=== PATIENT | female | born 1940 | race Caucasian/White ===

== ENCOUNTER 2016-03-22 | Outpatient (CLI) | payer MEDICARE, MEDICAID | END 2016-03-22 08:09 | disposition critical access hospital (66) | CPT/HCPCS: A0425; A0429 ==

== ENCOUNTER 2016-03-22 08:26 | Inpatient (IN) | payer MEDICARE, MEDICAID ==
[2016-03-22] MEDS ORDERED: IOPAMIDOL-300 100 ML VIAL IVP ONE (11:24)
[2016-03-22] MEDS ORDERED: ONDANSETRON 4 MG/2 ML VIAL IVP PRN (14:25)
[2016-03-22] MEDS ORDERED: ONDANSETRON ODT 4 MG TABLET TL PRN (14:25)
[2016-03-22] MEDS ORDERED: HYDROmorphone 1 MG/ML SYRINGE IVP PRN (14:25)
[2016-03-22] MEDS ORDERED: HYDROcod/ACETAM 5/325 MG TABLET PO PRN (14:25)
[2016-03-22] MEDS ORDERED: PROCHLORPERAZINE 10 MG/2 ML VIAL IVP PRN (14:25)
[2016-03-22] MEDS: metroNIDAZOLE 500 MG/100 ML 50 ML IV SCH ×2 (15:40→20:56)
[2016-03-22] MEDS: CIPROFLOXACIN 200 MG/100 ML 100 ML IV SCH (15:46)
[2016-03-22] MEDS: CARBIDOPA/LEVODOPA ER 50 MG/200 MG TABLET PO SCH (15:46)
[2016-03-22] MEDS: SODIUM CHLORIDE FLUSH 0.9% 10 ML SYRINGE IVP SCH (15:47)
[2016-03-22] MEDS: ACETAMINOPHEN 325 MG TABLET PO PRN (15:52)
[2016-03-22] MEDS: PANTOPRAZOLE 40 MG VIAL IVP SCH (15:53)
[2016-03-22] MEDS ORDERED: cloNIDine 0.1 MG PATCH TOP SCH (16:00)
[2016-03-22] MEDS ORDERED: MIRTAZAPINE 15 MG TABLET ONE (20:53)
[2016-03-22] MEDS: METOPROLOL TARTRATE 25 MG TABLET PO SCH (20:55)
[2016-03-22] MEDS: MIRTAZAPINE 15 MG TABLET PO SCH (20:56)
[2016-03-22] MEDS: LISINOPRIL 5 MG TABLET PO SCH (20:56)
[2016-03-23] MEDS: metroNIDAZOLE 500 MG/100 ML 50 ML IV SCH ×4 (02:08→21:11)
[2016-03-23] MEDS: SODIUM CHLORIDE FLUSH 0.9% 10 ML SYRINGE IVP PRN (02:10)
[2016-03-23] MEDS: CIPROFLOXACIN 200 MG/100 ML 100 ML IV SCH ×2 (04:05→16:49)
[2016-03-23] MEDS: SODIUM CHLORIDE FLUSH 0.9% 10 ML SYRINGE IVP SCH ×3 (06:11→21:12)
[2016-03-23] MEDS: PANTOPRAZOLE 40 MG VIAL IVP SCH (06:12)
[2016-03-23] MEDS: METOPROLOL TARTRATE 25 MG TABLET PO SCH ×2 (08:00→21:12)
[2016-03-23] MEDS: LISINOPRIL 5 MG TABLET PO SCH ×2 (08:03→21:12)
[2016-03-23] MEDS: CARBIDOPA/LEVODOPA ER 50 MG/200 MG TABLET PO SCH ×2 (08:03→15:38)
[2016-03-23] MEDS: POLYETHYLENE GLYCOL 3350 17 GM PACKET PO SCH (08:04)
[2016-03-23] MEDS: MIRTAZAPINE 15 MG TABLET PO SCH (21:11)
[2016-03-24] MEDS: metroNIDAZOLE 500 MG/100 ML 50 ML IV SCH ×2 (01:34→08:42)
[2016-03-24] MEDS: SODIUM CHLORIDE FLUSH 0.9% 10 ML SYRINGE IVP PRN ×2 (01:34→06:08)
[2016-03-24] MEDS: ACETAMINOPHEN 325 MG TABLET PO PRN ×2 (02:58→10:13)
[2016-03-24] MEDS: CIPROFLOXACIN 200 MG/100 ML 100 ML IV SCH (05:02)
[2016-03-24] MEDS: SODIUM CHLORIDE FLUSH 0.9% 10 ML SYRINGE IVP SCH ×2 (05:02→06:08)
[2016-03-24] MEDS: PANTOPRAZOLE 40 MG VIAL IVP SCH (06:07)
[2016-03-24] MEDS: CARBIDOPA/LEVODOPA ER 50 MG/200 MG TABLET PO SCH (08:41)
[2016-03-24] MEDS: LISINOPRIL 5 MG TABLET PO SCH (08:42)
[2016-03-24] MEDS: METOPROLOL TARTRATE 25 MG TABLET PO SCH (08:42)
[2016-03-24] MEDS: POLYETHYLENE GLYCOL 3350 17 GM PACKET PO SCH (08:42)
== END 2016-03-24 10:25 | disposition home or self-care (01) | DRG 379 ==
DX: K57.33 Diverticulitis of large intestine without perforation or abscess with bleeding (principal); G20 Parkinson's disease; I10 Essential (primary) hypertension; Z79.82 Long term (current) use of aspirin; Z79.899 Other long term (current) drug therapy; M19.90 Unspecified osteoarthritis, unspecified site; K21.9 Gastro-esophageal reflux disease without esophagitis; K59.00 Constipation, unspecified; Z86.73 Personal history of transient ischemic attack (TIA), and cerebral infarction without residual deficits

== ENCOUNTER 2016-10-09 14:10 | Outpatient (CLI) | payer MEDICARE, MEDICAID ==
[2016-10-09 19:15] LABS: EOSINOPHILS # (AUTO) 0.1 10^3/uL (0.0-0.7); MONOCYTES # (AUTO) 0.5 10^3/uL (0.0-1.0)
[2016-10-09 19:19] LABS: BASOPHILS % (AUTO) 0.6 %; EOSINOPHILS % (AUTO) 1.7 %; HCT - HEMATOCRIT 41.5 % (37.0-47.0); HGB - HEMOGLOBIN 14.1 g/dL (12.0-16.0); LYMPHOCYTES # (AUTO) 2.5 10^3/uL (1.5-3.5); LYMPHOCYTES % (AUTO) 34.2 %; MEAN CORPUSCULAR HEMOGLOBIN 33.7 pg (27.0-31.0); MEAN PLATELET VOLUME 8.3 fL (7.9-10.8); MONOCYTES % (AUTO) 6.8 %; NEUTROPHILS # (AUTO) 4.2 10^3/uL (1.5-6.6); NEUTROPHILS % (AUTO) 56.7 %; RED BLOOD COUNT 4.19 10^6/uL (4.20-5.40); RED CELL DISTRIBUTION WIDTH 12.9 % (12.0-15.0); UNCORRECTED WHITE BLOOD COUNT 7.4 x10^3/uL; WHITE BLOOD COUNT 7.4 x10^3/uL (4.8-10.8)
[2016-10-09 19:56] LABS: ALBUMIN/GLOBULIN RATIO 1.4 (1.0-2.2); BILIRUBIN,TOTAL 0.4 mg/dL (0.2-1.0); BUN - BLOOD UREA NITROGEN 9 mg/dL (6-20); CALCIUM 8.9 mg/dL (8.5-10.3); CARBON DIOXIDE - CO2 28 mmol/L (21-32); CHLORIDE 102 mmol/L (101-111); CHOL/HDL RATIO 2.6 (<4.4); CHOLESTEROL 160 mg/dL; CREATININE 0.7 mg/dL (0.4-1.0); GFR - MDRD 82 (>89); GLUCOSE 127 mg/dL (70-100); HDL CHOLESTEROL 62 mg/dL; POTASSIUM 3.7 mmol/L (3.5-5.0); SODIUM 138 mmol/L (135-145); TOTAL PROTEIN 7.1 g/dL (6.7-8.2); TRIGLYCERIDES 177 mg/dL; VLDL CHOLESTEROL 35 mg/dL
[2016-10-09 20:36] LABS: HEMOGLOBIN A1C 0.55 g/dL
== END 2016-10-09 14:11 ==
LOC: LAB.N 14:10
PROVIDERS: ATTEND Family Medicine
DX: Z51.81 Encounter for therapeutic drug level monitoring (principal)
CPT/HCPCS: 36415; 80053; 80061; 83036; 85025

== ENCOUNTER 2016-11-11 08:36 | Outpatient (CLI) | payer MEDICARE, MEDICAID | END 2016-11-11 08:37 | disposition critical access hospital (66) | LOC: EMS 08:36 | PROVIDERS: ATTEND Surgery | DX: R55 Syncope and collapse (principal) | CPT/HCPCS: A0425; A0429 ==

== ENCOUNTER 2016-11-11 08:54 | Emergency (ER) | payer MEDICARE, MEDICAID ==
[2016-11-11] MEDS ORDERED: SODIUM CHLORIDE 0.9% 1,000 ML IV ONE (09:05)
--- NOTE | 2016-11-11 09:09 | ED Physician Documentation ---
History of Present Illness - Stated complaint Stated Complaint: NEAR SYNCOPE - Chief complaint Chief Complaint: Neuro - History obtained from History obtained from: Patient - Additonal information Additional information: Patient is a 76-year-old female with a history of hypertension and arthritis. She presents with a complaint of a near syncopal episode. She woke up this morning feeling fine. The patient was bending over putting on her compression stockings which sometimes takes a good deal of force. While doing so patient felt dizzy. She denies any headache or chest pain or shortness of breath at that time. She thought perhaps her blood sugar is low and got up and ate 3 cookies and then had a feeling that she had to have a bowel movement and went to the bathroom. After defecating she felt lightheaded while sitting on the toilet and called for her . By the time the ambulance arrived the patient felt better although they noted that she was mildly diaphoretic. The patient's blood pressure, pulse and blood sugar all normal at the time of EMS arrival. She denies any chest pain, headache numbness tingling weakness or really any other symptom other than the onset of dizziness not really described as vertigo and mild nausea. Review of systems: For pertinent positive and negatives in the review of systems please see the history of present illness, otherwise all other systems have been reviewed and are negative. Dragalex disclaimer: Parts of this medical record were created using voice recognition technology. Because of the inherent limitations of this system, occasional same sounding word substitutions do occur and persist despite proofreading. Please read the document for context. Review of Systems Constitutional: denies: Fever, Chills, Myalgias Eyes: denies: Loss of vision Ears: denies: Loss of hearing Cardiac: denies: Chest pain / pressure, Palpitations Respiratory: denies: Dyspnea, Cough GI: reports: Nausea. denies: Abdominal Pain, Abdominal Swelling, Vomiting : denies: Dysuria, Frequency, Hesitancy, Unable to Void Skin: denies: Rash Musculoskeletal: denies: Neck pain Neurologic: reports: Near syncope. 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 - Present Medications Home Medications: Ambulatory Orders Medication Instructions Recorded Confirmed Carbidopa/Levodopa [Sinemet Cr 1 tab PO 0900,1500 08/05/12 11/11/16 50-200 Tablet] Lisinopril [Zestril] 5 mg PO BID 05/13/15 11/11/16 Mirtazapine [Remeron] 30 mg PO DAILY 05/13/15 11/11/16 Metoprolol Tartrate [Lopressor] 12.5 mg PO BID 06/07/15 11/11/16 Acetaminophen 500 mg PO DAILY 03/22/16 11/11/16 Aspirin [Aspirin EC] 81 mg PO DAILY 03/22/16 11/11/16 Omeprazole 20 mg ORAL DAILY 03/22/16 11/11/16 cloNIDine 0.1 MG PATCH 1 patch TOP Q7D 03/22/16 11/11/16 [[id number]] Acetaminophen [Tylenol] 325 mg PO QPM 03/23/16 11/11/16 Saccharomyces Boulardii [Florastor] 250 mg PO BID #20 capsule 03/24/16 11/11/16 - Allergies Allergies/Adverse Reactions: Allergies Allergy/AdvReac Type Severity Reaction Status Date / Time No Known Drug Allergies Allergy Verified 11/11/16 09:07 - Social History Does the pt smoke?: No Smoking Status: Never smoker Does the pt drink ETOH?: No Does the pt have substance abuse?: No - Immunizations Immunizations are current?: No - POLST Patient has POLST: No PD ED PE NORMAL - Vitals Vital signs reviewed: Yes - General General: Alert and oriented X 3, No acute distress, Well developed/nourished, Other (Well-appearing female no apparent distress she has a mild parkinsonian tremor) - HEENT HEENT: Atraumatic, PERRL - Neck Neck: Supple, no meningeal sign - Cardiac Cardiac: RRR, No murmur - Respiratory Respiratory: No respiratory distress - Abdomen Abdomen: Normal bowel sounds, Soft, Non tender, Non distended - Female Female : Deferred, Pt declined, Strapper And Buffer present, Other - Derm Derm: Normal color, Warm and dry - Extremities Extremities: No deformity, No tenderness to palpate, Normal ROM s pain, No edema - Neuro Neuro: Alert and oriented X 3, 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, No motor deficit, No sensory deficit - Psych Psych: Normal mood, Normal affect Results - Vitals Vitals: Vital Signs - 24 hr 11/11/16 11/11/16 11/11/16 09:01 09:13 09:30 Temperature 36.8 C Heart Rate 80 78 77 Respiratory 18 14 17 Rate Blood Pressure 135/77 H 135/77 H 138/77 H O2 Saturation 96 100 100 11/11/16 11/11/16 11/11/16 10:30 11:30 12:00 Temperature Heart Rate 78 83 89 Respiratory 15 16 15 Rate Blood Pressure 144/82 H 148/78 H 139/78 H O2 Saturation 100 99 99 11/11/16 11/11/16 11/11/16 12:30 13:04 14:04 Temperature Heart Rate 82 81 82 Respiratory 15 13 15 Rate Blood Pressure 160/72 H 186/92 H 161/94 H O2 Saturation 99 100 100 Oxygen O2 Source [With Activity] Room air O2 Source [Without Activity] Room air O2 Source Room air - Labs Labs: Laboratory Tests 11/11/16 11/11/16 11/11/16 09:10 09:10 10:32 WBC 12.8 H RBC 4.08 L Hgb 13.3 Hct 39.7 MCV 97.3 MCH 32.6 H MCHC 33.5 RDW 12.2 Plt Count 195 MPV 7.6 L Neut # 10.3 H Lymph # 1.4 L [place] # 0.9 Eos # 0.1 Baso # 0.1 Absolute Nucleated RBC 0.01 Nucleated RBCs 0.0 Sodium 138 Potassium 3.9 Chloride 104 Carbon Dioxide 26 Anion Gap 8.0 BUN 12 Creatinine 0.8 Estimated GFR (MDRD) 70 L Glucose 120 H Calcium 8.7 Total Bilirubin 0.5 AST 28 ALT 11 Alkaline Phosphatase 43 Troponin I < 0.04 Total Protein 6.6 L Albumin 3.8 Globulin 2.8 Albumin/Globulin Ratio 1.4 Lipase 25 Urine Color Urine Clarity Urine pH Ur Specific [place] Urine Protein Urine Glucose (UA) Urine Ketones Urine Occult Blood Urine Nitrite Urine Bilirubin Urine Urobilinogen Ur Leukocyte Esterase Ur Microscopic Review Urine Culture Comments 11/11/16 11:00 WBC RBC Hgb Hct MCV MCH MCHC RDW Plt Count MPV Neut # Lymph # [place] # Eos # Baso # Absolute Nucleated RBC Nucleated RBCs Sodium Potassium Chloride Carbon Dioxide Anion Gap BUN Creatinine Estimated GFR (MDRD) Glucose Calcium Total Bilirubin AST ALT Alkaline Phosphatase Troponin I Total Protein Albumin Globulin Albumin/Globulin Ratio Lipase Urine Color LT. YELLOW Urine Clarity CLEAR Urine pH 6.0 Ur Specific [place] <=1.005 Urine Protein NEGATIVE Urine Glucose (UA) NEGATIVE Urine Ketones NEGATIVE Urine Occult Blood NEGATIVE Urine Nitrite NEGATIVE Urine Bilirubin NEGATIVE Urine Urobilinogen 0.2 (NORMAL) Ur Leukocyte Esterase NEGATIVE Ur Microscopic Review NOT INDICATED Urine Culture Comments NOT INDICATED PD MEDICAL DECISION MAKING - ED course Complexity details: reviewed old records, reviewed results, re-evaluated patient , considered differential, d/w patient, d/w family ED course: Patient is 76-year-old female who had the feeling of dizziness with a near syncopal episode this morning. Her symptoms started when she is bending over putting on her hosiery. She felt dizzy and then got up and went to the bathroom and had a bowel movement and then felt a little worse. She stood up and called her who called EMS. By the time the ambulance arrived she felt better and had normal vital signs and blood sugar at that time. She denies the presence of any high risk symptoms such as chest pain or shortness of breath. She does not have any leg swelling and she had no neurologic complaints other than dizziness. She has had this problem off and on for many years and this happens infrequently to her. Overall she is healthy and she is low risk for cerebrovascular, cardiovascular and peripheral vascular disease. Here on physical examination she has a mild parkinsonian tremor otherwise is alert and oriented 3. She has a normal neurologic cardiac, pulmonary, and gastrointestinal exam. An EKG was done his EKG shows normal sinus rhythm with normal TX, QRS, QT interval without ST segment elevation depression or T-wave inversion overall to normal EKG. Blood work on this patient is also unremarkable. We obtained a urinalysis and it is negative for infection. She was given 1 L of normal saline and has been asymptomatic the entire time. She demonstrated that she could ambulate without any recurrent symptoms or difficulty and at this time she is deemed stable for discharge to home. The etiology of these events is unknown however they have been present for a long time and do not appear to be escalating or worsening. Disposition: To home Clinical impression: 1. Acute dizziness-resolved, etiology unclear Departure - Departure Disposition: Home, Self Care Clinical Impression: Dizziness Condition: Good Instructions: ED Dizziness UKO, ED Near Syncope Unkn Follow-Up: Janes Van MD [Primary Care Provider] - Discharge Date/Time: 11/11/16 14:13
[2016-11-11] MEDS ORDERED: SODIUM CHLORIDE FLUSH 0.9% 10 ML SYRINGE IVP ONE ×2 (09:12→09:32)
[2016-11-11 10:14] LABS: ALBUMIN/GLOBULIN RATIO 1.4 (1.0-2.2); BILIRUBIN,TOTAL 0.5 mg/dL (0.2-1.0); CALCIUM 8.7 mg/dL (8.5-10.3); CREATININE 0.8 mg/dL (0.4-1.0); POTASSIUM 3.9 mmol/L (3.5-5.0); TOTAL PROTEIN 6.6 g/dL (6.7-8.2)
[2016-11-11 10:36] LABS: BASOPHILS # (AUTO) 0.1 10^3/uL (0.0-0.1); BASOPHILS % (AUTO) 0.5 %; EOSINOPHILS # (AUTO) 0.1 10^3/uL (0.0-0.7); EOSINOPHILS % (AUTO) 0.8 %; HCT - HEMATOCRIT 39.7 % (37.0-47.0); HGB - HEMOGLOBIN 13.3 g/dL (12.0-16.0); LYMPHOCYTES # (AUTO) 1.4 10^3/uL (1.5-3.5); MEAN CORPUSCULAR HEMOGLOBIN 32.6 pg (27.0-31.0); MEAN CORPUSCULAR HGB CONC 33.5 g/dL (32.0-36.0); MEAN CORPUSCULAR VOLUME 97.3 fL (81.0-99.0); MEAN PLATELET VOLUME 7.6 fL (7.9-10.8); MONOCYTES # (AUTO) 0.9 10^3/uL (0.0-1.0); NEUTROPHILS # (AUTO) 10.3 10^3/uL (1.5-6.6); NEUTROPHILS % (AUTO) 80.7 %; RED BLOOD COUNT 4.08 10^6/uL (4.20-5.40); RED CELL DISTRIBUTION WIDTH 12.2 % (12.0-15.0); UNCORRECTED WHITE BLOOD COUNT 12.8 x10^3/uL; WHITE BLOOD COUNT 12.8 x10^3/uL (4.8-10.8)
[2016-11-11 11:15] LABS: BILIRUBIN,URINE NEGATIVE (NEGATIVE)
[2016-11-11 11:16] LABS: UA CHARGE (STRIP ONLY) YES; UR CULTURE IF IND NOT INDICATED
[2016-11-11 14:05] VITALS: BP 161/94
== END 2016-11-11 14:13 | disposition home or self-care (01) ==
LOC: EDUNIT# → ED 08:54
DX: R42 Dizziness and giddiness (principal); R94.31 Abnormal electrocardiogram [ECG] [EKG]; I10 Essential (primary) hypertension; Z86.73 Personal history of transient ischemic attack (TIA), and cerebral infarction without residual deficits; G20 Parkinson's disease
CPT/HCPCS: 36415; 80053; 81001; 81003; 83690; 84484; 85025; 87086; 93005; 96360; 99284; 99285

== ENCOUNTER 2016-12-17 16:06 | Outpatient (CLI) | payer MEDICARE, MEDICAID | END 2016-12-17 16:07 | disposition critical access hospital (66) | LOC: EMS 16:06 | PROVIDERS: ATTEND Surgery | DX: R00.2 Palpitations (principal); R51 Headache; R42 Dizziness and giddiness | CPT/HCPCS: A0425; A0427 ==

== ENCOUNTER 2016-12-17 16:26 | Emergency (ER) | payer MEDICARE, MEDICAID ==
--- NOTE | 2016-12-17 16:37 | ED Physician Documentation ---
PD HPI CHEST PAIN - Stated complaint Stated Complaint: PALPITATIONS - Chief complaint Chief Complaint: Cardiac - History obtained from History obtained from: Patient, EMS - History of Present Illness Timing - onset: How many days ago (last few days to a week has noted BP go up after eating (she feels some nausea and flush feeling, so takes her BP, and it is elevated). No chest pain. Does feel some pressure in head when it is elevated. She does feel her heart is forcefull with elevated BP but no chest pain.) Timing - onset during: Light activity, Eating Timing - duration: Days, Weeks Timing - details: Intermittant Quality: No: Pressure, Tightness Location: Substernal Improved by: Rest Worsened by: Eating Associated symptoms: Nausea, General Weakness, Palpitations (forceful heart beat but not fast nor irregular.). No: Shortness of air, Diaphoresis, Vomiting , Feeling faint / dizzy Similar symptoms before: Diagnosis (hypertension) Recently seen: Clinic (had had new BP med couple months ago and was doing okay for her.) Review of Systems Ten Systems: 10 systems reviewed and negative Constitutional: denies: Fever, Chills Nose: denies: Rhinorrhea / runny nose, Congestion Throat: denies: Sore throat Cardiac: reports: Palpitations. denies: Pedal edema, Calf pain Respiratory: denies: Dyspnea, Cough GI: reports: Nausea. 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 - Present Medications Home Medications: Ambulatory Orders Medication Instructions Recorded Confirmed Carbidopa/Levodopa [Sinemet Cr 1 tab PO 0900,1500 08/05/12 12/17/16 50-200 Tablet] Lisinopril [Zestril] 5 mg PO BID 05/13/15 12/17/16 Mirtazapine [Remeron] 30 mg PO DAILY 05/13/15 12/17/16 Metoprolol Tartrate [Lopressor] 25 mg PO BID 06/07/15 12/17/16 Acetaminophen 500 mg PO DAILY 03/22/16 12/17/16 Aspirin [Aspirin EC] 81 mg PO DAILY 03/22/16 12/17/16 Omeprazole 20 mg ORAL DAILY 03/22/16 12/17/16 cloNIDine 0.1 MG PATCH 1 patch TOP Q7D 03/22/16 12/17/16 [[id number]-1] Acetaminophen [Tylenol] 325 mg PO QPM 03/23/16 12/17/16 Famotidine [Pepcid] 20 mg PO ONCE #30 tablet 12/18/16 Metoprolol Tartrate [Lopressor] 25 mg PO BID #30 tablet 12/18/16 - Allergies Allergies/Adverse Reactions: Allergies Allergy/AdvReac Type Severity Reaction Status Date / Time No Known Drug Allergies Allergy Verified 12/17/16 16:34 - Social History Does the pt smoke?: No Smoking Status: Never smoker Does the pt drink ETOH?: No Does the pt have substance abuse?: No - Immunizations Immunizations are current?: No - POLST Patient has POLST: No PD ED PE NORMAL - Vitals Vital signs reviewed: Yes - General General: Alert and oriented X 3, No acute distress, Well developed/nourished, Other (seems moderately anxious. 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 No: Normal affect Results - Vitals Vitals: Oxygen O2 Source [With Activity] Room air O2 Source [Without Activity] Room air O2 Source Room air - Labs Labs: Laboratory Tests 12/17/16 12/17/16 12/17/16 16:42 16:42 16:42 WBC 5.9 RBC 4.25 Hgb 14.5 Hct 41.9 MCV 98.5 MCH 34.1 H MCHC 34.7 RDW 12.4 Plt Count 205 MPV 7.9 Neut # 3.5 Lymph # 1.7 [place] # 0.4 Eos # 0.2 Baso # 0.1 Absolute Nucleated RBC 0.01 Nucleated RBC % 0.1 Sodium 138 Potassium 3.7 Chloride 103 Carbon Dioxide 26 Anion Gap 9.0 BUN 11 Creatinine 0.7 Estimated GFR (MDRD) 82 L Glucose 147 H Calcium 8.6 Magnesium Total Bilirubin < 0.2 L AST 25 ALT < 10 L Alkaline Phosphatase 61 Troponin I < 0.04 Total Protein 7.3 Albumin 4.2 Globulin 3.1 Albumin/Globulin Ratio 1.4 Lipase 28 12/17/16 16:42 WBC RBC Hgb Hct MCV MCH MCHC RDW Plt Count MPV Neut # Lymph # [place] # Eos # Baso # Absolute Nucleated RBC Nucleated RBC % Sodium Potassium Chloride Carbon Dioxide Anion Gap BUN Creatinine Estimated GFR (MDRD) Glucose Calcium Magnesium 2.1 Total Bilirubin AST ALT Alkaline Phosphatase Troponin I Total Protein Albumin Globulin Albumin/Globulin Ratio Lipase PD MEDICAL DECISION MAKING - ED course Complexity details: reviewed results, considered differential (seems like reactive HTN and the BP comes down pretty well to 140s without particular treatment. Concern would be for going too low. Interesting timing with eating but also goes up with anxious feeling. Mostly I think she is taking her pressure too often and I told her to not check it so much. ), d/w patient Departure - Departure Disposition: 01 Home, Self Care Clinical Impression: Palpitations, Elevated blood pressure, situational Condition: Stable Record reviewed to determine appropriate education?: Yes Follow-Up: Janes Van MD [Primary Care Provider] - Comments: Continue current medications. Your blood pressure was elevated for a while but is better here without particular treatment. It is unclear the cause of the pounding heart rate you had earlier. Drink adequate fluids. Follow-up with your primary care if you have recurrent episodes for consideration of a Holter monitor or other testing. Discharge Date/Time: 12/17/16 19:26
[2016-12-17 17:01] LABS: BASOPHILS # (AUTO) 0.1 10^3/uL (0.0-0.1); BASOPHILS % (AUTO) 1.1 %; EOSINOPHILS # (AUTO) 0.2 10^3/uL (0.0-0.7); EOSINOPHILS % (AUTO) 2.7 %; HCT - HEMATOCRIT 41.9 % (37.0-47.0); HGB - HEMOGLOBIN 14.5 g/dL (12.0-16.0); LYMPHOCYTES # (AUTO) 1.7 10^3/uL (1.5-3.5); LYMPHOCYTES % (AUTO) 29.3 %; MEAN CORPUSCULAR HEMOGLOBIN 34.1 pg (27.0-31.0); MEAN CORPUSCULAR HGB CONC 34.7 g/dL (32.0-36.0); MEAN CORPUSCULAR VOLUME 98.5 fL (81.0-99.0); MEAN PLATELET VOLUME 7.9 fL (7.9-10.8); MONOCYTES # (AUTO) 0.4 10^3/uL (0.0-1.0); MONOCYTES % (AUTO) 7.4 %; NEUTROPHILS # (AUTO) 3.5 10^3/uL (1.5-6.6); NEUTROPHILS % (AUTO) 59.5 %; NUCLEATED RED BLOOD CELLS AUTO 0.1 /100WBC; RED BLOOD COUNT 4.25 10^6/uL (4.20-5.40); RED CELL DISTRIBUTION WIDTH 12.4 % (12.0-15.0); UNCORRECTED WHITE BLOOD COUNT 5.9 x10^3/uL; WHITE BLOOD COUNT 5.9 x10^3/uL (4.8-10.8)
[2016-12-17 17:09] LABS: ALBUMIN/GLOBULIN RATIO 1.4 (1.0-2.2); BILIRUBIN,TOTAL < 0.2 mg/dL (0.2-1.0); BUN - BLOOD UREA NITROGEN 11 mg/dL (6-20); CALCIUM 8.6 mg/dL (8.5-10.3); CARBON DIOXIDE - CO2 26 mmol/L (21-32); CHLORIDE 103 mmol/L (101-111); CREATININE 0.7 mg/dL (0.4-1.0); GFR - MDRD 82 (>89); GLUCOSE 147 mg/dL (70-100); LIPASE 28 U/L (22-51); POTASSIUM 3.7 mmol/L (3.5-5.0); SODIUM 138 mmol/L (135-145); TOTAL PROTEIN 7.3 g/dL (6.7-8.2)
--- NOTE | 2016-12-17 18:18 | XRAY Preliminary Report ---
Exam: XR Chest 1 View IMPRESSION: Normal single view chest. [facility] SITE ID: [id number]
--- NOTE | 2016-12-17 18:20 | XRAY Report ---
EXAM: CHEST RADIOGRAPHY EXAM DATE: 12/17/2016 05:39 PM. CLINICAL HISTORY: Chest pain. COMPARISON: 07/31/2014. TECHNIQUE: 1 view. FINDINGS: Lungs/Pleura: No focal opacities evident. No pleural effusion. No pneumothorax. Mediastinum: Within exam limitations, the cardiomediastinal contour is normal. Other: None. IMPRESSION: Normal single view chest. [facility] Referring Provider Line: [phone] SITE ID: [id number]
[2016-12-17 19:15] VITALS: BP 164/85
== END 2016-12-17 19:26 | disposition home or self-care (01) ==
LOC: EDUNIT# → ED 16:26
DX: R00.2 Palpitations (principal); I10 Essential (primary) hypertension; G20 Parkinson's disease; K21.9 Gastro-esophageal reflux disease without esophagitis; M19.90 Unspecified osteoarthritis, unspecified site; Z86.73 Personal history of transient ischemic attack (TIA), and cerebral infarction without residual deficits; Z79.82 Long term (current) use of aspirin
CPT/HCPCS: 36415; 71010; 80053; 83690; 83735; 84484; 85025; 93005; 99283; 99284

== ENCOUNTER 2016-12-18 15:10 | Outpatient (CLI) | payer MEDICARE, MEDICAID | END 2016-12-18 15:11 | disposition critical access hospital (66) | LOC: EMS 15:10 | PROVIDERS: ATTEND Surgery | DX: R53.83 Other fatigue (principal); R03.0 Elevated blood-pressure reading, without diagnosis of hypertension | CPT/HCPCS: A0425; A0429 ==

== ENCOUNTER 2016-12-18 15:32 | Emergency (ER) | payer MEDICARE, MEDICAID ==
[2016-12-18 16:12] LABS: BILIRUBIN,URINE NEGATIVE (NEGATIVE)
[2016-12-18 16:13] LABS: UA CHARGE (STRIP ONLY) YES; UR CULTURE IF IND NOT INDICATED
--- NOTE | 2016-12-18 17:28 | ED Physician Documentation ---
PD HPI ALTERED MENTAL STATUS - Stated complaint Stated Complaint: WEAK - Chief complaint Chief Complaint: General - History obtained from History obtained from: Patient, Family - History of Present Illness Timing - onset: Today (feeling flushed and some pressure in head. No chest pain. Noted BP to be elevated again, worse after eating.) Timing - details: Gradual onset, Intermittant, Waxing and waning Quality / character: Other (feeling anxious). No: Less responsive, Unresponsive Associated symptoms: Dyspnea. No: Fever, Headache, General weakness Contributing factors: No: Recent med change, Recent illness Basline status: Alert and oriented X 3, Ambulatory Similar symptoms before: Diagnosis (high blood pressure) Recently seen: Emergency Dept (yesterday for similar and was concerned about BP elevated. She feels nausea and some flushing feeling, more after eating, then takes BP and it is elevated, and it goes higher as she keeps rechecking it. This gets her concerned.) Review of Systems Constitutional: denies: Fever Nose: denies: Rhinorrhea / runny nose, Congestion Throat: denies: Sore throat Cardiac: denies: Chest pain / pressure, Palpitations, Pedal edema, Calf pain Respiratory: denies: Cough, Wheezing GI: reports: Nausea (sometimes after eating). denies: Abdominal Pain Skin: denies: Rash, Lesions Neurologic: reports: Generalized weakness. 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 - Present Medications Home Medications: Ambulatory Orders Medication Instructions Recorded Confirmed Carbidopa/Levodopa [Sinemet Cr 1 tab PO 0900,1500 08/05/12 12/17/16 50-200 Tablet] Lisinopril [Zestril] 5 mg PO BID 05/13/15 12/17/16 Mirtazapine [Remeron] 30 mg PO DAILY 05/13/15 12/17/16 Metoprolol Tartrate [Lopressor] 25 mg PO BID 06/07/15 12/17/16 Acetaminophen 500 mg PO DAILY 03/22/16 12/17/16 Aspirin [Aspirin EC] 81 mg PO DAILY 03/22/16 12/17/16 Omeprazole 20 mg ORAL DAILY 03/22/16 12/17/16 cloNIDine 0.1 MG PATCH 1 patch TOP Q7D 03/22/16 12/17/16 [[id number]-4] Acetaminophen [Tylenol] 325 mg PO QPM 03/23/16 12/17/16 Famotidine [Pepcid] 20 mg PO ONCE #30 tablet 12/18/16 Metoprolol Tartrate [Lopressor] 25 mg PO BID #30 tablet 12/18/16 - Allergies Allergies/Adverse Reactions: Allergies Allergy/AdvReac Type Severity Reaction Status Date / Time No Known Drug Allergies Allergy Verified 12/17/16 16:34 - Social History Does the pt smoke?: No Smoking Status: Never smoker Does the pt drink ETOH?: No Does the pt have substance abuse?: No - Immunizations Immunizations are current?: No - POLST Patient has POLST: No PD ED PE NORMAL - Vitals Vital signs reviewed: Yes - General General: Alert and oriented X 3, Well developed/nourished, Other (anxious) - HEENT HEENT: Pharynx benign - Neck Neck: Supple, no meningeal sign, No adenopathy - Cardiac Cardiac: RRR, No murmur - Respiratory Respiratory: Clear bilaterally - Abdomen Abdomen: Soft, Non tender - Derm Derm: Normal color, Warm and dry - Extremities Extremities: No tenderness to palpate, Normal ROM s pain, No edema, No calf tenderness / cord - Neuro Neuro: Alert and oriented X 3, 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, No motor deficit, No sensory deficit, Normal speech Results - Vitals Vitals: Vital Signs - 24 hr 12/18/16 12/18/16 12/18/16 15:43 16:45 17:17 Temperature 36.9 C Heart Rate 83 64 90 Respiratory 18 16 Rate Blood Pressure 172/103 H 140/67 H 147/73 H O2 Saturation 98 99 98 12/18/16 12/18/16 12/18/16 18:50 18:55 19:02 Temperature Heart Rate 91 75 79 Respiratory Rate Blood Pressure 133/87 H 159/88 H 153/80 H O2 Saturation 99 Oxygen O2 Source [With Activity] Room air O2 Source [Without Activity] Room air O2 Source Room air - Labs Labs: Laboratory Tests 12/18/16 15:50 Urine Color LIGHT YELLOW Urine Clarity CLEAR Urine pH 7.0 Ur Specific [place] <=1.005 Urine Protein NEGATIVE Urine Glucose (UA) NEGATIVE Urine Ketones NEGATIVE Urine Occult Blood NEGATIVE Urine Nitrite NEGATIVE Urine Bilirubin NEGATIVE Urine Urobilinogen 0.2 (NORMAL) Ur Leukocyte Esterase NEGATIVE Ur Microscopic Review NOT INDICATED Urine Culture Comments NOT INDICATED PD MEDICAL DECISION MAKING - ED course Complexity details: reviewed old records (from yesterday), reviewed results, considered differential, d/w patient Departure - Departure Disposition: Home, Self Care Clinical Impression: Elevated blood pressure reading Condition: Stable Record reviewed to determine appropriate education?: Yes Follow-Up: Janes Van MD [Primary Care Provider] - Prescriptions: Famotidine [Pepcid] 20 mg PO ONCE #30 tablet Metoprolol Tartrate [Lopressor] 25 mg PO BID #30 tablet Comments: Increase your metoprolol from 25 mg in the morning to 50 mg in the morning and keep the nighttime dose at 25 mg. Other medications the same. Add famotidine twice daily for the first few days and then daily after that to better reduce the stomach acids. We will try this since you have noticed your feeling uncomfortable and blood pressure going up after eating. This may suggest some stomach irritation. Follow-up with the primary care clinic as scheduled on the . Return sooner if worse symptoms. Discharge Date/Time: 12/18/16 20:05
[2016-12-18] MEDS ORDERED: METOPROLOL 5 MG/5 ML VIAL IVP STA (18:00)
[2016-12-18] MEDS ORDERED: FAMOTIDINE 20 MG TABLET PO STA (18:01)
[2016-12-18] MEDS ORDERED: FAMOTIDINE 20 MG TABLET ONE (18:50)
[2016-12-18] MEDS ORDERED: METOPROLOL 5 MG/5 ML VIAL IVP ONE (18:50)
[2016-12-18 19:05] VITALS: BP 153/80
== END 2016-12-18 20:05 | disposition home or self-care (01) ==
LOC: EDUNIT# → ED 15:32
DX: I10 Essential (primary) hypertension (principal); G20 Parkinson's disease; Z86.73 Personal history of transient ischemic attack (TIA), and cerebral infarction without residual deficits; K21.9 Gastro-esophageal reflux disease without esophagitis; M19.90 Unspecified osteoarthritis, unspecified site; Z79.82 Long term (current) use of aspirin
CPT/HCPCS: 81003; 96374; 99283; A9270; 81001; 87086

== ENCOUNTER 2017-01-20 12:33 | Outpatient (CLI) | payer MEDICARE, MEDICAID ==
[2017-01-20] MEDS ORDERED: IOPAMIDOL-300 100 ML VIAL ONE (15:00)
== END 2017-01-20 12:34 | disposition critical access hospital (66) ==
LOC: EMS 12:33
PROVIDERS: ATTEND Surgery
DX: R11.0 Nausea (principal); R10.9 Unspecified abdominal pain
CPT/HCPCS: A0425; A0427; Q9967

== ENCOUNTER 2017-01-20 12:54 | Observation (INO) | payer MEDICARE, MEDICAID ==
[2017-01-20] MEDS ORDERED: SODIUM CHLORIDE 0.9% 1,000 ML IV ONE ×2 (13:20→16:05)
[2017-01-20] MEDS ORDERED: ONDANSETRON 4 MG/2 ML VIAL IVP STA ×3 (13:20→16:06)
[2017-01-20] MEDS ORDERED: ONDANSETRON 4 MG/2 ML VIAL ONE ×3 (13:26→16:35)
[2017-01-20 13:30] LABS: BASOPHILS # (AUTO) 0.1 10^3/uL (0.0-0.1); BASOPHILS % (AUTO) 0.8 %; EOSINOPHILS # (AUTO) 0.1 10^3/uL (0.0-0.7); HCT - HEMATOCRIT 45.6 % (37.0-47.0); HGB - HEMOGLOBIN 15.5 g/dL (12.0-16.0); LYMPHOCYTES # (AUTO) 0.8 10^3/uL (1.5-3.5); LYMPHOCYTES % (AUTO) 5.8 %; MEAN CORPUSCULAR HEMOGLOBIN 32.8 pg (27.0-31.0); MEAN CORPUSCULAR VOLUME 96.6 fL (81.0-99.0); MEAN PLATELET VOLUME 7.6 fL (7.9-10.8); MONOCYTES # (AUTO) 0.4 10^3/uL (0.0-1.0); NEUTROPHILS # (AUTO) 11.8 10^3/uL (1.5-6.6); NEUTROPHILS % (AUTO) 89.4 %; RED BLOOD COUNT 4.72 10^6/uL (4.20-5.40); RED CELL DISTRIBUTION WIDTH 12.6 % (12.0-15.0); UNCORRECTED WHITE BLOOD COUNT 13.3 x10^3/uL; WHITE BLOOD COUNT 13.3 x10^3/uL (4.8-10.8)
[2017-01-20 13:43] LABS: ALBUMIN/GLOBULIN RATIO 0.6 (1.0-2.2); BILIRUBIN,TOTAL 0.6 mg/dL (0.2-1.0); CALCIUM 8.5 mg/dL (8.5-10.3); CREATININE 0.7 mg/dL (0.4-1.0); POTASSIUM 3.9 mmol/L (3.5-5.0); TOTAL PROTEIN 7.3 g/dL (6.7-8.2)
--- NOTE | 2017-01-20 14:33 | ED Physician Documentation ---
PD HPI ABD PAIN - Stated complaint Stated Complaint: ABD PX - Chief complaint Chief Complaint: Abd Pain - History obtained from History obtained from: Patient - History of Present Illness Timing - onset: How many hours ago (3-4), Today Timing - duration: Hours Timing - details: Abrupt onset, Still present Quality: Cramping, Aching, Pain Location: RLQ Radiation: Right flank Improved by: Laying still. No: Eating, Position Worsened by: Eating (made her more nauseated), Moving, Palpation. No: Breathing Associated symptoms: Nausea, Vomiting, Diarrhea (had 2 loose stools soon after onset of the pain, but not since. 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 No: Fever, Hematemesis, Constipation, Melena, Near syncope / syncope Similar symptoms before: Has not had sx before Recently seen: Not recently seen Review of Systems Constitutional: denies: Fever, Chills Nose: denies: Rhinorrhea / runny nose, Congestion Throat: denies: Sore throat Cardiac: denies: Chest pain / pressure, Palpitations Respiratory: denies: Dyspnea, Cough GI: reports: Abdominal Pain, Nausea, Vomiting, Diarrhea. denies: Bloody / black stool : denies: Dysuria, Frequency Skin: denies: Rash, Lesions Musculoskeletal: denies: Neck pain, Back pain Neurologic: reports: Generalized weakness. 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 - Present Medications Home Medications: Ambulatory Orders Medication Instructions Recorded Confirmed Carbidopa/Levodopa [Sinemet Cr 1 tab PO 0900,1500 08/05/12 01/20/17 50-200 Tablet] Lisinopril [Zestril] 5 mg PO BID 05/13/15 01/20/17 Mirtazapine [Remeron] 30 mg PO DAILY 05/13/15 01/20/17 Acetaminophen 500 mg PO DAILY 03/22/16 01/20/17 Aspirin [Aspirin EC] 81 mg PO DAILY 03/22/16 01/20/17 Omeprazole 20 mg ORAL DAILY 03/22/16 01/20/17 Acetaminophen [Tylenol] 325 mg PO QPM 03/23/16 01/20/17 Metoprolol Tartrate [Lopressor] 25 mg PO BID #30 tablet 12/18/16 01/20/17 - Allergies Allergies/Adverse Reactions: Allergies Allergy/AdvReac Type Severity Reaction Status Date / Time No Known Drug Allergies Allergy Verified 12/17/16 16:34 - Social History Does the pt smoke?: No Smoking Status: Never smoker Does the pt drink ETOH?: No Does the pt have substance abuse?: No - Family History Family history: reports: Non contributory - Immunizations Immunizations are current?: No - POLST Patient has POLST: No PD ED PE NORMAL - Vitals Vital signs reviewed: Yes - General General: Alert and oriented X 3, Well developed/nourished - HEENT HEENT: Atraumatic, PERRL, Pharynx benign - Neck Neck: Supple, no meningeal sign, No adenopathy - Cardiac Cardiac: RRR, No murmur - Respiratory Respiratory: Clear bilaterally - Abdomen Abdomen: Non distended, No organomegaly, Other (tender RLQ with some guarding, but not percussion tenderness. ) - Female Female : Deferred - Rectal Rectal: Deferred - Back Back: No CVA TTP - Derm Derm: Normal color, Warm and dry - Extremities Extremities: No tenderness to palpate, Normal ROM s pain, No edema, No calf tenderness / cord - Neuro Neuro: Alert and oriented X 3, No motor deficit, Normal speech Eye Opening: Spontaneous Motor: Obeys Commands Verbal: Oriented GCS Score: 15 Results - Vitals Vitals: Vital Signs - 24 hr 01/20/17 01/20/17 01/20/17 12:59 14:35 15:30 Temperature 36.8 C Heart Rate 100 94 97 Respiratory 14 17 Rate Blood Pressure 154/92 H 158/84 H 158/87 H O2 Saturation 98 100 98 Oxygen O2 Source [With Activity] Room air O2 Source [Without Activity] Room air O2 Source Room air - Labs Labs: Laboratory Tests 01/20/17 01/20/17 01/20/17 13:25 13:25 13:25 WBC 13.3 H RBC 4.72 Hgb 15.5 Hct 45.6 MCV 96.6 MCH 32.8 H MCHC 34.0 RDW 12.6 Plt Count 211 MPV 7.6 L Neut # 11.8 H Lymph # 0.8 L Spink # 0.4 Eos # 0.1 Baso # 0.1 Absolute Nucleated RBC 0.00 Nucleated RBC % 0.0 Sodium 136 Potassium 3.9 Chloride 102 Carbon Dioxide 24 Anion Gap 10.0 BUN 13 Creatinine 0.7 Estimated GFR (MDRD) 82 L Glucose 130 H Calcium 8.5 Total Bilirubin 0.6 AST 27 ALT 21 Alkaline Phosphatase 47 Troponin I < 0.04 Total Protein 7.3 Albumin 2.6 L Globulin 4.7 H Albumin/Globulin Ratio 0.6 L Lipase 25 Urine Color Urine Clarity Urine pH Ur Specific [place] Urine Protein Urine Glucose (UA) Urine Ketones Urine Occult Blood Urine Nitrite Urine Bilirubin Urine Urobilinogen Ur Leukocyte Esterase Ur Microscopic Review Urine Culture Comments 01/20/17 15:47 WBC RBC Hgb Hct MCV MCH MCHC RDW Plt Count MPV Neut # Lymph # Spink # Eos # Baso # Absolute Nucleated RBC Nucleated RBC % Sodium Potassium Chloride Carbon Dioxide Anion Gap BUN Creatinine Estimated GFR (MDRD) Glucose Calcium Total Bilirubin AST ALT Alkaline Phosphatase Troponin I Total Protein Albumin Globulin Albumin/Globulin Ratio Lipase Urine Color YELLOW Urine Clarity CLEAR Urine pH 6.5 Ur Specific [place] <=1.005 Urine Protein NEGATIVE Urine Glucose (UA) NEGATIVE Urine Ketones TRACE Urine Occult Blood NEGATIVE Urine Nitrite NEGATIVE Urine Bilirubin NEGATIVE Urine Urobilinogen 0.2 (NORMAL) Ur Leukocyte Esterase NEGATIVE Ur Microscopic Review NOT INDICATED Urine Culture Comments NOT INDICATED PD MEDICAL DECISION MAKING - ED course Complexity details: reviewed results (no surgical conditions on CT. ), re- evaluated patient (Still having considerable abd pains, now roaming more and not just RLQ. Nausea returning despite meds, but did improve enough to take her usual Parkinsons meds PO. Will place her in OBS for persistent pain/nausea, presume enteritis. ), considered differential (Concern for appendicitis versus kidney stone versus right-sided diverticular pain or other processes. She was given IV fluids and medicines for pain and nausea. CT scan was done which did not show any obvious acute surgical process. Presume viral enteritis. However it is concerning for her to have pain and vomiting and the symptoms have persisted despite medications. I talked with the hospitalist who agreed to place her in observation for ongoing treatment.), d/w patient Departure - Departure Disposition: ED Place in Observation Clinical Impression: Nausea and vomiting Qualifiers: Vomiting type: unspecified Vomiting Intractability: intractable Qualified Code( s): R11.2 - Nausea with vomiting, unspecified Abdominal pain Qualifiers: Abdominal location: generalized Qualified Code(s): R10.84 - Generalized abdominal pain Clinical Impression: (Ruled Out): Appendicitis Condition: Stable Record reviewed to determine appropriate education?: Yes Discharge Date/Time: 01/20/17 17:20
[2017-01-20] MEDS ORDERED: HYDROmorphone 1 MG/ML SYRINGE IVP STA ×2 (14:50→16:04)
[2017-01-20] MEDS ORDERED: KETOROLAC 60 MG/2 ML VIAL IVP STA (14:50)
[2017-01-20] MEDS ORDERED: IOPAMIDOL-300 100 ML VIAL IVP ONE (15:22)
[2017-01-20] MEDS ORDERED: HYDROmorphone 1 MG/ML SYRINGE ONE ×2 (15:28→16:35)
[2017-01-20] MEDS ORDERED: KETOROLAC 15 MG/ML VIAL ONE (15:29)
--- NOTE | 2017-01-20 15:49 | CT Report ---
EXAM: CT ABDOMEN AND PELVIS EXAM DATE: 01/20/2017 03:23 PM. CLINICAL HISTORY: RLQ pain since this morning. COMPARISONS: 03/22/2016. TECHNIQUE: Routine helical CT imaging was performed through the abdomen and pelvis. IV contrast: 100M L OF ISOVUE 300. Enteric contrast: No. Reconstructions: Coronal and sagittal. In accordance with CT protocol optimization, one or more of the following dose reduction techniques w ere utilized for this exam: automated exposure control, adjustment of mA and/or KV based on patient s ize, or use of iterative reconstructive technique. FINDINGS: Lung Bases: Unremarkable. Liver: No change. Peripheral low-density liver lesion in the right lobe measuring 1 cm in diameter is unchanged. Liver size is normal. Liver vessels are patent. Gallbladder/Bile Ducts: Gallbladder is surgically absent. Spleen: Normal. Pancreas: Normal. Adrenal Glands: Normal. Kidneys: There are parapelvic cysts in the left kidney without change. No renal mass or hydronephrosi s. Peritoneal Cavity/Bowel: There are a moderate number of diverticula within the sigmoid colon without focal mesenteric inflammation identified. No pneumatosis or free air. The cecum is ectopic and locate d in the right mid abdomen. The wall of the colon appears normal in thickness. No evidence of acute a ppendicitis. Pelvic Organs: Normal. The bladder and visualized pelvic organs are within normal limits. Vasculature: Abdominal aorta is normal in caliber. Bones: No significant abnormality. Other: None. IMPRESSION: 1. Moderate colonic diverticulosis without acute diverticulitis. 2. Ectopic cecum without evidence of bowel obstruction or acute appendicitis. 3. No other acute process. [facility] Referring Provider Line: [phone] SITE ID: [id number]
[2017-01-20 15:54] LABS: BILIRUBIN,URINE NEGATIVE (NEGATIVE); PH,URINE 6.5 PH (5.0-7.5)
[2017-01-20 15:57] LABS: UA CHARGE (STRIP ONLY) YES; UR CULTURE IF IND NOT INDICATED
[2017-01-20] MEDS ORDERED: ACETAMINOPHEN 325 MG TABLET PO PRN (16:44)
[2017-01-20] MEDS ORDERED: SODIUM CHLORIDE FLUSH 0.9% 10 ML SYRINGE IVP PRN (16:44)
[2017-01-20] MEDS ORDERED: ONDANSETRON 4 MG/2 ML VIAL IVP PRN (16:44)
[2017-01-20] MEDS ORDERED: DEXTROSE 5%-0.45% NACL 1,000 ML IV SCH (17:00)
[2017-01-20] MEDS: PANTOPRAZOLE 40 MG VIAL IVP SCH (18:07)
--- NOTE | 2017-01-20 18:19 | HISTORY & PHYSICAL EXAMINATION ---
Chief Complaint - Chief Complaint Chief Complaint: N/V, abdominal pain History of Present Illness - Admitted From Admitted From:: ED - History Obtained From Records Reviewed: yes History obtained from: Patient, 2 sons, ED notes. Exam Limitations: pain, focal deficits. - History of Present Illness HPI Comment/Other: Zamzam Bernal is 76 year old female with a past medical history significant for Parkinson's disease, HTN, tremors, GERD, osteoarthritis, cholecystectomy, tubal ligation and Raynauds syndrome. She was feeling her usual self the full day prior to admission, woke up the next morning as usual and ate breakfast. About a half hour later she had acute onset nausea and vomiting with 2 bouts of loose stools and no stools since. She was brought to the ED by 2 sons with severe abdominal pain in her right abdominal quadrants that migrated to right flank. Nausea with vomiting returned despite meds, but did improve enough to take her usual Parkinsons meds PO. Additional considered differential diagnoses include; concern for appendicitis versus kidney stone versus right-sided diverticular pain. She was given IV fluids and medications for pain and nausea. CT scan was done which did not show any obvious acute surgical process. Presume viral enteritis. However it is concerning for her to have pain and vomiting and the symptoms have persisted despite medications. Will admit her to OBS for persistent pain/nausea, presume enteritis. 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 - Family & Social History Family History: Mother: , Father: , COPD/Emphysema, Sister: Alive and Well, Brother: , [place] Living arrangement: At home Living Situation: With spouse/s.o., With caregiver(s) (Not live-in) - Substance History Use: Uses substance without health or social issues: NONE Abuse: Recurrent use of substance despite neg consequences: NONE Dependence: Experiences withdrawal or developed tolerances: NONE - POLST Patient has POLST: No POLST Status: DNR Meds/Allgy - Home Medications Home Medications: Ambulatory Orders Medication Instructions Recorded Confirmed Carbidopa/Levodopa [Sinemet Cr 1 tab PO 0900,1500 08/05/12 01/20/17 50-200 Tablet] Lisinopril [Zestril] 5 mg PO BID 05/13/15 01/20/17 Mirtazapine [Remeron] 30 mg PO QPM 05/13/15 01/21/17 Acetaminophen 500 mg PO DAILY 03/22/16 01/20/17 Aspirin [Aspirin EC] 81 mg PO DAILY 03/22/16 01/20/17 Omeprazole 20 mg PO QDAC 03/22/16 01/21/17 Acetaminophen [Tylenol] 325 mg PO QPM 03/23/16 01/20/17 Metoprolol Tartrate [Lopressor] 25 mg PO BID #30 tablet 12/18/16 01/20/17 Polyethylene Glycol 3350 17 gm PO DAILY PRN 01/21/17 01/21/17 Polyethylene Glycol 3350 [Miralax] 17 gm PO DAILY packet 01/21/17 Psyllium [Metamucil] 1 packet PO DAILY PRN #30 packet 01/21/17 raNITIdine [Zantac] 150 mg PO BID #30 tablet 01/21/17 - Allergies Allergies/Adverse Reactions: Allergies Allergy/AdvReac Type Severity Reaction Status Date / Time No Known Drug Allergies Allergy Verified 12/17/16 16:34 Review of Systems - Constitutional Constitutional: reports: Weakness, Poor appetite - Eyes Eyes: reports: Corrective lenses - Ears, Nose & Throat Ears, Nose & Throat: reports: Dental decay - Gastrointestinal Gastrointestinal: reports: Abdominal distention, Diarrhea (2xs this AM, but none since.), Change in bowel habits, Nausea, Vomiting, Reflux/heartburn, Bloating, Poor appetite - Musculoskeletal Musculoskeletal: reports: Stiffness, Limited range of motion, Muscle weakness ( related to Parkinson's), Joint pain (related to OA) - Integumentary Integumentary: reports: Other (discoloration right low extremity-toes. Not new. ) - Neurological Neurological: reports: General weakness, Headache, Memory problems, Pre- existing deficit (Parkinson's), Incoordination Exam - Vital Signs Reviewed Vital Signs: Yes Vital Signs: Vital Signs x48h Temp Pulse Pulse Resp BP BP Pulse Ox 01/20/17 17:31 36.9 C 93 18 144/77 H 99 01/20/17 17:09 90 15 129/76 100 - Physical Exam General Appearance: positive: No acute distress, Alert, Moderate distress Eyes Bilateral: positive: Normal inspection, PERRL ENT: positive: ENT inspection nml, Pharynx nml, Dry mucous membranes, Other ( poor dentitian) Neck: positive: Nml inspection, Thyroid nml, No JVD Respiratory: positive: Chest non-tender, No respiratory distress, Breath sounds nml Cardiovascular: positive: Regular rate & rhythm, No gallop, Systolic murmur Peripheral Pulses: positive: 2+ Abdomen: positive: Tenderness, Guarding, Rebound, Abnml bowel sounds Back: positive: Nml inspection Skin: positive: Color nml, No rash, Warm, Dry Extremities: positive: Non-tender, Full ROM, Nml appearance, No pedal edema Neurologic/Psychiatric: positive: Oriented x3, Sensation nml, Weakness, Sensory loss, Slurred/abnml speech (related to underlying Parkinson's) Conclusion/Plan - Lab Results Lab results reviewed: Yes Fish Bones: 01/21/17 05:44 01/21/17 05:44 - Diagnostic Imaging Results Diagnostic Imaging Results: positive: Prelim report reviewed Diagnostic Imaging Results Comments: Abdominal CT: IMPRESSION: 1. Moderate colonic diverticulosis without acute diverticulitis. 2. Ectopic cecum without evidence of bowel obstruction or acute appendicitis. 3. No other acute process. - EKG Results EKG Interpreted Independently: Yes Issues/Core Measures - Anticipated LOS Anticipated Stay Length: Less than 2 midnights - Issues Hospital Issues and Management Plan: Unspecified abdominal pain (R10.9)- This pain began in the right upper and lower abdominal quadrants, then migrated up to the mid epi-gastric region. This was resolved by the time of discharge and can be linked to the imaging obtained via CT abdomen which showed right upper quadrant diverticulosis. Plan: Pain control using IV pain medications and tylenol. Nausea with vomiting, unspecified (R11.2)- Patient noted her nausea at home and was the precipitating factor for admission. Plan: Her last episode was last night and can have antiemetics for further complaints. Parkinson's disease (G20)- Patient has a history of this and tremors are seen resting with "pill rolling". Plan: Continue carvidopa-levodopa as prescribed on a timed schedule. Essential (primary) hypertension (I10) Patient states that she and her monitor their blood pressures at home and if she is low she eats cookies. Plan: Continue antihypertensives as prescribed and monitor vital signs. Gastro-esophageal reflux disease without esophagitis (K21.9) - Patient has been prescribed a PPI and patient has not complained of heartburn. Plan: Change PPI to [id number] due to less SE noted with H2 Justin. Unspecified osteoarthritis, unspecified site (M19.90) -Patient complains of ongoing joint pain. Plan: Continue home care and encourage movement and water aerobics. Constipation: Patient admits to having constipation for several years that has become worse. She was prescribed Miralax. Plan: Continue Miralax with Metamucil in the AM. - DVT/VTE - Prophylaxis VTE/DVT Device ordered at admit?: Yes VTE/DVT Prophylaxis med ordered at admit?: Yes - Stroke - Rehab Assessment Rehab services assessment to be ordered?: No Not Ordered - Medical Reason: Contraindicated - AMI - Statin at Admit Aspirin Prescribed on Admit: No Not Ordered - Medical Reason: Contraindicated
[2017-01-20] MEDS ORDERED: PROCHLORPERAZINE 25 MG SUPP PR PRN (19:28)
[2017-01-20] MEDS ORDERED: PROCHLORPERAZINE 10 MG/2 ML VIAL IVP PRN (19:28)
[2017-01-20] MEDS: SODIUM CHLORIDE FLUSH 0.9% 10 ML SYRINGE IVP SCH (19:54)
[2017-01-20] MEDS ORDERED: LISINOPRIL 5 MG TABLET PO SCH (21:00)
[2017-01-20] MEDS ORDERED: METOPROLOL TARTRATE 25 MG TABLET PO SCH (21:00)
[2017-01-20] MEDS: ENOXAPARIN 40 MG/0.4 ML SYRINGE SUBQ SCH (21:30)
[2017-01-20] MEDS: METOPROLOL TARTRATE 25 MG TABLET PO SCH (21:31)
[2017-01-20] MEDS: DEXTROSE 5%-0.45% NACL 1,000 ML IV SCH (21:33)
[2017-01-21] MEDS: DEXTROSE 5%-0.45% NACL 1,000 ML IV SCH (03:31)
[2017-01-21] MEDS: SODIUM CHLORIDE FLUSH 0.9% 10 ML SYRINGE IVP SCH (05:55)
[2017-01-21 05:59] LABS: BASOPHILS % (AUTO) 0.4 %; EOSINOPHILS % (AUTO) 0.7 %; HCT - HEMATOCRIT 37.6 % (37.0-47.0); HGB - HEMOGLOBIN 12.8 g/dL (12.0-16.0); LYMPHOCYTES # (AUTO) 0.9 10^3/uL (1.5-3.5); LYMPHOCYTES % (AUTO) 13.7 %; MEAN CORPUSCULAR HEMOGLOBIN 33.2 pg (27.0-31.0); MEAN CORPUSCULAR HGB CONC 33.9 g/dL (32.0-36.0); MEAN CORPUSCULAR VOLUME 97.9 fL (81.0-99.0); MEAN PLATELET VOLUME 7.6 fL (7.9-10.8); MONOCYTES # (AUTO) 0.4 10^3/uL (0.0-1.0); MONOCYTES % (AUTO) 6.5 %; NEUTROPHILS # (AUTO) 5.3 10^3/uL (1.5-6.6); NEUTROPHILS % (AUTO) 78.7 %; RED BLOOD COUNT 3.84 10^6/uL (4.20-5.40); RED CELL DISTRIBUTION WIDTH 12.7 % (12.0-15.0); UNCORRECTED WHITE BLOOD COUNT 6.8 x10^3/uL; WHITE BLOOD COUNT 6.8 x10^3/uL (4.8-10.8)
[2017-01-21 06:05] LABS: ALBUMIN/GLOBULIN RATIO 1.2 (1.0-2.2); BILIRUBIN,TOTAL 0.7 mg/dL (0.2-1.0); CALCIUM 7.7 mg/dL (8.5-10.3); CREATININE 0.6 mg/dL (0.4-1.0); MAGNESIUM 1.7 mg/dL (1.7-2.8); POTASSIUM 3.5 mmol/L (3.5-5.0); TOTAL PROTEIN 5.4 g/dL (6.7-8.2)
[2017-01-21] MEDS: PANTOPRAZOLE 40 MG VIAL IVP SCH (06:29)
[2017-01-21] MEDS: METOPROLOL TARTRATE 25 MG TABLET PO SCH (08:27)
[2017-01-21] MEDS: ENOXAPARIN 40 MG/0.4 ML SYRINGE SUBQ SCH (08:31)
[2017-01-21] MEDS ORDERED: POLYETHYLENE GLYCOL 3350 17 GM PACKET PO SCH (09:00)
[2017-01-21] MEDS ORDERED: MIRTAZAPINE 15 MG TABLET PO SCH (09:00)
[2017-01-21] MEDS ORDERED: CARBIDOPA/LEVODOPA ER 50 MG/200 MG TABLET PO SCH (09:00)
--- NOTE | 2017-01-21 11:57 | DISCHARGE SUMMARY ---
Discharge Summary Admit Date: 01/20/17 Discharge Date: 01/21/17 Discharging Provider: MARGARITA Tay Primary Care Provider: Janes Van Code Status: Attempt Resuscitation Condition at Discharge: Good Discharge Disposition: 01 Home, Self Care - DIAGNOSES Admission Diagnoses: Unspecified abdominal pain (R10.9) Nausea with vomiting, unspecified (R11.2) Parkinson's disease (G20) Essential (primary) hypertension (I10) Gastro-esophageal reflux disease without esophagitis (K21.9) Unspecified osteoarthritis, unspecified site (M19.90) Constipation Discharge Diagnoses with Status of Each Condition: Diverticulosis: This was confirmed by imaging as a thickening in bowel wall in RUQ. Plan: Prevent episodes of constipation as decreased motility is a risk factor for further complications. Unspecified abdominal pain (R10.9)- This pain began in the right upper and lower abdominal quadrants, then migrated up to the mid epi-gastric region. This was resolved by the time of discharge and can be linked to the imaging obtained via CT abdomen which showed right upper quadrant diverticulosis. Plan: Pain control using IV pain medications and tylenol. Nausea with vomiting, unspecified (R11.2)- Patient noted her nausea at home and was the precipitating factor for admission. Plan: Her last episode was last night and can have antiemetics for further complaints. Parkinson's disease (G20)- Patient has a history of this and tremors are seen resting with "pill rolling". Plan: Continue carvidopa-levodopa as prescribed on a timed schedule. Essential (primary) hypertension (I10) Patient states that she and her monitor their blood pressures at home and if she is low she eats cookies. Plan: Continue antihypertensives as prescribed and monitor vital signs. Gastro-esophageal reflux disease without esophagitis (K21.9) - Patient has been prescribed a PPI and patient has not complained of heartburn. Plan: Change PPI to [id number] due to less SE noted with H2 Justin. Unspecified osteoarthritis, unspecified site (M19.90) -Patient complains of ongoing joint pain. Plan: Continue home care and encourage movement and water aerobics. Constipation: Patient admits to having constipation for several years that has become worse. She was prescribed Miralax. Plan: Continue Miralax with Metamucil in the AM. - HPI History of Present Illness: Zamzam Bernal is 76 year old female with a past medical history significant for Parkinson's disease, HTN, tremors, GERD, osteoarthritis, cholecystectomy, tubal ligation and Raynauds syndrome. She was feeling her usual self the full day prior to admission, woke up the next morning as usual and ate breakfast. About a half hour later she had acute onset nausea and vomiting with 2 bouts of loose stools and no stools since. She was brought to the ED by 2 sons with severe abdominal pain in her right abdominal quadrants that migrated to right flank. Nausea with vomiting returned despite meds, but did improve enough to take her usual Parkinsons meds PO. Additional considered differential diagnoses include; concern for appendicitis versus kidney stone versus right-sided diverticular pain. She was given IV fluids and medications for pain and nausea. CT scan was done which did not show any obvious acute surgical process. Presume viral enteritis. However it is concerning for her to have pain and vomiting and the symptoms have persisted despite medications. Will admit her to OBS for persistent pain/nausea, presume enteritis. - HOSPITAL COURSE Hospital Course: Patient was admitted to observation on telemetry and IVFs. She admits to having a decent restful night with only one event later in the night of nausea and vomiting. By the next morning her pain had gradually resolved. Due to the chronic and progressive nature of Parkinson's disease, decreased bowel motility may be the likely cause of her acute onset N/V/D. Patient was counseled on how to best prevent this from occurring again thereby preventing constipation and changing PPI to [id number]. She moved her bowels shortly before discharge. She was transported home via private car back home with her where they have caregivers several times per week for ADLs. - ALLERGIES Allergies/Adverse Reactions: Allergies Allergy/AdvReac Type Severity Reaction Status Date / Time No Known Drug Allergies Allergy Verified 12/17/16 16:34 - MEDICATIONS Home Medications: Ambulatory Orders Medication Instructions Recorded Confirmed Carbidopa/Levodopa [Sinemet Cr 1 tab PO 0900,1500 08/05/12 01/20/17 50-200 Tablet] Lisinopril [Zestril] 5 mg PO BID 05/13/15 01/20/17 Mirtazapine [Remeron] 30 mg PO QPM 05/13/15 01/21/17 Acetaminophen 500 mg PO DAILY 03/22/16 01/20/17 Aspirin [Aspirin EC] 81 mg PO DAILY 03/22/16 01/20/17 Omeprazole 20 mg PO QDAC 03/22/16 01/21/17 Acetaminophen [Tylenol] 325 mg PO QPM 03/23/16 01/20/17 Metoprolol Tartrate [Lopressor] 25 mg PO BID #30 tablet 12/18/16 01/20/17 Polyethylene Glycol 3350 17 gm PO DAILY PRN 01/21/17 01/21/17 Polyethylene Glycol 3350 [Miralax] 17 gm PO DAILY packet 01/21/17 Psyllium [Metamucil] 1 packet PO DAILY PRN #30 packet 01/21/17 raNITIdine [Zantac] 150 mg PO BID #30 tablet 01/21/17 - PHYSICAL EXAM AT DISCHARGE General Appearance: positive: No acute distress, Alert Eyes Bilateral: positive: Normal inspection, PERRL ENT: positive: ENT inspection nml, Pharynx nml, No signs of dehydration Neck: positive: Nml inspection, Thyroid nml, No JVD, Trachea midline Respiratory: positive: Chest non-tender, No respiratory distress, Breath sounds nml Cardiovascular: positive: Regular rate & rhythm, Systolic murmur Peripheral Pulses: positive: 2+ Abdomen: positive: Non-tender, No organomegaly, Nml bowel sounds, No distention Back: positive: Nml inspection Skin: positive: Color nml, No rash, Warm, Dry Extremities: positive: Non-tender, No pedal edema Neurologic/Psychiatric: positive: Oriented x3, Weakness, Slurred/abnml speech, Depressed mood/affect, Other (tremors) Reflexes: Bicep (R): 1+, Bicep (L): 1+ - LABS Result Diagrams: 01/21/17 05:44 01/21/17 05:44 - DIAGNOSTIC IMAGING Diagnostic Imaging Results: Final report reviewed - FOLLOW UP Follow Up: The CT scan of your abdomen only showed a small area of bowel that was thickened leading us to believe that you have diverticulosis. This is not worrisome, but may cause problems if your constipation or heart burn is not controlled. Heartburn or GERD: Please stop omeprazole (prilosec) and replace with raniditine (zantac). We are finding long-term effects of PPIs do not out-weigh the risks involved. These are safe to use for a few months, not a few years! Chronic constipation: Add Metamucil (similar to a bale of hay!) to your morning routine and can be mixed with juice or water, usually comes in orange flavor and can be found in the grocery aisle. It is ok to continue the Miralax because of your chronic constipation. Blood pressure: When your blood pressure readings are low, remember your blood pressure changes with every beat of your heart, and you are a little tricky to get an accurate reading due to your tremors. The treatment for LOW blood pressures is more fluid. The treatment for high blood pressure is to re-check in 5-15 minutes. We would never change your medications unless you had 3 high blood pressures for 3 days in a row. Please make every effort to see your PCP in the next few days and next Sunday at the latest. It is ok to see another provider as well in the same office. I want them to recheck liver function tests because your AST level was elevated. I believe this was lab error because no other labs were abnormal. Also, I want your doctor to see how you are doing with the few changes that I have suggested. - TIME SPENT Time Spent in Discharge (Minutes): 60
[2017-01-21 12:54] VITALS: BP 143/77
[2017-01-21] MEDS ORDERED: POLYETHYLENE GLYCOL 3350 238 GM BOTTLE PO PRN (12:54)
[2017-01-21] MEDS ORDERED: PSYLLIUM PACKET PO PRN (12:59)
[2017-01-21] MEDS ORDERED: METOCLOPRAMIDE 10 MG TABLET PO SCH (13:00)
[2017-01-21] MEDS ORDERED: ACETAMINOPHEN 325 MG TABLET PO SCH (21:00)
[2017-01-22] MEDS ORDERED: ASPIRIN EC 81 MG TABLET PO SCH (09:00)
[2017-01-22] MEDS ORDERED: ACETAMINOPHEN 500 MG TABLET PO SCH (09:00)
== END 2017-01-21 14:15 | disposition home or self-care (01) ==
LOC: EDUNIT# → ED 12:54 → OBS 16:44
PROVIDERS: ADMIT Nurse Practitioner; ATTEND Nurse Practitioner
DX: K57.30 Diverticulosis of large intestine without perforation or abscess without bleeding (principal); R11.2 Nausea with vomiting, unspecified; G20 Parkinson's disease; I10 Essential (primary) hypertension; K21.9 Gastro-esophageal reflux disease without esophagitis; M19.90 Unspecified osteoarthritis, unspecified site; K59.00 Constipation, unspecified; I73.00 Raynaud's syndrome without gangrene; Z66 Do not resuscitate; Z79.82 Long term (current) use of aspirin; Z79.899 Other long term (current) drug therapy
CPT/HCPCS: 36415; 74177; 80053; 81003; 83605; 83690; 83735; 84484; 85025; 93005; 96361; 96372; 96374; 96375; 96376; 99284; 99285; A9270; G0378; J1170; J1650; Q9967; 81001; 87086; 99283

== ENCOUNTER 2017-05-30 08:00 | Outpatient (CLI) | payer MEDICARE, MEDICAID ==
[2017-05-30 19:27] LABS: ALBUMIN 4.2 g/dL (3.2-5.5); ALBUMIN/GLOBULIN RATIO 1.5 (1.0-2.2); ALKALINE PHOSPHATASE 46 IU/L (42-121); ALT ALANINE AMINOTRANSFERASE < 10 IU/L (10-60); AST ASPARTATE AMINOTRANSFERASE 25 IU/L (10-42); BILIRUBIN,TOTAL 0.4 mg/dL (0.2-1.0); BUN - BLOOD UREA NITROGEN 10 mg/dL (6-20); CALCIUM 9.3 mg/dL (8.5-10.3); CARBON DIOXIDE - CO2 27 mmol/L (21-32); CHLORIDE 104 mmol/L (101-111); CREATININE 0.7 mg/dL (0.4-1.0); GFR - MDRD 82 (>89); GLUCOSE 116 mg/dL (70-100); SODIUM 140 mmol/L (135-145)
== END 2017-05-30 08:01 | disposition home or self-care (01) ==
LOC: LAB.N 08:00
PROVIDERS: ATTEND Family Medicine
DX: I10 Essential (primary) hypertension (principal)
CPT/HCPCS: 36415; 80053

== ENCOUNTER 2018-01-02 08:29 | Outpatient (CLI) | payer MEDICARE, MEDICAID ==
[2018-01-02 13:45] LABS: BASOPHILS # (AUTO) 0.1 10^3/uL (0.0-0.1); BASOPHILS % (AUTO) 1.2 %; EOSINOPHILS # (AUTO) 0.2 10^3/uL (0.0-0.7); EOSINOPHILS % (AUTO) 4.4 %; HGB - HEMOGLOBIN 14.3 g/dL (12.0-16.0); LYMPHOCYTES # (AUTO) 1.7 10^3/uL (1.5-3.5); LYMPHOCYTES % (AUTO) 30.1 %; MEAN CORPUSCULAR HEMOGLOBIN 33.9 pg (27.0-31.0); MEAN CORPUSCULAR HGB CONC 34.3 g/dL (32.0-36.0); MEAN PLATELET VOLUME 8.7 fL (7.9-10.8); MONOCYTES # (AUTO) 0.5 10^3/uL (0.0-1.0); MONOCYTES % (AUTO) 9.9 %; NEUTROPHILS % (AUTO) 54.4 %; PLT - PLATELET COUNT 214 10^3/uL (130-450); RED BLOOD COUNT 4.22 10^6/uL (4.20-5.40); WHITE BLOOD COUNT 5.5 x10^3/uL (4.8-10.8)
[2018-01-02 13:55] LABS: ALBUMIN 4.2 g/dL (3.2-5.5); ALBUMIN/GLOBULIN RATIO 1.4 (1.0-2.2); BILIRUBIN,TOTAL 0.7 mg/dL (0.2-1.0); CALCIUM 8.8 mg/dL (8.5-10.3); CREATININE 0.7 mg/dL (0.4-1.0); TOTAL PROTEIN 7.3 g/dL (6.7-8.2)
== END 2018-01-02 08:30 | disposition home or self-care (01) ==
LOC: LAB.N 08:29
PROVIDERS: ATTEND Family Medicine
DX: I10 Essential (primary) hypertension (principal)
CPT/HCPCS: 36415; 80053; 85025

== ENCOUNTER 2018-08-07 08:00 | Outpatient (CLI) | payer MEDICARE, MEDICAID ==
[2018-08-07 18:45] LABS: ALBUMIN 4.3 g/dL (3.2-5.5); ALBUMIN/GLOBULIN RATIO 1.4 (1.0-2.2); ALKALINE PHOSPHATASE 42 IU/L (42-121); ALT ALANINE AMINOTRANSFERASE < 10 IU/L (10-60); AST ASPARTATE AMINOTRANSFERASE 25 IU/L (10-42); BILIRUBIN,TOTAL 0.5 mg/dL (0.2-1.0); BUN - BLOOD UREA NITROGEN 11 mg/dL (6-20); CALCIUM 9.2 mg/dL (8.5-10.3); CARBON DIOXIDE - CO2 28 mmol/L (21-32); CHLORIDE 99 mmol/L (101-111); CREATININE 0.8 mg/dL (0.4-1.0); GFR - MDRD 70 (>89); GLUCOSE 107 mg/dL (70-100); SODIUM 137 mmol/L (135-145); TOTAL PROTEIN 7.4 g/dL (6.7-8.2)
[2018-08-07 18:46] LABS: BASOPHILS # (AUTO) 0.1 10^3/uL (0.0-0.1); BASOPHILS % (AUTO) 1.1 %; EOSINOPHILS # (AUTO) 0.5 10^3/uL (0.0-0.7); EOSINOPHILS % (AUTO) 6.7 %; HB2 TOTAL 15.2 g/dL; HEMOGLOBIN A1C 0.66 g/dL; HEMOGLOBIN A1C % 6.1 % (4.6-6.2); HGB - HEMOGLOBIN 14.7 g/dL (12.0-16.0); LYMPHOCYTES # (AUTO) 2.3 10^3/uL (1.5-3.5); LYMPHOCYTES % (AUTO) 34.2 %; MEAN CORPUSCULAR HEMOGLOBIN 33.5 pg (27.0-31.0); MEAN CORPUSCULAR HGB CONC 33.8 g/dL (32.0-36.0); MEAN CORPUSCULAR VOLUME 99.3 fL (81.0-99.0); MEAN PLATELET VOLUME 8.6 fL (7.9-10.8); MONOCYTES # (AUTO) 0.6 10^3/uL (0.0-1.0); MONOCYTES % (AUTO) 9.1 %; NEUTROPHILS # (AUTO) 3.4 10^3/uL (1.5-6.6); NEUTROPHILS % (AUTO) 48.9 %; PLT - PLATELET COUNT 211 10^3/uL (130-450); RED BLOOD COUNT 4.38 10^6/uL (4.20-5.40); WHITE BLOOD COUNT 6.8 x10^3/uL (4.8-10.8)
== END 2018-08-07 23:59 | disposition home or self-care (01) ==
LOC: LAB.N 08:00
PROVIDERS: ATTEND Physician Assistant Medical
DX: R73.9 Hyperglycemia, unspecified (principal); Z51.81 Encounter for therapeutic drug level monitoring; Z79.899 Other long term (current) drug therapy; G20 Parkinson's disease; I10 Essential (primary) hypertension
CPT/HCPCS: 36415; 80053; 83036; 85025

== ENCOUNTER 2018-10-16 13:40 | Outpatient (CLI) | payer MEDICARE, MEDICAID ==
--- NOTE | 2018-10-18 02:10 | XRAY Report ---
Reason: DJD Procedure Date: 10/16/2018 Accession Number: [id number] / [id number] Procedure: XRN - Ankle 3 View RT CPT Code: FULL RESULT: EXAM: RIGHT ANKLE RADIOGRAPHY EXAM DATE: 10/16/2018 02:01 PM. CLINICAL HISTORY: DJD. Chronic ankle pain. COMPARISON: None. TECHNIQUE: 3 views. FINDINGS: Bones: Osteopenia. No acute fracture seen. Joints: No dislocation. Ankle mortise appears intact. No definite ankle joint effusion. Soft Tissues: Soft tissue swelling. IMPRESSION: 1. No acute osseous abnormality seen. 2. Soft tissue swelling. RADIA
== END 2018-10-16 13:41 | disposition home or self-care (01) ==
LOC: DI.N 13:40
PROVIDERS: ATTEND Physician Assistant Medical
DX: M19.90 Unspecified osteoarthritis, unspecified site (principal); R22.41 Localized swelling, mass and lump, right lower limb

== ENCOUNTER 2019-07-02 08:00 | Outpatient (CLI) | payer MEDICARE, MEDICAID ==
[2019-07-02 17:50] LABS: BASOPHILS # (AUTO) 0.1 10^3/uL (0.0-0.1); BASOPHILS % (AUTO) 0.7 %; EOSINOPHILS # (AUTO) 0.3 10^3/uL (0.0-0.7); EOSINOPHILS % (AUTO) 5.1 %; HGB - HEMOGLOBIN 14.1 g/dL (12.0-16.0); LYMPHOCYTES # (AUTO) 2.3 10^3/uL (1.5-3.5); LYMPHOCYTES % (AUTO) 33.7 %; MEAN CORPUSCULAR HEMOGLOBIN 32.8 pg (27.0-31.0); MEAN CORPUSCULAR HGB CONC 32.6 g/dL (32.0-36.0); MEAN CORPUSCULAR VOLUME 100.7 fL (81.0-99.0); MEAN PLATELET VOLUME 9.7 fL (7.9-10.8); MONOCYTES # (AUTO) 0.7 10^3/uL (0.0-1.0); MONOCYTES % (AUTO) 9.8 %; NEUTROPHILS # (AUTO) 3.4 10^3/uL (1.5-6.6); NEUTROPHILS % (AUTO) 50.3 %; PLT - PLATELET COUNT 257 10^3/uL (130-450); RED CELL DISTRIBUTION WIDTH 12.2 % (12.0-15.0); WHITE BLOOD COUNT 6.7 x10^3/uL (4.8-10.8)
[2019-07-02 18:06] LABS: ALBUMIN 4.2 g/dL (3.2-5.5); ALBUMIN/GLOBULIN RATIO 1.5 (1.0-2.2); ALKALINE PHOSPHATASE 41 IU/L (42-121); ALT ALANINE AMINOTRANSFERASE < 10 IU/L (10-60); AST ASPARTATE AMINOTRANSFERASE 26 IU/L (10-42); BILIRUBIN,TOTAL 0.6 mg/dL (0.2-1.0); BUN - BLOOD UREA NITROGEN 11 mg/dL (6-20); CARBON DIOXIDE - CO2 28 mmol/L (21-32); CHLORIDE 94 mmol/L (101-111); CREATININE 0.7 mg/dL (0.4-1.0); GLUCOSE 98 mg/dL (70-100); SODIUM 131 mmol/L (135-145)
[2019-07-02 18:15] LABS: HB2 TOTAL 14.4 g/dL; HEMOGLOBIN A1C 0.6 g/dL
[2019-07-02 18:24] LABS: THYROID STIMULATING HORMONE 1.38 uIU/mL (0.34-5.60)
[2019-07-02 18:25] LABS: FREE T3 3.66 pg/mL (2.5-3.9)
[2019-07-02 18:26] LABS: FREE T4 (FREE THYROXINE) 0.83 ng/dL (0.58-1.64)
== END 2019-07-02 23:59 | disposition home or self-care (01) ==
LOC: LAB.WCP 08:00
PROVIDERS: ATTEND Family Medicine
DX: M21.40 Flat foot [pes planus] (acquired), unspecified foot (principal); I10 Essential (primary) hypertension; R60.0 Localized edema; G20 Parkinson's disease; R73.9 Hyperglycemia, unspecified
CPT/HCPCS: 36415; 80053; 83036; 84439; 84443; 84481; 85025

== ENCOUNTER 2019-07-16 08:00 | Outpatient (CLI) | payer MEDICARE, MEDICAID ==
--- NOTE | 2019-07-17 16:07 | XRAY Report ---
Reason: ANTERIOR TIBIAL SYNDROME LEFT Procedure Date: 07/16/2019 Accession Number: [id number] / [id number] Procedure: WCP - Tib/Fib LT CPT Code: Final Report FULL RESULT: EXAM: LEFT TIBIA/FIBULA RADIOGRAPHY EXAM DATE: 07/16/2019 03:32 PM. CLINICAL HISTORY: ANTERIOR TIBIAL SYNDROME LEFT. Chronic left mid aranda pain. No known injury. COMPARISON: None. TECHNIQUE: 2 views. FINDINGS: Bones: Normal. No fracture or bone lesion. No cortical erosion or periosteal reaction. Joints: Mild joint space narrowing and osteophyte formation at the lateral tibiofemoral compartment of the knee. Ankle joint is unremarkable on the available views. Soft Tissues: Moderate diffuse subcutaneous edema. IMPRESSION: 1. Moderate diffuse subcutaneous edema in the left leg. 2. No underlying osseous abnormalities identified. 3. Mild osteoarthritis at the lateral tibiofemoral compartment of the left knee. RADIA
== END 2019-07-16 23:59 | disposition home or self-care (01) ==
LOC: DI.WCP 08:00
PROVIDERS: ATTEND Family Medicine
DX: M17.12 Unilateral primary osteoarthritis, left knee (principal); R60.0 Localized edema

== ENCOUNTER 2019-12-17 14:45 | Outpatient (CLI) | payer MEDICARE, MEDICAID ==
[2019-12-17 18:30] LABS: HGB - HEMOGLOBIN 13.3 g/dL (12.0-16.0); MEAN CORPUSCULAR HEMOGLOBIN 32.2 pg (27.0-31.0); MEAN CORPUSCULAR VOLUME 100.7 fL (81.0-99.0); RED BLOOD COUNT 4.13 10^6/uL (4.20-5.40); RED CELL DISTRIBUTION WIDTH 12.4 % (12.0-15.0); WHITE BLOOD COUNT 6.9 x10^3/uL (4.8-10.8)
[2019-12-17 18:46] LABS: CALCIUM 9.4 mg/dL (8.5-10.3); CREATININE 0.7 mg/dL (0.4-1.0)
== END 2019-12-17 23:59 | disposition home or self-care (01) ==
LOC: LAB.WCP 14:45
PROVIDERS: ATTEND Family Medicine
DX: R60.9 Edema, unspecified (principal); R60.0 Localized edema; I10 Essential (primary) hypertension; R06.02 Shortness of breath; R06.9 Unspecified abnormalities of breathing
CPT/HCPCS: 36415; 80048; 83880; 85027

== ENCOUNTER 2020-01-03 11:00 | Outpatient (CLI) | payer MEDICARE, MEDICAID | END 2020-01-03 11:01 | disposition critical access hospital (66) | LOC: EMS 11:00 | PROVIDERS: ATTEND Surgery | DX: R55 Syncope and collapse (principal); R06.00 Dyspnea, unspecified; S61.212A Laceration without foreign body of right middle finger without damage to nail, initial encounter; W07.XXXA Fall from chair, initial encounter; Y93.89 Activity, other specified; Y92.000 Kitchen of unspecified non-institutional (private) residence as the place of occurrence of the external cause | CPT/HCPCS: A0425; A0427 ==

== ENCOUNTER 2020-01-03 11:21 | Observation (INO) | payer MEDICARE, MEDICAID ==
[2020-01-03] MEDS ORDERED: TETANUS/DIPHTHERIA/PERTUSSIS 0.5 ML SYRINGE IM ONE (11:29)
[2020-01-03] MEDS ORDERED: HYDROmorphone 1 MG/ML CARPUJECT IVP STA ×2 (11:29→12:45)
--- NOTE | 2020-01-03 11:32 | ED Physician Documentation ---
PD HPI SYNCOPE - Stated complaint Stated Complaint: SYNCOPE - History obtained from History obtained from: Patient - Additional information Additional information: 79-year-old woman with history of Parkinson's, hypertension, she was sitting at the table reading the paper and started to feel near syncopal. She ended up collapsing, it sounds like not completely syncopal though she hit her head. Also hurt her right fourth finger. No other injuries. Tetanus is unknown. Right now complaining of chronic leg pain, unchanged. Back pain from the backboard. No headache. Mostly hand pain on the right. No chest pain or trouble breathing. Review of Systems Ten Systems: 10 systems reviewed and negative Constitutional: denies: Fever, Chills Cardiac: denies: Chest pain / pressure, Palpitations Respiratory: denies: Dyspnea, Cough PD PAST MEDICAL HISTORY - Past Medical History Cardiovascular: Hypertension, Murmur Respiratory: None Endocrine/Autoimmune: None GI: GERD : None HEENT: None Psych: None Musculoskeletal: Osteoarthritis Derm: None - Past Surgical History Past Surgical History: Yes General: Cholecystectomy /[employer]ER: Tubal ligation - Present Medications Home Medications: Ambulatory Orders Medication Instructions Recorded Confirmed Carbidopa/Levodopa [Sinemet Cr 1 tab PO 0900,1500 08/05/12 01/03/20 50-200 Tablet] Mirtazapine [Remeron] 30 mg PO QPM 05/13/15 01/03/20 lisinopriL [Zestril] 5 mg PO BID 05/13/15 01/03/20 Acetaminophen 500 mg PO DAILY 03/22/16 01/03/20 Aspirin [Aspirin EC] 81 mg PO DAILY 03/22/16 01/03/20 Omeprazole 20 mg PO QDAC 03/22/16 01/03/20 Acetaminophen [Tylenol] 325 mg PO QPM 03/23/16 01/03/20 Metoprolol Tartrate [Lopressor] 25 mg PO BID #30 tablet 12/18/16 01/03/20 Polyethylene Glycol 3350 17 gm PO DAILY PRN 01/21/17 01/21/17 Psyllium [Metamucil] 1 packet PO DAILY PRN #30 packet 01/21/17 polyethylene glycoL 3350 [Miralax] 17 gm PO DAILY packet 01/21/17 raNITIdine [Zantac] 150 mg PO BID #30 tablet 01/21/17 Furosemide 40 mg PO DAILY 01/03/20 01/03/20 - Allergies Allergies/Adverse Reactions: Allergies Allergy/AdvReac Type Severity Reaction Status Date / Time No Known Drug Allergies Allergy Verified 01/03/20 11:36 - Living Situation Living Situation: reports: With spouse/s.o. - Social History Does the pt smoke?: No Smoking Status: Never smoker Does the pt drink ETOH?: No Does the pt have substance abuse?: No - Family History Family history: reports: Non contributory - Immunizations Immunizations are current?: No - POLST Patient has POLST: No POLST Status: DNR PD ED PE NORMAL - Vitals Vital signs reviewed: Yes - General General: Alert and oriented X 3, Other (Mild parkinsonian tremor) - HEENT HEENT: PERRL, EOMI - Neck Neck: Supple, no meningeal sign, No bony TTP - Cardiac Cardiac: RRR, No murmur - Respiratory Respiratory: No respiratory distress, Clear bilaterally - Abdomen Abdomen: Non tender - Back Back: No CVA TTP, No spinal TTP - Derm Derm: Normal color, Warm and dry - Extremities Extremities: Other (She is a degloving injury of the radial side of the distal fourth finger. There is a laceration around the radial side of the nailbed and to the tip. Some tenderness there. No neurovascular compromise.) - Neuro Neuro: Alert and oriented X 3, No motor deficit, No sensory deficit, Normal speech - Psych Psych: Normal mood, Normal affect Results - Vitals Vitals: Vital Signs - 24 hr 01/03/20 01/03/20 01/03/20 11:30 12:56 14:00 Temperature 36.7 C 36.7 C 36.7 C Heart Rate 84 83 78 Respiratory 23 16 16 Rate Blood Pressure 142/82 H 150/80 H 155/87 H O2 Saturation 98 100 100 Oxygen O2 Source [] Room air O2 Source [] Room air O2 Source Room air - EKG (time done) 1127 Rate: Rate (enter#) (85) Rhythm: NSR, LAE Wall[place]: Normal Intervals: Normal PA QRS: Normal Ischemia: Normal ST segments Computer interpretation: Agree with computer - Labs Labs: Laboratory Tests 01/03/20 01/03/20 01/03/20 11:45 11:45 11:45 WBC 7.4 RBC 4.09 L Hgb 13.4 Hct 40.7 MCV 99.5 H MCH 32.8 H MCHC 32.9 RDW 12.0 Plt Count 220 MPV 9.5 Neut # (Auto) 4.4 Lymph # (Auto) 1.9 Snyder # (Auto) 0.7 Eos # (Auto) 0.3 Baso # (Auto) 0.1 Absolute Nucleated RBC 0.00 Nucleated RBC % 0.0 Sodium 132 L Potassium 3.6 Chloride 95 L Carbon Dioxide 27 Anion Gap 10.0 BUN 12 Creatinine 0.8 Estimated GFR (MDRD) 70 L Glucose 150 H Calcium 9.0 Total Bilirubin 0.6 AST 19 ALT < 10 L Alkaline Phosphatase 42 Troponin I High Sens 5.1 B-Natriuretic Peptide Total Protein 7.2 Albumin 4.0 Globulin 3.2 Albumin/Globulin Ratio 1.3 Lipase 22 01/03/20 11:45 WBC RBC Hgb Hct MCV MCH MCHC RDW Plt Count MPV Neut # (Auto) Lymph # (Auto) Snyder # (Auto) Eos # (Auto) Baso # (Auto) Absolute Nucleated RBC Nucleated RBC % Sodium Potassium Chloride Carbon Dioxide Anion Gap BUN Creatinine Estimated GFR (MDRD) Glucose Calcium Total Bilirubin AST ALT Alkaline Phosphatase Troponin I High Sens B-Natriuretic Peptide 53 Total Protein Albumin Globulin Albumin/Globulin Ratio Lipase - Rads (name of study) Ct Head Radiology: EMP read contemporaneously (NAD) 1v CXR Radiology: EMP read contemporaneously (NAD) R hand Radiology: EMP read contemporaneously (Comminuted fourth finger tuft fracture) CT L Spine Radiology: EMP read contemporaneously (NAD but severe stenosis at L4/5) Procedures - Laceration (location) R 4th finger Length in cm: 1.5 Wound type: Curved Neurovascular status: Sensory intact, Motor intact, Vascular intact Anesthesia: Lidocaine 1%, With bicarb Wound Preparation: Irrigated copiously NS Skin layer closure: Nylon, Interrupted, Size #-0 - enter number (4-0) Other: Tetanus booster given Complexity: Simple PD MEDICAL DECISION MAKING - ED course ED course: 79-year-old woman with syncope from a sitting position with injury, specifically an open finger fracture. Also complaining of an increase in back pain, leg pain which seems neurogenic from her back. Primary syncope work-up in the emergency department was negative with unremarkable EKG and labs. The open finger fracture was washed out and closed primarily and dressed. She is placed on Keflex. Dr. Siegel will consult regarding the finger fracture and Dr. Sanford is a placing in observation for the syncope. Departure - Departure Disposition: ED Place in Observation Clinical Impression: Hx of Parkinson's disease Syncope Qualifiers: Syncope type: unspecified Qualified Code(s): R55 - Syncope and collapse Back injury Qualifiers: Encounter type: initial encounter Qualified Code(s): S39.92XA - Unspecified injury of lower back, initial encounter Spinal stenosis Qualifiers: Spinal region: lumbar Neurogenic claudication status: with neurogenic claudication Qualified Code(s): M48.062 - Spinal stenosis, lumbar region with neurogenic claudication Open finger fracture Qualifiers: Encounter type: initial encounter Finger: ring finger Phalanx: distal Fracture alignment: nondisplaced Laterality: right Qualified Code(s): S62.664B - Nondisplaced fracture of distal phalanx of right ring finger, initial encounter for open fracture Finger laceration Qualifiers: Encounter type: initial encounter Finger: ring finger Damage to nail status: without damage Foreign body presence: without foreign body Laterality: right Qualified Code(s): S61.214A - Laceration without foreign body of right ring finger without damage to nail, initial encounter Condition: Stable
[2020-01-03] MEDS ORDERED: BUFFERED LIDOCAINE 10 ML SYRINGE SUBQ STA (11:33)
[2020-01-03 11:52] LABS: BASOPHILS # (AUTO) 0.1 10^3/uL (0.0-0.1); BASOPHILS % (AUTO) 0.7 %; EOSINOPHILS # (AUTO) 0.3 10^3/uL (0.0-0.7); EOSINOPHILS % (AUTO) 4.6 %; HGB - HEMOGLOBIN 13.4 g/dL (12.0-16.0); LYMPHOCYTES # (AUTO) 1.9 10^3/uL (1.5-3.5); LYMPHOCYTES % (AUTO) 25.3 %; MEAN CORPUSCULAR HEMOGLOBIN 32.8 pg (27.0-31.0); MEAN CORPUSCULAR HGB CONC 32.9 g/dL (32.0-36.0); MEAN CORPUSCULAR VOLUME 99.5 fL (81.0-99.0); MEAN PLATELET VOLUME 9.5 fL (7.9-10.8); MONOCYTES # (AUTO) 0.7 10^3/uL (0.0-1.0); NEUTROPHILS # (AUTO) 4.4 10^3/uL (1.5-6.6); NEUTROPHILS % (AUTO) 59.6 %; PLT - PLATELET COUNT 220 10^3/uL (130-450); RED BLOOD COUNT 4.09 10^6/uL (4.20-5.40); WHITE BLOOD COUNT 7.4 x10^3/uL (4.8-10.8)
[2020-01-03 12:17] LABS: ALBUMIN/GLOBULIN RATIO 1.3 (1.0-2.2); ALKALINE PHOSPHATASE 42 IU/L (42-121); ALT ALANINE AMINOTRANSFERASE < 10 IU/L (10-60); AST ASPARTATE AMINOTRANSFERASE 19 IU/L (10-42); BILIRUBIN,TOTAL 0.6 mg/dL (0.2-1.0); BUN - BLOOD UREA NITROGEN 12 mg/dL (6-20); CARBON DIOXIDE - CO2 27 mmol/L (21-32); CHLORIDE 95 mmol/L (101-111); CREATININE 0.8 mg/dL (0.4-1.0); GLUCOSE 150 mg/dL (70-100); LIPASE 22 U/L (22-51); SODIUM 132 mmol/L (135-145); TOTAL PROTEIN 7.2 g/dL (6.7-8.2)
--- NOTE | 2020-01-03 12:25 | XRAY Report ---
PROCEDURE: Hand 3 View RT INDICATIONS: hand inj TECHNIQUE: 4 total views of the hand(s) acquired. COMPARISON: None available FINDINGS: Bones: There is a comminuted fracture seen involving the distal tip of the fourth finger, with mild to moderate displacement. No intra-articular involvement can be seen. No additional fractures can be seen. Age-appropriate degenerative changes are seen. Soft tissues: Soft tissue injury is seen involving the distal fourth finger. IMPRESSION: Crush injury with comminuted fractures involving the distal aspect of the distal phalanx of the fourt h finger. Reviewed by: Claudio Avila MD on 01/03/2020 11:24 AM ERIN Approved by: Claudio Avila MD on 01/03/2020 11:24 AM ERIN Station ID: [id number]
--- NOTE | 2020-01-03 12:27 | XRAY Report ---
PROCEDURE: Chest 1 View X-Ray INDICATIONS: syncope TECHNIQUE: One view of the chest was acquired. COMPARISON: 12/17/2016, 07/23/2014. FINDINGS: Surgical changes and devices: None. Lungs and pleura: No pleural effusions or pneumothorax. Lungs are clear. Mediastinum: The aorta is prominent and tortuous. The cardiac contours are within normal limits. Bones and chest wall: No suspicious bony lesions. Age-appropriate degenerative changes are seen. O verlying soft tissues appear unremarkable. IMPRESSION: Unremarkable chest plain films for age. Reviewed by: Claudio Avila MD on 01/03/2020 11:26 AM ERIN Approved by: Claudio Avila MD on 01/03/2020 11:26 AM ERIN Station ID: [id number]
--- NOTE | 2020-01-03 12:31 | CT Report ---
PROCEDURE: HEAD WO INDICATIONS: head inj TECHNIQUE: Noncontrast 4.5 mm thick angled axial sections acquired from the foramen magnum to the vertex. For r adiation dose reduction, the following was used: automated exposure control, adjustment of mA and/or kV according to patient size. COMPARISON: 03/29/2015, 10/31/2012. Correlation is also made with brain MRI 03/30/2015 FINDINGS: Image quality: Diagnostic, with note made of motion artifact. CSF spaces: Basal cisterns are patent. No extra-axial fluid collections. Ventricles are normal in size and shape. Brain: No midline shift. No intracranial masses or hemorrhage. Morse-white matter interface is norm al. Skull and face: Calvarium and visualized facial bones are intact, without suspicious lesions. Sinuses: Visualized sinuses and mastoids are clear. IMPRESSION: Unremarkable intracranial study for age, without acute intracranial hemorrhage. Age-appropriate brain parenchymal volume loss and chronic small vessel ischemic change can be seen. Reviewed by: Claudio Avila MD on 01/03/2020 11:29 AM ERIN Approved by: Claudio Avila MD on 01/03/2020 11:29 AM ERIN Station ID: [id number]
[2020-01-03] MEDS ORDERED: cephALEXin 250 MG CAPSULE PO STA (12:45)
--- NOTE | 2020-01-03 14:08 | CT Report ---
PROCEDURE: LUMBAR SPINE WO INDICATIONS: back inj TECHNIQUE: Noncontrast 3 mm thick sections acquired from the T12 level to the sacrum. Sagittal and coronal refo rmats were constructed. For radiation dose reduction, the following was used: automated exposure co ntrol, adjustment of mA and/or kV according to patient size. COMPARISON: Correlation is made with the accompanying head CT and hand plain films and chest x-ray d ated 01/03/2020. Correlation is made with prior abdomen and pelvis CTs dated 01/20/2017 and 10/31/2012 . FINDINGS: Image quality: Excellent. Bones: No acute vertebral body compression fractures. No suspicious lytic or blastic bony lesions. Age-appropriate osteopenia can be seen. No pars defects can be seen. Mild levoconvex scoliotic curvature is seen. Degenerative changes are seen, which are most prominent inferiorly, with moderate disc space narrowin g at L3-L4, L4-5, and L5-S1. Endplate irregularity and sclerosis can be seen, which are most prominen t at L3-L4. Bridging anterior osteophytes are seen, which are most prominent at L5-S1. L5-S1, there i s moderate to severe bilateral neuroforaminal narrowing seen. At least moderate neural foraminal narr owing can be seen at L2-L3, L3-L4, and L4-L5. At L4-L5, there is posteriorly projected calcified material, with associated vacuum disc phenomenon. There is associated severe central canal narrowing, as on series 3 image 54 and on series 7 image 36. Soft tissues: No retroperitoneal masses or hematomas. Visualized aorta is normal in caliber. Ather osclerotic calcification is seen. Cholecystectomy clips are seen. Diverticulosis can be seen, withou t fe findings of active diverticulitis. IMPRESSION: In this patient with a given history of back injury, no acute fractures are seen. At L4-L5, there is severe central canal narrowing with a partially projected calcified material. This is new compared to 2017. If clinically appropriate, please consider a follow-up lumbar spine MRI (as suming that there is no contraindication). Lower lumbar spine degenerative changes are seen, which have progressed over time. Incidental note is made of: Cholecystectomy clips Diverticulosis can be seen, without fe findings of active diverticulitis. Reviewed by: Claudio Avila MD on 01/03/2020 1:07 PM AKDT Approved by: Claudio Avila MD on 01/03/2020 1:07 PM ERIN Station ID: [id number]
[2020-01-03] MEDS ORDERED: CARBIDOPA/LEVODOPA ER 50 MG/200 MG TABLET PO STA (14:59)
[2020-01-03] MEDS ORDERED: SODIUM CHLORIDE FLUSH 0.9% 10 ML SYRINGE IVP PRN (15:27)
[2020-01-03] MEDS ORDERED: ONDANSETRON 4 MG/2 ML VIAL IVP PRN (15:27)
[2020-01-03] MEDS: SODIUM CHLORIDE FLUSH 0.9% 10 ML SYRINGE IVP SCH (17:38)
--- NOTE | 2020-01-03 19:05 | HISTORY & PHYSICAL EXAMINATION ---
DATE OF SERVICE: 01/03/2020 Physician: Emma Sanford MD HISTORY OF PRESENT ILLNESS: This is a 79-year-old white female with history of Parkinson's disease, who takes carbidopa/levodopa, history of hypertension, and an Echo from 4 years ago showed patent foramen ovale, history of osteoarthritis and history of leg edema for which she is on furosemide. She has had low back pain and pain and swelling of the legs and feet, pain when she walks, for many months, etiology is not known, she states. Despite taking the furosemide, she has had no significant improvement in the leg edema, but complains of "urinating all day and all night." Today, patient was sitting at her kitchen table on a chair and reading the paper and started to feel dizzy and then collapsed, it was not witnessed. Her heard the fall and found her on the floor and was unable to pick her up because he himself has hemiparesis from a stroke. Patient started to awaken and found herself on the floor and had blood from a laceration of a finger all noticed around her, and she was able to tell her to call an ambulance because she could tell she was "going to go out again." Son says (who is currently at the bedside) that her called one of patient's children who called this son and one of them ended up calling an ambulance. The emergency room doctor got the history that her blood pressure was 90/50 at the scene. There was no description about her heart rate. Patient states that she takes her blood pressure medicines every day at 0600 and had taken them this morning and also took her water pill early that morning. Patient remembers having one other episode of syncope many years ago and states it was from low blood pressure, which was related to her blood pressure medications then. In the ER evaluation consisted of imaging of the head that showed no stroke and no hemorrhage. She also had lumbar spine imaging and this showed spinal stenosis at L4 and L5. She also had hand x-rays and this showed a crush fracture of her right fourth finger. She required suturing of that right finger in the ER, which had a laceration, which was a degloving skin tear. PAST MEDICAL HISTORY 1. Parkinson's. 2. PFO on Echo 4 years ago. 3. Hypertension. 4. Chronic leg edema. 5. Low back pain. 6. Osteoarthritis. ALLERGIES: NONE. MEDICATIONS 1. Carbidopa/levodopa 5/200 mg twice a day. 2. Remeron 30 mg every night. 3. Lisinopril 5 mg b.i.d. 4. Tylenol 500 mg daily. 5. Baby aspirin daily. 6. Omeprazole 20 mg before the morning meal. 7. Tylenol 325 mg every night. 8. Metoprolol tartrate 25 mg b.i.d. 9. Polyethylene glycol daily. 10. Metamucil daily. 11. MiraLax daily. 12. Zantac 150 mg b.i.d. 13. Lasix 40 mg daily at 0600. FAMILY HISTORY: No inherited diseases. SOCIAL HISTORY: Patient is a nonsmoker, drinks no alcohol. No drug use history. Patient lives with her second , and he has residual deficits from a stroke. They both have caregivers. There are no caregivers on the weekend and today is Sunday, there was no caregiver present. Patient no longer drives a car because of the Parkinson's. REVIEW OF SYSTEMS: There has been no diarrhea or fever, no recent change of medications, no travel, no exposure to with the patient. Patient has no cough, fever, chills, shortness of breath or chest pain. A comprehensive review of systems was performed and the pertinent positives are listed, the rest are negative. PHYSICAL EXAMINATION GENERAL: Elderly white female. She is in bed with head of bed elevated and in no distress. VITAL SIGNS: Blood pressure 150/80. HEENT: Unremarkable except for uneven, natural teeth. Her oral mucosa is moist. NECK: Without JVD at a 30-degree upright angle. No carotid bruits. CHEST: Clear. HEART: Normal heart sounds with no murmurs. ABDOMEN: Soft, nontender. Normal bowel sounds. EXTREMITIES: Trace pretibial edema and 1+ pedal edema. No clubbing or cyanosis. The Right hand fingers 4&5 are bandaged. NEUROLOGIC: Grossly intact, but the low back was not evaluated. She does have an intermittent very fine arm tremor and tenderness to touch of her feet. LABORATORY DATA: Sodium 132, potassium 3.6, BUN 12, creatinine 0.8. Normal liver tests. Normal high sensitivity troponin of 5.1. Normal BNP of 53. Normal lipase of 22. No INR was done. White blood count 7.4, hemoglobin 13.4, platelet count 220. Chest x-ray: No active pulmonary disease. EKG: Normal sinus rhythm, LVH voltage early 4/S transition. IMAGING: Hand: By x-ray showed a crush injury with comminuted fracture of the distal phalanx of the fourth finger on the right, lumbar spine CT showed L4-L5 severe canal narrowing and partially projected calcified material, which is new since 2017. Head CT: Age appropriate volume loss and chronic small vessel ischemic changes and no acute findings such as hemorrhage. IMPRESSION/DIAGNOSES 1. Syncope. Low BP documented at the scene. 2. Hyponatremia. 3. Parkinson's disease with possible autonomic dysfunction. 4. Spinal stenosis, lumbar. This may be causing the LBP and the neuropathy. 5. Open finger fracture. 6. Finger laceration. 7. Abnormal EKG. PLAN: Place patient on telemetry in Observation status. Obtain orthostatic vital signs every shift except when she is asleep. Resume her blood pressure medicines, but not the Lasix. I suspect her low blood pressure at the scene of 90/50 was related to diuretic use and antihypertensive use plus autonomic dysfunction seen in Parkinson's patients. Patient should have treatment for her spinal stenosis, which would very likely help her back pain and foot pain and maybe will help the edema, but this would be done as an outpatient. The ER doctor sutured her finger and bandaged it and has already asked for an Orthopedic consult regarding the crush injury. Continue with antibiotics, which had been started, continue with pain medication as needed. Continue with daily compression stockings, off at bedtime. These mechanical stockings would be a better way to relieve her leg edema rather than diuresis, which likely adds to the low blood pressure. She may be a candidate for Northera, which helps vascular autonomic tone in patients with Parkinson's. Midodrine would not be preferred given her significant hypertension. DEEP VENOUS THROMBOSIS PROPHYLAXIS: JACQUELINE stockings and SCDS. CODE STATUS: FULL CODE. ATTESTATION: Patient is expected to be discharged or transferred to another facility within 96 hours: Yes. TD: 01/03/2020 17:26 [email or web address]
[2020-01-03] MEDS ORDERED: MIRTAZAPINE 15 MG TABLET PO SCH (21:00)
[2020-01-03] MEDS ORDERED: METOPROLOL TARTRATE 25 MG TABLET PO SCH (21:00)
[2020-01-03] MEDS ORDERED: lisinopriL 5 MG TABLET PO SCH (21:00)
[2020-01-03] MEDS: FAMOTIDINE 20 MG TABLET PO SCH (21:11)
[2020-01-03] MEDS: ACETAMINOPHEN 325 MG TABLET PO PRN (21:19)
[2020-01-04] MEDS: ACETAMINOPHEN 325 MG TABLET PO PRN ×2 (01:31→06:22)
[2020-01-04] MEDS: SODIUM CHLORIDE FLUSH 0.9% 10 ML SYRINGE IVP SCH ×2 (01:32→07:19)
[2020-01-04] MEDS ORDERED: lisinopriL 5 MG TABLET PO SCH (08:21)
[2020-01-04] MEDS ORDERED: METOPROLOL TARTRATE 25 MG TABLET PO SCH (08:21)
[2020-01-04] MEDS: FAMOTIDINE 20 MG TABLET PO SCH (08:30)
[2020-01-04] MEDS ORDERED: CARBIDOPA/LEVODOPA ER 50 MG/200 MG TABLET PO SCH (09:00)
[2020-01-04] MEDS ORDERED: ASPIRIN EC 81 MG TABLET PO SCH (09:00)
[2020-01-04] MEDS ORDERED: ACETAMINOPHEN 500 MG TABLET PO SCH (09:00)
--- NOTE | 2020-01-04 12:15 | Discharge Plan ---
Discharge Plan Problem Reviewed?: Yes Disposition: Home, Self Care Condition: Fair Prescriptions: cephALEXin [Keflex] 250 mg PO Q6H #12 capsule Diet: Low Sodium Activity Restrictions: Activity as Tolerated Shower Restrictions: No Assistance Devices: Walker Instruction Topics: ED Hypotension Orthostatic Health Concerns: You were here in Observation status to evaluate why you fainted and also to be seen for the broken and lacerated right finger. It appears that your water pill is causing an excessive drop in blood pressure and probably dehydration and caused the fainting spell. The finger was sutured and a finger splint applied. You can take pain medicines as needed for this. You can remove the bandage after 3 days. Stay in the finger splint. You should call the Orthopedic clinic for an appointment to be seen on Sunday or Sunday of this upcoming week, call [phone]. Several more days of antibiotic Keflex were ordered because of the laceration that needed suturing. The prescription was electronically sent to your [facility] pharmacy in [place]. Please resume all your usual medications EXCEPT stop the Furosemide. Keep using your compression stockings daily, put them on after awakening, and take off before bedtime. You should walk using a walker. Since you did not want Home Health physical therapy to come to your house, have your caregiver help you with light walking daily using the walker, for some rehab. You need referral to a executive relations specialist for probable surgery for the spinal stenosis of your lumbar spine, which will help with low back pain and foot pain during walking and possibly with the swelling. Plan of Treatment: As above. Care Goals: Improvement in symptoms and stabilization are the goals. Assessment: Patient understands and is agreeable with the plan. Additional Instructions or Follow Up instructions: If you have new or worsening symptoms, call your PCP for advice or come to the ER. No Smoking: If you smoke, Please STOP! Call for help. Follow-up with: Girma Siegel MD [Provider Admit Priv/Credential] - French Mcclure MD [Provider Admit Priv/Credential] -
--- NOTE | 2020-01-04 12:29 | DISCHARGE SUMMARY ---
Discharge Summary Admit Date: 01/03/20 Discharge Date: 01/04/20 Discharging Provider: Dr Emma Sanford Primary Care Provider: Dr French Mcclure Code Status: Attempt Resuscitation Condition at Discharge: Fair Discharge Disposition: 01 Home, Self Care - HPI History of Present Illness: This is a 79-year-old white female with history of Parkinson's disease on carbidopa/levodopa, she no longer drives, she has a history of hypertension, low back pain and leg edema. She was brought to the ER by ambulance after she had a syncopal episode at home. She was sitting at her kitchen table reading around 11 a.m. and suddenly got a warning sign of dizziness and then fainted and dropped to the floor. It was not witnessed. She injured her right ring finger during the fall and had blood around her when the saw her. He could not help her because he himself is a stroke victim. When the ambulance arrived her blood pressure was 90/50. In the ER she was found to have a negative head CT, LS CT imaging that showed severe stenosis of L4 and L5 and a hand XRay that revealed a comminuted crush fracture of the right ring finger. She required suturing in the ER for degloving laceration. Her BP and HR were stable in the ER. She is being placed in Observation to evaluate the cause of syncope and for Orthopedic consult regarding the fractured right finger. - HOSPITAL COURSE Hospital Course: 1) Syncope Since there was a documented blood pressure of 90/50 at the scene, the cause of her syncope was likely due to low blood pressure, which was possibly caused by the combination of her blood pressure meds Lisinopril and Metoprolol on top of taking Lasix. Her Lasix was stopped. She had orthostatic vital signs checked that did not show any orthostatic drop. Her blood pressures were in fact high therefore she was continued on her Lisinopril and Metoprolol. At discharge, she was advised to stop taking the Lasix and use the compression stockings for leg edema management. 2) Hyponatremia Her serum sodium was 132. She was felt to have hypovolemic hyponatremia, probably caused by Lasix. The Lasix was stopped. She did not receive any IV fluids however, due to supine HTN. 3) HTN Blood pressures here were all elevated or normal, therefore her Lisinopril and Metoprolol were continued. 4) Parkinson's disease She was kept on her same Parkinson's meds while here. Orthostatic vital signs did not show orthostasis, therefore she probably does not have the autonomic dysfunction that is associated with Parkinson's disease. 5) Leg edema No significant leg edema on exam. She was told to stop taking the Lasix, which undoubtedly added to marked hypotension at the scene, and she said it was not helping her leg edema anyway. It is unclear if she has had work-up for leg edema such as with evaluation for venous insufficiency or an Echo evaluating for right heart failure. We do not have Echo here on the weekend and she was in Observation here on a Sunday and Sunday. 6) Spinal stenosis, lumbar This is a new finding. It could be amenable to surgery. Is that she have referral to a pain management specialist for surgery, and she is interested in this. He was seen by physical therapist for evaluation. The physical therapist advised that she have Home Health PT, but the patient declined this. Patient reminded me that she has caregivers in her home Sunday through Sunday. 7) Open finger fracture Patient was seen by Orthopedic surgeon, Dr Siegel. He advised putting a finger splint on it and she should be seen in Ortho clinic follow-up in the next 3 to 5 days. 8) Finger laceration The Orthopedic surgeon advised leaving the bandage on for about 3 days before they are removed. She was started on Keflex in the ER after the suturing and she was discharged to take 3 more days of Keflex 250 mg 4 times daily. - ALLERGIES Allergies/Adverse Reactions: Allergies Allergy/AdvReac Type Severity Reaction Status Date / Time No Known Drug Allergies Allergy Verified 01/03/20 11:36 - MEDICATIONS Home Medications: Ambulatory Orders Medication Instructions Recorded Confirmed Carbidopa/Levodopa [Sinemet Cr 1 tab PO 0900,1500 08/05/12 01/03/20 50-200 Tablet] Mirtazapine [Remeron] 30 mg PO QPM 05/13/15 01/03/20 lisinopriL [Zestril] 5 mg PO BID 05/13/15 01/03/20 Acetaminophen 500 mg PO DAILY 03/22/16 01/03/20 Aspirin [Aspirin EC] 81 mg PO DAILY 03/22/16 01/03/20 Omeprazole 20 mg PO QDAC 03/22/16 01/03/20 Acetaminophen [Tylenol] 325 mg PO QPM 03/23/16 01/03/20 Metoprolol Tartrate [Lopressor] 25 mg PO BID #30 tablet 12/18/16 01/03/20 Psyllium [Metamucil] 1 packet PO DAILY PRN #30 packet 01/21/17 polyethylene glycoL 3350 [Miralax] 17 gm PO DAILY packet 01/21/17 cephALEXin [Keflex] 250 mg PO Q6H #12 capsule 01/04/20 - PHYSICAL EXAM AT DISCHARGE General Appearance: positive: No acute distress, Alert Eyes Bilateral: positive: Normal inspection, EOMI ENT: positive: ENT inspection nml, No signs of dehydration Neck: positive: Nml inspection, No JVD Respiratory: positive: No respiratory distress, Breath sounds nml Cardiovascular: positive: Regular rate & rhythm, No murmur Abdomen: positive: Non-tender, No distention Skin: positive: Warm, Dry Extremities: positive: No pedal edema Neurologic/Psychiatric: positive: Oriented x3 (Nonfocal exam) - LABS Result Diagrams: 01/03/20 11:45 01/03/20 11:45 - DIAGNOSTIC IMAGING Diagnostic Imaging Results: Final report reviewed - FOLLOW UP Follow Up: See PCP for hospital follow-up and for referral to a document preparation specialist. See orthopedic clinic doctor in 3 to 5 days in follow-up. - TIME SPENT Time Spent in Discharge (Minutes): 35
[2020-01-04 15:14] VITALS: BP 156/72
--- NOTE | 2020-01-04 15:31 | CONSULTATION NOTE ---
DATE OF SERVICE: 01/04/2020 Physician: Girma Siegel MD ORTHOPEDIC INPATIENT CONSULTATION REFERRING PHYSICIAN: Dr. Cliff Bean of the emergency room department. CHIEF COMPLAINT: "I fainted." HISTORY OF PRESENT ILLNESS: Zamzam Bernal is a 79-year-old, right-hand dominant, woman w ho apparently sustained a syncopal spell on the day of her admission to the hospital. As a result of her syncope she apparently fell and injured her right dominant ring finger. When presenting in the e mergency room, her finger showed an open laceration at the tip of the finger associated with a distal phalangeal fracture of the ring finger as evidenced by x-rays. The patient had the wound irrigated and washed out and had the laceration primarily closed in the emergency room; it was put into a finge r splint as well. The medical service is observing the patient for workup of her syncope. We have katt buitrago asked to see the patient while she is inhouse. PHYSICAL EXAMINATION: The patient's right ring finger shows the splint bandage to be in place. Ther e is no active bleeding appreciated noted. The patient still has a little sensation through the band ages at the tip of her finger. X-rays that were taken at the time of her presentation in the emergency room showed a minimally displ aced distal phalangeal fracture or tuft fracture of her right ring finger. ASSESSMENT 1. Open grade 1 tuft fracture of the right dominant ring finger - treated adequately in the emergenc y room. 2. Syncope. PLAN: The patient will have her wound inspected in about 3-4 days. Continue with her antibiotics th at were started in the emergency room. Keep the finger splinted as well. Followup in the Orthopedic Clinic in about 3-5 days for a wound check and x-ray as needed. She will likely be discharged home later today after her workup for syncope is completed. TD: 01/04/2020 11:21
== END 2020-01-04 13:55 | disposition home or self-care (01) ==
LOC: EDUNIT# → ED 11:21 → MS2 14:37
PROVIDERS: ADMIT Internal Medicine; ATTEND Internal Medicine
DX: R55 Syncope and collapse (principal); I95.2 Hypotension due to drugs; S62.634B Displaced fracture of distal phalanx of right ring finger, initial encounter for open fracture; W08.XXXA Fall from other furniture, initial encounter; Y92.000 Kitchen of unspecified non-institutional (private) residence as the place of occurrence of the external cause; T50.1X5A Adverse effect of loop [high-ceiling] diuretics, initial encounter; G20 Parkinson's disease; M48.062 Spinal stenosis, lumbar region with neurogenic claudication; R60.0 Localized edema; E87.1 Hypo-osmolality and hyponatremia; E86.1 Hypovolemia; I10 Essential (primary) hypertension; Q21.1 Atrial septal defect; M79.606 Pain in leg, unspecified; G89.29 Other chronic pain; Z79.82 Long term (current) use of aspirin; Z79.899 Other long term (current) drug therapy; Z66 Do not resuscitate; Z23 Encounter for immunization
CPT/HCPCS: 12001; 36415; 70450; 71045; 72131; 73130; 80053; 83690; 83880; 84484; 85025; 90471; 90715; 93005; 96374; 96376; 97162; 99285; A9270; G0378; J1170

== ENCOUNTER 2020-02-24 10:18 | Outpatient (CLI) | payer MEDICARE, MEDICAID | END 2020-02-24 10:19 | disposition home or self-care (01) | LOC: DI 10:18 | PROVIDERS: ATTEND Family Medicine | DX: I50.9 Heart failure, unspecified (principal); R55 Syncope and collapse; R60.0 Localized edema; R06.02 Shortness of breath | CPT/HCPCS: 93306 ==

== ENCOUNTER 2020-04-07 16:37 | Outpatient (CLI) | payer MEDICARE, MEDICAID ==
[2020-04-07 18:56] LABS: CREATININE 0.7 mg/dL (0.4-1.0)
== END 2020-04-07 23:59 ==
LOC: LAB.WCP 16:37
PROVIDERS: ATTEND Family Medicine
DX: R60.9 Edema, unspecified (principal)
CPT/HCPCS: 36415; 80048

== ENCOUNTER 2020-05-14 11:08 | Outpatient (CLI) | payer MEDICARE, MEDICAID | END 2020-05-14 11:09 | disposition critical access hospital (66) | LOC: EMS 11:08 | PROVIDERS: ATTEND Emergency Medicine | DX: R55 Syncope and collapse (principal); R42 Dizziness and giddiness; R11.0 Nausea | CPT/HCPCS: A0425; A0429 ==

== ENCOUNTER 2020-05-14 11:32 | Emergency (ER) | payer MEDICARE, MEDICAID ==
[2020-05-14 12:00] LABS: BASOPHILS # (AUTO) 0.1 10^3/uL (0.0-0.1); BASOPHILS % (AUTO) 0.6 %; EOSINOPHILS # (AUTO) 0.3 10^3/uL (0.0-0.7); EOSINOPHILS % (AUTO) 3.9 %; HCT - HEMATOCRIT 42.5 % (37.0-47.0); LYMPHOCYTES # (AUTO) 1.3 10^3/uL (1.5-3.5); LYMPHOCYTES % (AUTO) 16.5 %; MEAN CORPUSCULAR HGB CONC 32.9 g/dL (32.0-36.0); MEAN CORPUSCULAR VOLUME 100.2 fL (81.0-99.0); MEAN PLATELET VOLUME 9.3 fL (7.9-10.8); MONOCYTES # (AUTO) 0.7 10^3/uL (0.0-1.0); MONOCYTES % (AUTO) 8.8 %; NEUTROPHILS # (AUTO) 5.5 10^3/uL (1.5-6.6); NEUTROPHILS % (AUTO) 69.8 %; PLT - PLATELET COUNT 207 10^3/uL (130-450); RED BLOOD COUNT 4.24 10^6/uL (4.20-5.40); RED CELL DISTRIBUTION WIDTH 12.2 % (12.0-15.0); WHITE BLOOD COUNT 7.9 x10^3/uL (4.8-10.8)
[2020-05-14 12:17] LABS: ALBUMIN/GLOBULIN RATIO 1.3 (1.0-2.2); ALKALINE PHOSPHATASE 59 IU/L (42-121); ALT ALANINE AMINOTRANSFERASE < 10 IU/L (10-60); AST ASPARTATE AMINOTRANSFERASE 19 IU/L (10-42); BILIRUBIN,TOTAL 0.6 mg/dL (0.2-1.0); BUN - BLOOD UREA NITROGEN 15 mg/dL (6-20); CALCIUM 9.2 mg/dL (8.5-10.3); CARBON DIOXIDE - CO2 27 mmol/L (21-32); CHLORIDE 96 mmol/L (101-111); CREATININE 0.9 mg/dL (0.4-1.0); GFR - MDRD 61 (>89); GLUCOSE 153 mg/dL (70-100); LIPASE 21 U/L (22-51); POTASSIUM 3.9 mmol/L (3.5-5.0); SODIUM 136 mmol/L (135-145); TOTAL PROTEIN 7.2 g/dL (6.7-8.2)
--- NOTE | 2020-05-14 12:27 | ED Physician Documentation ---
History of Present Illness - Stated complaint Stated Complaint: NEAR SYNCOPE - Chief complaint Chief Complaint: General - History obtained from History obtained from: Patient - Additonal information Additional information: This is a dae 79-year-old woman with history of Parkinson's, chronic pedal edema who presents with a near syncopal episode. She was in her usual state of health and started to feel faint, she did not pass out but missed lunch because of it. There is no associated chest pain or trouble breathing. She feels back to her baseline now with chronic complaints including fatigue from chronic urinary frequency and her usual pedal edema. 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 - Present Medications Home Medications: Ambulatory Orders Medication Instructions Recorded Confirmed Carbidopa/Levodopa [Sinemet Cr 1 tab PO 0900,1500 08/05/12 01/03/20 50-200 Tablet] Mirtazapine [Remeron] 30 mg PO QPM 05/13/15 01/03/20 lisinopriL [Zestril] 5 mg PO BID 05/13/15 01/03/20 Acetaminophen 500 mg PO DAILY 03/22/16 01/03/20 Aspirin [Aspirin EC] 81 mg PO DAILY 03/22/16 01/03/20 Omeprazole 20 mg PO QDAC 03/22/16 01/03/20 Acetaminophen [Tylenol] 325 mg PO QPM 03/23/16 01/03/20 Metoprolol Tartrate [Lopressor] 25 mg PO BID #30 tablet 12/18/16 01/03/20 Psyllium [Metamucil] 1 packet PO DAILY PRN #30 packet 01/21/17 polyethylene glycoL 3350 [Miralax] 17 gm PO DAILY packet 01/21/17 cephALEXin [Keflex] 250 mg PO Q6H #12 capsule 01/04/20 - Allergies Allergies/Adverse Reactions: Allergies Allergy/AdvReac Type Severity Reaction Status Date / Time No Known Drug Allergies Allergy Verified 05/14/20 11:58 - Social History Does the pt smoke?: No Smoking Status: Never smoker Does the pt drink ETOH?: No Does the pt have substance abuse?: No - Immunizations Immunizations are current?: No - POLST Patient has POLST: No POLST Status: DNR PD ED PE NORMAL - Vitals Vital signs reviewed: Yes - General General: Alert and oriented X 3, No acute distress - HEENT HEENT: PERRL, EOMI - Neck Neck: Supple, no meningeal sign, No bony TTP - Cardiac Cardiac: RRR, No murmur - Respiratory Respiratory: No respiratory distress, Clear bilaterally - Abdomen Abdomen: Normal bowel sounds, Soft, Non tender - Back Back: No CVA TTP, No spinal TTP - Derm Derm: Normal color, Warm and dry - Extremities Extremities: No edema, No calf tenderness / cord - Neuro Neuro: Alert and oriented X 3, Normal speech Results - Vitals Vitals: Vital Signs - 24 hr 05/14/20 05/14/20 11:31 13:10 Temperature 36.8 C Heart Rate 79 Heart Rate [ 78 Sitting] Heart Rate [ 74 Standing] Heart Rate [ 66 Supine] Respiratory 16 Rate Blood Pressure 127/65 Blood Pressure 154/90 H [Sitting] Blood Pressure 154/82 H [Standing] Blood Pressure 139/77 H [Supine] O2 Saturation 100 Oxygen O2 Source [With Activity] Room air O2 Source [Without Activity] Room air O2 Source Room air - EKG (time done) 1140 Rate: Rate (enter#) (78) Rhythm: NSR [place]: Normal Intervals: Normal OK QRS: Normal Ischemia: Non specific changes. No: ST elevation c/w ischemia, ST depression Computer interpretation: Agree with computer - Labs Labs: Laboratory Tests 05/14/20 05/14/20 05/14/20 11:53 11:53 11:53 WBC 7.9 RBC 4.24 Hgb 14.0 Hct 42.5 MCV 100.2 H MCH 33.0 H MCHC 32.9 RDW 12.2 Plt Count 207 MPV 9.3 Neut # (Auto) 5.5 Lymph # (Auto) 1.3 L [place] # (Auto) 0.7 Eos # (Auto) 0.3 Baso # (Auto) 0.1 Absolute Nucleated RBC 0.00 Nucleated RBC % 0.0 Sodium 136 Potassium 3.9 Chloride 96 L Carbon Dioxide 27 Anion Gap 13.0 BUN 15 Creatinine 0.9 Estimated GFR (MDRD) 61 L Glucose 153 H Calcium 9.2 Total Bilirubin 0.6 AST 19 ALT < 10 L Alkaline Phosphatase 59 Troponin I High Sens 4.3 Total Protein 7.2 Albumin 4.0 Globulin 3.2 Albumin/Globulin Ratio 1.3 Lipase 21 L PD MEDICAL DECISION MAKING - ED course ED course: 79-year-old woman with history of Parkinson's with a presyncopal episode resolved, not associated with symptoms concerning for ACS, valvular disease, anemia. Nothing to suggest PE. She has chronic pedal edema but it is at her baseline. Labs are unremarkable. 79-year-old woman with history of Parkinson's presents with an orthostatic sounding episode. She was not orthostatic here. No evidence of anemia, renal dysfunction, dehydration. 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 Departure - Departure Disposition: 01 Home, Self Care Clinical Impression: Near syncope Condition: Stable Record reviewed to determine appropriate education?: Yes Instructions: ED Near Syncope Unkn Comments: It is fairly common for folks with Parkinson's to have episodes where they feel like they are passing out. You should follow-up with your neurologist to discuss. No evidence of other serious illness today. Return for new or worsening symptoms. Discharge Date/Time: 05/14/20 13:58
[2020-05-14 13:22] VITALS: BP 139/77
== END 2020-05-14 13:58 | disposition home or self-care (01) ==
LOC: EDUNIT# → EDBD → ED 11:32
DX: R55 Syncope and collapse (principal); G20 Parkinson's disease; R60.0 Localized edema; I10 Essential (primary) hypertension; Z79.82 Long term (current) use of aspirin; Z66 Do not resuscitate
CPT/HCPCS: 36415; 80053; 83690; 84484; 85025; 93005; 99283; 99284

== ENCOUNTER 2021-07-14 07:19 | Outpatient (CLI) | payer MEDICARE, MEDICAID ==
[2021-07-14 13:13] LABS: BASOPHILS # (AUTO) 0.1 10^3/uL (0.0-0.1); BASOPHILS % (AUTO) 1.2 %; EOSINOPHILS # (AUTO) 0.2 10^3/uL (0.0-0.7); EOSINOPHILS % (AUTO) 3.5 %; HCT - HEMATOCRIT 43.6 % (37.0-47.0); HGB - HEMOGLOBIN 14.7 g/dL (12.0-16.0); LYMPHOCYTES # (AUTO) 1.8 10^3/uL (1.5-3.5); LYMPHOCYTES % (AUTO) 29.8 %; MEAN CORPUSCULAR HGB CONC 33.7 g/dL (32.0-36.0); MEAN PLATELET VOLUME 9.8 fL (7.9-10.8); MONOCYTES # (AUTO) 0.7 10^3/uL (0.0-1.0); MONOCYTES % (AUTO) 10.9 %; NEUTROPHILS # (AUTO) 3.3 10^3/uL (1.5-6.6); NEUTROPHILS % (AUTO) 54.3 %; PLT - PLATELET COUNT 227 10^3/uL (130-450); RED BLOOD COUNT 4.45 10^6/uL (4.20-5.40); RED CELL DISTRIBUTION WIDTH 12.3 % (12.0-15.0)
[2021-07-14 13:56] LABS: THYROID STIMULATING HORMONE 2.45 uIU/mL (0.34-5.60)
[2021-07-14 13:58] LABS: ALBUMIN 4.3 g/dL (3.2-5.5); ALBUMIN/GLOBULIN RATIO 1.3 (1.0-2.2); ALKALINE PHOSPHATASE 46 IU/L (42-121); ALT ALANINE AMINOTRANSFERASE 15 IU/L (10-60); AST ASPARTATE AMINOTRANSFERASE 23 IU/L (10-42); BILIRUBIN,TOTAL 0.9 mg/dL (0.2-1.0); BUN - BLOOD UREA NITROGEN 12 mg/dL (6-20); CALCIUM 9.3 mg/dL (8.5-10.3); CARBON DIOXIDE - CO2 29 mmol/L (21-32); CHLORIDE 97 mmol/L (101-111); CHOL/HDL RATIO 2.2 (<4.4); CHOLESTEROL 168 mg/dL; CREATININE 0.8 mg/dL (0.4-1.0); GFR - MDRD 69 (>89); GLUCOSE 110 mg/dL (70-100); HDL CHOLESTEROL 75 mg/dL; LDL CHOLESTEROL,CALCULATED 79 mg/dL; LDL/HDL RATIO 1.1 (<4.4); POTASSIUM 4.1 mmol/L (3.5-5.0); SODIUM 136 mmol/L (135-145); TOTAL PROTEIN 7.6 g/dL (6.7-8.2); TRIGLYCERIDES 70 mg/dL; VLDL CHOLESTEROL 14 mg/dL
[2021-07-14 14:26] LABS: ESTIMATED AVERAGE GLUCOSE 120 mg/dL (70-100); HEMOGLOBIN A1c% 5.8 % (4.27-6.07)
== END 2021-07-14 07:20 | disposition home or self-care (01) ==
LOC: LAB.N 07:19
PROVIDERS: ATTEND Family Medicine
DX: I10 Essential (primary) hypertension (principal); R73.03 Prediabetes; G60.9 Hereditary and idiopathic neuropathy, unspecified; R12 Heartburn; R73.9 Hyperglycemia, unspecified; G20 Parkinson's disease; M19.90 Unspecified osteoarthritis, unspecified site
CPT/HCPCS: 36415; 80053; 80061; 83036; 83721; 84443; 85025

== ENCOUNTER 2021-12-22 10:54 | Outpatient (CLI) | payer MEDICARE, MEDICAID ==
[2021-12-22 18:11] LABS: CALCIUM 9.3 mg/dL (8.5-10.3); CREATININE 0.7 mg/dL (0.4-1.0); POTASSIUM 4.3 mmol/L (3.5-5.0)
[2021-12-22 20:31] LABS: ESTIMATED AVERAGE GLUCOSE 114 mg/dL (70-100); HEMOGLOBIN A1c% 5.6 % (4.27-6.07)
== END 2021-12-22 10:55 | disposition home or self-care (01) ==
LOC: LAB.N 10:54
PROVIDERS: ATTEND Family Medicine
DX: G60.9 Hereditary and idiopathic neuropathy, unspecified (principal); R73.03 Prediabetes; R60.9 Edema, unspecified
CPT/HCPCS: 36415; 80048; 83036

== ENCOUNTER → 2022-02-21 | Outpatient (CLI) | payer MEDICARE, MEDICAID | END | disposition EMS.NT | LOC: EMS 11:12 | DX: R53.83 Other fatigue (principal); R53.1 Weakness ==

== ENCOUNTER 2022-06-01 07:51 | Outpatient (CLI) | payer MEDICARE, MEDICAID ==
[2022-06-01 11:47] LABS: BASOPHILS # (AUTO) 0.1 10^3/uL (0.0-0.1); EOSINOPHILS # (AUTO) 0.2 10^3/uL (0.0-0.7); EOSINOPHILS % (AUTO) 3.6 %; HCT - HEMATOCRIT 41.9 % (37.0-47.0); HGB - HEMOGLOBIN 13.7 g/dL (12.0-16.0); LYMPHOCYTES # (AUTO) 2.2 10^3/uL (1.5-3.5); LYMPHOCYTES % (AUTO) 38.7 %; MEAN CORPUSCULAR HEMOGLOBIN 32.3 pg (27.0-31.0); MEAN CORPUSCULAR HGB CONC 32.7 g/dL (32.0-36.0); MEAN CORPUSCULAR VOLUME 98.8 fL (81.0-99.0); MEAN PLATELET VOLUME 10.1 fL (7.9-10.8); MONOCYTES # (AUTO) 0.6 10^3/uL (0.0-1.0); MONOCYTES % (AUTO) 10.9 %; NEUTROPHILS # (AUTO) 2.6 10^3/uL (1.5-6.6); NEUTROPHILS % (AUTO) 45.6 %; PLT - PLATELET COUNT 218 10^3/uL (130-450); RED BLOOD COUNT 4.24 10^6/uL (4.20-5.40); RED CELL DISTRIBUTION WIDTH 12.1 % (12.0-15.0); WHITE BLOOD COUNT 5.8 x10^3/uL (4.8-10.8)
[2022-06-01 12:10] LABS: ALBUMIN 4.1 g/dL (3.2-5.5); ALBUMIN/GLOBULIN RATIO 1.3 (1.0-2.2); ALKALINE PHOSPHATASE 47 IU/L (42-121); ALT ALANINE AMINOTRANSFERASE 19 IU/L (10-60); AST ASPARTATE AMINOTRANSFERASE 24 IU/L (10-42); BILIRUBIN,TOTAL 0.7 mg/dL (0.2-1.0); BUN - BLOOD UREA NITROGEN 14 mg/dL (6-20); CALCIUM 8.7 mg/dL (8.5-10.3); CARBON DIOXIDE - CO2 30 mmol/L (21-32); CHLORIDE 96 mmol/L (101-111); CHOL/HDL RATIO 2.3 (<4.4); CHOLESTEROL 150 mg/dL; CREATININE 0.7 mg/dL (0.4-1.0); GFR - MDRD 81 (>89); GLUCOSE 100 mg/dL (70-100); HDL CHOLESTEROL 65 mg/dL; LDL CHOLESTEROL,CALCULATED 72 mg/dL; LDL/HDL RATIO 1.1 (<4.4); POTASSIUM 3.8 mmol/L (3.5-5.0); SODIUM 134 mmol/L (135-145); TOTAL PROTEIN 7.2 g/dL (6.7-8.2); TRIGLYCERIDES 67 mg/dL; VLDL CHOLESTEROL 13 mg/dL
[2022-06-01 12:15] LABS: ESTIMATED AVERAGE GLUCOSE 114 mg/dL (70-100); HEMOGLOBIN A1c% 5.6 % (4.27-6.07)
== END 2022-06-01 07:52 | disposition home or self-care (01) ==
LOC: LAB.N 07:51
PROVIDERS: ATTEND Family Medicine
DX: I10 Essential (primary) hypertension (principal); G60.9 Hereditary and idiopathic neuropathy, unspecified; M54.50 Low back pain, unspecified; M54.16 Radiculopathy, lumbar region; R73.9 Hyperglycemia, unspecified; R60.0 Localized edema
CPT/HCPCS: 36415; 80053; 80061; 83036; 83721; 85025

== ENCOUNTER 2022-09-07 11:06 | Outpatient (CLI) | payer MEDICARE, MEDICAID ==
[2022-09-07 18:07] LABS: CALCIUM 8.6 mg/dL (8.5-10.3); CREATININE 0.8 mg/dL (0.4-1.0); POTASSIUM 4.1 mmol/L (3.5-5.0)
[2022-09-07 20:18] LABS: ESTIMATED AVERAGE GLUCOSE 120 mg/dL (70-100); HEMOGLOBIN A1c% 5.8 % (4.27-6.07)
== END 2022-09-07 11:07 | disposition home or self-care (01) ==
LOC: LAB.N 11:06
PROVIDERS: ATTEND Family Medicine
DX: I50.9 Heart failure, unspecified (principal); R73.03 Prediabetes
CPT/HCPCS: 36415; 80048; 83036; 83880

== ENCOUNTER 2022-11-25 13:50 | Outpatient (CLI) | payer MEDICARE, MEDICAID | END 2022-11-25 13:51 | disposition critical access hospital (66) | LOC: EMS 13:50 | DX: R11.2 Nausea with vomiting, unspecified (principal); R53.81 Other malaise; R00.1 Bradycardia, unspecified | CPT/HCPCS: A0425; A0427 ==

== ENCOUNTER 2022-11-25 14:16 | Emergency (ER) | payer MEDICARE, MEDICAID ==
[2022-11-25] MEDS ORDERED: SODIUM CHLORIDE 0.9% 1,000 ML IV STA (14:21)
[2022-11-25] MEDS ORDERED: METOCLOPRAMIDE 10 MG/2 ML VIAL IVP STA (14:21)
--- NOTE | 2022-11-25 14:23 | ED Physician Documentation ---
History of Present Illness - Stated complaint Stated Complaint: VOMITING - History obtained from History obtained from: Patient, EMS - Additonal information Additional information: 82-year-old woman with history of Parkinson's, hypertension, back pain leg edema brought in by ambulance. She has a toe infection and started doxycycline this morning. Shortly thereafter started vomiting. Has some stomach pain but she says its not too bad and declines pain medication. Her bowel movements have been normal. She received Zofran in route which she says was not particularly helpful. Prehospital EKG and blood sugar were unremarkable. 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 - Present Medications Home Medications: Ambulatory Orders Medication Instructions Recorded Confirmed Carbidopa/Levodopa [Sinemet Cr 1 tab PO 0900,1500 08/05/12 11/25/22 50-200 Tablet] Aspirin [Aspirin EC] 81 mg PO DAILY 03/22/16 11/25/22 Metoprolol Tartrate [Lopressor] 25 mg PO BID #30 tablet 12/18/16 11/25/22 Furosemide [Lasix] 20 mg PO ONCE 11/25/22 11/25/22 Metoclopramide [Reglan] 10 mg PO Q6H PRN #10 tablet 11/25/22 Morphine Sulfate [Ms Contin] 15 mg PO PRN PRN 11/25/22 11/25/22 cephALEXin [Keflex] 500 mg PO Q6H #28 cap 11/25/22 - Allergies Allergies/Adverse Reactions: Allergies Allergy/AdvReac Type Severity Reaction Status Date / Time No Known Drug Allergies Allergy Verified 05/14/20 11:58 - Social History Does the pt smoke?: No Smoking Status: Never smoker Does the pt drink ETOH?: No Does the pt have substance abuse?: No - Immunizations Immunizations are current?: No - POLST Patient has POLST: No POLST Status: DNR PD ED PE NORMAL - Vitals Vital signs reviewed: Yes - General General: Alert and oriented X 3, No acute distress - HEENT HEENT: PERRL, EOMI - Cardiac Cardiac: RRR, No murmur - Respiratory Respiratory: No respiratory distress, Clear bilaterally - Abdomen Abdomen: Normal bowel sounds, Soft, Non tender - Back Back: No CVA TTP, No spinal TTP - Derm Derm: Normal color, Warm and dry - Extremities Extremities: Other (Mild, very mild cellulitis of the left second and third toes. Good capillary refill.) - Neuro Neuro: Alert and oriented X 3 Results - Vitals Vitals: Vital Signs - 24 hr 11/25/22 11/25/22 11/25/22 14:22 15:03 16:00 Temperature 36.0 C L Heart Rate 55 L 59 L 58 L Respiratory 18 16 16 Rate Blood Pressure 196/90 H 179/82 H 173/88 H O2 Saturation 99 100 99 Oxygen O2 Source [With Activity] Room air O2 Source [Without Activity] Room air O2 Source Room air - Labs Labs: Laboratory Tests 11/25/22 11/25/22 14:48 15:10 WBC 6.2 RBC 4.60 Hgb 14.4 Hct 45.0 MCV 97.8 MCH 31.3 H MCHC 32.0 RDW 12.1 Plt Count 155 MPV 9.5 Neut # (Auto) 5.1 Lymph # (Auto) 0.9 L [place] # (Auto) 0.3 Eos # (Auto) 0.0 Baso # (Auto) 0.0 Absolute Nucleated RBC 0.00 Nucleated RBC % 0.0 Sodium 136 Potassium 3.7 Chloride 99 L Carbon Dioxide 31 Anion Gap 6.0 BUN 12 Creatinine 0.6 Estimated GFR (MDRD) 96 Glucose 140 H Calcium 9.0 Total Bilirubin 0.5 AST 17 ALT 3 L Alkaline Phosphatase 46 Total Protein 6.5 Albumin 3.9 Globulin 2.6 Albumin/Globulin Ratio 1.5 PD Medical Decision Making - ED course ED course: 82-year-old woman started doxycycline this morning then subsequently very quickly started vomiting. Benign exam here. Had received Zofran in route without any improvement. Subsequently after initial evaluation with benign abdominal examination I gave her Reglan. After an appropriate weight and screening labs which were unremarkable including CBC and CMP she wanted to take her carbidopa levodopa and she did take her home carbidopa levodopa with small amount of water. Very quickly vomited again and the medication came up. I ordered a dose of Compazine and a repeat dosing of her carbidopa levodopa as she is now without her usual dosing. After Compazine IV her nausea was much better and she tolerated her carbidopa levodopa and had a small snack and feeling better. Amenable to discharge. We will change her antibiotics to Keflex given the reaction to doxycycline. Her son noted that there was some blood in her vomit prior to arrival. Her H&H is looking fine and her vomit here was not bloody. Departure - Departure Disposition: Home, Self Care Clinical Impression: Vomiting Qualifiers: Vomiting type: unspecified Nausea presence: with nausea Qualified Code(s): R11.2 - Nausea with vomiting, unspecified Condition: Good Record reviewed to determine appropriate education?: Yes Instructions: ED Nausea Vomiting Prescriptions: cephALEXin [Keflex] 500 mg PO Q6H #28 cap Metoclopramide [Reglan] 10 mg PO Q6H PRN #10 tablet PRN Reason: nausea or headache Comments: I sent your prescriptions electronically to [facility] in [place]. I would avoid doxycycline going forward given the reaction you had today. Return for new or worsening symptoms. I did change her antibiotics of course and you should eat a light diet tonight. Continue other medications.
[2022-11-25 14:56] LABS: BASOPHILS % (AUTO) 0.3 %; EOSINOPHILS % (AUTO) 0.2 %; HGB - HEMOGLOBIN 14.4 g/dL (12.0-16.0); LYMPHOCYTES # (AUTO) 0.9 10^3/uL (1.5-3.5); LYMPHOCYTES % (AUTO) 13.8 %; MEAN CORPUSCULAR HEMOGLOBIN 31.3 pg (27.0-31.0); MEAN CORPUSCULAR VOLUME 97.8 fL (81.0-99.0); MEAN PLATELET VOLUME 9.5 fL (7.9-10.8); MONOCYTES # (AUTO) 0.3 10^3/uL (0.0-1.0); NEUTROPHILS # (AUTO) 5.1 10^3/uL (1.5-6.6); NEUTROPHILS % (AUTO) 81.4 %; PLT - PLATELET COUNT 155 10^3/uL (130-450); RED CELL DISTRIBUTION WIDTH 12.1 % (12.0-15.0); WHITE BLOOD COUNT 6.2 x10^3/uL (4.8-10.8)
[2022-11-25 15:35] LABS: ALBUMIN 3.9 g/dL (3.2-5.5); ALBUMIN/GLOBULIN RATIO 1.5 (1.0-2.2); BILIRUBIN,TOTAL 0.5 mg/dL (0.2-1.0); CREATININE 0.6 mg/dL (0.6-1.3); POTASSIUM 3.7 mmol/L (3.5-4.5); TOTAL PROTEIN 6.5 g/dL (6.4-8.9)
[2022-11-25] MEDS ORDERED: CARBIDOPA/LEVODOPA ER 50 MG/200 MG TABLET PO STA (15:48)
[2022-11-25] MEDS ORDERED: PROCHLORPERAZINE 10 MG/2 ML VIAL IVP STA (15:48)
[2022-11-25 16:16] VITALS: O2SAT 99
[2022-11-25 17:26] VITALS: BP 172/77
== END 2022-11-25 17:24 | disposition home or self-care (01) ==
LOC: EDUNIT# → ED 14:16
DX: R11.2 Nausea with vomiting, unspecified (principal); T36.4X5A Adverse effect of tetracyclines, initial encounter; G20 Parkinson's disease; Z79.899 Other long term (current) drug therapy; Z66 Do not resuscitate
CPT/HCPCS: 36415; 80053; 85025; 96374; 96375; 99283; A9270; J2765

== ENCOUNTER 2023-01-10 09:51 | Outpatient (CLI) | payer MEDICARE, MEDICAID | END 2023-01-10 09:52 | disposition critical access hospital (66) | LOC: EMS 09:51 | DX: R11.2 Nausea with vomiting, unspecified (principal); R10.31 Right lower quadrant pain; R10.32 Left lower quadrant pain; R53.83 Other fatigue | CPT/HCPCS: A0425; A0427 ==

== ENCOUNTER 2023-01-10 10:09 | Inpatient (IN) | payer MEDICARE, MEDICAID ==
[2023-01-10 12:10] LABS: BASOPHILS # (AUTO) 0.1 10^3/uL (0.0-0.1); BASOPHILS % (AUTO) 0.5 %; EOSINOPHILS % (AUTO) 0.3 %; HCT - HEMATOCRIT 51.6 % (37.0-47.0); HGB - HEMOGLOBIN 17.4 g/dL (12.0-16.0); LYMPHOCYTES # (AUTO) 1.3 10^3/uL (1.5-3.5); LYMPHOCYTES % (AUTO) 10.4 %; MEAN CORPUSCULAR HGB CONC 33.7 g/dL (32.0-36.0); MEAN PLATELET VOLUME 10.1 fL (7.9-10.8); MONOCYTES # (AUTO) 0.7 10^3/uL (0.0-1.0); NEUTROPHILS # (AUTO) 10.1 10^3/uL (1.5-6.6); NEUTROPHILS % (AUTO) 81.4 %; RED BLOOD COUNT 5.61 10^6/uL (4.20-5.40); RED CELL DISTRIBUTION WIDTH 13.1 % (12.0-15.0); WHITE BLOOD COUNT 12.4 x10^3/uL (4.8-10.8)
[2023-01-10] MEDS ORDERED: ONDANSETRON 4 MG/2 ML VIAL IVP STA (12:12)
[2023-01-10] MEDS ORDERED: SODIUM CHLORIDE 0.9% 1,000 ML IV STA (12:12)
[2023-01-10 12:15] LABS: ALBUMIN 3.8 g/dL (3.2-5.5)
--- NOTE | 2023-01-10 12:15 | ED Physician Documentation ---
History of Present Illness - Stated complaint Stated Complaint: N/V - Chief complaint Chief Complaint: Abd Pain - History obtained from History obtained from: Patient, Family, EMS - History of Present Illness Pain level max: 5 Pain level now: 5 - Additonal information Additional information: Patient is an 82-year-old female who presents to the emergency department nausea and vomiting for 2 days. She states she thinks she ate something bad at home. Has a history of Parkinson's disease. No fevers. No chills. Describes diffuse abdominal pain, described as crampy. Has not taken anything for the nausea or vomiting. She is on morphine chronically for arthritis. No diarrhea or constipation. No blood in the stool. No blood in the emesis. Not on blood thinners. No recent travel. No recent antibiotics. She states she has not had any abdominal surgeries in the past. Review of Systems Constitutional: denies: Fever, Chills Respiratory: denies: Cough GI: reports: Abdominal Pain (Diffuse, crampy, achy), Nausea, Vomiting. 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 - Present Medications Home Medications: Ambulatory Orders Medication Instructions Recorded Confirmed Carbidopa/Levodopa [Sinemet Cr 1 tab PO 0900,1500 08/05/12 01/10/23 50-200 Tablet] Aspirin [Aspirin EC] 81 mg PO DAILY 03/22/16 01/10/23 Metoprolol Tartrate [Lopressor] 25 mg PO BID #30 tablet 12/18/16 01/10/23 Furosemide [Lasix] 40 mg PO DAILY 11/25/22 01/10/23 Morphine Ir [Morphine] 15 mg PO TID PRN 01/10/23 01/10/23 - Allergies Allergies/Adverse Reactions: Allergies Allergy/AdvReac Type Severity Reaction Status Date / Time doxycycline AdvReac Emesis Verified 01/10/23 10:26 - Social History Does the pt smoke?: No Smoking Status: Never smoker Does the pt drink ETOH?: No Does the pt have substance abuse?: No - Immunizations Immunizations are current?: No - POLST Patient has POLST: No POLST Status: DNR PD ED PE NORMAL - Vitals Vital signs reviewed: Yes - General General: Alert and oriented X 3, No acute distress - HEENT HEENT: Atraumatic, PERRL, Moist mucous membranes, Pharynx benign - Neck Neck: Supple, no meningeal sign - Cardiac Cardiac: RRR, Strong equal pulses - Respiratory Respiratory: No respiratory distress, Clear bilaterally - Abdomen Abdomen: Soft, Non distended, Other (Diffusely tender to palpation without peritoneal signs.) - Back Back: No CVA TTP, No spinal TTP - Derm Derm: Warm and dry - Extremities Extremities: No edema - Neuro Neuro: Alert and oriented X 3 - Psych Psych: Normal mood, Normal affect Results - Vitals Vitals: Vital Signs - 24 hr 01/10/23 10:20 Temperature 36.6 C Heart Rate 68 Respiratory 24 Rate Blood Pressure 134/82 H O2 Saturation 95 Oxygen O2 Source [With Activity] Room air O2 Source [Without Activity] Room air O2 Source Room air - Labs Labs: Laboratory Tests 01/10/23 01/10/23 01/10/23 11:47 12:05 13:45 WBC 12.4 H RBC 5.61 H Hgb 17.4 H Hct 51.6 H MCV 92.0 MCH 31.0 MCHC 33.7 RDW 13.1 Plt Count MPV 10.1 Neut # (Auto) 10.1 H Lymph # (Auto) 1.3 L [place] # (Auto) 0.7 Eos # (Auto) 0.0 Baso # (Auto) 0.1 Absolute Nucleated RBC 0.00 Nucleated RBC % 0.0 Platelet Estimate DECREASED (<130,000) Platelet Morphology PLATELET CLUMPING RBC Morph Micro Appear NORMAL APPEARANCE Sodium 134 L Potassium 4.5 Chloride 95 L Carbon Dioxide 26 Anion Gap 13.0 BUN 26 H Creatinine 1.1 Estimated GFR (MDRD) 48 L Glucose 142 H Calcium 9.6 Total Bilirubin 0.8 AST 28 ALT 4 L Alkaline Phosphatase 57 Total Protein 6.7 Albumin 3.8 Globulin 2.9 Albumin/Globulin Ratio 1.3 Lipase < 10 L Urine Color YELLOW Urine Clarity CLEAR Urine pH 7.0 Ur Specific [place] 1.020 Urine Protein 100 H Urine Glucose (UA) NEGATIVE Urine Ketones NEGATIVE Urine Occult Blood NEGATIVE Urine Nitrite NEGATIVE Urine Bilirubin NEGATIVE Urine Urobilinogen 0.2 (NORMAL) Ur Leukocyte Esterase NEGATIVE Urine RBC None Seen Urine WBC 0-3 Ur Squamous Epith Cells FEW Squamous Urine Bacteria Few Urine Casts 0-2 Hyaline Casts Urine Mucus Few Strands Ur Microscopic Review INDICATED Urine Culture Comments NOT INDICATED - Rads (name of study) CT abdomen pelvis Relevant Findings:: Final report received, See rad report PD Medical Decision Making - ED course Complexity details: reviewed results, re-evaluated patient, considered differential, d/w patient, d/w nursing consultant ED course: Patient is an 82-year-old female who presents to the emergency department nausea and vomiting for the past 2 days. Does have abdominal tenderness. An IV was started and IV fluids were given. She appears to have a closed-loop bowel obstruction on CT scan. An NG tube was placed. She had significant urinary retention as well, therefore a Bonner catheter was placed. Discussed the case with Dr. Colmenares, general surgery who spoke with medicine, Dr. Sanford and she will admit the patient. He will plan on taking the patient to the operating room later today. Pain well controlled. This document was made in part using voice recognition software. While efforts are made to proofread this document, sound alike and grammatical errors may occur. Departure - Departure Disposition: [facility] DC/[facility] Clinical Impression: Small bowel obstruction, Urinary retention Condition: Stable Discharge Date/Time: 01/10/23 16:10
[2023-01-10 12:21] LABS: ALBUMIN/GLOBULIN RATIO 1.3 (1.0-2.2); ALKALINE PHOSPHATASE 57 IU/L (42-121); ALT ALANINE AMINOTRANSFERASE 4 IU/L (10-60); AST ASPARTATE AMINOTRANSFERASE 28 IU/L (10-42); BILIRUBIN,TOTAL 0.8 mg/dL (0.2-1.0); BUN - BLOOD UREA NITROGEN 26 mg/dL (6-20); CALCIUM 9.6 mg/dL (8.5-10.3); CARBON DIOXIDE - CO2 26 mmol/L (21-32); CHLORIDE 95 mmol/L (101-111); CREATININE 1.1 mg/dL (0.6-1.3); GFR - MDRD 48 (>89); GLUCOSE 142 mg/dL (74-104); LIPASE < 10 U/L (11-82); POTASSIUM 4.5 mmol/L (3.5-4.5); SODIUM 134 mmol/L (135-145); TOTAL PROTEIN 6.7 g/dL (6.4-8.9)
[2023-01-10 12:38] LABS: PLATELET ESTIMATE, MANUAL DECREASED (<130,000) (NORMAL); PLATELET MORPHOLOGY PLATELET CLUMPING (NORMAL); RBC MORPHOLOGY (MULTIPLE) NORMAL APPEARANCE (NORMAL)
[2023-01-10] MEDS: SODIUM CHLORIDE 0.9% 1,000 ML IV STA ×2 (12:54→14:08)
[2023-01-10] MEDS ORDERED: iohexoL-300 100 ML VIAL IVP ONE (13:25)
--- NOTE | 2023-01-10 13:35 | CT Report ---
PROCEDURE: ABDOMEN/PELVIS W INDICATIONS: diffuse abd pain, vomiting CONTRAST: 100ml omni 300 TECHNIQUE: After the administration of oral and intravenous contrast, 5 mm thick sections acquired from the diap hragms to the symphysis. 5 mm thick coronal and sagittal reformats were acquired. For radiation dos e reduction, the following was used: automated exposure control, adjustment of mA and/or kV accordin g to patient size. COMPARISON: CT 01/20/2017 FINDINGS: Image quality: Excellent. Lung bases and heart: Trace pleural effusions. Liver: Edge blunting. No solid mass. Gallbladder and biliary tree: Surgically absent. No biliary dilation, accounting for post-cholecystec rolly state. Spleen: No splenomegaly. Pancreas: No pancreatic ductal dilation. Atrophic. Adrenals: No adrenal nodule. Kidneys and ureters: No hydronephrosis. No renal cystic lesion which requires follow up. No solid mas s. Bowel and peritoneum: Distended loops of small bowel in the left hemiabdomen. 2 transition points are located in close proximity (series 2, image 47 and series 2, image 38). Extensive mesenteric edema. Moderate volume ascites. Lymph nodes: No central or retroperitoneal adenopathy. Vessels: No infrarenal aortic aneurysm. PELVIS Reproductive organs: Unremarkable. Bladder: Moderate distention of the urinary bladder. Pelvic lymph nodes: No pelvic adenopathy by size criteria. Bones: No aggressive osseous abnormality. Other: No significant ventral or inguinal hernia. IMPRESSION: Suspect closed-loop bowel obstruction, with transition points within the left mid abdomen. Mesenteric edema and ascites may indicate impending bowel ischemia. Moderate distention and urinary bladder. Above discussed with Gerardo Nelson MD at the time of dictation. Reviewed by: Agapito Kellogg on 01/10/2023 1:33 PM PDT Approved by: Agapito Kellogg on 01/10/2023 1:33 PM PDT Station ID: [id number]
[2023-01-10] MEDS ORDERED: LACTATED RINGERS 1,000 ML IV STA (13:58)
[2023-01-10 14:19] LABS: BILIRUBIN,URINE NEGATIVE (NEGATIVE); GLUCOSE, URINE (UA) NEGATIVE (NEGATIVE); KETONES,URINE (UA) NEGATIVE (NEGATIVE); LEUKOCYTE ESTERASE, URINE NEGATIVE (NEGATIVE); NITRITE,URINE NEGATIVE (NEGATIVE); OCCULT BLOOD,URINE NEGATIVE (NEGATIVE); PROTEIN,URINE 100 mg/dL (NEGATIVE); UROBILINOGEN,URINE 0.2 (NORMAL) E.U./dL (NORMAL)
[2023-01-10 14:31] LABS: CLARITY,URINE CLEAR (CLEAR)
[2023-01-10 14:33] LABS: BACTERIA,URINE Few /HPF (None Seen); MUCUS,URINE Few Strands; RBC,URINE None Seen /HPF (0-5); SQUAMOUS EPITHELIAL CELL,UR FEW Squamous (<= Few); WBC,URINE 0-3 /HPF (0-5)
[2023-01-10 14:34] LABS: CASTS, URINE 0-2 Hyaline Casts /LPF
[2023-01-10] MEDS ORDERED: ONDANSETRON 4 MG/2 ML VIAL IVP PRN (14:37)
[2023-01-10] MEDS ORDERED: MORPHINE 2 MG/ML CARPUJECT IVP PRN (14:46)
[2023-01-10] MEDS ORDERED: PROCHLORPERAZINE 10 MG/2 ML VIAL IVP PRN (14:47)
--- NOTE | 2023-01-10 14:50 | CONSULTATION NOTE ---
Surgery Consult - Admit Date Hospital Admission Date: 01/10/23 - Consult Date Consult Date: 01/10/23 Requesting Provider: Dr Sanford - Chief Complaint Chief Complaint: Generalized abdominal pain - Home Meds/Allergies Home Medications: Patient History Medication Instructions Recorded Confirmed Carbidopa/Levodopa [Sinemet Cr 1 tab PO 0900,1500 08/05/12 01/10/23 50-200 Tablet] Aspirin [Aspirin EC] 81 mg PO DAILY 03/22/16 11/25/22 Furosemide [Lasix] 40 mg PO DAILY 11/25/22 01/10/23 Morphine Ir [Morphine] 15 mg PO TID PRN 01/10/23 01/10/23 Allergies/Adverse Reactions: Allergies Allergy/AdvReac Type Severity Reaction Status Date / Time doxycycline AdvReac Emesis Verified 01/10/23 10:26 - Vital Signs Vital Signs: Last Vital Signs Temp 97.9 F 01/10/23 10:20 Pulse 68 01/10/23 10:20 Resp 24 01/10/23 10:20 BP 134/82 H 01/10/23 10:20 Pulse Ox 95 01/10/23 10:20 O2 Flow Rate Intake & Output: Intake & Output 01/07/23 01/08/23 01/09/23 01/10/23 23:59 23:59 23:59 23:59 Intake Total 1185 Balance 1185 - Lab Results Result Diagrams: 01/10/23 12:05 01/10/23 11:47 - Consultation Note Consultation Note: Zamzam is an 82 year old female who developed generalized abdominal discomfort 2 days ago. It was constant, cramping and non-radiating. The discomfort was ass ociated with obstipation and increased in severity over the last two days. She has been anorexic and was brought into the ED by her because of her increasing abdominal pain. In the ED she was found to have generalized abdominal pain with CT findings consistent with a closed loop small bowel obstruction with two points of narrowing and moderate ascites. The patient denies previous abdominal surgery. She and her state that she is a full code. The patient has been admitted to the Medical Hospitalist Service. Physical Examination: GENERAL APPEARANCE: Elderly female, disheveled PSYCHIATRIC: Awake and cooperative; Severe abdominal pain EYES: Pupils equal, round and reactive to light, sclera anicteric EARS, NOSE, MOUTH, THROAT: Hearing normal, Oral mucous membranes moist and without lesions; Dental caries NECK: No crepitus, lymphadenopathy, or thyromegaly LUNGS: Clear to auscultation without wheezing; No use of accessory muscles to breathe CARDIOVASCULAR: Heart-NSR without murmurs; Palpable carotid arteries ABD: Distended, rigid with fullness in LUQ and LLQ; - BS LYMPHATIC: Neck, Axillae, Groin no palpable adenopathy EXTREMITIES: No clubbing, cyanosis, infections SKIN: Anicteric; No rashes, lesions, Ulcerations Assessment: 1) SBO, closed loop with high probability of ischemic or gangrenous small bowel. Recommendation: 1) NGT placement 2) IV fluid resuscitation 3) Cipro/Flagyl IV 4) Prepare for exploratory laparotomy as soon as she is ready. Consent: Zamzam and her have been counseled for the procedure, it's indications, risks, benefits and expected outcome as well as alternative therapies. We specifically discussed risks associated with anesthesia, bleeding, infection, possible TX, CVA, and related to our interventions to save her life. We also discussed the possible need for a blood transfusion with its risks and benefits. Both Zamzam and her understand, agree, and consent to the proposed operative strategy and requests that we proceed with the procedure as outlined in our discussion. Max Colmenares MD General Surgery Service
[2023-01-10] MEDS ORDERED: DEXTROSE 5%-0.9% NACL 1,000 ML IV SCH (15:00)
[2023-01-10] MEDS: metroNIDAZOLE 500 MG/100 ML 500 MG/100 ML BAG IV SCH ×2 (16:20→23:52)
[2023-01-10] MEDS: CIPROFLOXACIN 400 MG/200 ML 400 MG/200 ML BAG IV SCH (16:20)
--- NOTE | 2023-01-10 16:26 | PHARMACY PROGRESS NOTE ---
- Best Possible Medication History Admit Date and Time: 01/10/23 1432 Processed by: Pharmacy Medication History completed: Yes Patient Interview: Pt unable to participate Secondary Source(s): Spouse/Significant other (MEDREC PERFORMED BY [employer]. PT WAS NOT IN CONDITION TO BE INTERVIEWED BUT A MEDLIST WAS RETRIEVED FROM [facility]. ARI RUSSELL MD AT [address] , [place], [place] IS PCP.), Insurance records (MEDREC DONE BY [facility]. PT WAS NOT IN CONDITION TO BE INTERVIEWED BUT MEDLIST WAS RETRIEVED FROM [facility]. ARI SCANLON MD, AT [address] , [place], [place] IS PT'S PCP.) As the person ultimately responsible for medication therapy, providers are able to order a medication from an existing home medication list in [facility] via the "Reconcile Routine" prior to Confirmation of that medication by customer support professional. S uch practice is discouraged except when the physician, in their clinical judgment, deems that a medical need exists for a medication without regard to previous use.
[2023-01-10] MEDS: SODIUM CHLORIDE FLUSH 0.9% 10 ML SYRINGE IVP SCH ×2 (16:34→20:48)
[2023-01-10] MEDS ORDERED: BUPIVACAINE 0.5% PF 10 ML VIAL ONE (16:39)
--- NOTE | 2023-01-10 17:21 | HISTORY & PHYSICAL EXAMINATION ---
Chief Complaint - Chief Complaint Chief Complaint: Nausea/Vomiting History of Present Illness - Admitted From Admitted From:: ED - History Obtained From Records Reviewed: Yes History obtained from: ED, significant other Exam Limitations: Pt sleepy, not able to participate in history - History of Present Illness HPI Comment/Other: Patient is an 82 y/o female admitted from ED after 2 days of nausea and vomiting. History of Parkinson's. She thinks she "ate something bad" at home. Describes diffuse abdominal pain, described as crampy. Denies taking anything for the nausea or vomiting, however takes morphine chronically for arthritis. Denies fevers or chills. No diarrhea or constipation. No blood in the stool. No hematemesis. Not on blood thinners. No recent travel. No recent antibiotics. 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 - Substance History Use: Uses substance without health or social issues: NONE - POLST Patient has POLST: No POLST Status: Full Code Meds/Allgy - Home Medications Home Medications: Ambulatory Orders Medication Instructions Recorded Confirmed Carbidopa/Levodopa [Sinemet Cr 1 tab PO 0900,1500 08/05/12 01/10/23 50-200 Tablet] Aspirin [Aspirin EC] 81 mg PO DAILY 03/22/16 01/10/23 Metoprolol Tartrate [Lopressor] 25 mg PO BID #30 tablet 12/18/16 01/10/23 Furosemide [Lasix] 40 mg PO DAILY 11/25/22 01/10/23 Morphine Ir [Morphine] 15 mg PO TID PRN 01/10/23 01/10/23 - Allergies Allergies/Adverse Reactions: Allergies Allergy/AdvReac Type Severity Reaction Status Date / Time doxycycline AdvReac Emesis Verified 01/10/23 10:26 Review of Systems - Gastrointestinal Gastrointestinal: reports: Abdominal pain, Nausea, Vomiting Exam - Vital Signs Reviewed Vital Signs: Yes Vital Signs: Vital Signs x48h Temp Pulse Pulse Resp BP BP Pulse Ox 01/10/23 16:07 36.5 C 70 22 154/83 H 99 01/10/23 10:20 36.6 C 68 24 134/82 H 95 - Physical Exam General Appearance: positive: No acute distress, Lethargic (Per spouse, pt's bedtime is around 1630 hrs; pt unable to participate in exam.) Eyes Bilateral: positive: No scleral icterus ENT: positive: Other (NG tube in place, patent) Neck: positive: Nml inspection, No JVD, Trachea midline Respiratory: positive: No respiratory distress Cardiovascular: positive: Regular rate & rhythm Abdomen: positive: Tenderness (Diffuse abd px, unable to pinpoint), Abnml bowel sounds (Absent bowel sounds), Other (Distention w/ rigidity; no guarding or rebound present) Skin: positive: Color nml, No rash, Warm, Dry Extremities: positive: Pedal edema (2+, non-pitting) Neurologic/Psychiatric: positive: Other (Unable to assess d/t to lethargy) Sepsis Event Note (H) - Evaluation Current Stage of Sepsis: Ruled out Conclusion/Plan - Problem List (1) Small bowel obstruction Conclusion/Plan: Pt to undergo surgical correction of closed loop bowel obstruction identified on CT while in the ED today. NG was placed in preparation for the procedure, which pt has tolerated well. Pt reports no surgical history, however there is tubal ligation in her records and on CT her gallbladder is noted to be surgically absent. Plan: Procedure will be performed by Dr. Colmenares and pt has consented. Will monitor and follow-up w/ pt once she has returned to [facility] unit. Will continue narcotics for pain w/ current surgical procedure. (2) Pre-renal azotemia Impression: Pt's BUN of 26 and Creat of 1.1 today correlate with dehydration and her GFR of 48 (down from 96 on 12/02) correlate with hypovolemia, both likely d/t recent vomiting and concurrent use of furosemide. Plan: Will rehydrate pt via IV fluids both pre-and post-operatively as she will have dietary restrictions in place after returning to the inpatient unit. Labs will be monitored daily and IV fluids will be adjusted accordingly. Will hold furosemide and reassess utility. (3) Urinary retention Impression: While in the ED, pt was not voiding and a Bonner catheter was placed. No evidence of cystitis or UTI was found during workup. Bonner catheter has remained patent, no hematuria noted on exam. Plan: Bonner catheter to remain for now, will reassess pt's urgency and ability to void once surgery case has concluded. (4) History of Parkinson's disease Impression: Pt has hx of Parkinson's, which there is currently no direct intervention. Her home carbidopa/levodopa will be temporarily suspended d/t no IV formulation available. Plan: Will reassess pt's ability to take home meds once her SBO has been surgically addressed. (5) Hypertension Impression: With concerns of potential hypotension w/ imminent surgery, pt's home metoprolol will be held until surgical case has concluded. Plan: Reassess pt's blood pressure once cleared by surgeon; likely restart metoprolol post surgery. (6) Chronic narcotic use Impression: Per ED history and pt's spouse, pt has been chronically taking morphine to address MSK pains related to osteoarthritis for an undetermined amount of time. This chronic use is likely a contributing factor in the formation of the bowel obstruction d/t to the opioid MOA in decreasing gut motility. Plan: Will continue narcotics for pain for the time being w/ current surgical procedure and to avoid inducing withdrawal. Evaluate and discuss other potential options for chronic pain management in lieu of continuing morphine. - Lab Results Lab results reviewed: Yes Juan Bones: 01/10/23 17:05 01/10/23 11:47 - Diagnostic Imaging Results Diagnostic Imaging Results: positive: Final report reviewed (Per CT report, pt has a surgically absent gallbladder) - Other Other Results/Comments: Attestation: The patient is expected to be hospitalized for greater than 2 midnights and is expected to be discharged or transferred to another facility within 96 hours: Yes
[2023-01-10] MEDS ORDERED: fentaNYL 100 MCG/2 ML VIAL ONE (18:10)
[2023-01-10] MEDS ORDERED: VASOPRESSIN 20 UNIT/ML VIAL ONE (18:17)
[2023-01-10] MEDS ORDERED: ROCURONIUM 50 MG/5 ML VIAL ONE (18:19)
[2023-01-10] MEDS ORDERED: ACETAMINOPHEN 1,000 MG/100 ML 1,000 MG/100 ML BAG IV PRN (18:36)
[2023-01-10] MEDS ORDERED: BUPIVACAINE 0.5% PF 10 ML VIAL SUBQ ONE (18:50)
[2023-01-10] MEDS ORDERED: SUGAMMADEX 200 MG/2 ML VIAL IVP ONE (18:59)
[2023-01-10] MEDS: DEXTROSE 5%-0.9% NACL 1,000 ML IV SCH (19:25)
--- NOTE | 2023-01-10 19:27 | OPERATIVE REPORT ---
Operative Report - General Admit Date: 01/10/23 - Other Other Information/Narrative: PROCEDURE DATE: 01/10/2023 PREOPERATIVE DIAGNOSIS: Zamzam is an 82 year old female who has clinical, CT and lab findings consistent with a closed loop small bowel obstruction with possible bowel ischemia. POSTOPERATIVE DIAGNOSIS: Closed loop small bowel obstruction secondary to adhesions with ischemia of 120 cm of mid-jejunum NAME OF PROCEDURE: Exploratory laparotomy, adhesiolysis SURGEON: Viral Colmenares MD, FACS GREEN PLUMBER: Saturator ANESTHESIA: General endotracheal. ESTIMATED BLOOD LOSS: 20 mL. DESCRIPTION OF OPERATION: After consent for the procedure was obtained, the patient was brought to the operating room and placed into the the supine position. General endotracheal anesthesia was then administered. Venous compression stockings were placed on the lower extremities. A surgical time-out was performed indicating the patient and the procedure to be performed. The abdomen was prepped with alcohol-free chloroprep, and draped in a sterile fashion. A midline sub-umbilical incision was used to gain exposure of the abdominal cavity. Bloody ascites was identified and cultured. In the LUQ was a 110 cm segment of ischemic small bowel protruding through an internal hernia caused by a thick adhesion. The adhesion was transected with cautery and the bowel loop was mobilized and inspected. There was no evidence of gangrene and after a few minutes, the involved segment regained viability and peristalsis. I replaced this segment into the abdominal cavity and evaluated the small bowel proximal to the ischemic segment all the way to the Ligament of Treitz. This segment length was 120 cm and was completely normal. There were no proximal adhesions. The small bowel distal to the ischemic segment was also 120 cm in length and also was completely normal. Another thick adhesion was present creating another internal hernia through which a short segment of ileum was protruding but this was not causing an obstruction. This adhesion was transected. The colon contained hard but malleable fecal material. The urinary bladder was normal and the mays balloon was palpated within the bladder. The NGT was confirmed in the gastric lumen. Reinspection of the ischemic segment revealed continued viability with normal serosal appearance in between short segments of normal but hemorrhagic serosa. I attempted to use a pencil doppler transducer to intyerrogate the vascular supply of the involved bowel segment but technical issues thwarted our efforts. At the distal edge of the ischemic segment of bowel was a 1 mm band of dark but viable serosa where the adhesion had compressed the bowel. I chose not to resect this because there was no evidence of gangrene, the lumen appeared wide, and I didn't want to create an anastomosis to ischemic bowel. A second look procedure tomorrow is an option that I may utilize to insure continued bowel viability and absence of issues related to this compression band. The small bowel was returned into the peritoneal cavity and covered with omentum. The abdominal cavity was then irrigated with 1 liter of warm, sterile saline. The irrigant was aspirated. A search for sponges, packs, needles and instruments was performed. None were identified in the peritoneal cavity. The sponge, pack, needle, and instrument counts were relayed to me as correct. The linea alba was then closed with a running looped #1 PDS suture. The subcutaneous tissue was infiltrated with 30 ml of Marcaine. The skin was approximated with skin edgardo and the wound dressed with 4 x 4 gauze and tape over Xeroform gauze.. The patient tolerated the procedure well and was brought to the ICU extubated, off inotrophs, and with stable vital signs. The patient's and son were notified of the operative findings and plans for management.
--- NOTE | 2023-01-10 19:56 | ANESTHESIA ---
Pre-Anesthesia VS, & Labs - Diagnosis SBO - Procedure exploratory laparotomy Vital Signs: Temp Pulse Resp BP Pulse Ox O2 Flow Rate 36.5 C 70 22 154/83 H 99 01/10/23 16:07 01/10/23 16:07 01/10/23 16:07 01/10/23 16:07 01/10/23 16:07 Height: 5 ft 6 in Weight (kg): 74.5 kg Body Mass Index: 26.5 BMI Classification: Overweight - NPO >8 hours - Is Patient ?: No - Lab Results Current Lab Results: Laboratory Tests 01/10/23 17:05: Plt Count 235 01/10/23 12:05: WBC 12.4 H, RBC 5.61 H, Hgb 17.4 H, Hct 51.6 H, MCV 92.0, MCH 31.0, MCHC 33.7, RDW 13.1, Plt Count , MPV 10.1, Neut # (Auto) 10.1 H, Lymph # (Auto) 1.3 L, [place] # (Auto) 0.7, Eos # (Auto) 0.0, Baso # (Auto) 0.1, Absolute Nucleated RBC 0.00, Nucleated RBC % 0.0, Platelet Estimate DECREASED (<130,000), Platelet Morphology PLATELET CLUMPING, RBC Morph Micro Appear NORMAL APPEARANCE 01/10/23 11:47: Sodium 134 L, Potassium 4.5, Chloride 95 L, Carbon Dioxide 26, Anion Gap 13.0, BUN 26 H, Creatinine 1.1, Estimated GFR (MDRD) 48 L, Glucose 142 H, Calcium 9.6, Total Bilirubin 0.8, AST 28, ALT 4 L, Alkaline Phosphatase 57, Total Protein 6.7, Albumin 3.8, Globulin 2.9, Albumin/Globulin Ratio 1.3, Lipase < 10 L Fish Bones: 01/10/23 17:05 01/10/23 11:47 Home Medications and Allergies Home Medications: Ambulatory Orders Morphine Ir [Morphine] 15 mg PO TID PRN 01/10/23 Active Medications Famotidine (Famotidine 20 Mg/2 Ml Vial) 20 mg IVP BID DEAN Heparin Sodium (Porcine) (Heparin 5,000 Unit/Ml Vial) 5,000 unit SUBQ BID DEAN Ciprofloxacin (Cipro 400 Mg/200 Ml) 400 mg in 200 mls @ 200 mls/hr IV Q12H [facility] Last Infusion: 01/10/23 17:20 Dose: Infused Metronidazole (Flagyl 500 Mg/100 Ml) 500 mg in 100 mls @ 100 mls/hr IV Q8H [facility] Last Infusion: 01/10/23 17:20 Dose: Infused Acetaminophen (Acetaminophen) 1,000 mg in 100 mls @ 400 mls/hr IV Q6HR PRN PRN Reason: Pain or Fever > 38C (100.4F) Dextrose/Sodium Chloride (D5ns) 1,000 mls @ 150 mls/hr IV .Q6H40M [facility] Last Admin: 01/10/23 19:25 Dose: 150 mls/hr Morphine Sulfate (Morphine 2 Mg/Ml Carpuject) 2 mg IVP Q2H PRN PRN Reason: Severe Pain (Level 7-10) Ondansetron HCl (Ondansetron 4 Mg/2 Ml Vial) 4 mg IVP Q6HR PRN PRN Reason: Nausea / Vomiting Prochlorperazine Edisylate (Prochlorperazine 10 Mg/2 Ml Vial) 10 mg IVP Q6HR PRN PRN Reason: Nausea / Vomiting Sodium Chloride (Sodium Chloride Flush 0.9% 10 Ml Syringe) 10 ml IVP PRN PRN PRN Reason: NEEDED PER PROVIDER ORDERS Sodium Chloride (Sodium Chloride Flush 0.9% 10 Ml Syringe) 10 ml IVP 0100,0900,1700 [facility] Last Admin: 01/10/23 16:34 Dose: 10 ml Carbidopa/Levodopa [Sinemet Cr 50-200 Tablet] 1 tab PO 0900,1500 08/05/12 Aspirin [Aspirin EC] 81 mg PO DAILY 03/22/16 Furosemide [Lasix] 40 mg PO DAILY 11/25/22 Morphine Ir [Morphine] 15 mg PO TID PRN 01/10/23 Allergies/Adverse Reactions: Allergies Allergy/AdvReac Type Severity Reaction Status Date / Time doxycycline AdvReac Emesis Verified 01/10/23 10:26 Anes History & Medical History - Anesthetic History Anesthesia Complications: reports: No previous complications Family history of Anesthesia Complications: Denies Family history of Malignant Hyperthermia: Denies - Medical History Cardiovascular: reports: Hypertension, Murmur Pulmonary: reports: None Gastrointestinal: reports: GERD Urinary: reports: None Neuro: reports: Parkinson's Musculoskeletal: reports: Osteoarthritis Endocrine/Autoimmune: reports: None Blood Disorders: reports: None Skin: reports: None Smoking Status: Never smoker Psychosocial: reports: No issues indicated - Surgical History General: reports: Cholecystectomy Gynecologic: reports: Tubal ligation Exam General: Other (pt minimally responsive. Per pt is "very sleepy" and "always like this") Dental: Poor dentition, Other (very very poor dentition with many missing teeth and the few teeth that remain are broken, sharp nubs) Mouth Openin Fingerbreadth Neck Mobility: Normal Mallampati classification: III Thyromental Distance: 4-6 cm Respiratory: Decreased breath sounds Cardiovascular: Regular rate Abdomen: Other (absent bowel sounds) Cognitive Status: Other (describe below) Plan Anesthesia Type: General Consent for Procedure(s) Verified and Reviewed: Yes Code Status: Attempt Resuscitation ASA classification: 4-Incapacitating disease Is this case an emergency?: Yes
--- NOTE | 2023-01-10 20:09 | ANESTHESIA POST OP EVALUATION ---
Anesthesia Post Eval - Post Anesthesia Eval Vitals: Last Vital Signs Temp 36.5 C 01/10/23 20:00 Pulse 93 01/10/23 20:00 Resp 22 01/10/23 20:00 BP 112/61 01/10/23 20:00 Pulse Ox 95 01/10/23 20:00 O2 Flow Rate 2 01/10/23 20:00 CV Function Including HR & BP: Stable Pain Control: Satisfactory Nausea & Vomiting: Negative Mental Status: Baseline Respiratory Status: Airway Patent Hydration Status: Satisfactory Anesthesia Complications: None
[2023-01-10] MEDS: HEPARIN 5,000 UNIT/ML VIAL SUBQ SCH (20:47)
[2023-01-10] MEDS: FAMOTIDINE 20 MG/2 ML VIAL IVP SCH (20:48)
[2023-01-10] MEDS ORDERED: MIN OIL/DIMETHICON/COCONUT OIL 92 GM TUBE TOP PRN (21:51)
[2023-01-11] MEDS: DEXTROSE 5%-0.9% NACL 1,000 ML IV SCH ×4 (02:50→20:42)
[2023-01-11 04:35] LABS: BASOPHILS % (AUTO) 0.2 %; HCT - HEMATOCRIT 42.3 % (37.0-47.0); HGB - HEMOGLOBIN 14.3 g/dL (12.0-16.0); LYMPHOCYTES % (AUTO) 11.1 %; MEAN CORPUSCULAR HEMOGLOBIN 31.8 pg (27.0-31.0); MEAN CORPUSCULAR HGB CONC 33.8 g/dL (32.0-36.0); MEAN PLATELET VOLUME 10.2 fL (7.9-10.8); MONOCYTES # (AUTO) 0.6 10^3/uL (0.0-1.0); NEUTROPHILS # (AUTO) 7.5 10^3/uL (1.5-6.6); NEUTROPHILS % (AUTO) 81.5 %; PLT - PLATELET COUNT 182 10^3/uL (130-450); RED CELL DISTRIBUTION WIDTH 13.3 % (12.0-15.0); WHITE BLOOD COUNT 9.2 x10^3/uL (4.8-10.8)
[2023-01-11 04:55] LABS: VBG PH 7.516 (7.31-7.41)
[2023-01-11 04:56] LABS: CALCIUM, IONIZED 1.02 mmol/L (1.15-1.33)
[2023-01-11] MEDS: CIPROFLOXACIN 400 MG/200 ML 400 MG/200 ML BAG IV SCH ×2 (05:02→16:26)
[2023-01-11 05:32] LABS: ALBUMIN 2.7 g/dL (3.2-5.5); ALBUMIN/GLOBULIN RATIO 1.2 (1.0-2.2); BILIRUBIN,TOTAL 0.6 mg/dL (0.2-1.0); CALCIUM 7.7 mg/dL (8.5-10.3); CREATININE 0.9 mg/dL (0.6-1.3); MAGNESIUM 1.7 mg/dL (1.7-2.3); PHOSPHORUS 2.7 mg/dL (2.5-5.0); POTASSIUM 3.7 mmol/L (3.5-4.5)
[2023-01-11] MEDS ORDERED: CALCIUM GLUC 1,000MG/50ML-NACL 1,000 MG/50 ML BAG IV ONE (06:13)
[2023-01-11] MEDS: ZINC OXIDE 20% OINT 30 GM TUBE TOP PRN (06:48)
--- NOTE | 2023-01-11 07:46 | PROVIDER PROGRESS NOTE ---
Subjective - General Admit Date: 01/10/23 Procedure Date: 01/10/23 Post Op Days: 1 Procedure Performed: Exploratory laparotomy, adhesiolysis - Review of Systems Wound/Incisions: positive: Dressing dry and intact Drain Type: NGT Drain Output Description: Gastic contents Approximate mls Output: 185 ml since surgery General: positive: Other (Mild incisional discomfort) HEENT: positive: Other (NGT bothers her throat) Gastrointestinal: positive: Other (Pre-procedure abdominal pain resolved) Psychiatric: positive: No symptoms Objective - Patient Data Vital Signs: Vital Signs x48h Temp Pulse Resp BP Pulse Ox 01/11/23 07:39 97.9 F 01/11/23 07:00 90 29 H 131/65 H 93 01/11/23 06:00 87 28 H 129/61 93 01/11/23 05:00 77 24 139/75 H 93 01/11/23 04:00 97.5 F L 85 25 H 144/68 H 93 01/11/23 03:00 79 26 H 135/58 H 94 01/11/23 02:00 77 25 H 146/65 H 94 01/11/23 01:00 77 23 138/65 H 97 01/11/23 00:00 98.4 F 79 22 148/57 H 97 Weight: Weight 01/09/23 01/10/23 01/11/23 23:59 23:59 23:59 Weight (kg) 74.5 kg 74.5 kg Intake & Output: Intake and Output Totals x24h 01/09/23 01/10/23 01/11/23 23:59 23:59 23:59 Intake Total 1485 1922.5 Output Total 740 435 Balance 745 1487.5 - Lab Results Lab Results: 01/11/23 04:22 01/11/23 04:22 Other Lab Results: Lab Results x24hrs 01/11/23 01/11/23 01/11/23 Range/Units 04:22 04:22 04:22 WBC (4.8-10.8) x10^3/uL RBC (4.20-5.40) 10^6/uL Hgb (12.0-16.0) g/dL Hct (37.0-47.0) % MCV (81.0-99.0) fL MCH (27.0-31.0) pg MCHC (32.0-36.0) g/dL RDW (12.0-15.0) % Plt Count (130-450) 10^3/uL MPV (7.9-10.8) fL Neut # (Auto) (1.5-6.6) 10^3/uL Lymph # (Auto) (1.5-3.5) 10^3/uL [place] # (Auto) (0.0-1.0) 10^3/uL Eos # (Auto) (0.0-0.7) 10^3/uL Baso # (Auto) (0.0-0.1) 10^3/uL Absolute Nucleated RBC x10^3/uL Nucleated RBC % /100WBC Platelet Estimate (NORMAL) Platelet Morphology (NORMAL) RBC Morph Micro Appear (NORMAL) VBG pH 7.516 H (7.31-7.41) Ionized Calcium 1.02 L (1.15-1.33) mmol/L Sodium 136 (135-145) mmol/L Potassium 3.7 (3.5-4.5) mmol/L Chloride 104 (101-111) mmol/L Carbon Dioxide 26 (21-32) mmol/L Anion Gap 6.0 (6-13) BUN 25 H (6-20) mg/dL Creatinine 0.9 (0.6-1.3) mg/dL Estimated GFR (MDRD) 60 L (>89) Glucose 166 H (74-104) mg/dL Lactic Acid 1.7 (0.5-2.2) mmol/L Calcium 7.7 L (8.5-10.3) mg/dL Phosphorus 2.7 (2.5-5.0) mg/dL Magnesium 1.7 (1.7-2.3) mg/dL Total Bilirubin 0.6 (0.2-1.0) mg/dL AST 14 (10-42) IU/L ALT 10 (10-60) IU/L Alkaline Phosphatase 39 L (42-121) IU/L Total Protein 5.0 L (6.4-8.9) g/dL Albumin 2.7 L (3.2-5.5) g/dL Globulin 2.3 (2.1-4.2) g/dL Albumin/Globulin Ratio 1.2 (1.0-2.2) Lipase (11-82) U/L Urine Color Urine Clarity (CLEAR) Urine pH (5.0-7.5) PH Ur Specific [place] (1.002-1.030) Urine Protein (NEGATIVE) mg/dL Urine Glucose (UA) (NEGATIVE) mg/dL Urine Ketones (NEGATIVE) mg/dL Urine Occult Blood (NEGATIVE) Urine Nitrite (NEGATIVE) Urine Bilirubin (NEGATIVE) Urine Urobilinogen (NORMAL) E.U./dL Ur Leukocyte Esterase (NEGATIVE) Urine RBC (0-5) /HPF Urine WBC (0-5) /HPF Ur Squamous Epith Cells (<= Few) Urine Bacteria (None Seen) /HPF Urine Casts /LPF Urine Mucus Ur Microscopic Review Urine Culture Comments Nasal Screen MRSA (PCR) (NEGATIVE) 01/11/23 01/10/23 01/10/23 Range/Units 04:22 20:12 19:30 WBC 9.2 (4.8-10.8) x10^3/uL RBC 4.50 (4.20-5.40) 10^6/uL Hgb 14.3 (12.0-16.0) g/dL Hct 42.3 (37.0-47.0) % MCV 94.0 (81.0-99.0) fL MCH 31.8 H (27.0-31.0) pg MCHC 33.8 (32.0-36.0) g/dL RDW 13.3 (12.0-15.0) % Plt Count 182 (130-450) 10^3/uL MPV 10.2 (7.9-10.8) fL Neut # (Auto) 7.5 H (1.5-6.6) 10^3/uL Lymph # (Auto) 1.0 L (1.5-3.5) 10^3/uL [place] # (Auto) 0.6 (0.0-1.0) 10^3/uL Eos # (Auto) 0.0 (0.0-0.7) 10^3/uL Baso # (Auto) 0.0 (0.0-0.1) 10^3/uL Absolute Nucleated RBC 0.00 x10^3/uL Nucleated RBC % 0.0 /100WBC Platelet Estimate (NORMAL) Platelet Morphology (NORMAL) RBC Morph Micro Appear (NORMAL) VBG pH (7.31-7.41) Ionized Calcium (1.15-1.33) mmol/L Sodium (135-145) mmol/L Potassium (3.5-4.5) mmol/L Chloride (101-111) mmol/L Carbon Dioxide (21-32) mmol/L Anion Gap (6-13) BUN (6-20) mg/dL Creatinine (0.6-1.3) mg/dL Estimated GFR (MDRD) (>89) Glucose (74-104) mg/dL Lactic Acid 2.6 H (0.5-2.2) mmol/L Calcium (8.5-10.3) mg/dL Phosphorus (2.5-5.0) mg/dL Magnesium (1.7-2.3) mg/dL Total Bilirubin (0.2-1.0) mg/dL AST (10-42) IU/L ALT (10-60) IU/L Alkaline Phosphatase (42-121) IU/L Total Protein (6.4-8.9) g/dL Albumin (3.2-5.5) g/dL Globulin (2.1-4.2) g/dL Albumin/Globulin Ratio (1.0-2.2) Lipase (11-82) U/L Urine Color Urine Clarity (CLEAR) Urine pH (5.0-7.5) PH Ur Specific [place] (1.002-1.030) Urine Protein (NEGATIVE) mg/dL Urine Glucose (UA) (NEGATIVE) mg/dL Urine Ketones (NEGATIVE) mg/dL Urine Occult Blood (NEGATIVE) Urine Nitrite (NEGATIVE) Urine Bilirubin (NEGATIVE) Urine Urobilinogen (NORMAL) E.U./dL Ur Leukocyte Esterase (NEGATIVE) Urine RBC (0-5) /HPF Urine WBC (0-5) /HPF Ur Squamous Epith Cells (<= Few) Urine Bacteria (None Seen) /HPF Urine Casts /LPF Urine Mucus Ur Microscopic Review Urine Culture Comments Nasal Screen MRSA (PCR) NEGATIVE (NEGATIVE) 01/10/23 01/10/23 01/10/23 Range/Units 17:05 13:45 12:05 WBC 12.4 H (4.8-10.8) x10^3/uL RBC 5.61 H (4.20-5.40) 10^6/uL Hgb 17.4 H (12.0-16.0) g/dL Hct 51.6 H (37.0-47.0) % MCV 92.0 (81.0-99.0) fL MCH 31.0 (27.0-31.0) pg MCHC 33.7 (32.0-36.0) g/dL RDW 13.1 (12.0-15.0) % Plt Count 235 (130-450) 10^3/uL MPV 10.1 (7.9-10.8) fL Neut # (Auto) 10.1 H (1.5-6.6) 10^3/uL Lymph # (Auto) 1.3 L (1.5-3.5) 10^3/uL [place] # (Auto) 0.7 (0.0-1.0) 10^3/uL Eos # (Auto) 0.0 (0.0-0.7) 10^3/uL Baso # (Auto) 0.1 (0.0-0.1) 10^3/uL Absolute Nucleated RBC 0.00 x10^3/uL Nucleated RBC % 0.0 /100WBC Platelet Estimate DECREASED (<130,000) (NORMAL) Platelet Morphology PLATELET CLUMPING (NORMAL) RBC Morph Micro Appear NORMAL APPEARANCE (NORMAL) VBG pH (7.31-7.41) Ionized Calcium (1.15-1.33) mmol/L Sodium (135-145) mmol/L Potassium (3.5-4.5) mmol/L Chloride (101-111) mmol/L Carbon Dioxide (21-32) mmol/L Anion Gap (6-13) BUN (6-20) mg/dL Creatinine (0.6-1.3) mg/dL Estimated GFR (MDRD) (>89) Glucose (74-104) mg/dL Lactic Acid (0.5-2.2) mmol/L Calcium (8.5-10.3) mg/dL Phosphorus (2.5-5.0) mg/dL Magnesium (1.7-2.3) mg/dL Total Bilirubin (0.2-1.0) mg/dL AST (10-42) IU/L ALT (10-60) IU/L Alkaline Phosphatase (42-121) IU/L Total Protein (6.4-8.9) g/dL Albumin (3.2-5.5) g/dL Globulin (2.1-4.2) g/dL Albumin/Globulin Ratio (1.0-2.2) Lipase (11-82) U/L Urine Color YELLOW Urine Clarity CLEAR (CLEAR) Urine pH 7.0 (5.0-7.5) PH Ur Specific [place] 1.020 (1.002-1.030) Urine Protein 100 H (NEGATIVE) mg/dL Urine Glucose (UA) NEGATIVE (NEGATIVE) mg/dL Urine Ketones NEGATIVE (NEGATIVE) mg/dL Urine Occult Blood NEGATIVE (NEGATIVE) Urine Nitrite NEGATIVE (NEGATIVE) Urine Bilirubin NEGATIVE (NEGATIVE) Urine Urobilinogen 0.2 (NORMAL) (NORMAL) E.U./dL Ur Leukocyte Esterase NEGATIVE (NEGATIVE) Urine RBC None Seen (0-5) /HPF Urine WBC 0-3 (0-5) /HPF Ur Squamous Epith Cells FEW Squamous (<= Few) Urine Bacteria Few (None Seen) /HPF Urine Casts 0-2 Hyaline Casts /LPF Urine Mucus Few Strands Ur Microscopic Review INDICATED Urine Culture Comments NOT INDICATED Nasal Screen MRSA (PCR) (NEGATIVE) 01/10/23 Range/Units 11:47 WBC (4.8-10.8) x10^3/uL RBC (4.20-5.40) 10^6/uL Hgb (12.0-16.0) g/dL Hct (37.0-47.0) % MCV (81.0-99.0) fL MCH (27.0-31.0) pg MCHC (32.0-36.0) g/dL RDW (12.0-15.0) % Plt Count (130-450) 10^3/uL MPV (7.9-10.8) fL Neut # (Auto) (1.5-6.6) 10^3/uL Lymph # (Auto) (1.5-3.5) 10^3/uL [place] # (Auto) (0.0-1.0) 10^3/uL Eos # (Auto) (0.0-0.7) 10^3/uL Baso # (Auto) (0.0-0.1) 10^3/uL Absolute Nucleated RBC x10^3/uL Nucleated RBC % /100WBC Platelet Estimate (NORMAL) Platelet Morphology (NORMAL) RBC Morph Micro Appear (NORMAL) VBG pH (7.31-7.41) Ionized Calcium (1.15-1.33) mmol/L Sodium 134 L (135-145) mmol/L Potassium 4.5 (3.5-4.5) mmol/L Chloride 95 L (101-111) mmol/L Carbon Dioxide 26 (21-32) mmol/L Anion Gap 13.0 (6-13) BUN 26 H (6-20) mg/dL Creatinine 1.1 (0.6-1.3) mg/dL Estimated GFR (MDRD) 48 L (>89) Glucose 142 H (74-104) mg/dL Lactic Acid (0.5-2.2) mmol/L Calcium 9.6 (8.5-10.3) mg/dL Phosphorus (2.5-5.0) mg/dL Magnesium (1.7-2.3) mg/dL Total Bilirubin 0.8 (0.2-1.0) mg/dL AST 28 (10-42) IU/L ALT 4 L (10-60) IU/L Alkaline Phosphatase 57 (42-121) IU/L Total Protein 6.7 (6.4-8.9) g/dL Albumin 3.8 (3.2-5.5) g/dL Globulin 2.9 (2.1-4.2) g/dL Albumin/Globulin Ratio 1.3 (1.0-2.2) Lipase < 10 L (11-82) U/L Urine Color Urine Clarity (CLEAR) Urine pH (5.0-7.5) PH Ur Specific [place] (1.002-1.030) Urine Protein (NEGATIVE) mg/dL Urine Glucose (UA) (NEGATIVE) mg/dL Urine Ketones (NEGATIVE) mg/dL Urine Occult Blood (NEGATIVE) Urine Nitrite (NEGATIVE) Urine Bilirubin (NEGATIVE) Urine Urobilinogen (NORMAL) E.U./dL Ur Leukocyte Esterase (NEGATIVE) Urine RBC (0-5) /HPF Urine WBC (0-5) /HPF Ur Squamous Epith Cells (<= Few) Urine Bacteria (None Seen) /HPF Urine Casts /LPF Urine Mucus Ur Microscopic Review Urine Culture Comments Nasal Screen MRSA (PCR) (NEGATIVE) - Current Medications Current Medications: Current Medications Generic Name Dose Route Start Last Admin Trade Name Freq PRN Reason Stop Dose Admin Famotidine 20 mg 01/10/23 21:00 01/10/23 20:48 Famotidine 20 Mg/2 Ml Vial IVP 20 mg BID DEAN Administration Heparin Sodium (Porcine) 5,000 unit 01/10/23 21:00 01/10/23 20:47 Heparin 5,000 Unit/Ml Vial SUBQ 5,000 unit BID DEAN Administration Ciprofloxacin 400 mg in 200 mls @ 200 mls/hr 01/10/23 16:00 01/11/23 06:05 Cipro 400 Mg/200 Ml IV Infused Q12H DEAN Infusion Metronidazole 500 mg in 100 mls @ 100 mls/hr 01/10/23 16:00 01/11/23 00:55 Flagyl 500 Mg/100 Ml IV Infused Q8H DEAN Infusion Dextrose/Sodium Chloride 1,000 mls @ 150 mls/hr 01/10/23 18:37 01/11/23 06:43 D5ns IV 150 mls/hr .Q6H40M DEAN Infusion Multi-Ingredient Ointment 1 applic 01/10/23 21:51 01/11/23 06:48 Zinc Oxide 20% Oint 30 Gm Tube TOP 1 applic PRN PRN Administration Skin Care Sodium Chloride 10 ml 01/10/23 17:00 01/10/23 20:48 Sodium Chloride Flush 0.9% 10 Ml Syringe IVP 10 ml 0100,0900,1700 [facility] Administration - Physical Exam Wound/Incisions: positive: Dressing dry and intact General Appearance: positive: No acute distress Eyes Bilateral: positive: Normal inspection ENT: positive: Pharynx nml, Other (NGT in place) Neck: positive: Nml inspection Respiratory: positive: Chest non-tender, Breath sounds nml Cardiovascular: positive: Regular rate & rhythm Abdomen: positive: Other (soft, not distended, tender over incision, few BS) Skin: positive: Color nml, Warm Extremities: positive: Pedal edema, Other (Bilateral ankle and foot edema - chronic) ABX Reporting Has patient been on IV antibiotics over the past 48 hours?: Yes Impression/Plan - Problem List Problem List: Assessment: 1) Closed loop small bowel obstruction with bowel ischemia. No clinical or lab evidence of persistent or recurrent bowel ischemic (Lactic acid 2.6->1.7 post-o p). At this point in time, second look laparotomy is not planned Recommendation: 1) May transfer to med-surg 2) Continue NGT but may have ice chips and meds PO 3) Multimodality pain control (Tylenol, Ibuprofen, Gabapentin, Oxycodone prn, Dilaudid IV prn) 4) Up in chair GUILLERMINA Colmenares MD General Surgery Service
[2023-01-11] MEDS: POTASSIUM CHLOR 10 MEQ/100 ML 10 MEQ/100 ML BAG IV SCH ×2 (07:52→09:05)
[2023-01-11] MEDS ORDERED: oxyCODONE 5 MG TABLET PO PRN (07:54)
[2023-01-11] MEDS ORDERED: MAGNESIUM SULFATE 2 GRAM 2 GM/50 ML BAG IV ONE (08:00)
[2023-01-11] MEDS: SODIUM CHLORIDE FLUSH 0.9% 10 ML SYRINGE IVP SCH ×3 (08:03→23:50)
[2023-01-11] MEDS: FAMOTIDINE 20 MG/2 ML VIAL IVP SCH ×2 (08:07→21:36)
[2023-01-11] MEDS: ACETAMINOPHEN 500 MG TABLET PO SCH ×4 (08:07→21:36)
[2023-01-11] MEDS: KETOROLAC 30 MG/ML VIAL IVP SCH ×3 (08:07→20:12)
[2023-01-11] MEDS: metroNIDAZOLE 500 MG/100 ML 500 MG/100 ML BAG IV SCH ×3 (08:54→23:45)
[2023-01-11] MEDS: HEPARIN 5,000 UNIT/ML VIAL SUBQ SCH ×2 (09:00→21:36)
--- NOTE | 2023-01-11 13:20 | PROVIDER PROGRESS NOTE ---
Subjective - Prog Note Date Prog Note Date: 01/11/23 Prog Note Time: 14:00 - Subjective Pt reports feeling: Improved Subjective: Pt is able to converse more today and states she is feeling much better. She denies having new pain; she notes chronic pain from her osteoarthritis. Pt requesting NG tube be removed; explained to her that we are monitoring for symptomatic changes that would cause her to return urgently to the OR. Pt e xpressed understanding and is agreeable. Objective - Vital Signs/Intake & Output Reviewed Vital Signs: Yes Vital Signs: Vital Signs x48h Temp Pulse Resp BP Pulse Ox 01/11/23 10:00 91 28 H 156/76 H 93 01/11/23 09:00 85 27 H 142/67 H 93 01/11/23 08:00 85 26 H 144/71 H 93 01/11/23 07:39 36.6 C 01/11/23 07:00 90 29 H 131/65 H 93 01/11/23 06:00 87 28 H 129/61 93 Intake & Output: Intake & Output 01/08/23 01/09/23 01/10/23 01/11/23 23:59 23:59 23:59 23:59 Intake Total 1485 2497.5 Output Total 740 725 Balance 745 1772.5 - Objective General Appearance: positive: No acute distress, Alert Eyes Bilateral: positive: Normal inspection ENT: positive: Other (Pt has NG tube in place, patent) Neck: positive: Nml inspection, No JVD Respiratory: positive: Chest non-tender, No respiratory distress Cardiovascular: positive: Regular rate & rhythm Abdomen: positive: Non-tender, No distention, Abnml bowel sounds (Bowel sounds absent), Other (Bonner catheter in place, patent w/ no hematuria) Skin: positive: Color nml, No rash, Warm, Dry Extremities: positive: Non-tender, Pedal edema Neurologic/Psychiatric: positive: Oriented x3, Mood/affect nml, Other (Parkinsonian head tremor) - Lab Results Fish Bones: 01/11/23 04:22 01/11/23 04:22 Other Labs: Lab Results x24hrs 01/11/23 01/11/23 01/11/23 Range/Units 04:22 04:22 04:22 WBC (4.8-10.8) x10^3/uL RBC (4.20-5.40) 10^6/uL Hgb (12.0-16.0) g/dL Hct (37.0-47.0) % MCV (81.0-99.0) fL MCH (27.0-31.0) pg MCHC (32.0-36.0) g/dL RDW (12.0-15.0) % Plt Count (130-450) 10^3/uL MPV (7.9-10.8) fL Neut # (Auto) (1.5-6.6) 10^3/uL Lymph # (Auto) (1.5-3.5) 10^3/uL [place] # (Auto) (0.0-1.0) 10^3/uL Eos # (Auto) (0.0-0.7) 10^3/uL Baso # (Auto) (0.0-0.1) 10^3/uL Absolute Nucleated RBC x10^3/uL Nucleated RBC % /100WBC VBG pH 7.516 H (7.31-7.41) Ionized Calcium 1.02 L (1.15-1.33) mmol/L Sodium 136 (135-145) mmol/L Potassium 3.7 (3.5-4.5) mmol/L Chloride 104 (101-111) mmol/L Carbon Dioxide 26 (21-32) mmol/L Anion Gap 6.0 (6-13) BUN 25 H (6-20) mg/dL Creatinine 0.9 (0.6-1.3) mg/dL Estimated GFR (MDRD) 60 L (>89) Glucose 166 H (74-104) mg/dL Lactic Acid 1.7 (0.5-2.2) mmol/L Calcium 7.7 L (8.5-10.3) mg/dL Phosphorus 2.7 (2.5-5.0) mg/dL Magnesium 1.7 (1.7-2.3) mg/dL Total Bilirubin 0.6 (0.2-1.0) mg/dL AST 14 (10-42) IU/L ALT 10 (10-60) IU/L Alkaline Phosphatase 39 L (42-121) IU/L Total Protein 5.0 L (6.4-8.9) g/dL Albumin 2.7 L (3.2-5.5) g/dL Globulin 2.3 (2.1-4.2) g/dL Albumin/Globulin Ratio 1.2 (1.0-2.2) Urine Color Urine Clarity (CLEAR) Urine pH (5.0-7.5) PH Ur Specific [place] (1.002-1.030) Urine Protein (NEGATIVE) mg/dL Urine Glucose (UA) (NEGATIVE) mg/dL Urine Ketones (NEGATIVE) mg/dL Urine Occult Blood (NEGATIVE) Urine Nitrite (NEGATIVE) Urine Bilirubin (NEGATIVE) Urine Urobilinogen (NORMAL) E.U./dL Ur Leukocyte Esterase (NEGATIVE) Urine RBC (0-5) /HPF Urine WBC (0-5) /HPF Ur Squamous Epith Cells (<= Few) Urine Bacteria (None Seen) /HPF Urine Casts /LPF Urine Mucus Ur Microscopic Review Urine Culture Comments Nasal Screen MRSA (PCR) (NEGATIVE) 01/11/23 01/10/23 01/10/23 Range/Units 04:22 20:12 19:30 WBC 9.2 (4.8-10.8) x10^3/uL RBC 4.50 (4.20-5.40) 10^6/uL Hgb 14.3 (12.0-16.0) g/dL Hct 42.3 (37.0-47.0) % MCV 94.0 (81.0-99.0) fL MCH 31.8 H (27.0-31.0) pg MCHC 33.8 (32.0-36.0) g/dL RDW 13.3 (12.0-15.0) % Plt Count 182 (130-450) 10^3/uL MPV 10.2 (7.9-10.8) fL Neut # (Auto) 7.5 H (1.5-6.6) 10^3/uL Lymph # (Auto) 1.0 L (1.5-3.5) 10^3/uL [place] # (Auto) 0.6 (0.0-1.0) 10^3/uL Eos # (Auto) 0.0 (0.0-0.7) 10^3/uL Baso # (Auto) 0.0 (0.0-0.1) 10^3/uL Absolute Nucleated RBC 0.00 x10^3/uL Nucleated RBC % 0.0 /100WBC VBG pH (7.31-7.41) Ionized Calcium (1.15-1.33) mmol/L Sodium (135-145) mmol/L Potassium (3.5-4.5) mmol/L Chloride (101-111) mmol/L Carbon Dioxide (21-32) mmol/L Anion Gap (6-13) BUN (6-20) mg/dL Creatinine (0.6-1.3) mg/dL Estimated GFR (MDRD) (>89) Glucose (74-104) mg/dL Lactic Acid 2.6 H (0.5-2.2) mmol/L Calcium (8.5-10.3) mg/dL Phosphorus (2.5-5.0) mg/dL Magnesium (1.7-2.3) mg/dL Total Bilirubin (0.2-1.0) mg/dL AST (10-42) IU/L ALT (10-60) IU/L Alkaline Phosphatase (42-121) IU/L Total Protein (6.4-8.9) g/dL Albumin (3.2-5.5) g/dL Globulin (2.1-4.2) g/dL Albumin/Globulin Ratio (1.0-2.2) Urine Color Urine Clarity (CLEAR) Urine pH (5.0-7.5) PH Ur Specific [place] (1.002-1.030) Urine Protein (NEGATIVE) mg/dL Urine Glucose (UA) (NEGATIVE) mg/dL Urine Ketones (NEGATIVE) mg/dL Urine Occult Blood (NEGATIVE) Urine Nitrite (NEGATIVE) Urine Bilirubin (NEGATIVE) Urine Urobilinogen (NORMAL) E.U./dL Ur Leukocyte Esterase (NEGATIVE) Urine RBC (0-5) /HPF Urine WBC (0-5) /HPF Ur Squamous Epith Cells (<= Few) Urine Bacteria (None Seen) /HPF Urine Casts /LPF Urine Mucus Ur Microscopic Review Urine Culture Comments Nasal Screen MRSA (PCR) NEGATIVE (NEGATIVE) 01/10/23 01/10/23 Range/Units 17:05 13:45 WBC (4.8-10.8) x10^3/uL RBC (4.20-5.40) 10^6/uL Hgb (12.0-16.0) g/dL Hct (37.0-47.0) % MCV (81.0-99.0) fL MCH (27.0-31.0) pg MCHC (32.0-36.0) g/dL RDW (12.0-15.0) % Plt Count 235 (130-450) 10^3/uL MPV (7.9-10.8) fL Neut # (Auto) (1.5-6.6) 10^3/uL Lymph # (Auto) (1.5-3.5) 10^3/uL [place] # (Auto) (0.0-1.0) 10^3/uL Eos # (Auto) (0.0-0.7) 10^3/uL Baso # (Auto) (0.0-0.1) 10^3/uL Absolute Nucleated RBC x10^3/uL Nucleated RBC % /100WBC VBG pH (7.31-7.41) Ionized Calcium (1.15-1.33) mmol/L Sodium (135-145) mmol/L Potassium (3.5-4.5) mmol/L Chloride (101-111) mmol/L Carbon Dioxide (21-32) mmol/L Anion Gap (6-13) BUN (6-20) mg/dL Creatinine (0.6-1.3) mg/dL Estimated GFR (MDRD) (>89) Glucose (74-104) mg/dL Lactic Acid (0.5-2.2) mmol/L Calcium (8.5-10.3) mg/dL Phosphorus (2.5-5.0) mg/dL Magnesium (1.7-2.3) mg/dL Total Bilirubin (0.2-1.0) mg/dL AST (10-42) IU/L ALT (10-60) IU/L Alkaline Phosphatase (42-121) IU/L Total Protein (6.4-8.9) g/dL Albumin (3.2-5.5) g/dL Globulin (2.1-4.2) g/dL Albumin/Globulin Ratio (1.0-2.2) Urine Color YELLOW Urine Clarity CLEAR (CLEAR) Urine pH 7.0 (5.0-7.5) PH Ur Specific [place] 1.020 (1.002-1.030) Urine Protein 100 H (NEGATIVE) mg/dL Urine Glucose (UA) NEGATIVE (NEGATIVE) mg/dL Urine Ketones NEGATIVE (NEGATIVE) mg/dL Urine Occult Blood NEGATIVE (NEGATIVE) Urine Nitrite NEGATIVE (NEGATIVE) Urine Bilirubin NEGATIVE (NEGATIVE) Urine Urobilinogen 0.2 (NORMAL) (NORMAL) E.U./dL Ur Leukocyte Esterase NEGATIVE (NEGATIVE) Urine RBC None Seen (0-5) /HPF Urine WBC 0-3 (0-5) /HPF Ur Squamous Epith Cells FEW Squamous (<= Few) Urine Bacteria Few (None Seen) /HPF Urine Casts 0-2 Hyaline Casts /LPF Urine Mucus Few Strands Ur Microscopic Review INDICATED Urine Culture Comments NOT INDICATED Nasal Screen MRSA (PCR) (NEGATIVE) ABX Reporting Has patient been on IV antibiotics over the past 48 hours?: Yes Sepsis Event Note (H) - Evaluation Current Stage of Sepsis: Ruled out Assessment/Plan - Problem List (1) Small bowel obstruction Impression: As Dr. Colmenares was concerned for bowel ischemia, pt was expedited to OR on 01/10/[address] Colmenares was able to release the obstructed bowel w/o resection and ischemia has been so far avoided. Pt has tubal ligation in her records and gallbladder is surgically absent per CT from ED workup. With the surgery, pt given abx prophylaxis of Cipro and Flagyl. Pt's lactic acid has decreased to 1.7 from 2.6. She has been cleared for PO medication and ice chips; pt's diet to advance as directed by Dr. Colmenares. Plan: Pt given Cipro and Flagyl IV prophylaxis which will continue for the next several days. Pt will maintain NG tube for now d/t high possibility of returning to the OR for further management. Pt will start intaking ice chips and PO meds. Will continue narcotics for pain w/ current surgical procedure. (2) Pre-renal azotemia Impression: Her home dose of furosemide is believed to be contributing to hypovolemia, which the pt also reports furosemide has not been helping her LE edema. Today, pt's BUN/Creat is 25/0.9 down from 26/1.1. Plan: Will continue to rehydrate pt via IV fluids as her dietary restrictions remain for the time being. Follow BMP daily and IV fluids adjusted accordingly. Furosemide remains on hold. (3) Urinary retention Impression: While in the ED, pt was not voiding and a Bonner catheter was placed; 800 mL of urine was drained. No evidence of cystitis or UTI was found during workup. Bonner catheter has remained patent, no hematuria noted on exam. Plan: Bonner catheter to remain for now, will reassess pt's urgency and ability to void once possibility of urgent surgery becomes less of a concern. (4) History of Parkinson's disease Impression: Pt has hx of Parkinson's; her head tremor is more pronounced today with the veto pension of her usual carbidopa/levodopa meds. Dr. Colmenares has cleared pt to take PO meds and ice chips with her improving presentation. Plan: Pt's carbidopa/levodopa will be resumed today. (5) Hypertension Impression: Currently metoprolol on hold. Plan: Will resume pt's metoprolol once returning to surgery is no longer a concern. (6) Chronic narcotic use Impression: Per ED history and pt's spouse, pt has been chronically taking morphine for osteoarthritis, length of time unclear. This chronic use is likely a contributing factor in the formation of the bowel obstruction d/t to the opioid MOA in decreasing gut motility. Plan: Will continue narcotics for pain for the time being w/ current surgical procedure and to avoid inducing withdrawal. Evaluate and discuss options for chronic pain management in lieu of continuing morphine.
[2023-01-11] MEDS: GABAPENTIN 100 MG CAPSULE PO SCH ×2 (13:21→21:33)
[2023-01-11] MEDS: CARBIDOPA/LEVODOPA ER 50 MG/200 MG TABLET PO SCH (16:29)
[2023-01-11] MEDS: METOPROLOL TARTRATE 25 MG TABLET PO SCH (21:34)
[2023-01-12] MEDS: ACETAMINOPHEN 500 MG TABLET PO SCH ×6 (00:03→21:21)
[2023-01-12] MEDS: KETOROLAC 30 MG/ML VIAL IVP SCH ×2 (01:02→08:26)
[2023-01-12] MEDS: CIPROFLOXACIN 400 MG/200 ML 400 MG/200 ML BAG IV SCH ×2 (03:37→16:08)
[2023-01-12] MEDS: DEXTROSE 5%-0.9% NACL 1,000 ML IV SCH (05:20)
[2023-01-12] MEDS: GABAPENTIN 100 MG CAPSULE PO SCH ×3 (05:36→21:18)
--- NOTE | 2023-01-12 06:50 | PROVIDER PROGRESS NOTE ---
Subjective - General Admit Date: 01/10/23 Procedure Date: 01/10/23 Post Op Days: 2 Procedure Performed: Exploratory laparotomy, adhesiolysis - Review of Systems Wound/Incisions: positive: Dressing dry and intact Drain Type: NGT Drain Output Description: Gastic contents Approximate mls Output: 90/24 hrs General: positive: Other (Mild incisional discomfort) HEENT: positive: Other (NGT bothers her throat) Gastrointestinal: positive: Other (Pre-procedure abdominal pain resolved) Psychiatric: positive: No symptoms - Other Other Information/Narrative: No abdominal pain, passing flatus Objective - Patient Data Vital Signs: Vital Signs x48h Temp Pulse Resp BP Pulse Ox 01/12/23 05:20 98.2 F 64 18 167/69 H 94 01/12/23 00:00 97.2 F L 61 16 161/65 H 95 Weight: Weight 01/10/23 01/11/23 01/12/23 23:59 23:59 23:59 Weight (kg) 74.5 kg 74.5 kg 76.5 kg Intake & Output: Intake and Output Totals x24h 01/10/23 01/11/23 01/12/23 23:59 23:59 23:59 Intake Total 1485 4477.5 1205 Output Total 740 1100 525 Balance 745 3377.5 680 - Lab Results Lab Results: 01/11/23 04:22 01/11/23 04:22 - Current Medications Current Medications: Current Medications Generic Name Dose Route Start Last Admin Trade Name Rodrigueq PRN Reason Stop Dose Admin Acetaminophen 500 mg 01/11/23 09:00 01/12/23 05:36 Acetaminophen 500 Mg Tablet PO 01/14/23 08:59 500 mg Q4HR DEAN Administration Carbidopa/Levodopa 1 tab 01/11/23 15:00 01/11/23 16:29 Carbidopa/Levodopa Er 50 Mg/200 Mg Tablet PO 1 tab 0900,1500 DEAN Administration Famotidine 20 mg 01/10/23 21:00 01/11/23 21:36 Famotidine 20 Mg/2 Ml Vial IVP 20 mg BID DEAN Administration Gabapentin 100 mg 01/11/23 14:00 01/12/23 05:36 Gabapentin 100 Mg Capsule PO 100 mg TID DEAN Administration Heparin Sodium (Porcine) 5,000 unit 01/10/23 21:00 01/11/23 21:36 Heparin 5,000 Unit/Ml Vial SUBQ 5,000 unit BID DEAN Administration Ciprofloxacin 400 mg in 200 mls @ 200 mls/hr 01/10/23 16:00 01/12/23 05:06 Cipro 400 Mg/200 Ml IV Infused Q12H DEAN Infusion Metronidazole 500 mg in 100 mls @ 100 mls/hr 01/10/23 16:00 01/12/23 01:11 Flagyl 500 Mg/100 Ml IV Infused Q8H DEAN Infusion Ketorolac Tromethamine 15 mg 01/11/23 08:00 01/12/23 01:02 Ketorolac 30 Mg/Ml Vial IVP 01/12/23 08:01 15 mg Q6H DEAN Administration Metoprolol Tartrate 25 mg 01/11/23 21:00 01/11/23 21:34 Metoprolol Tartrate 25 Mg Tablet PO 25 mg BID DEAN Administration Multi-Ingredient Ointment 1 applic 01/10/23 21:51 01/11/23 06:48 Zinc Oxide 20% Oint 30 Gm Tube TOP 1 applic PRN PRN Administration Skin Care Sodium Chloride 10 ml 01/10/23 17:00 01/11/23 23:50 Sodium Chloride Flush 0.9% 10 Ml Syringe IVP 10 ml 0100,0900,1700 [facility] Administration - Physical Exam Wound/Incisions: positive: Healing well, Dressing dry and intact, No drainage General Appearance: positive: No acute distress, Alert Eyes Bilateral: positive: Normal inspection Neck: positive: Nml inspection, Trachea midline Respiratory: positive: No respiratory distress, Breath sounds nml Cardiovascular: positive: Regular rate & rhythm Abdomen: positive: Non-tender, Nml bowel sounds, No distention Skin: positive: Color nml, Warm Impression/Plan - Problem List Problem List: Assessment: No evidence of progression of small bowel ischemia on exam. Plan: Remove NGT, start clear liquid diet, contine VTEP and ambualte with assistance, discharge planning Max Colmenares MD General Surgery Service
[2023-01-12] MEDS: metroNIDAZOLE 500 MG/100 ML 500 MG/100 ML BAG IV SCH ×2 (08:26→16:52)
[2023-01-12] MEDS: SODIUM CHLORIDE FLUSH 0.9% 10 ML SYRINGE IVP SCH ×2 (08:28→16:10)
[2023-01-12] MEDS: FAMOTIDINE 20 MG/2 ML VIAL IVP SCH ×2 (08:28→21:23)
[2023-01-12] MEDS: METOPROLOL TARTRATE 25 MG TABLET PO SCH ×2 (08:30→21:19)
[2023-01-12] MEDS: CARBIDOPA/LEVODOPA ER 50 MG/200 MG TABLET PO SCH ×2 (08:35→14:00)
[2023-01-12] MEDS: HEPARIN 5,000 UNIT/ML VIAL SUBQ SCH ×2 (08:37→21:23)
[2023-01-12] MEDS ORDERED: MORPHINE IR 15 MG TABLET PO PRN (09:02)
[2023-01-12] MEDS ORDERED: amLODIPine 5 MG TABLET PO STA ×2 (09:11→17:32)
[2023-01-12 09:32] LABS: BASOPHILS % (AUTO) 0.4 %; EOSINOPHILS # (AUTO) 0.2 10^3/uL (0.0-0.7); EOSINOPHILS % (AUTO) 2.4 %; HCT - HEMATOCRIT 37.1 % (37.0-47.0); HGB - HEMOGLOBIN 12.5 g/dL (12.0-16.0); LYMPHOCYTES # (AUTO) 1.3 10^3/uL (1.5-3.5); LYMPHOCYTES % (AUTO) 14.3 %; MEAN CORPUSCULAR HEMOGLOBIN 31.9 pg (27.0-31.0); MEAN CORPUSCULAR HGB CONC 33.7 g/dL (32.0-36.0); MEAN CORPUSCULAR VOLUME 94.6 fL (81.0-99.0); MEAN PLATELET VOLUME 9.9 fL (7.9-10.8); MONOCYTES # (AUTO) 0.7 10^3/uL (0.0-1.0); MONOCYTES % (AUTO) 7.5 %; PLT - PLATELET COUNT 152 10^3/uL (130-450); RED BLOOD COUNT 3.92 10^6/uL (4.20-5.40); RED CELL DISTRIBUTION WIDTH 13.5 % (12.0-15.0); WHITE BLOOD COUNT 9.4 x10^3/uL (4.8-10.8)
[2023-01-12 09:44] LABS: CALCIUM 7.5 mg/dL (8.5-10.3); CREATININE 0.8 mg/dL (0.6-1.3); POTASSIUM 3.3 mmol/L (3.5-4.5)
--- NOTE | 2023-01-12 11:50 | PROVIDER PROGRESS NOTE ---
Subjective - Prog Note Date Prog Note Date: 01/12/23 Prog Note Time: 15:00 - Subjective Pt reports feeling: Improved Subjective: Pt denies issues consuming fluid; denies nausea/vomiting. She denies any new or worsening pain. Her only complaint is regarding the NG tube as it has been irritating her throat. Objective - Vital Signs/Intake & Output Reviewed Vital Signs: Yes Vital Signs: Vital Signs x48h Temp Pulse Pulse Resp BP BP Pulse Ox 01/12/23 08:52 36.5 C 70 16 180/81 H 93 01/12/23 08:30 179/72 H 01/12/23 05:20 36.8 C 64 18 167/69 H 94 Intake & Output: Intake & Output 01/09/23 01/10/23 01/11/23 01/12/23 23:59 23:59 23:59 23:59 Intake Total 1485 4477.5 1575 Output Total 740 1100 525 Balance 745 3377.5 1050 - Objective General Appearance: positive: No acute distress, Alert Eyes Bilateral: positive: Normal inspection ENT: positive: Other (Pt has NG tube in place, patent) Neck: positive: Nml inspection, No JVD Respiratory: positive: Chest non-tender Cardiovascular: positive: Regular rate & rhythm Abdomen: positive: Non-tender, No distention, Abnml bowel sounds (Bowel sounds absent), Other (Bonner catheter in place, patent w/ no hematuria) Skin: positive: Color nml, No rash, Warm, Dry Extremities: positive: Pedal edema (Bilateral and non-pitting, 3+ today) Neurologic/Psychiatric: positive: Oriented x3, Other (Parkinsonian head tremor) - Lab Results Fish Bones: 01/12/23 09:26 01/12/23 09:26 Other Labs: Lab Results x24hrs 01/12/23 01/12/23 Range/Units 09:26 09:26 WBC 9.4 (4.8-10.8) x10^3/uL RBC 3.92 L (4.20-5.40) 10^6/uL Hgb 12.5 (12.0-16.0) g/dL Hct 37.1 (37.0-47.0) % MCV 94.6 (81.0-99.0) fL MCH 31.9 H (27.0-31.0) pg MCHC 33.7 (32.0-36.0) g/dL RDW 13.5 (12.0-15.0) % Plt Count 152 (130-450) 10^3/uL MPV 9.9 (7.9-10.8) fL Neut # (Auto) 7.0 H (1.5-6.6) 10^3/uL Lymph # (Auto) 1.3 L (1.5-3.5) 10^3/uL [place] # (Auto) 0.7 (0.0-1.0) 10^3/uL Eos # (Auto) 0.2 (0.0-0.7) 10^3/uL Baso # (Auto) 0.0 (0.0-0.1) 10^3/uL Absolute Nucleated RBC 0.00 x10^3/uL Nucleated RBC % 0.0 /100WBC Sodium 135 (135-145) mmol/L Potassium 3.3 L (3.5-4.5) mmol/L Chloride 105 (101-111) mmol/L Carbon Dioxide 26 (21-32) mmol/L Anion Gap 4.0 L (6-13) BUN 20 (6-20) mg/dL Creatinine 0.8 (0.6-1.3) mg/dL Estimated GFR (MDRD) 69 L (>89) Glucose 104 (74-104) mg/dL Calcium 7.5 L (8.5-10.3) mg/dL ABX Reporting Has patient been on IV antibiotics over the past 48 hours?: Yes Sepsis Event Note (H) - Evaluation Current Stage of Sepsis: Ruled out Assessment/Plan - Problem List (1) Small bowel obstruction Impression: As Dr. Colmenares was concerned for bowel ischemia, pt was expedited to OR on 01/10/[address] Colmenares was able to release the obstructed bowel w/o resection and ischemia has been so far avoided. Pt has tubal ligation in her records and gallbladder is surgically absent per CT from ED workup. With the surgery, pt given abx prophylaxis of Cipro and Flagyl. Pt's lactic acid has decreased to 1.7 from 2.6. She has been taking PO medication and ice chips today; pt's diet to advance as directed by Dr. Colmenares. Plan: Pt to discontinue Cipro and Flagyl as no longer indicated. NG tube removed today. Pt to continue taking PO meds/ice chips. Will continue narcotics for pain w/ recent operation. (2) Pre-renal azotemia Impression: Her home dose of furosemide is believed to be contributing to hypovolemia, which the pt also reports furosemide has not been helping her LE edema. Today, pt's BUN/Creat is further improved, 20/0.8 down from 25/0.9. Plan: IV fluids will be decreased as pt's dietary intake increases. Follow BMP daily. Furosemide remains on hold. (3) Urinary retention Impression: While in the ED, pt was not voiding, Bonner catheter was placed; 800 mL of urine was drained. No evidence of cystitis or UTI was found during workup. Bonner catheter has continued as pt is post-op; it remains patent, no hematuria noted on exam. As she has been allowed oral fluids, her urine output has increased. Plan: Bonner catheter remains, will reassess pt's void urgency and ability later today, possibly early tomorrow. (4) History of Parkinson's disease Impression: Pt has hx of Parkinson's; her head tremor less pronounced, but still present. Pt to continue PO meds, carbidopa/levodopa improving presentation. Plan: Pt's carbidopa/levodopa to continue. (5) Hypertension Impression: Her BP began to rise today and she was given PO metoprolol in the morning. Amlodipine was also added as pt's BP is significantly high, 180/81, and her home dosage of metoprolol at 25 mg was not considered to be sufficient by itself. Plan: Pt's scheduled home metoprolol BID will be resumed; amlodipine will be monitored and titrated. (6) Chronic narcotic use Impression: Per ED history and pt's spouse, pt has been chronically taking morphine for osteoarthritis, length of time unclear. This chronic use is likely a contributing factor in the formation of the bowel obstruction d/t to the opioid MOA in decreasing gut motility. Plan: Will continue narcotics for pain for the time being w/ current surgical procedure and to avoid inducing withdrawal. Evaluate and discuss options for chronic pain management in lieu of continuing morphine.
[2023-01-12] MEDS: ZINC OXIDE 20% OINT 30 GM TUBE TOP PRN (12:21)
[2023-01-12] MEDS: POTASSIUM CHLOR 10 MEQ/100 ML 10 MEQ/100 ML BAG IV SCH ×2 (16:08→18:36)
[2023-01-13] MEDS: metroNIDAZOLE 500 MG/100 ML 500 MG/100 ML BAG IV SCH (00:33)
[2023-01-13] MEDS: ACETAMINOPHEN 500 MG TABLET PO SCH ×6 (00:35→22:11)
[2023-01-13] MEDS: SODIUM CHLORIDE FLUSH 0.9% 10 ML SYRINGE IVP SCH ×4 (00:36→23:52)
[2023-01-13] MEDS: CIPROFLOXACIN 400 MG/200 ML 400 MG/200 ML BAG IV SCH (04:22)
[2023-01-13] MEDS: GABAPENTIN 100 MG CAPSULE PO SCH ×3 (05:25→22:11)
[2023-01-13 05:56] LABS: BASOPHILS # (AUTO) 0.1 10^3/uL (0.0-0.1); BASOPHILS % (AUTO) 0.8 %; EOSINOPHILS # (AUTO) 0.4 10^3/uL (0.0-0.7); EOSINOPHILS % (AUTO) 4.5 %; HCT - HEMATOCRIT 39.5 % (37.0-47.0); LYMPHOCYTES # (AUTO) 1.4 10^3/uL (1.5-3.5); MEAN CORPUSCULAR HEMOGLOBIN 30.7 pg (27.0-31.0); MEAN CORPUSCULAR HGB CONC 32.9 g/dL (32.0-36.0); MEAN CORPUSCULAR VOLUME 93.4 fL (81.0-99.0); MONOCYTES # (AUTO) 0.6 10^3/uL (0.0-1.0); NEUTROPHILS # (AUTO) 6.1 10^3/uL (1.5-6.6); NEUTROPHILS % (AUTO) 71.1 %; PLT - PLATELET COUNT 181 10^3/uL (130-450); RED BLOOD COUNT 4.23 10^6/uL (4.20-5.40); RED CELL DISTRIBUTION WIDTH 13.1 % (12.0-15.0); WHITE BLOOD COUNT 8.6 x10^3/uL (4.8-10.8)
[2023-01-13 06:16] LABS: CALCIUM 7.5 mg/dL (8.5-10.3); CREATININE 0.6 mg/dL (0.6-1.3); MAGNESIUM 1.7 mg/dL (1.7-2.3); POTASSIUM 3.5 mmol/L (3.5-4.5)
--- NOTE | 2023-01-13 07:01 | PROVIDER PROGRESS NOTE ---
Progress Note General Surgery Progress Note Hospital Day # 2 POD # 1, Incarcerated Ventral Hernia repair - mesh ASSESSMENT: 1) Progressing well; Minimal pain; Hungry; No wound issues PLAN: 1) Clears for breakfast, advance diet throughout day 2) Discharge planning <><><><><> PERTINENT INTERVAL ISSUES: None S: Slept well; No abdominal pain; Ambulated to bathroom and urinated; No N/V OBJECTIVE: I/O: 1,225 UOP/8 hrs NET SINCE ADMISSION: - 925 ml VS: T 98.4; P 58; BP 147/73; RR 16 EXAMINATION: MENTAL STATUS: AAO; Comfortable EYES: Pupils equal, round and reactive to light, sclera anicteric, EARS, NOSE, MOUTH, THROAT: Normal hearing, Oral mucous membranes moist and without lesions; NECK: No crepitus, lymphadenopathy, or thyromegaly LUNGS: Clear to auscultation without wheezing; No use of accessory muscles to breathe CARDIOVASCULAR: Heart-NSR without murmurs; ABD: Soft, non-tender, Incision dressing dry; + BS EXTREMITIES: No clubbing, cyanosis, infections SKIN: Anicteric; No rashes, lesions, ulcerations LABS: H&H 39.5/13; WBC 8.6 Na 133; K 3.5; BUN/Cr 12/0.6 CULTURES: Peritoneal - pending IMAGING: None today ANTIMICROBIALS: Prophylactic completed PAIN CONTROL: Morphine IV prn, Oxycodone PO prn, Ketorolac IV, Acetaminophen, Gabapentin VTEP: Chemical: Heparin, 5,000 units SQ Q 12 hrs Mechanical: SAMMI Colmenares MD General Surgery Service
--- NOTE | 2023-01-13 07:17 | PROVIDER PROGRESS NOTE ---
Progress Note General Surgery Progress Note Hospital Day # 3 POD # 2, Exploratory laparotomy, lysis of adhesions ASSESSMENT: 1) Progressing well after surgery; No bowel motion yet; Tolerating clear liquids; No clinical or lab evidence of progressive bowel ischemia PLAN: 1) KUB this morning. If there is colonic gas, a dulcolax suppository will help eliminate the abdominal distension 2) Advance diet as tolerated <><><><><> PERTINENT INTERVAL ISSUES: None S: Comfortable; Feels much better with NGT out; No flatus or BM yet; No abdominal pain OBJECTIVE: I/O: 1225/8 hrs UOP NET SINCE ADMISSION: -925 ml VS: T 98.4; P 58; BP 147/73; RR 16 EXAMINATION: MENTAL STATUS: AAO; Comfortable EYES: Pupils equal, round and reactive to light, sclera anicteric, EARS, NOSE, MOUTH, THROAT: Normal hearing, Oral mucous membranes moist and without lesions; NECK: No crepitus, lymphadenopathy, or thyromegaly LUNGS: Clear to auscultation without wheezing; No use of accessory muscles to breathe CARDIOVASCULAR: Heart-NSR without murmurs; ABD: Soft, non-tender, Incision clean and dry; + BS; Mild gaseous distension EXTREMITIES: No clubbing, cyanosis, infections SKIN: Anicteric; No rashes, lesions, ulcerations LABS: H&H 13/39.5; WBC 8.6 Na 133; K 3.5; BUN/Cr 12/0.6; Glu 110 CULTURES: Peritoneal - Gm stain NOS IMAGING: None today ANTIMICROBIALS: Prophylactic completed PAIN CONTROL: Morphine IV prn, Oxycodone PO prn, Acetaminophen, Gabapentin VTEP: Chemical: Heparin, 5,000 units SQ Q 12 hrs Mechanical: SAMMI Colmenares MD General Surgery Service
--- NOTE | 2023-01-13 08:37 | XRAY Report ---
PROCEDURE: Abdomen 1 View X-Ray INDICATIONS: Post-op abdominal distension? colon or small bowel TECHNIQUE: One view of the abdomen acquired. COMPARISON: CT dated 01/10/2023 FINDINGS: Surgical changes and devices: None. Bowel: Multiple moderately distended loops of small bowel are present, as before. Soft tissues: No suspicious abdominal calcifications. Visualized solid organ contours appear normal in size. Bones: No suspicious bony lesions. IMPRESSION: Moderate small bowel obstruction versus ileus. Reviewed by: Zhane Rodriguez MD on 01/13/2023 8:36 AM PDT Approved by: Zhane Rodriguez MD on 01/13/2023 8:36 AM PDT Station ID: [id number]
--- NOTE | 2023-01-13 08:47 | PROVIDER PROGRESS NOTE ---
Progress Note General Surgery Progress Note KUB shows moderate small bowel distension. Would not advance diet until she demonstrates lower GI activity. If she develops emesis, NGT should be replaced. Ambulate TID. Max Colmenares MD General Surgery Service
[2023-01-13] MEDS: CARBIDOPA/LEVODOPA ER 50 MG/200 MG TABLET PO SCH ×2 (09:06→14:31)
[2023-01-13] MEDS: METOPROLOL TARTRATE 25 MG TABLET PO SCH (09:06)
[2023-01-13] MEDS: FAMOTIDINE 20 MG/2 ML VIAL IVP SCH ×2 (09:06→22:12)
--- NOTE | 2023-01-13 09:06 | PROVIDER PROGRESS NOTE ---
Subjective - Prog Note Date Prog Note Date: 01/13/23 Prog Note Time: 14:00 - Subjective Pt reports feeling: No change Subjective: Pt reports no improvement, but denies feeling worse. She is requesting a more advanced diet, however, patient has been advised she needs to produce flatus before she can have more complex foods. Objective - Vital Signs/Intake & Output Reviewed Vital Signs: Yes Vital Signs: Vital Signs x48h Temp Pulse Resp BP Pulse Ox 01/13/23 08:50 36.3 C L 16 182/78 H 96 01/13/23 05:00 36.9 C 58 L 16 147/73 H 96 Intake & Output: Intake & Output 01/10/23 01/11/23 01/12/23 01/13/23 23:59 23:59 23:59 23:59 Intake Total 2485 4477.5 4095.000 300 Output Total 740 1100 3925 1225 Balance 1745 3377.5 170.000 -925 - Objective General Appearance: positive: No acute distress, Alert Eyes Bilateral: positive: Normal inspection ENT: positive: ENT inspection nml Neck: positive: Nml inspection Respiratory: positive: Chest non-tender Abdomen: positive: Non-tender, No distention, Abnml bowel sounds (Absent bowel sounds) Skin: positive: Color nml, No rash, Warm, Dry Extremities: positive: Pedal edema Neurologic/Psychiatric: positive: Oriented x3, Motor nml (No head tremor noted today) - Lab Results Fish Bones: 01/13/23 05:40 01/13/23 05:40 Other Labs: Lab Results x24hrs 01/13/23 01/13/23 01/12/23 Range/Units 05:40 05:40 09:26 WBC 8.6 (4.8-10.8) x10^3/uL RBC 4.23 (4.20-5.40) 10^6/uL Hgb 13.0 (12.0-16.0) g/dL Hct 39.5 (37.0-47.0) % MCV 93.4 (81.0-99.0) fL MCH 30.7 (27.0-31.0) pg MCHC 32.9 (32.0-36.0) g/dL RDW 13.1 (12.0-15.0) % Plt Count 181 (130-450) 10^3/uL MPV 10.0 (7.9-10.8) fL Neut # (Auto) 6.1 (1.5-6.6) 10^3/uL Lymph # (Auto) 1.4 L (1.5-3.5) 10^3/uL [place] # (Auto) 0.6 (0.0-1.0) 10^3/uL Eos # (Auto) 0.4 (0.0-0.7) 10^3/uL Baso # (Auto) 0.1 (0.0-0.1) 10^3/uL Absolute Nucleated RBC 0.00 x10^3/uL Nucleated RBC % 0.0 /100WBC Sodium 133 L 135 (135-145) mmol/L Potassium 3.5 3.3 L (3.5-4.5) mmol/L Chloride 104 105 (101-111) mmol/L Carbon Dioxide 24 26 (21-32) mmol/L Anion Gap 5.0 L 4.0 L (6-13) BUN 12 20 (6-20) mg/dL Creatinine 0.6 0.8 (0.6-1.3) mg/dL Estimated GFR (MDRD) 96 69 L (>89) Glucose 110 H 104 (74-104) mg/dL Calcium 7.5 L 7.5 L (8.5-10.3) mg/dL Magnesium 1.7 (1.7-2.3) mg/dL 01/12/23 Range/Units 09:26 WBC 9.4 (4.8-10.8) x10^3/uL RBC 3.92 L (4.20-5.40) 10^6/uL Hgb 12.5 (12.0-16.0) g/dL Hct 37.1 (37.0-47.0) % MCV 94.6 (81.0-99.0) fL MCH 31.9 H (27.0-31.0) pg MCHC 33.7 (32.0-36.0) g/dL RDW 13.5 (12.0-15.0) % Plt Count 152 (130-450) 10^3/uL MPV 9.9 (7.9-10.8) fL Neut # (Auto) 7.0 H (1.5-6.6) 10^3/uL Lymph # (Auto) 1.3 L (1.5-3.5) 10^3/uL [place] # (Auto) 0.7 (0.0-1.0) 10^3/uL Eos # (Auto) 0.2 (0.0-0.7) 10^3/uL Baso # (Auto) 0.0 (0.0-0.1) 10^3/uL Absolute Nucleated RBC 0.00 x10^3/uL Nucleated RBC % 0.0 /100WBC Sodium (135-145) mmol/L Potassium (3.5-4.5) mmol/L Chloride (101-111) mmol/L Carbon Dioxide (21-32) mmol/L Anion Gap (6-13) BUN (6-20) mg/dL Creatinine (0.6-1.3) mg/dL Estimated GFR (MDRD) (>89) Glucose (74-104) mg/dL Calcium (8.5-10.3) mg/dL Magnesium (1.7-2.3) mg/dL - Diagnostic Imaging Diagnostic Imaging Results: positive: Final report reviewed Diagnostic Imaging Comments: Abdomen XR reviewed, ABX Reporting Has patient been on IV antibiotics over the past 48 hours?: Yes Sepsis Event Note (H) - Evaluation Current Stage of Sepsis: Ruled out Assessment/Plan - Problem List (1) Small bowel obstruction Impression: Pt expedited to OR on 01/10/[address] Dr. Colmenares was concerned for bowel ischemia. Dr. Colmenares lysed the obstructed bowel w/o resection and is absent of residual ischemia. No recurrence of nausea or vomiting, NG tube remains out. Pt is afebrile and final peritoneal culture shows no organisms. Abdominal XR shows dilated bowel loops suggestive of ileus; no bowel sounds heard on exam by myself or Dr. Sanford. She continues PO medication and ice chips; pt's diet not to advance until flatus has been successfully produced. Plan: PT/OT to work more w/ patient more today, especially focused on walking to promote gastric motility. Discontinue Cipro and Flagyl. Pt to continue taking PO meds/ice chips. Narcotics PRN for pain w/ recent surgery. (2) Hypertension Impression: Her BP began to rise 11/3, pt given PO metoprolol in AM. Amlodipine was added as pt's BP was significantly high, 180/81, and home dosage of metoprolol 25 mg PO was not considered sufficient by itself. Pt's HR has become more bradycardic today and her beta bear is the most likely source. Plan: Discontinue metoprolol. Amlodipine will remain 5 mg PO as increasing further will exacerbate pt's pedal edema. Spirinolactone 25 mg PO will be added and titrated. (3) Sinus pause Impression: At 1500 hrs, pt's became bradycardic and a sinus pause was noted on telemetry. RN reported pt was resting, seated upright, and otherwise asymptomatic. Plan: Pt to remain on telemetry. Pt's metoprolol to be discontinued as of today. (4) Urinary retention Impression: While in the ED, pt not voiding, Bonner catheter placed; 800 mL of urine drained. No evidence of cystitis or UTI found during workup. Bonner catheter continued post-op, patent, no hematuria noted on exam. Urine output has increased w/ oral fluid intake. Plan: Bonner removed today. Pt's urgency and output to be monitored to assess retention. (5) History of Parkinson's disease Impression: Pt has hx of Parkinson's; head tremor is less pronounced, but still present. Pt to continue PO meds, carbidopa/levodopa improving presentation. Plan: Pt's carbidopa/levodopa to continue. (6) Chronic narcotic use Impression: Per ED history and pt's spouse, pt has been chronically taking morphine for osteoarthritis, length of time unclear. This chronic use is likely a contributing factor in the formation of the bowel obstruction d/t to the opioid MOA in decreasing gut motility. Plan: Will continue narcotics for pain for the time being w/ current surgical procedure and to avoid inducing withdrawal. Evaluate and discuss options for chronic pain management in lieu of continuing morphine. (7) Pre-renal azotemia Impression: RESOLVED Pt's BUN/Creat is further improved, 12/0.6 down from 20/0.8. Her home dose of furosemide is believed to be contributing to hypovolemia; pt reports furosemide has not been helping her LE edema. Plan: Continue to follow BMP daily. Furosemide remains on hold. Spirinolactone added for both LE edema relief and BP adjunct.
[2023-01-13] MEDS: HEPARIN 5,000 UNIT/ML VIAL SUBQ SCH ×2 (09:08→22:12)
[2023-01-13] MEDS: amLODIPine 5 MG TABLET PO SCH (09:52)
[2023-01-13] MEDS: SPIRONOLACTONE 25 MG TABLET PO SCH (14:31)
[2023-01-13] MEDS: SODIUM CHLORIDE FLUSH 0.9% 10 ML SYRINGE IVP PRN (17:33)
[2023-01-14] MEDS: ACETAMINOPHEN 500 MG TABLET PO SCH ×2 (01:13→05:46)
[2023-01-14] MEDS: GABAPENTIN 100 MG CAPSULE PO SCH ×2 (05:46→14:02)
--- NOTE | 2023-01-14 07:10 | PROVIDER PROGRESS NOTE ---
Subjective - General Admit Date: 01/10/23 Procedure Date: 01/10/23 Post Op Days: 4 Procedure Performed: Exploratory laparotomy, adhesiolysis for SBO - Review of Systems Wound/Incisions: positive: Healing well, Dressing dry and intact, No drainage General: positive: Other (Mild incisional discomfort) HEENT: positive: Other (NGT bothers her throat) Gastrointestinal: positive: Other (Pre-procedure abdominal pain resolved) Psychiatric: positive: No symptoms - Other Other Information/Narrative: Zamzam had an episode of nausea and vomiting last night. She feels better this morning but denies passage of flatus or bowel motions. She has no abdominal pain and her incision is healing well. Objective - Patient Data Vital Signs: Vital Signs x48h Temp Pulse Resp BP Pulse Ox 01/14/23 03:37 98.1 F 64 16 175/76 H 96 Weight: Weight 01/12/23 01/13/23 01/14/23 23:59 23:59 22:59 Weight (kg) 76.5 kg 77 kg 76.5 kg Intake & Output: Intake and Output Totals x24h 01/12/23 01/13/23 01/14/23 23:59 23:59 22:59 Intake Total 4095.000 960 300 Output Total 3925 3425 1800 Balance 170.000 -2465 -1500 - Lab Results Lab Results: 01/13/23 05:40 01/13/23 05:40 - Current Medications Current Medications: Current Medications Generic Name Dose Route Start Last Admin Trade Name Geo PRN Reason Stop Dose Admin Acetaminophen 500 mg 01/11/23 09:00 01/14/23 05:46 Acetaminophen 500 Mg Tablet PO 01/14/23 08:59 500 mg Q4HR DEAN Administration Amlodipine Besylate 5 mg 01/13/23 09:00 01/13/23 09:52 Amlodipine 5 Mg Tablet PO 5 mg DAILY DEAN Administration Carbidopa/Levodopa 1 tab 01/11/23 15:00 01/13/23 14:31 Carbidopa/Levodopa Er 50 Mg/200 Mg Tablet PO 1 tab 0900,1500 DEAN Administration Famotidine 20 mg 01/10/23 21:00 01/13/23 22:12 Famotidine 20 Mg/2 Ml Vial IVP 20 mg BID DEAN Administration Gabapentin 100 mg 01/11/23 14:00 01/14/23 05:46 Gabapentin 100 Mg Capsule PO 100 mg TID DEAN Administration Heparin Sodium (Porcine) 5,000 unit 01/10/23 21:00 01/13/23 22:12 Heparin 5,000 Unit/Ml Vial SUBQ 5,000 unit BID DEAN Administration Multi-Ingredient Ointment 1 applic 01/10/23 21:51 01/12/23 12:21 Zinc Oxide 20% Oint 30 Gm Tube TOP 1 applic PRN PRN Administration Skin Care Ondansetron HCl 4 mg 01/10/23 14:37 01/13/23 17:32 Ondansetron 4 Mg/2 Ml Vial IVP 4 mg Q6HR PRN Administration Nausea / Vomiting Sodium Chloride 10 ml 01/10/23 14:32 01/13/23 17:33 Sodium Chloride Flush 0.9% 10 Ml Syringe IVP 10 ml PRN PRN Administration NEEDED PER PROVIDER ORDERS Sodium Chloride 10 ml 01/10/23 17:00 01/13/23 23:52 Sodium Chloride Flush 0.9% 10 Ml Syringe IVP 10 ml 0100,0900,1700 DEAN Administration Spironolactone 25 mg 01/13/23 14:09 01/13/23 14:31 Spironolactone 25 Mg Tablet PO 25 mg DAILY DEAN Administration - Physical Exam Wound/Incisions: positive: Dressing dry and intact General Appearance: positive: No acute distress Eyes Bilateral: positive: Normal inspection Respiratory: positive: No respiratory distress, Breath sounds nml Cardiovascular: positive: Regular rate & rhythm Abdomen: positive: Non-tender, Other (Mild distension; No active BS) Skin: positive: Color nml, Warm Extremities: positive: Nml appearance ABX Reporting Has patient been on IV antibiotics over the past 48 hours?: No Impression/Plan - Problem List Problem List: Assessment: 1) S/P exploratory laparotomy, adhesiolysis for SBO with the finding of 110 cm of ischemic but viable mid-jejunum. Bowel resection was not indicated or performed. She now either has a post-op ileus or has developed a stricture/ad hesions causing a mechanical obstruction. Her labs were normal yesterday but with the onset of vomiting she may have depressed Mg, Phos, and or K. Plan: 1) NPO 2) CBC, CMP, MG, Phos levels today 3) CT abd/pelvis Max Colmenares MD General Surgery Service
[2023-01-14 07:37] LABS: BASOPHILS # (AUTO) 0.1 10^3/uL (0.0-0.1); EOSINOPHILS # (AUTO) 0.4 10^3/uL (0.0-0.7); EOSINOPHILS % (AUTO) 5.1 %; HCT - HEMATOCRIT 42.2 % (37.0-47.0); LYMPHOCYTES # (AUTO) 1.3 10^3/uL (1.5-3.5); LYMPHOCYTES % (AUTO) 18.1 %; MEAN CORPUSCULAR HEMOGLOBIN 31.5 pg (27.0-31.0); MEAN CORPUSCULAR HGB CONC 33.2 g/dL (32.0-36.0); MEAN CORPUSCULAR VOLUME 94.8 fL (81.0-99.0); MEAN PLATELET VOLUME 9.5 fL (7.9-10.8); MONOCYTES # (AUTO) 0.6 10^3/uL (0.0-1.0); MONOCYTES % (AUTO) 8.5 %; NEUTROPHILS # (AUTO) 4.8 10^3/uL (1.5-6.6); NEUTROPHILS % (AUTO) 65.8 %; PLT - PLATELET COUNT 217 10^3/uL (130-450); RED BLOOD COUNT 4.45 10^6/uL (4.20-5.40); RED CELL DISTRIBUTION WIDTH 12.9 % (12.0-15.0); WHITE BLOOD COUNT 7.3 x10^3/uL (4.8-10.8)
[2023-01-14] MEDS ORDERED: DIATR MEGLU/DIATRIZOATE SODIUM 120 ML BOTTLE ONE (07:42)
[2023-01-14 07:55] LABS: ALBUMIN 2.9 g/dL (3.2-5.5); MAGNESIUM 1.7 mg/dL (1.7-2.3); PHOSPHORUS 2.5 mg/dL (2.5-5.0)
[2023-01-14 08:08] LABS: ALBUMIN/GLOBULIN RATIO 1.2 (1.0-2.2); ALKALINE PHOSPHATASE 44 IU/L (42-121); ALT ALANINE AMINOTRANSFERASE < 3 IU/L (10-60); AST ASPARTATE AMINOTRANSFERASE 15 IU/L (10-42); BILIRUBIN,TOTAL 0.6 mg/dL (0.2-1.0); BUN - BLOOD UREA NITROGEN 10 mg/dL (6-20); CALCIUM 7.7 mg/dL (8.5-10.3); CARBON DIOXIDE - CO2 23 mmol/L (21-32); CHLORIDE 103 mmol/L (101-111); CREATININE 0.6 mg/dL (0.6-1.3); GFR - MDRD 96 (>89); GLUCOSE 97 mg/dL (74-104); POTASSIUM 3.6 mmol/L (3.5-4.5); SODIUM 133 mmol/L (135-145); TOTAL PROTEIN 5.3 g/dL (6.4-8.9)
[2023-01-14] MEDS: hydrALAZINE INJ 20 MG/ML VIAL IVP SCH ×2 (10:38→18:32)
[2023-01-14] MEDS: SPIRONOLACTONE 25 MG TABLET PO SCH (11:27)
[2023-01-14] MEDS: amLODIPine 5 MG TABLET PO SCH (11:27)
[2023-01-14] MEDS: SODIUM CHLORIDE FLUSH 0.9% 10 ML SYRINGE IVP SCH ×2 (11:27→18:33)
[2023-01-14] MEDS: FAMOTIDINE 20 MG/2 ML VIAL IVP SCH ×2 (11:29→20:59)
[2023-01-14] MEDS: HEPARIN 5,000 UNIT/ML VIAL SUBQ SCH ×2 (11:32→20:48)
[2023-01-14] MEDS: CARBIDOPA/LEVODOPA ER 50 MG/200 MG TABLET PO SCH (11:34)
[2023-01-14] MEDS ORDERED: iohexoL-300 100 ML VIAL IVP ONE (11:46)
--- NOTE | 2023-01-14 12:23 | CT Report ---
PROCEDURE: ABDOMEN/PELVIS W INDICATIONS: Post-op ileus vs SBO CONTRAST: 100ml omni 300 TECHNIQUE: After the administration of oral and intravenous contrast, 5 mm thick sections acquired from the diap hragms to the symphysis. 5 mm thick coronal and sagittal reformats were acquired. For radiation dos e reduction, the following was used: automated exposure control, adjustment of mA and/or kV accordin g to patient size. COMPARISON: 01/10/2023 FINDINGS: Image quality: Excellent. Lung bases and heart: Development of small dependently layering pleural effusions and associated atel ectasis. Heart size is normal. Liver: Small posterior benign calcification, probably remote trauma. No enhancing mass. Gallbladder and biliary tree: Surgically absent gallbladder. Mild biliary dilatation. Spleen: No splenomegaly. Pancreas: No pancreatic ductal dilation. Adrenals: No adrenal nodule. Kidneys and ureters: No hydronephrosis. No renal cystic lesion which requires follow up. No solid mas s. Bowel and peritoneum: There is a large quantity of solid rectal stool present. Moderately increased q uantity of mid to distal colonic stool is present. Right lower quadrant decompressed small bowel loop s are still evident. Proximal small bowel loops remain moderately dilated with air-fluid levels. Trac e amount of oral contrast is suspected in the cecum. The stomach is moderately distended. Lymph nodes: No central or retroperitoneal adenopathy. Vessels: Mildly decompressed IVC. Normal aortic contour. PELVIS Reproductive organs: Unremarkable. Bladder: Decompressed with a Bonner catheter. Pelvic lymph nodes: No pelvic adenopathy by size criteria. Bones: Degenerative changes in the lumbar discs Other: No significant ventral or inguinal hernia. IMPRESSION: 1. Ileus versus residual partial small bowel obstruction indicated by decompressed loops of right low er quadrant small bowel, but probable intraluminal contrast. 2. Development of bilateral pleural effusions and atelectasis. 3. Rectal and distal colonic obstipation. Reviewed by: Gogo Wolfe MD on 01/14/2023 12:22 PM PST Approved by: Gogo Wolfe MD on 01/14/2023 12:22 PM PST Station ID: [id number]
--- NOTE | 2023-01-14 12:46 | PROVIDER PROGRESS NOTE ---
Progress Note General Surgery Progress Note CT shows evidence of a post-op ileus (some contrast in cecum) with dilated small bowel with air-fluid levels and a dilated stomach. CBC and CMP/Mg/Phos are normal. The patient will require reinsertion of the NGT and continued GI decompression until the small bowel regains its motility. Plan: Insert NGT to LIS; May have ice chips; Maintenance IV fluids Max Colmenares MD General Surgery Service
[2023-01-14] MEDS: LACTATED RINGERS 1,000 ML IV SCH (13:59)
[2023-01-14] MEDS ORDERED: SOAP SUDS ENEMA 1 EACH RC ONE (14:02)
--- NOTE | 2023-01-14 14:04 | PROVIDER PROGRESS NOTE ---
Subjective - Prog Note Date Prog Note Date: 01/14/23 Prog Note Time: 14:03 - Subjective Pt reports feeling: Worse Subjective: Pt reports feeling worse and not happy about having the NGT and catheter reinserted, however she is understanding. She denies any pains throughout her body. Objective - Vital Signs/Intake & Output Reviewed Vital Signs: Yes Vital Signs: Vital Signs x48h Temp Pulse Resp BP BP Pulse Ox 01/14/23 12:35 36.6 C 78 16 158/71 H 98 01/14/23 11:45 80 156/77 H 01/14/23 11:40 72 156/80 H 01/14/23 11:35 75 172/73 H 01/14/23 10:38 174/83 H 01/14/23 08:24 36.4 C L 60 16 193/93 H 94 Intake & Output: Intake & Output 01/11/23 01/12/23 01/13/23 01/14/23 23:59 23:59 23:59 22:59 Intake Total 4477.5 4095.000 960 300 Output Total 1100 3925 3425 3450 Balance 3377.5 170.000 -2465 -3150 - Objective General Appearance: positive: No acute distress ENT: positive: Other (NGT placed, patent and draining) Neck: positive: Nml inspection Respiratory: positive: Other (New onset of cough) Cardiovascular: positive: Regular rate & rhythm Abdomen: positive: Non-tender, Abnml bowel sounds (Bowel sounds heard in RUQ only) Skin: positive: Color nml, No rash Extremities: positive: Nml appearance, Pedal edema (3+ non-pitting edema) Neurologic/Psychiatric: positive: Oriented x3, Mood/affect nml - Lab Results Fish Bones: 01/14/23 07:33 01/14/23 07:33 Other Labs: Lab Results x24hrs 01/14/23 01/14/23 Range/Units 07:33 07:33 WBC 7.3 (4.8-10.8) x10^3/uL RBC 4.45 (4.20-5.40) 10^6/uL Hgb 14.0 (12.0-16.0) g/dL Hct 42.2 (37.0-47.0) % MCV 94.8 (81.0-99.0) fL MCH 31.5 H (27.0-31.0) pg MCHC 33.2 (32.0-36.0) g/dL RDW 12.9 (12.0-15.0) % Plt Count 217 (130-450) 10^3/uL MPV 9.5 (7.9-10.8) fL Neut # (Auto) 4.8 (1.5-6.6) 10^3/uL Lymph # (Auto) 1.3 L (1.5-3.5) 10^3/uL [place] # (Auto) 0.6 (0.0-1.0) 10^3/uL Eos # (Auto) 0.4 (0.0-0.7) 10^3/uL Baso # (Auto) 0.1 (0.0-0.1) 10^3/uL Absolute Nucleated RBC 0.00 x10^3/uL Nucleated RBC % 0.0 /100WBC Sodium 133 L (135-145) mmol/L Potassium 3.6 (3.5-4.5) mmol/L Chloride 103 (101-111) mmol/L Carbon Dioxide 23 (21-32) mmol/L Anion Gap 7.0 (6-13) BUN 10 (6-20) mg/dL Creatinine 0.6 (0.6-1.3) mg/dL Estimated GFR (MDRD) 96 (>89) Glucose 97 (74-104) mg/dL Calcium 7.7 L (8.5-10.3) mg/dL Phosphorus 2.5 (2.5-5.0) mg/dL Magnesium 1.7 (1.7-2.3) mg/dL Total Bilirubin 0.6 (0.2-1.0) mg/dL AST 15 (10-42) IU/L ALT < 3 L (10-60) IU/L Alkaline Phosphatase 44 (42-121) IU/L Total Protein 5.3 L (6.4-8.9) g/dL Albumin 2.9 L (3.2-5.5) g/dL Globulin 2.4 (2.1-4.2) g/dL Albumin/Globulin Ratio 1.2 (1.0-2.2) - Diagnostic Imaging Diagnostic Imaging Results: positive: Final report reviewed (CT abdomen/pelvis) ABX Reporting Has patient been on IV antibiotics over the past 48 hours?: No Sepsis Event Note (H) - Evaluation Current Stage of Sepsis: Ruled out Assessment/Plan - Problem List (1) Small bowel obstruction Impression: On 01/10, Dr. Colmenares lysed the obstructed bowel w/o resection and is absent of residual ischemia. Pt afebrile, final peritoneal culture NOS. Pt advanced to eating solid foods, however on 01/13 at approximately 1800 hrs pt vomited after dinner. Abdomen CT today shows decompressed loops of right lower quadrant small bowel, indicative of residual obstruction, in addition to large collection of stool in the rectum. Narcotics PRN for pain w/ recent surgery, however they are non-contributory to pt's reduced motility as none administered post-op. Plan: Pt returned to NPO status and NGT replaced. Soap-suds enema ordered to clear rectal vault. Continue to monitor pt under the consult of Dr. Colmenares. (2) Hypertension Impression: Her BP began to rise 01/12, pt given PO metoprolol in AM. Metoprolol discontinued as pt became too bradycardic. Amlodipine and spirinolactone ordered, however as of this AM, BP 193/93. Plan: Hydralazine 10 mg IV started as adjunct w/ amlodipine and spirinolactone. Amlodipine and spirinolactone PO suspended while NGT in place. (3) Urinary retention Impression: Bonner catheter discontinued to assess pt's urgency and frequency, which failed. Night of 01/13, pt retaining urine on bladder scan; 1800 mL of urine drained via straight cath. No obstructive pathology or cystitis noted on abdominal CT; pt's labs do not suggest infectious nature. Plan: Bonner reinserted today. Will reassess her urgency/frequency within next 1-2 days. (4) History of Parkinson's disease Impression: Pt has hx of Parkinson's; no notable head tremor on exam. Plan: Suspend carbidopa/levodopa PO while NGT in place; no IV formulation available. (5) Chronic narcotic use Impression: Per ED history and pt's spouse, pt has been chronically taking morphine for osteoarthritis, length of time unclear. This chronic use is likely a contributing factor in the formation of the bowel obstruction d/t to the opioid MOA in decreasing gut motility. Plan: PRN narcotics for pain available w/ current surgical procedure and to avoid inducing withdrawal. Evaluate and discuss options for chronic pain management in lieu of continuing morphine. (6) Sinus pause Impression: On 01/13 at 1500 hrs, pt became bradycardic and sinus pause noted on telemetry. RN reported pt was resting, seated upright, and otherwise asymptomatic. Plan: Pt to remain on telemetry, continuing to monitor for rhythm changes. (7) Pre-renal azotemia Impression: RESOLVED Pt's BUN/Creat is further improved, 12/0.6 down from 20/0.8. Her home dose of furosemide is believed to be contributing to hypovolemia; pt reports furosemide has not been helping her LE edema. Plan: Continue to follow BMP daily. Furosemide remains on hold.
--- NOTE | 2023-01-14 15:23 | XRAY Report ---
PROCEDURE: Chest for Line Placement INDICATIONS: NG tube placement TECHNIQUE: One view of the chest was acquired. COMPARISON: 01/03/2020 FINDINGS: Surgical changes and devices: Only the part of the gastric tube external to the patient can be seen. Lungs and pleura: No pleural effusions or pneumothorax. Lungs are clear. Mediastinum: Mediastinal contours appear normal. Heart size is normal. Calcification is seen of the aortic arch. Bones and chest wall: No suspicious bony lesions. Age-appropriate degenerative changes are seen. O verlying soft tissues appear unremarkable. IMPRESSION: The gastric tube is only seen external to the patient. Recommend removal and repositioning. Reviewed by: Claudio Avila MD on 01/14/2023 2:21 PM [facility] Approved by: Claudio Avila MD on 01/14/2023 2:21 PM [facility] Station ID: [id number]
--- NOTE | 2023-01-14 16:19 | XRAY Report ---
PROCEDURE: Chest for Line Placement INDICATIONS: Ng tube position/reposition TECHNIQUE: One view of the chest was acquired. COMPARISON: Earlier in the day on 01/14/2023. 01/03/2020 FINDINGS: Surgical changes and devices: Similar to the prior examination, the gastric tube is only displaced s een external to the patient. The distal tip is potentially partially seen overlying the pharynx. Lungs and pleura: No pleural effusions or pneumothorax. Lungs are clear. Mediastinum: The aorta is prominent and tortuous. The cardiac contours are within normal limits. Bones and chest wall: No suspicious bony lesions. Overlying soft tissues appear unremarkable. IMPRESSION: The gastric tube is only definitely seen external to the patient and is not seen within the chest. Th e tip is potentially seen coiled within the pharynx. Please correlate with patient history. Again recommend removal and repositioning. Reviewed by: Claudio Avila MD on 01/14/2023 3:17 PM [place] Approved by: Claudio Avila MD on 01/14/2023 3:17 PM [facility] Station ID: [id number]
[2023-01-14] MEDS ORDERED: PHENOL THROAT SPRAY 177 ML MM PRN (18:56)
[2023-01-14] MEDS ORDERED: BENZOCAINE/MENTHOL LOZENGE MM PRN (18:56)
[2023-01-14] MEDS: MORPHINE 2 MG/ML CARPUJECT IVP PRN (20:45)
[2023-01-15] MEDS: LACTATED RINGERS 1,000 ML IV SCH ×3 (00:11→19:31)
[2023-01-15] MEDS: hydrALAZINE INJ 20 MG/ML VIAL IVP SCH ×3 (01:57→19:27)
[2023-01-15] MEDS: SODIUM CHLORIDE FLUSH 0.9% 10 ML SYRINGE IVP SCH ×3 (01:57→19:26)
[2023-01-15] MEDS: MORPHINE 2 MG/ML CARPUJECT IVP PRN (03:58)
[2023-01-15 05:14] LABS: BASOPHILS # (AUTO) 0.1 10^3/uL (0.0-0.1); BASOPHILS % (AUTO) 0.8 %; EOSINOPHILS # (AUTO) 0.3 10^3/uL (0.0-0.7); EOSINOPHILS % (AUTO) 3.7 %; HCT - HEMATOCRIT 42.3 % (37.0-47.0); HGB - HEMOGLOBIN 13.7 g/dL (12.0-16.0); LYMPHOCYTES # (AUTO) 1.7 10^3/uL (1.5-3.5); LYMPHOCYTES % (AUTO) 21.1 %; MEAN CORPUSCULAR HEMOGLOBIN 30.8 pg (27.0-31.0); MEAN CORPUSCULAR HGB CONC 32.4 g/dL (32.0-36.0); MEAN CORPUSCULAR VOLUME 95.1 fL (81.0-99.0); MEAN PLATELET VOLUME 9.6 fL (7.9-10.8); MONOCYTES # (AUTO) 0.8 10^3/uL (0.0-1.0); MONOCYTES % (AUTO) 9.6 %; NEUTROPHILS # (AUTO) 4.9 10^3/uL (1.5-6.6); NEUTROPHILS % (AUTO) 62.3 %; PLT - PLATELET COUNT 241 10^3/uL (130-450); RED BLOOD COUNT 4.45 10^6/uL (4.20-5.40); RED CELL DISTRIBUTION WIDTH 13.2 % (12.0-15.0); WHITE BLOOD COUNT 7.9 x10^3/uL (4.8-10.8)
[2023-01-15] MEDS: ACETAMINOPHEN 500 MG TABLET PO PRN ×4 (05:19→23:49)
[2023-01-15 05:28] LABS: CALCIUM 7.7 mg/dL (8.5-10.3); CREATININE 0.5 mg/dL (0.6-1.3); POTASSIUM 3.4 mmol/L (3.5-4.5)
--- NOTE | 2023-01-15 06:17 | PROVIDER PROGRESS NOTE ---
Progress Note General Surgery Progress Note S: Resting comfortably; Passed several bowel motions last night. No abdominal pain O: VSS, Abdomen is soft; incision clean and dry A: Resolution of post-op ileus Recommendations: Begin with clear liquids and advance as tolerated; Discharge to home at discretion of Medical Hospitalist; FU surgery clinic in 7-10 days after discharge. I will sign this patient out to Dr. Mcbride who is on-call for the hospital surgical service today. Max Colmenares MD General Surgery Service
[2023-01-15 06:52] LABS: MAGNESIUM 1.7 mg/dL (1.7-2.3)
[2023-01-15] MEDS: FAMOTIDINE 20 MG/2 ML VIAL IVP SCH ×2 (09:18→21:34)
[2023-01-15] MEDS: HEPARIN 5,000 UNIT/ML VIAL SUBQ SCH ×2 (09:20→21:23)
[2023-01-15] MEDS: SODIUM CHLORIDE FLUSH 0.9% 10 ML SYRINGE IVP PRN (10:35)
--- NOTE | 2023-01-15 11:10 | PROVIDER PROGRESS NOTE ---
Subjective - Prog Note Date Prog Note Date: 01/15/23 Prog Note Time: 14:00 - Subjective Pt reports feeling: Improved Subjective: Pt reports feeling much better and is excited to begin eating/advancing her diet today. She denies any episodes of vomiting since night of 01/13. Denies new abdominal pains. Objective - Vital Signs/Intake & Output Reviewed Vital Signs: Yes Vital Signs: Vital Signs x48h Temp Pulse Pulse Resp BP BP Pulse Ox 01/15/23 10:45 70 147/62 H 01/15/23 10:36 82 160/71 H 01/15/23 10:35 83 147/64 H 01/15/23 10:32 150/67 H 01/15/23 10:31 79 150/67 H 01/15/23 07:23 36.6 C 82 16 145/62 H 96 01/15/23 04:19 36.8 C 81 18 132/53 H 94 Intake & Output: Intake & Output 01/13/23 01/14/23 01/14/23 01/15/23 00:59 00:59 23:59 23:59 Intake Total 1480 Output Total 650 Balance 830 - Objective General Appearance: positive: No acute distress Eyes Bilateral: positive: Normal inspection ENT: positive: No signs of dehydration Neck: positive: Nml inspection Respiratory: positive: Chest non-tender, No respiratory distress, Breath sounds nml Cardiovascular: positive: Regular rate & rhythm Abdomen: positive: Non-tender, Nml bowel sounds ([place] RUQ, minimally in LLQ) Skin: positive: Color nml, No rash, Warm, Dry Extremities: positive: Pedal edema (3+, non-pitting) Neurologic/Psychiatric: positive: Oriented x3, Mood/affect nml - Lab Results Fish Bones: 01/15/23 04:17 01/15/23 04:17 Other Labs: Lab Results x24hrs 01/15/23 01/15/23 Range/Units 04:17 04:17 WBC 7.9 (4.8-10.8) x10^3/uL RBC 4.45 (4.20-5.40) 10^6/uL Hgb 13.7 (12.0-16.0) g/dL Hct 42.3 (37.0-47.0) % MCV 95.1 (81.0-99.0) fL MCH 30.8 (27.0-31.0) pg MCHC 32.4 (32.0-36.0) g/dL RDW 13.2 (12.0-15.0) % Plt Count 241 (130-450) 10^3/uL MPV 9.6 (7.9-10.8) fL Neut # (Auto) 4.9 (1.5-6.6) 10^3/uL Lymph # (Auto) 1.7 (1.5-3.5) 10^3/uL [place] # (Auto) 0.8 (0.0-1.0) 10^3/uL Eos # (Auto) 0.3 (0.0-0.7) 10^3/uL Baso # (Auto) 0.1 (0.0-0.1) 10^3/uL Absolute Nucleated RBC 0.00 x10^3/uL Nucleated RBC % 0.0 /100WBC Sodium 133 L (135-145) mmol/L Potassium 3.4 L (3.5-4.5) mmol/L Chloride 103 (101-111) mmol/L Carbon Dioxide 21 (21-32) mmol/L Anion Gap 9.0 (6-13) BUN 9 (6-20) mg/dL Creatinine 0.5 L (0.6-1.3) mg/dL Estimated GFR (MDRD) 119 (>89) Glucose 83 (74-104) mg/dL Calcium 7.7 L (8.5-10.3) mg/dL Magnesium 1.7 (1.7-2.3) mg/dL - Diagnostic Imaging Diagnostic Imaging Results: positive: Final report reviewed (CXR for NGT showed unsuccesful placement attempts) ABX Reporting Has patient been on IV antibiotics over the past 48 hours?: No Assessment/Plan - Problem List (1) Small bowel obstruction Impression: On 01/10, Dr. Colmenares lysed obstructed bowel w/o resection and is absent of residual ischemia. Pt afebrile, final peritoneal culture NOS. On 01/13, pt vomited after dinner; NGT attempted 3x times, pt refused placement. Abdomen CT showed decompressed loops of right lower quadrant small bowel, indicative of residual obstruction, in addition to large collection of stool in the rectum. Soap-suds enema performed; pt was reported to have 2x BMs overnight. No recurrent nausea or new abdominal pain. Diet advanced to clears, per Dr. Colmenares, which pt tolerated well for breakfast. Plan: Pt's diet again to advance puree for lunch, followed by minced and moist for dinner. Will reassess further advancement if tolerated; we are following recommendations of on-call surgeon. (2) Hypertension Impression: Became hypertensive 01/12, pt given PO metoprolol. Metoprolol discontinued as pt became too bradycardic. Amlodipine and spirinolactone ordered. As pt became increasingly hypertensive w/ BP 193/93, hydralazine IV ordered and continued as pt's NGT was intermittently out. Plan: Hydralazine 10 mg IV started as adjunct w/ amlodipine and spirinolactone. Amlodipine and spirinolactone PO to be resumed. (3) Urinary retention Impression: Night of 01/13, pt retaining urine on bladder scan; 1800 mL urine drained via straight cath. No obstructive pathology or cystitis noted on abdominal CT; pt's labs do not suggest infectious nature. Bonner was reinserted w/ no complications. Plan: Bonner continued, patent and draining. Will reassess her urgency/frequency within next 1-2 days. (4) History of Parkinson's disease Impression: Pt has hx of Parkinson's; pt's head tremor present on exam. Suspend carbidopa/levodopa PO while NGT in place; no IV formulation available. Plan: Carbidopa/levodopa to resume once diet has been tolerated. (5) Chronic narcotic use Impression: Per ED history and pt's spouse, pt has been chronically taking morphine for osteoarthritis, length of time unclear. This chronic use is likely a contributing factor in the formation of the bowel obstruction d/t to the opioid MOA in decreasing gut motility. Since her hospitalization, she has not required or requested opioids for pain control. Plan: PRN narcotics for pain available w/ current surgical procedure and to avoid inducing withdrawal. Evaluate and discuss options for chronic pain management in lieu of continuing morphine. (6) Sinus pause Impression: RESOLVED On 01/13 at 1500 hrs, pt became bradycardic and sinus pause noted on telemetry. RN reported pt was resting, seated upright, and otherwise asymptomatic. Metoprolol discontinued as pt became too bradycardic. Plan: Pt to remain on telemetry, continuing to monitor for rhythm changes. (7) Pre-renal azotemia Impression: RESOLVED Pt's BUN/Creat is further improved, 12/0.6 down from 20/0.8. Her home dose of furosemide is believed to be contributing to hypovolemia; pt reports furosemide has not been helping her LE edema. Plan: Continue to follow BMP daily. Furosemide remains on hold.
[2023-01-15] MEDS ORDERED: GLYCERIN ADULT SUPP PR ONE (19:32)
[2023-01-15] MEDS ORDERED: SALINE ENEMA 133 ML BOTTLE RC ONE (21:33)
[2023-01-16] MEDS: SODIUM CHLORIDE FLUSH 0.9% 10 ML SYRINGE IVP SCH ×4 (00:05→23:35)
[2023-01-16 05:52] LABS: BASOPHILS % (AUTO) 0.5 %; EOSINOPHILS # (AUTO) 0.3 10^3/uL (0.0-0.7); EOSINOPHILS % (AUTO) 3.1 %; HCT - HEMATOCRIT 37.9 % (37.0-47.0); HGB - HEMOGLOBIN 12.9 g/dL (12.0-16.0); LYMPHOCYTES # (AUTO) 1.5 10^3/uL (1.5-3.5); LYMPHOCYTES % (AUTO) 17.5 %; MEAN CORPUSCULAR HEMOGLOBIN 31.6 pg (27.0-31.0); MEAN CORPUSCULAR VOLUME 92.9 fL (81.0-99.0); MEAN PLATELET VOLUME 8.9 fL (7.9-10.8); MONOCYTES # (AUTO) 0.9 10^3/uL (0.0-1.0); MONOCYTES % (AUTO) 9.7 %; NEUTROPHILS # (AUTO) 5.9 10^3/uL (1.5-6.6); PLT - PLATELET COUNT 238 10^3/uL (130-450); RED BLOOD COUNT 4.08 10^6/uL (4.20-5.40); RED CELL DISTRIBUTION WIDTH 13.4 % (12.0-15.0); WHITE BLOOD COUNT 8.8 x10^3/uL (4.8-10.8)
[2023-01-16] MEDS: hydrALAZINE INJ 20 MG/ML VIAL IVP SCH ×3 (05:52→19:16)
[2023-01-16] MEDS: LACTATED RINGERS 1,000 ML IV SCH (05:52)
[2023-01-16 06:03] LABS: CALCIUM 7.5 mg/dL (8.5-10.3); CREATININE 0.5 mg/dL (0.6-1.3); POTASSIUM 3.4 mmol/L (3.5-4.5)
[2023-01-16] MEDS: ACETAMINOPHEN 500 MG TABLET PO PRN ×4 (08:02→23:32)
[2023-01-16] MEDS: FAMOTIDINE 20 MG/2 ML VIAL IVP SCH ×2 (08:04→20:51)
[2023-01-16] MEDS: HEPARIN 5,000 UNIT/ML VIAL SUBQ SCH ×2 (08:07→20:52)
[2023-01-16] MEDS ORDERED: POTASSIUM CHLORIDE 20 MEQ TABLET PO ONE (08:34)
--- NOTE | 2023-01-16 10:22 | PROVIDER PROGRESS NOTE ---
Subjective - Subjective Pt reports feeling: Improved (tolerating diet. minimal to no abdominal discomfort. bm today) Objective - Vital Signs/Intake & Output Vital Signs: Vital Signs x48h Temp Pulse Resp BP BP Pulse Ox 01/16/23 09:38 153/62 H 01/16/23 07:50 36.7 C 80 18 153/62 H 97 01/16/23 05:00 36.7 C 77 16 138/59 H 95 Intake & Output: Intake & Output 01/14/23 01/14/23 01/15/23 01/16/23 00:59 23:59 23:59 23:59 Intake Total 2585.000 555 Output Total 1500 675 Balance 1085.000 -120 - Objective General Appearance: positive: No acute distress, Alert Respiratory: positive: No respiratory distress Abdomen: positive: Non-tender, No distention, Other (incision clean/ dry/ intac t. edgardo present. no infection) - Lab Results Fish Bones: 01/16/23 05:31 01/16/23 05:31 Other Labs: Lab Results x24hrs 01/16/23 01/16/23 Range/Units 05:31 05:31 WBC 8.8 (4.8-10.8) x10^3/uL RBC 4.08 L (4.20-5.40) 10^6/uL Hgb 12.9 (12.0-16.0) g/dL Hct 37.9 (37.0-47.0) % MCV 92.9 (81.0-99.0) fL MCH 31.6 H (27.0-31.0) pg MCHC 34.0 (32.0-36.0) g/dL RDW 13.4 (12.0-15.0) % Plt Count 238 (130-450) 10^3/uL MPV 8.9 (7.9-10.8) fL Neut # (Auto) 5.9 (1.5-6.6) 10^3/uL Lymph # (Auto) 1.5 (1.5-3.5) 10^3/uL [place] # (Auto) 0.9 (0.0-1.0) 10^3/uL Eos # (Auto) 0.3 (0.0-0.7) 10^3/uL Baso # (Auto) 0.0 (0.0-0.1) 10^3/uL Absolute Nucleated RBC 0.00 x10^3/uL Nucleated RBC % 0.0 /100WBC Sodium 134 L (135-145) mmol/L Potassium 3.4 L (3.5-4.5) mmol/L Chloride 105 (101-111) mmol/L Carbon Dioxide 24 (21-32) mmol/L Anion Gap 5.0 L (6-13) BUN 8 (6-20) mg/dL Creatinine 0.5 L (0.6-1.3) mg/dL Estimated GFR (MDRD) 119 (>89) Glucose 108 H (74-104) mg/dL Calcium 7.5 L (8.5-10.3) mg/dL Sepsis Event Note (H) - Evaluation Current Stage of Sepsis: Ruled out Assessment/Plan - Problem List (1) Small bowel obstruction Impression: doing well from surgery stand point. she feels she may need rehab. I will have the office make her a follow up appointment for staple removal in 7 to 10 days ok to shower and get the incision area wet dry dressing change daily as desired.
--- NOTE | 2023-01-16 11:04 | PROVIDER PROGRESS NOTE ---
Assessment/Plan - Problem List (1) Small bowel obstruction Assessment/Plan: S/P lysis of adhesions on 01/10. General surgery has cleared the patient. Follow-up in 7-10 days. ADAT. (2) Urinary retention Assessment/Plan: Patient previously failed a voiding trial. Will attempt to strengthen and repeat voiding trial prior to discharge. (3) Hx of Parkinson's disease Assessment/Plan: Continue home medications. (4) TIA (transient ischemic attack) Qualifiers: Transient cerebral ischemia type: unspecified Qualified Code(s): G45.9 - Transient cerebral ischemic attack, unspecified (5) Edema Qualifiers: Edema type: generalized Qualified Code(s): R60.1 - Generalized edema Assessment/Plan: Generalized edema due to volume overload. Will resume her home lasix and discontinue IV fluids. Renal function near her baseline. - Current Meds Current Meds: Current Medications Generic Name Dose Route Start Last Admin Trade Name Freq PRN Reason Stop Dose Admin Acetaminophen 500 mg 01/14/23 20:57 01/16/23 08:02 Acetaminophen 500 Mg Tablet PO 500 mg Q4HR PRN Administration Pain or Fever > 38C (100.4F) Famotidine 20 mg 01/10/23 21:00 01/16/23 08:04 Famotidine 20 Mg/2 Ml Vial IVP 20 mg BID DEAN Administration Heparin Sodium (Porcine) 5,000 unit 01/10/23 21:00 01/16/23 08:07 Heparin 5,000 Unit/Ml Vial SUBQ 5,000 unit BID DEAN Administration Hydralazine HCl 10 mg 01/14/23 10:00 01/16/23 09:38 Hydralazine Inj 20 Mg/Ml Vial IVP 10 mg Q8H DEAN Administration Morphine Sulfate 2 mg 01/12/23 11:28 01/15/23 03:58 Morphine 2 Mg/Ml Carpuject IVP 2 mg Q6H PRN Administration Severe Pain (Level 7-10) Multi-Ingredient Ointment 1 applic 01/10/23 21:51 01/12/23 12:21 Zinc Oxide 20% Oint 30 Gm Tube TOP 1 applic PRN PRN Administration Skin Care Ondansetron HCl 4 mg 01/10/23 14:37 01/13/23 17:32 Ondansetron 4 Mg/2 Ml Vial IVP 4 mg Q6HR PRN Administration Nausea / Vomiting Sodium Chloride 10 ml 01/10/23 14:32 01/15/23 10:35 Sodium Chloride Flush 0.9% 10 Ml Syringe IVP 10 ml PRN PRN Administration NEEDED PER PROVIDER ORDERS Sodium Chloride 10 ml 01/10/23 17:00 01/16/23 08:04 Sodium Chloride Flush 0.9% 10 Ml Syringe IVP Not Given 0100,0900,1700 DEAN - Lab Result Fish Bone Diagrams: 01/16/23 05:31 01/16/23 05:31 - Additional Planning My Orders: My Active Orders 01/16/23 10:59 Juve Hose and Compression Devic [RC] Q8H 01/16/23 11:00 Furosemide [Lasix] 40 mg PO DAILY Plan Discussed with:: Patient, Case Management Subjective - Subjective Patient Reports: Feeling Better, Resting Comfortably Nursing Reports: Pain (Leg pain due to edema) Objective Vital Signs: Vital Signs - 24 hr 01/15/23 01/15/23 01/15/23 11:37 16:51 19:27 Temperature 36.6 C 36.7 C Heart Rate [ Brachial] Heart Rate [ 88 76 Monitoring electrodes] Respiratory 20 18 Rate Blood Pressure 146/66 H Blood Pressure 129/55 L 125/59 L [Left Brachial artery] O2 Saturation 97 97 01/15/23 01/15/23 01/15/23 19:33 19:38 19:43 Temperature Heart Rate [ 79 83 80 Brachial] Heart Rate [ Monitoring electrodes] Respiratory Rate Blood Pressure Blood Pressure 122/54 L 138/61 H 147/57 H [Left Brachial artery] O2 Saturation 01/15/23 01/15/23 01/15/23 19:58 20:08 20:22 Temperature Heart Rate [ 83 82 82 Brachial] Heart Rate [ Monitoring electrodes] Respiratory Rate Blood Pressure Blood Pressure 150/56 H 117/47 L 122/44 L [Left Brachial artery] O2 Saturation 01/15/23 01/15/23 01/16/23 21:00 23:42 05:00 Temperature 36.3 C L 36.6 C 36.7 C Heart Rate [ 72 77 Brachial] Heart Rate [ 79 Monitoring electrodes] Respiratory 18 16 16 Rate Blood Pressure Blood Pressure 146/59 H 141/53 H 138/59 H [Left Brachial artery] O2 Saturation 96 96 95 01/16/23 01/16/23 07:50 09:38 Temperature 36.7 C Heart Rate [ 80 Brachial] Heart Rate [ Monitoring electrodes] Respiratory 18 Rate Blood Pressure 153/62 H Blood Pressure 153/62 H [Left Brachial artery] O2 Saturation 97 Oxygen O2 Source [With Activity] Room air O2 Source [Without Activity] Room air O2 Source Room air I&O (Last 24 Hrs): Intake and Output Totals x24h 01/14/23 01/15/23 01/16/23 23:59 23:59 23:59 Intake Total 2585.000 555 Output Total 1500 675 Balance 1085.000 -120 General: Alert, Oriented x3, Cooperative, No acute distress Neuro: Alert, CN 2-12 Grossly Intact, Oriented Times 3 Cardiovascular: Regular rate, Normal S1, Normal S2, No murmurs Respiratory: Chest non-tender, No respiratory distress, Breath sounds nml Abdomen: Normal bowel sounds, Soft, No tenderness, No hepatospenomegaly, No masses Genitourinary: Normal External, No Bleeding, No Discharge, No Tenderness, No Adnexal Mass - Results Results: Laboratory Results WBC 8.8 x10^3/uL (4.8-10.8) 01/16/23 05:31 RBC 4.08 10^6/uL (4.20-5.40) L 01/16/23 05:31 Hgb 12.9 g/dL (12.0-16.0) 01/16/23 05:31 Hct 37.9 % (37.0-47.0) 01/16/23 05:31 MCV 92.9 fL (81.0-99.0) 01/16/23 05:31 MCH 31.6 pg (27.0-31.0) H 01/16/23 05:31 MCHC 34.0 g/dL (32.0-36.0) 01/16/23 05:31 RDW 13.4 % (12.0-15.0) 01/16/23 05:31 Plt Count 238 10^3/uL (130-450) 01/16/23 05:31 MPV 8.9 fL (7.9-10.8) 01/16/23 05:31 Neut # (Auto) 5.9 10^3/uL (1.5-6.6) 01/16/23 05:31 Lymph # (Auto) 1.5 10^3/uL (1.5-3.5) 01/16/23 05:31 [place] # (Auto) 0.9 10^3/uL (0.0-1.0) 01/16/23 05:31 Eos # (Auto) 0.3 10^3/uL (0.0-0.7) 01/16/23 05:31 Baso # (Auto) 0.0 10^3/uL (0.0-0.1) 01/16/23 05:31 Absolute Nucleated RBC 0.00 x10^3/uL 01/16/23 05:31 Nucleated RBC % 0.0 /100WBC 01/16/23 05:31 Platelet Estimate DECREASED (<130,000) (NORMAL) 01/10/23 12:05 Platelet Morphology PLATELET CLUMPING (NORMAL) 01/10/23 12:05 RBC Morph Micro Appear NORMAL APPEARANCE (NORMAL) 01/10/23 12:05 VBG pH 7.516 (7.31-7.41) H 01/11/23 04:22 Ionized Calcium 1.02 mmol/L (1.15-1.33) L 01/11/23 04:22 Sodium 134 mmol/L (135-145) L 01/16/23 05:31 Potassium 3.4 mmol/L (3.5-4.5) L 01/16/23 05:31 Chloride 105 mmol/L (101-111) 01/16/23 05:31 Carbon Dioxide 24 mmol/L (21-32) 01/16/23 05:31 Anion Gap 5.0 (6-13) L 01/16/23 05:31 BUN 8 mg/dL (6-20) 01/16/23 05:31 Creatinine 0.5 mg/dL (0.6-1.3) L 01/16/23 05:31 Estimated GFR (MDRD) 119 (>89) 01/16/23 05:31 Glucose 108 mg/dL (74-104) H 01/16/23 05:31 Lactic Acid 1.7 mmol/L (0.5-2.2) 01/11/23 04:22 Calcium 7.5 mg/dL (8.5-10.3) L 01/16/23 05:31 Phosphorus 2.5 mg/dL (2.5-5.0) 01/14/23 07:33 Magnesium 1.7 mg/dL (1.7-2.3) 01/15/23 04:17 Total Bilirubin 0.6 mg/dL (0.2-1.0) 01/14/23 07:33 AST 15 IU/L (10-42) 01/14/23 07:33 ALT < 3 IU/L (10-60) L 01/14/23 07:33 Alkaline Phosphatase 44 IU/L (42-121) 01/14/23 07:33 Total Protein 5.3 g/dL (6.4-8.9) L 01/14/23 07:33 Albumin 2.9 g/dL (3.2-5.5) L 01/14/23 07:33 Globulin 2.4 g/dL (2.1-4.2) 01/14/23 07:33 Albumin/Globulin Ratio 1.2 (1.0-2.2) 01/14/23 07:33 Lipase < 10 U/L (11-82) L 01/10/23 11:47 Urine Color YELLOW 01/10/23 13:45 Urine Clarity CLEAR (CLEAR) 01/10/23 13:45 Urine pH 7.0 PH (5.0-7.5) 01/10/23 13:45 Ur Specific [place] 1.020 (1.002-1.030) 01/10/23 13:45 Urine Protein 100 mg/dL (NEGATIVE) H 01/10/23 13:45 Urine Glucose (UA) NEGATIVE mg/dL (NEGATIVE) 01/10/23 13:45 Urine Ketones NEGATIVE mg/dL (NEGATIVE) 01/10/23 13:45 Urine Occult Blood NEGATIVE (NEGATIVE) 01/10/23 13:45 Urine Nitrite NEGATIVE (NEGATIVE) 01/10/23 13:45 Urine Bilirubin NEGATIVE (NEGATIVE) 01/10/23 13:45 Urine Urobilinogen 0.2 (NORMAL) E.U./dL (NORMAL) 01/10/23 13:45 Ur Leukocyte Esterase NEGATIVE (NEGATIVE) 01/10/23 13:45 Urine RBC None Seen /HPF (0-5) 01/10/23 13:45 Urine WBC 0-3 /HPF (0-5) 01/10/23 13:45 Ur Squamous Epith Cells FEW Squamous (<= Few) 01/10/23 13:45 Urine Bacteria Few /HPF (None Seen) 01/10/23 13:45 Urine Casts 0-2 Hyaline Casts /LPF 01/10/23 13:45 Urine Mucus Few Strands 01/10/23 13:45 Ur Microscopic Review INDICATED 01/10/23 13:45 Urine Culture Comments NOT INDICATED 01/10/23 13:45 Nasal Screen MRSA (PCR) NEGATIVE (NEGATIVE) 01/10/23 19:30 Sepsis Event Note (H) - Evaluation Current Stage of Sepsis: Ruled out ABX Reporting Has patient been on IV antibiotics over the past 48 hours?: No Current Medications - Current Medications Current Medications: Active Medications Generic Name Dose Route Start Last Admin Trade Name Freq PRN Reason Stop Dose Admin Acetaminophen 500 mg 01/14/23 20:57 01/16/23 08:02 Acetaminophen 500 Mg Tablet PO 500 mg Q4HR PRN Administration Pain or Fever > 38C (100.4F) Famotidine 20 mg 01/10/23 21:00 01/16/23 08:04 Famotidine 20 Mg/2 Ml Vial IVP 20 mg BID DEAN Administration Furosemide 40 mg 01/16/23 11:00 Furosemide 20 Mg Tablet PO DAILY DEAN Heparin Sodium (Porcine) 5,000 unit 01/10/23 21:00 01/16/23 08:07 Heparin 5,000 Unit/Ml Vial SUBQ 5,000 unit BID DEAN Administration Hydralazine HCl 10 mg 01/14/23 10:00 01/16/23 09:38 Hydralazine Inj 20 Mg/Ml Vial IVP 10 mg Q8H DEAN Administration Mineral Oil 1 applic 01/10/23 21:51 Min Oil/Dimethicon/Coconut Oil 92 Gm Tube TOP PRN PRN Skin Care Morphine Sulfate 2 mg 01/12/23 11:28 01/15/23 03:58 Morphine 2 Mg/Ml Carpuject IVP 2 mg Q6H PRN Administration Severe Pain (Level 7-10) Multi-Ingredient Ointment 1 applic 01/10/23 21:51 01/12/23 12:21 Zinc Oxide 20% Oint 30 Gm Tube TOP 1 applic PRN PRN Administration Skin Care Ondansetron HCl 4 mg 01/10/23 14:37 01/13/23 17:32 Ondansetron 4 Mg/2 Ml Vial IVP 4 mg Q6HR PRN Administration Nausea / Vomiting Phenol/Menthol 2 sprays 01/14/23 18:56 Phenol Throat [place] 177 Ml MM Q2HR PRN Throat Pain Prochlorperazine Edisylate 10 mg 01/10/23 14:47 Prochlorperazine 10 Mg/2 Ml Vial IVP Q6HR PRN Nausea / Vomiting Sodium Chloride 10 ml 01/10/23 14:32 01/15/23 10:35 Sodium Chloride Flush 0.9% 10 Ml Syringe IVP 10 ml PRN PRN Administration NEEDED PER PROVIDER ORDERS Sodium Chloride 10 ml 01/10/23 17:00 01/16/23 08:04 Sodium Chloride Flush 0.9% 10 Ml Syringe IVP Not Given 0100,0900,1700 DEAN Throat Lozenges 1 lozenge 01/14/23 18:56 Benzocaine/Menthol Lozenge MM Q2HR PRN Throat pain Carbidopa/Levodopa [Sinemet Cr 50-200 Tablet] 1 tab PO 0900,1500 08/05/12 Aspirin [Aspirin EC] 81 mg PO DAILY 03/22/16 Furosemide [Lasix] 40 mg PO DAILY 11/25/22 Morphine Ir [Morphine] 15 mg PO TID PRN 01/10/23
[2023-01-16] MEDS: FUROSEMIDE 20 MG TABLET PO SCH (11:48)
[2023-01-16] MEDS: CARBIDOPA/LEVODOPA ER 50 MG/200 MG TABLET PO SCH (20:51)
[2023-01-17] MEDS: ACETAMINOPHEN 500 MG TABLET PO PRN (05:57)
[2023-01-17 06:31] LABS: BASOPHILS % (AUTO) 0.6 %; EOSINOPHILS # (AUTO) 0.3 10^3/uL (0.0-0.7); EOSINOPHILS % (AUTO) 3.8 %; HCT - HEMATOCRIT 38.8 % (37.0-47.0); LYMPHOCYTES # (AUTO) 1.5 10^3/uL (1.5-3.5); LYMPHOCYTES % (AUTO) 21.7 %; MEAN CORPUSCULAR HEMOGLOBIN 31.9 pg (27.0-31.0); MEAN CORPUSCULAR HGB CONC 33.5 g/dL (32.0-36.0); MEAN CORPUSCULAR VOLUME 95.1 fL (81.0-99.0); MEAN PLATELET VOLUME 8.9 fL (7.9-10.8); MONOCYTES # (AUTO) 0.7 10^3/uL (0.0-1.0); MONOCYTES % (AUTO) 10.8 %; PLT - PLATELET COUNT 249 10^3/uL (130-450); RED BLOOD COUNT 4.08 10^6/uL (4.20-5.40); RED CELL DISTRIBUTION WIDTH 13.7 % (12.0-15.0); WHITE BLOOD COUNT 6.8 x10^3/uL (4.8-10.8)
[2023-01-17 06:46] LABS: CALCIUM 7.6 mg/dL (8.5-10.3); CREATININE 0.5 mg/dL (0.6-1.3); POTASSIUM 3.7 mmol/L (3.5-4.5)
[2023-01-17] MEDS ORDERED: POTASSIUM CHLORIDE 20 MEQ TABLET PO SCH (08:00)
[2023-01-17] MEDS: amLODIPine 5 MG TABLET PO SCH (08:19)
[2023-01-17] MEDS: POTASSIUM CHLORIDE 10 MEQ CAPSULE PO SCH (08:19)
[2023-01-17] MEDS: FUROSEMIDE 20 MG TABLET PO SCH (08:20)
[2023-01-17] MEDS: HEPARIN 5,000 UNIT/ML VIAL SUBQ SCH ×2 (08:23→20:29)
[2023-01-17] MEDS: FAMOTIDINE 20 MG/2 ML VIAL IVP SCH ×2 (08:35→20:29)
[2023-01-17] MEDS: SODIUM CHLORIDE FLUSH 0.9% 10 ML SYRINGE IVP SCH ×3 (08:36→23:49)
[2023-01-17] MEDS: CARBIDOPA/LEVODOPA ER 50 MG/200 MG TABLET PO SCH ×2 (08:36→20:29)
[2023-01-17] MEDS: MULTIVITAMIN TABLET PO SCH (11:54)
--- NOTE | 2023-01-17 15:41 | PROVIDER PROGRESS NOTE ---
Assessment/Plan - Problem List (1) Small bowel obstruction Assessment/Plan: --S/P lysis of adhesions on 01/10. General surgery has cleared the patient. Follow-up in 7-10 days. ADAT. (2) Urinary retention Assessment/Plan: --Patient previously failed a voiding trial. Will attempt to strengthen and repeat voiding trial prior to discharge. (3) Hx of Parkinson's disease Assessment/Plan: --Continue home medications. (4) TIA (transient ischemic attack) Qualifiers: Transient cerebral ischemia type: unspecified Qualified Code(s): G45.9 - Transient cerebral ischemic attack, unspecified Assessment/Plan: --Resume aspirin on discharge. (5) Edema Qualifiers: Edema type: generalized Qualified Code(s): R60.1 - Generalized edema Assessment/Plan: --Negative 3.5L over last 24 hours. Continue oral lasix. She is fluid overloaded iatrogenically. - Current Meds Current Meds: Current Medications Generic Name Dose Route Start Last Admin Trade Name Freq PRN Reason Stop Dose Admin Acetaminophen 500 mg 01/14/23 20:57 01/17/23 05:57 Acetaminophen 500 Mg Tablet PO 500 mg Q4HR PRN Administration Pain or Fever > 38C (100.4F) Amlodipine Besylate 5 mg 01/17/23 09:00 01/17/23 08:19 Amlodipine 5 Mg Tablet PO 5 mg DAILY DEAN Administration Carbidopa/Levodopa 1 tab 01/16/23 21:00 01/17/23 08:36 Carbidopa/Levodopa Er 50 Mg/200 Mg Tablet PO 1 tab BID DEAN Administration Famotidine 20 mg 01/10/23 21:00 01/17/23 08:35 Famotidine 20 Mg/2 Ml Vial IVP 20 mg BID DEAN Administration Furosemide 40 mg 01/16/23 11:00 01/17/23 08:20 Furosemide 20 Mg Tablet PO 40 mg DAILY DEAN Administration Heparin Sodium (Porcine) 5,000 unit 01/10/23 21:00 01/17/23 08:23 Heparin 5,000 Unit/Ml Vial SUBQ 5,000 unit BID DEAN Administration Morphine Sulfate 2 mg 01/12/23 11:28 01/15/23 03:58 Morphine 2 Mg/Ml Carpuject IVP 2 mg Q6H PRN Administration Severe Pain (Level 7-10) Multi-Ingredient Ointment 1 applic 01/10/23 21:51 01/12/23 12:21 Zinc Oxide 20% Oint 30 Gm Tube TOP 1 applic PRN PRN Administration Skin Care Multivitamins 1 tab 01/17/23 10:00 01/17/23 11:54 Multivitamin Tablet PO 1 tab DAILYWM DEAN Administration Ondansetron HCl 4 mg 01/10/23 14:37 01/13/23 17:32 Ondansetron 4 Mg/2 Ml Vial IVP 4 mg Q6HR PRN Administration Nausea / Vomiting Potassium Chloride 20 meq 01/17/23 08:00 01/17/23 08:19 Potassium Chloride 10 Meq Capsule PO 20 meq DAILYWM DEAN Administration Sodium Chloride 10 ml 01/10/23 14:32 01/15/23 10:35 Sodium Chloride Flush 0.9% 10 Ml Syringe IVP 10 ml PRN PRN Administration NEEDED PER PROVIDER ORDERS Sodium Chloride 10 ml 01/10/23 17:00 01/17/23 08:36 Sodium Chloride Flush 0.9% 10 Ml Syringe IVP 10 ml 0100,0900,1700 DEAN Administration - Lab Result Lab results reviewed: Yes Fish Bone Diagrams: 01/17/23 06:25 01/17/23 06:25 - Additional Planning My Orders: My Active Orders 01/16/23 21:00 Carbidopa/Levodopa ER 50/200 [Sinemet Cr 50 mg/200 mg] 1 tab PO BID 01/17/23 08:00 Potassium Chloride [Micro-K] 20 meq PO DAILYWM 01/17/23 09:00 amLODIPine [Norvasc] 5 mg PO DAILY 01/17/23 10:00 Multivitamin [Theragran] 1 tab PO DAILYWM 01/17/23 Lunch Dysphagia - Puree [DIET] Subjective - Subjective Patient Reports: Resting Comfortably, No Complaints (No abdominal pain. She is still quite swollen in her upper and lower extremities.) Nursing Reports: No Complaints Objective Vital Signs: Vital Signs - 24 hr 01/16/23 01/16/23 01/17/23 16:02 21:00 00:27 Temperature 36.7 C 36.9 C 36.3 C L Heart Rate [ 70 Brachial] Heart Rate [ 83 78 Monitoring electrodes] Respiratory 16 16 18 Rate Blood Pressure 154/64 H 144/64 H 155/63 H [Left Brachial artery] O2 Saturation 99 96 96 01/17/23 01/17/23 01/17/23 05:58 08:36 12:26 Temperature 36.6 C 36.5 C 36.3 C L Heart Rate [ 73 72 73 Brachial] Heart Rate [ Monitoring electrodes] Respiratory 20 20 20 Rate Blood Pressure 150/73 H 153/74 H 141/70 H [Left Brachial artery] O2 Saturation 97 97 98 Oxygen O2 Source [With Activity] Room air O2 Source [Without Activity] Room air O2 Source Room air I&O (Last 24 Hrs): Intake and Output Totals x24h 01/15/23 01/16/23 01/17/23 23:59 23:59 23:59 Intake Total 2585.000 2255 240 Output Total 1500 1275 3800 Balance 1085.000 980 -3560 General: Alert, Oriented x3, Cooperative, No acute distress Cardiovascular: Regular rate, Normal S1, Normal S2, No murmurs Respiratory: Chest non-tender, No respiratory distress, Breath sounds nml Abdomen: Normal bowel sounds, Soft, No tenderness, No hepatospenomegaly, No masses Extremities: No clubbing, No cyanosis (Edema in lower extremities.) - Results Results: Laboratory Results WBC 6.8 x10^3/uL (4.8-10.8) 01/17/23 06:25 RBC 4.08 10^6/uL (4.20-5.40) L 01/17/23 06:25 Hgb 13.0 g/dL (12.0-16.0) 01/17/23 06:25 Hct 38.8 % (37.0-47.0) 01/17/23 06:25 MCV 95.1 fL (81.0-99.0) 01/17/23 06:25 MCH 31.9 pg (27.0-31.0) H 01/17/23 06:25 MCHC 33.5 g/dL (32.0-36.0) 01/17/23 06:25 RDW 13.7 % (12.0-15.0) 01/17/23 06:25 Plt Count 249 10^3/uL (130-450) 01/17/23 06:25 MPV 8.9 fL (7.9-10.8) 01/17/23 06:25 Neut # (Auto) 4.0 10^3/uL (1.5-6.6) 01/17/23 06:25 Lymph # (Auto) 1.5 10^3/uL (1.5-3.5) 01/17/23 06:25 [place] # (Auto) 0.7 10^3/uL (0.0-1.0) 01/17/23 06:25 Eos # (Auto) 0.3 10^3/uL (0.0-0.7) 01/17/23 06:25 Baso # (Auto) 0.0 10^3/uL (0.0-0.1) 01/17/23 06:25 Absolute Nucleated RBC 0.00 x10^3/uL 01/17/23 06:25 Nucleated RBC % 0.0 /100WBC 01/17/23 06:25 Platelet Estimate DECREASED (<130,000) (NORMAL) 01/10/23 12:05 Platelet Morphology PLATELET CLUMPING (NORMAL) 01/10/23 12:05 RBC Morph Micro Appear NORMAL APPEARANCE (NORMAL) 01/10/23 12:05 VBG pH 7.516 (7.31-7.41) H 01/11/23 04:22 Ionized Calcium 1.02 mmol/L (1.15-1.33) L 01/11/23 04:22 Sodium 133 mmol/L (135-145) L 01/17/23 06:25 Potassium 3.7 mmol/L (3.5-4.5) 01/17/23 06:25 Chloride 104 mmol/L (101-111) 01/17/23 06:25 Carbon Dioxide 25 mmol/L (21-32) 01/17/23 06:25 Anion Gap 4.0 (6-13) L 01/17/23 06:25 BUN 7 mg/dL (6-20) 01/17/23 06:25 Creatinine 0.5 mg/dL (0.6-1.3) L 01/17/23 06:25 Estimated GFR (MDRD) 119 (>89) 01/17/23 06:25 Glucose 102 mg/dL (74-104) 01/17/23 06:25 Lactic Acid 1.7 mmol/L (0.5-2.2) 01/11/23 04:22 Calcium 7.6 mg/dL (8.5-10.3) L 01/17/23 06:25 Phosphorus 2.5 mg/dL (2.5-5.0) 01/14/23 07:33 Magnesium 1.7 mg/dL (1.7-2.3) 01/15/23 04:17 Total Bilirubin 0.6 mg/dL (0.2-1.0) 01/14/23 07:33 AST 15 IU/L (10-42) 01/14/23 07:33 ALT < 3 IU/L (10-60) L 01/14/23 07:33 Alkaline Phosphatase 44 IU/L (42-121) 01/14/23 07:33 Total Protein 5.3 g/dL (6.4-8.9) L 01/14/23 07:33 Albumin 2.9 g/dL (3.2-5.5) L 01/14/23 07:33 Globulin 2.4 g/dL (2.1-4.2) 01/14/23 07:33 Albumin/Globulin Ratio 1.2 (1.0-2.2) 01/14/23 07:33 Lipase < 10 U/L (11-82) L 01/10/23 11:47 Urine Color YELLOW 01/10/23 13:45 Urine Clarity CLEAR (CLEAR) 01/10/23 13:45 Urine pH 7.0 PH (5.0-7.5) 01/10/23 13:45 Ur Specific [place] 1.020 (1.002-1.030) 01/10/23 13:45 Urine Protein 100 mg/dL (NEGATIVE) H 01/10/23 13:45 Urine Glucose (UA) NEGATIVE mg/dL (NEGATIVE) 01/10/23 13:45 Urine Ketones NEGATIVE mg/dL (NEGATIVE) 01/10/23 13:45 Urine Occult Blood NEGATIVE (NEGATIVE) 01/10/23 13:45 Urine Nitrite NEGATIVE (NEGATIVE) 01/10/23 13:45 Urine Bilirubin NEGATIVE (NEGATIVE) 01/10/23 13:45 Urine Urobilinogen 0.2 (NORMAL) E.U./dL (NORMAL) 01/10/23 13:45 Ur Leukocyte Esterase NEGATIVE (NEGATIVE) 01/10/23 13:45 Urine RBC None Seen /HPF (0-5) 01/10/23 13:45 Urine WBC 0-3 /HPF (0-5) 01/10/23 13:45 Ur Squamous Epith Cells FEW Squamous (<= Few) 01/10/23 13:45 Urine Bacteria Few /HPF (None Seen) 01/10/23 13:45 Urine Casts 0-2 Hyaline Casts /LPF 01/10/23 13:45 Urine Mucus Few Strands 01/10/23 13:45 Ur Microscopic Review INDICATED 01/10/23 13:45 Urine Culture Comments NOT INDICATED 01/10/23 13:45 Nasal Screen MRSA (PCR) NEGATIVE (NEGATIVE) 01/10/23 19:30 Sepsis Event Note (H) - Evaluation Current Stage of Sepsis: Ruled out Current Medications - Current Medications Current Medications: Active Medications Generic Name Dose Route Start Last Admin Trade Name Freq PRN Reason Stop Dose Admin Acetaminophen 500 mg 01/14/23 20:57 01/17/23 05:57 Acetaminophen 500 Mg Tablet PO 500 mg Q4HR PRN Administration Pain or Fever > 38C (100.4F) Amlodipine Besylate 5 mg 01/17/23 09:00 01/17/23 08:19 Amlodipine 5 Mg Tablet PO 5 mg DAILY DEAN Administration Carbidopa/Levodopa 1 tab 01/16/23 21:00 01/17/23 08:36 Carbidopa/Levodopa Er 50 Mg/200 Mg Tablet PO 1 tab BID DEAN Administration Famotidine 20 mg 01/10/23 21:00 01/17/23 08:35 Famotidine 20 Mg/2 Ml Vial IVP 20 mg BID DEAN Administration Furosemide 40 mg 01/16/23 11:00 01/17/23 08:20 Furosemide 20 Mg Tablet PO 40 mg DAILY DEAN Administration Heparin Sodium (Porcine) 5,000 unit 01/10/23 21:00 01/17/23 08:23 Heparin 5,000 Unit/Ml Vial SUBQ 5,000 unit BID DEAN Administration Mineral Oil 1 applic 01/10/23 21:51 Min Oil/Dimethicon/Coconut Oil 92 Gm Tube TOP PRN PRN Skin Care Morphine Sulfate 2 mg 01/12/23 11:28 01/15/23 03:58 Morphine 2 Mg/Ml Carpuject IVP 2 mg Q6H PRN Administration Severe Pain (Level 7-10) Multi-Ingredient Ointment 1 applic 01/10/23 21:51 01/12/23 12:21 Zinc Oxide 20% Oint 30 Gm Tube TOP 1 applic PRN PRN Administration Skin Care Multivitamins 1 tab 01/17/23 10:00 01/17/23 11:54 Multivitamin Tablet PO 1 tab DAILYWM DEAN Administration Ondansetron HCl 4 mg 01/10/23 14:37 01/13/23 17:32 Ondansetron 4 Mg/2 Ml Vial IVP 4 mg Q6HR PRN Administration Nausea / Vomiting Phenol/Menthol 2 sprays 01/14/23 18:56 Phenol Throat [place] 177 Ml MM Q2HR PRN Throat Pain Potassium Chloride 20 meq 01/17/23 08:00 01/17/23 08:19 Potassium Chloride 10 Meq Capsule PO 20 meq DAILYWM DEAN Administration Prochlorperazine Edisylate 10 mg 01/10/23 14:47 Prochlorperazine 10 Mg/2 Ml Vial IVP Q6HR PRN Nausea / Vomiting Sodium Chloride 10 ml 01/10/23 14:32 01/15/23 10:35 Sodium Chloride Flush 0.9% 10 Ml Syringe IVP 10 ml PRN PRN Administration NEEDED PER PROVIDER ORDERS Sodium Chloride 10 ml 01/10/23 17:00 01/17/23 08:36 Sodium Chloride Flush 0.9% 10 Ml Syringe IVP 10 ml 0100,0900,1700 DEAN Administration Throat Lozenges 1 lozenge 01/14/23 18:56 Benzocaine/Menthol Lozenge MM Q2HR PRN Throat pain Carbidopa/Levodopa [Sinemet Cr 50-200 Tablet] 1 tab PO 0900,1500 08/05/12 Aspirin [Aspirin EC] 81 mg PO DAILY 03/22/16 Furosemide [Lasix] 40 mg PO DAILY 11/25/22 Morphine Ir [Morphine] 15 mg PO TID PRN 01/10/23
[2023-01-17] MEDS: MORPHINE 2 MG/ML CARPUJECT IVP PRN (19:31)
[2023-01-18] MEDS: ACETAMINOPHEN 500 MG TABLET PO PRN ×2 (00:31→20:17)
[2023-01-18 06:13] LABS: CALCIUM 7.7 mg/dL (8.5-10.3); CREATININE 0.5 mg/dL (0.6-1.3); POTASSIUM 3.8 mmol/L (3.5-4.5)
[2023-01-18] MEDS: POTASSIUM CHLORIDE 10 MEQ CAPSULE PO SCH (07:38)
[2023-01-18] MEDS: CARBIDOPA/LEVODOPA ER 50 MG/200 MG TABLET PO SCH ×2 (07:39→20:11)
[2023-01-18] MEDS: MULTIVITAMIN TABLET PO SCH (07:39)
[2023-01-18] MEDS: FAMOTIDINE 20 MG/2 ML VIAL IVP SCH ×2 (07:39→20:11)
[2023-01-18] MEDS: amLODIPine 5 MG TABLET PO SCH (07:39)
[2023-01-18] MEDS: FUROSEMIDE 20 MG TABLET PO SCH (07:39)
[2023-01-18] MEDS: MORPHINE 2 MG/ML CARPUJECT IVP PRN (07:39)
[2023-01-18] MEDS: SODIUM CHLORIDE FLUSH 0.9% 10 ML SYRINGE IVP SCH ×2 (07:42→15:45)
[2023-01-18] MEDS: HEPARIN 5,000 UNIT/ML VIAL SUBQ SCH ×2 (07:48→20:14)
--- NOTE | 2023-01-18 12:14 | PROVIDER PROGRESS NOTE ---
Assessment/Plan - Problem List (1) Small bowel obstruction Assessment/Plan: --S/P lysis of adhesions on 01/10. General surgery has cleared the patient. Follow-up in 7-10 days. ADAT. (2) Urinary retention Assessment/Plan: --Patient previously failed a voiding trial. Will attempt to strengthen and repeat voiding trial prior to discharge. (3) Hx of Parkinson's disease Assessment/Plan: --Continue home medications. (4) TIA (transient ischemic attack) Qualifiers: Transient cerebral ischemia type: unspecified Qualified Code(s): G45.9 - Transient cerebral ischemic attack, unspecified Assessment/Plan: --Resume aspirin on discharge. (5) Edema Qualifiers: Edema type: generalized Qualified Code(s): R60.1 - Generalized edema Assessment/Plan: --Continue oral lasix. She is fluid overloaded iatrogenically. Edema in hands and feet have improved. (4) TIA (transient ischemic attack) Qualifiers: Transient cerebral ischemia type: unspecified Qualified Code(s): G45.9 - Transient cerebral ischemic attack, unspecified (5) Edema Qualifiers: Edema type: generalized Qualified Code(s): R60.1 - Generalized edema - Current Meds Current Meds: Current Medications Generic Name Dose Route Start Last Admin Trade Name Freq PRN Reason Stop Dose Admin Acetaminophen 500 mg 01/14/23 20:57 01/18/23 00:31 Acetaminophen 500 Mg Tablet PO 500 mg Q4HR PRN Administration Pain or Fever > 38C (100.4F) Amlodipine Besylate 5 mg 01/17/23 09:00 01/18/23 07:39 Amlodipine 5 Mg Tablet PO 5 mg DAILY DEAN Administration Carbidopa/Levodopa 1 tab 01/16/23 21:00 01/18/23 07:39 Carbidopa/Levodopa Er 50 Mg/200 Mg Tablet PO 1 tab BID DEAN Administration Famotidine 20 mg 01/10/23 21:00 01/18/23 07:39 Famotidine 20 Mg/2 Ml Vial IVP 20 mg BID DEAN Administration Furosemide 40 mg 01/16/23 11:00 01/18/23 07:39 Furosemide 20 Mg Tablet PO 40 mg DAILY DEAN Administration Heparin Sodium (Porcine) 5,000 unit 01/10/23 21:00 01/18/23 07:48 Heparin 5,000 Unit/Ml Vial SUBQ 5,000 unit BID DEAN Administration Morphine Sulfate 2 mg 01/12/23 11:28 01/18/23 07:39 Morphine 2 Mg/Ml Carpuject IVP 2 mg Q6H PRN Administration Severe Pain (Level 7-10) Multi-Ingredient Ointment 1 applic 01/10/23 21:51 01/12/23 12:21 Zinc Oxide 20% Oint 30 Gm Tube TOP 1 applic PRN PRN Administration Skin Care Multivitamins 1 tab 01/17/23 10:00 01/18/23 07:39 Multivitamin Tablet PO 1 tab DAILYWM DEAN Administration Ondansetron HCl 4 mg 01/10/23 14:37 01/13/23 17:32 Ondansetron 4 Mg/2 Ml Vial IVP 4 mg Q6HR PRN Administration Nausea / Vomiting Sodium Chloride 10 ml 01/10/23 14:32 01/15/23 10:35 Sodium Chloride Flush 0.9% 10 Ml Syringe IVP 10 ml PRN PRN Administration NEEDED PER PROVIDER ORDERS Sodium Chloride 10 ml 01/10/23 17:00 01/18/23 07:42 Sodium Chloride Flush 0.9% 10 Ml Syringe IVP 10 ml 0100,0900,1700 DEAN Administration - Lab Result Fish Bone Diagrams: 01/17/23 06:25 01/18/23 05:26 - Additional Planning My Orders: My Active Orders 01/18/23 Lunch Soft Mechanical Diet [DIET] Subjective - Subjective Patient Reports: Resting Comfortably (Patient would like to start PT/OT again.) Nursing Reports: No Complaints Objective Vital Signs: Vital Signs - 24 hr 01/17/23 01/17/23 01/17/23 12:26 15:50 20:21 Temperature 36.3 C L 36.8 C 37.0 C Heart Rate [ 73 81 80 Brachial] Respiratory 20 20 18 Rate Blood Pressure 141/70 H 141/64 H 136/53 H [Left Brachial artery] Blood Pressure [Right Brachial artery] O2 Saturation 98 99 94 01/17/23 01/18/23 01/18/23 23:47 04:29 08:56 Temperature 36.9 C 36.4 C L 36.4 C L Heart Rate [ 73 78 74 Brachial] Respiratory 18 18 18 Rate Blood Pressure 133/63 H [Left Brachial artery] Blood Pressure 138/62 H 136/68 H [Right Brachial artery] O2 Saturation 95 94 94 Oxygen O2 Source [With Activity] Room air O2 Source [Without Activity] Room air O2 Source Room air I&O (Last 24 Hrs): Intake and Output Totals x24h 01/16/23 01/17/23 01/18/23 23:59 23:59 23:59 Intake Total 2255 720 120 Output Total 1275 4650 1425 Balance 980 -8090 -1305 General: Alert, Oriented x3, Cooperative, No acute distress Neuro: Alert, CN 2-12 Grossly Intact, Oriented Times 3 Cardiovascular: Regular rate, Normal S1, Normal S2, No murmurs Respiratory: Chest non-tender, No respiratory distress, Breath sounds nml Abdomen: Normal bowel sounds, Soft, No tenderness, No hepatospenomegaly, No masses - Results Results: Laboratory Results WBC 6.8 x10^3/uL (4.8-10.8) 01/17/23 06:25 RBC 4.08 10^6/uL (4.20-5.40) L 01/17/23 06:25 Hgb 13.0 g/dL (12.0-16.0) 01/17/23 06:25 Hct 38.8 % (37.0-47.0) 01/17/23 06:25 MCV 95.1 fL (81.0-99.0) 01/17/23 06:25 MCH 31.9 pg (27.0-31.0) H 01/17/23 06:25 MCHC 33.5 g/dL (32.0-36.0) 01/17/23 06:25 RDW 13.7 % (12.0-15.0) 01/17/23 06:25 Plt Count 249 10^3/uL (130-450) 01/17/23 06:25 MPV 8.9 fL (7.9-10.8) 01/17/23 06:25 Neut # (Auto) 4.0 10^3/uL (1.5-6.6) 01/17/23 06:25 Lymph # (Auto) 1.5 10^3/uL (1.5-3.5) 01/17/23 06:25 [place] # (Auto) 0.7 10^3/uL (0.0-1.0) 01/17/23 06:25 Eos # (Auto) 0.3 10^3/uL (0.0-0.7) 01/17/23 06:25 Baso # (Auto) 0.0 10^3/uL (0.0-0.1) 01/17/23 06:25 Absolute Nucleated RBC 0.00 x10^3/uL 01/17/23 06:25 Nucleated RBC % 0.0 /100WBC 01/17/23 06:25 Platelet Estimate DECREASED (<130,000) (NORMAL) 01/10/23 12:05 Platelet Morphology PLATELET CLUMPING (NORMAL) 01/10/23 12:05 RBC Morph Micro Appear NORMAL APPEARANCE (NORMAL) 01/10/23 12:05 VBG pH 7.516 (7.31-7.41) H 01/11/23 04:22 Ionized Calcium 1.02 mmol/L (1.15-1.33) L 01/11/23 04:22 Sodium 131 mmol/L (135-145) L 01/18/23 05:26 Potassium 3.8 mmol/L (3.5-4.5) 01/18/23 05:26 Chloride 101 mmol/L (101-111) 01/18/23 05:26 Carbon Dioxide 25 mmol/L (21-32) 01/18/23 05:26 Anion Gap 5.0 (6-13) L 01/18/23 05:26 BUN 8 mg/dL (6-20) 01/18/23 05:26 Creatinine 0.5 mg/dL (0.6-1.3) L 01/18/23 05:26 Estimated GFR (MDRD) 119 (>89) 01/18/23 05:26 Glucose 96 mg/dL (74-104) 01/18/23 05:26 Lactic Acid 1.7 mmol/L (0.5-2.2) 01/11/23 04:22 Calcium 7.7 mg/dL (8.5-10.3) L 01/18/23 05:26 Phosphorus 2.5 mg/dL (2.5-5.0) 01/14/23 07:33 Magnesium 1.7 mg/dL (1.7-2.3) 01/15/23 04:17 Total Bilirubin 0.6 mg/dL (0.2-1.0) 01/14/23 07:33 AST 15 IU/L (10-42) 01/14/23 07:33 ALT < 3 IU/L (10-60) L 01/14/23 07:33 Alkaline Phosphatase 44 IU/L (42-121) 01/14/23 07:33 Total Protein 5.3 g/dL (6.4-8.9) L 01/14/23 07:33 Albumin 2.9 g/dL (3.2-5.5) L 01/14/23 07:33 Globulin 2.4 g/dL (2.1-4.2) 01/14/23 07:33 Albumin/Globulin Ratio 1.2 (1.0-2.2) 01/14/23 07:33 Lipase < 10 U/L (11-82) L 01/10/23 11:47 Urine Color YELLOW 01/10/23 13:45 Urine Clarity CLEAR (CLEAR) 01/10/23 13:45 Urine pH 7.0 PH (5.0-7.5) 01/10/23 13:45 Ur Specific [place] 1.020 (1.002-1.030) 01/10/23 13:45 Urine Protein 100 mg/dL (NEGATIVE) H 01/10/23 13:45 Urine Glucose (UA) NEGATIVE mg/dL (NEGATIVE) 01/10/23 13:45 Urine Ketones NEGATIVE mg/dL (NEGATIVE) 01/10/23 13:45 Urine Occult Blood NEGATIVE (NEGATIVE) 01/10/23 13:45 Urine Nitrite NEGATIVE (NEGATIVE) 01/10/23 13:45 Urine Bilirubin NEGATIVE (NEGATIVE) 01/10/23 13:45 Urine Urobilinogen 0.2 (NORMAL) E.U./dL (NORMAL) 01/10/23 13:45 Ur Leukocyte Esterase NEGATIVE (NEGATIVE) 01/10/23 13:45 Urine RBC None Seen /HPF (0-5) 01/10/23 13:45 Urine WBC 0-3 /HPF (0-5) 01/10/23 13:45 Ur Squamous Epith Cells FEW Squamous (<= Few) 01/10/23 13:45 Urine Bacteria Few /HPF (None Seen) 01/10/23 13:45 Urine Casts 0-2 Hyaline Casts /LPF 01/10/23 13:45 Urine Mucus Few Strands 01/10/23 13:45 Ur Microscopic Review INDICATED 01/10/23 13:45 Urine Culture Comments NOT INDICATED 01/10/23 13:45 Nasal Screen MRSA (PCR) NEGATIVE (NEGATIVE) 01/10/23 19:30 Sepsis Event Note (H) - Evaluation Current Stage of Sepsis: Ruled out Current Medications - Current Medications Current Medications: Active Medications Generic Name Dose Route Start Last Admin Trade Name Freq PRN Reason Stop Dose Admin Acetaminophen 500 mg 01/14/23 20:57 01/18/23 00:31 Acetaminophen 500 Mg Tablet PO 500 mg Q4HR PRN Administration Pain or Fever > 38C (100.4F) Amlodipine Besylate 5 mg 01/17/23 09:00 01/18/23 07:39 Amlodipine 5 Mg Tablet PO 5 mg DAILY DEAN Administration Carbidopa/Levodopa 1 tab 01/16/23 21:00 01/18/23 07:39 Carbidopa/Levodopa Er 50 Mg/200 Mg Tablet PO 1 tab BID DEAN Administration Famotidine 20 mg 01/10/23 21:00 01/18/23 07:39 Famotidine 20 Mg/2 Ml Vial IVP 20 mg BID DEAN Administration Furosemide 40 mg 01/16/23 11:00 01/18/23 07:39 Furosemide 20 Mg Tablet PO 40 mg DAILY DEAN Administration Heparin Sodium (Porcine) 5,000 unit 01/10/23 21:00 01/18/23 07:48 Heparin 5,000 Unit/Ml Vial SUBQ 5,000 unit BID DEAN Administration Mineral Oil 1 applic 01/10/23 21:51 Min Oil/Dimethicon/Coconut Oil 92 Gm Tube TOP PRN PRN Skin Care Morphine Sulfate 2 mg 01/12/23 11:28 01/18/23 07:39 Morphine 2 Mg/Ml Carpuject IVP 2 mg Q6H PRN Administration Severe Pain (Level 7-10) Multi-Ingredient Ointment 1 applic 01/10/23 21:51 01/12/23 12:21 Zinc Oxide 20% Oint 30 Gm Tube TOP 1 applic PRN PRN Administration Skin Care Multivitamins 1 tab 01/17/23 10:00 01/18/23 07:39 Multivitamin Tablet PO 1 tab DAILYWM DEAN Administration Ondansetron HCl 4 mg 01/10/23 14:37 01/13/23 17:32 Ondansetron 4 Mg/2 Ml Vial IVP 4 mg Q6HR PRN Administration Nausea / Vomiting Phenol/Menthol 2 sprays 01/14/23 18:56 Phenol Throat [place] 177 Ml MM Q2HR PRN Throat Pain Prochlorperazine Edisylate 10 mg 01/10/23 14:47 Prochlorperazine 10 Mg/2 Ml Vial IVP Q6HR PRN Nausea / Vomiting Sodium Chloride 10 ml 01/10/23 14:32 01/15/23 10:35 Sodium Chloride Flush 0.9% 10 Ml Syringe IVP 10 ml PRN PRN Administration NEEDED PER PROVIDER ORDERS Sodium Chloride 10 ml 01/10/23 17:00 01/18/23 07:42 Sodium Chloride Flush 0.9% 10 Ml Syringe IVP 10 ml 0100,0900,1700 DEAN Administration Throat Lozenges 1 lozenge 01/14/23 18:56 Benzocaine/Menthol Lozenge MM Q2HR PRN Throat pain Carbidopa/Levodopa [Sinemet Cr 50-200 Tablet] 1 tab PO 0900,1500 08/05/12 Aspirin [Aspirin EC] 81 mg PO DAILY 03/22/16 Furosemide [Lasix] 40 mg PO DAILY 11/25/22 Morphine Ir [Morphine] 15 mg PO TID PRN 01/10/23
[2023-01-19] MEDS: ACETAMINOPHEN 500 MG TABLET PO PRN ×4 (00:55→19:48)
[2023-01-19] MEDS: SODIUM CHLORIDE FLUSH 0.9% 10 ML SYRINGE IVP SCH ×3 (00:55→16:19)
[2023-01-19] MEDS: ZINC OXIDE 20% OINT 30 GM TUBE TOP PRN (01:29)
[2023-01-19] MEDS: FAMOTIDINE 20 MG/2 ML VIAL IVP SCH (08:56)
[2023-01-19] MEDS: CARBIDOPA/LEVODOPA ER 50 MG/200 MG TABLET PO SCH ×2 (08:56→20:54)
[2023-01-19] MEDS: HEPARIN 5,000 UNIT/ML VIAL SUBQ SCH ×2 (08:56→20:59)
[2023-01-19] MEDS: MULTIVITAMIN TABLET PO SCH (08:56)
[2023-01-19] MEDS: FUROSEMIDE 20 MG TABLET PO SCH (08:56)
[2023-01-19] MEDS: amLODIPine 5 MG TABLET PO SCH (08:56)
[2023-01-19] MEDS: NYSTATIN POWDER 15 GM TOP SCH ×2 (10:34→20:59)
--- NOTE | 2023-01-19 12:24 | PROVIDER PROGRESS NOTE ---
Assessment/Plan - Problem List (1) Small bowel obstruction Assessment/Plan: (1) Small bowel obstruction Assessment/Plan: --S/P lysis of adhesions on 01/10. General surgery has cleared the patient. Follow-up in 7-10 days. ADAT. (2) Urinary retention Assessment/Plan: --Patient previously failed a voiding trial. Will attempt to strengthen and repeat voiding trial prior to discharge. (3) Hx of Parkinson's disease Assessment/Plan: --Continue home medications. (4) TIA (transient ischemic attack) Qualifiers: Transient cerebral ischemia type: unspecified Qualified Code(s): G45.9 - Transient cerebral ischemic attack, unspecified Assessment/Plan: --Resume aspirin on discharge. (5) Edema Qualifiers: Edema type: generalized Qualified Code(s): R60.1 - Generalized edema Assessment/Plan: --Continue oral lasix. She is fluid overloaded iatrogenically. Edema in hands and feet have improved. (4) TIA (transient ischemic attack) Qualifiers: Transient cerebral ischemia type: unspecified Qualified Code(s): G45.9 - Transient cerebral ischemic attack, unspecified (5) Edema Qualifiers: Edema type: generalized Qualified Code(s): R60.1 - Generalized edema - Current Meds Current Meds: Current Medications Generic Name Dose Route Start Last Admin Trade Name Freq PRN Reason Stop Dose Admin Acetaminophen 500 mg 01/14/23 20:57 01/19/23 11:57 Acetaminophen 500 Mg Tablet PO 500 mg Q4HR PRN Administration Pain or Fever > 38C (100.4F) Amlodipine Besylate 5 mg 01/17/23 09:00 01/19/23 08:56 Amlodipine 5 Mg Tablet PO 5 mg DAILY DEAN Administration Carbidopa/Levodopa 1 tab 01/16/23 21:00 01/19/23 08:56 Carbidopa/Levodopa Er 50 Mg/200 Mg Tablet PO 1 tab BID DEAN Administration Furosemide 40 mg 01/16/23 11:00 01/19/23 08:56 Furosemide 20 Mg Tablet PO 40 mg DAILY DEAN Administration Heparin Sodium (Porcine) 5,000 unit 01/10/23 21:00 01/19/23 08:56 Heparin 5,000 Unit/Ml Vial SUBQ 5,000 unit BID DEAN Administration Morphine Sulfate 2 mg 01/12/23 11:28 01/18/23 07:39 Morphine 2 Mg/Ml Carpuject IVP 2 mg Q6H PRN Administration Severe Pain (Level 7-10) Multi-Ingredient Ointment 1 applic 01/10/23 21:51 01/19/23 01:29 Zinc Oxide 20% Oint 30 Gm Tube TOP 1 applic PRN PRN Administration Skin Care Multivitamins 1 tab 01/17/23 10:00 01/19/23 08:56 Multivitamin Tablet PO 1 tab DAILYWM DEAN Administration Nystatin 1 applic 01/19/23 11:00 01/19/23 10:34 Nystatin Powder 15 Gm TOP 1 applic BID DEAN Administration Ondansetron HCl 4 mg 01/10/23 14:37 01/13/23 17:32 Ondansetron 4 Mg/2 Ml Vial IVP 4 mg Q6HR PRN Administration Nausea / Vomiting Sodium Chloride 10 ml 01/10/23 14:32 01/15/23 10:35 Sodium Chloride Flush 0.9% 10 Ml Syringe IVP 10 ml PRN PRN Administration NEEDED PER PROVIDER ORDERS Sodium Chloride 10 ml 01/10/23 17:00 01/19/23 08:56 Sodium Chloride Flush 0.9% 10 Ml Syringe IVP 10 ml 0100,0900,1700 DEAN Administration - Lab Result Fish Bone Diagrams: 01/17/23 06:25 01/18/23 05:26 - Additional Planning My Orders: My Active Orders 01/19/23 11:00 Nystatin [Nystop] 1 applic TOP BID Subjective - Subjective Patient Reports: Fatigue (Patient had a large BM this morning. She is now trying to catch up on sleep. Had therapy yesterday.) Objective Vital Signs: Vital Signs - 24 hr 01/18/23 01/18/23 01/18/23 12:28 15:54 20:10 Temperature 36.3 C L 36.6 C 36.3 C L Heart Rate [ 87 77 Brachial] Heart Rate [ 78 Monitoring electrodes] Respiratory 20 16 18 Rate Blood Pressure 122/62 [Left Brachial artery] Blood Pressure 119/60 139/66 H [Right Brachial artery] O2 Saturation 98 100 98 01/18/23 01/19/23 01/19/23 23:45 05:00 07:26 Temperature 36.4 C L 36.5 C 36.7 C Heart Rate [ 66 68 74 Brachial] Heart Rate [ Monitoring electrodes] Respiratory 18 18 16 Rate Blood Pressure [Left Brachial artery] Blood Pressure 117/62 132/62 H 135/65 H [Right Brachial artery] O2 Saturation 95 97 99 01/19/23 11:24 Temperature 36.4 C L Heart Rate [ 73 Brachial] Heart Rate [ Monitoring electrodes] Respiratory 18 Rate Blood Pressure [Left Brachial artery] Blood Pressure 140/61 H [Right Brachial artery] O2 Saturation 98 Oxygen O2 Source [With Activity] Room air O2 Source [Without Activity] Room air O2 Source Room air I&O (Last 24 Hrs): Intake and Output Totals x24h 01/17/23 01/18/23 01/19/23 23:59 23:59 23:59 Intake Total 720 760 960 Output Total 4650 9601 1972 [facility] -1343 -3285 -480 General: Alert, Oriented x3, Cooperative, Mild distress Neuro: Alert, CN 2-12 Grossly Intact Cardiovascular: Regular rate, Normal S1, Normal S2 Respiratory: Chest non-tender, No respiratory distress, Breath sounds nml Abdomen: Normal bowel sounds, Soft, No tenderness - Results Results: Laboratory Results WBC 6.8 x10^3/uL (4.8-10.8) 01/17/23 06:25 RBC 4.08 10^6/uL (4.20-5.40) L 01/17/23 06:25 Hgb 13.0 g/dL (12.0-16.0) 01/17/23 06:25 Hct 38.8 % (37.0-47.0) 01/17/23 06:25 MCV 95.1 fL (81.0-99.0) 01/17/23 06:25 MCH 31.9 pg (27.0-31.0) H 01/17/23 06:25 MCHC 33.5 g/dL (32.0-36.0) 01/17/23 06:25 RDW 13.7 % (12.0-15.0) 01/17/23 06:25 Plt Count 249 10^3/uL (130-450) 01/17/23 06:25 MPV 8.9 fL (7.9-10.8) 01/17/23 06:25 Neut # (Auto) 4.0 10^3/uL (1.5-6.6) 01/17/23 06:25 Lymph # (Auto) 1.5 10^3/uL (1.5-3.5) 01/17/23 06:25 [place] # (Auto) 0.7 10^3/uL (0.0-1.0) 01/17/23 06:25 Eos # (Auto) 0.3 10^3/uL (0.0-0.7) 01/17/23 06:25 Baso # (Auto) 0.0 10^3/uL (0.0-0.1) 01/17/23 06:25 Absolute Nucleated RBC 0.00 x10^3/uL 01/17/23 06:25 Nucleated RBC % 0.0 /100WBC 01/17/23 06:25 Platelet Estimate DECREASED (<130,000) (NORMAL) 01/10/23 12:05 Platelet Morphology PLATELET CLUMPING (NORMAL) 01/10/23 12:05 RBC Morph Micro Appear NORMAL APPEARANCE (NORMAL) 01/10/23 12:05 VBG pH 7.516 (7.31-7.41) H 01/11/23 04:22 Ionized Calcium 1.02 mmol/L (1.15-1.33) L 01/11/23 04:22 Sodium 131 mmol/L (135-145) L 01/18/23 05:26 Potassium 3.8 mmol/L (3.5-4.5) 01/18/23 05:26 Chloride 101 mmol/L (101-111) 01/18/23 05:26 Carbon Dioxide 25 mmol/L (21-32) 01/18/23 05:26 Anion Gap 5.0 (6-13) L 01/18/23 05:26 BUN 8 mg/dL (6-20) 01/18/23 05:26 Creatinine 0.5 mg/dL (0.6-1.3) L 01/18/23 05:26 Estimated GFR (MDRD) 119 (>89) 01/18/23 05:26 Glucose 96 mg/dL (74-104) 01/18/23 05:26 Lactic Acid 1.7 mmol/L (0.5-2.2) 01/11/23 04:22 Calcium 7.7 mg/dL (8.5-10.3) L 01/18/23 05:26 Phosphorus 2.5 mg/dL (2.5-5.0) 01/14/23 07:33 Magnesium 1.7 mg/dL (1.7-2.3) 01/15/23 04:17 Total Bilirubin 0.6 mg/dL (0.2-1.0) 01/14/23 07:33 AST 15 IU/L (10-42) 01/14/23 07:33 ALT < 3 IU/L (10-60) L 01/14/23 07:33 Alkaline Phosphatase 44 IU/L (42-121) 01/14/23 07:33 Total Protein 5.3 g/dL (6.4-8.9) L 01/14/23 07:33 Albumin 2.9 g/dL (3.2-5.5) L 01/14/23 07:33 Globulin 2.4 g/dL (2.1-4.2) 01/14/23 07:33 Albumin/Globulin Ratio 1.2 (1.0-2.2) 01/14/23 07:33 Lipase < 10 U/L (11-82) L 01/10/23 11:47 Urine Color YELLOW 01/10/23 13:45 Urine Clarity CLEAR (CLEAR) 01/10/23 13:45 Urine pH 7.0 PH (5.0-7.5) 01/10/23 13:45 Ur Specific [place] 1.020 (1.002-1.030) 01/10/23 13:45 Urine Protein 100 mg/dL (NEGATIVE) H 01/10/23 13:45 Urine Glucose (UA) NEGATIVE mg/dL (NEGATIVE) 01/10/23 13:45 Urine Ketones NEGATIVE mg/dL (NEGATIVE) 01/10/23 13:45 Urine Occult Blood NEGATIVE (NEGATIVE) 01/10/23 13:45 Urine Nitrite NEGATIVE (NEGATIVE) 01/10/23 13:45 Urine Bilirubin NEGATIVE (NEGATIVE) 01/10/23 13:45 Urine Urobilinogen 0.2 (NORMAL) E.U./dL (NORMAL) 01/10/23 13:45 Ur Leukocyte Esterase NEGATIVE (NEGATIVE) 01/10/23 13:45 Urine RBC None Seen /HPF (0-5) 01/10/23 13:45 Urine WBC 0-3 /HPF (0-5) 01/10/23 13:45 Ur Squamous Epith Cells FEW Squamous (<= Few) 01/10/23 13:45 Urine Bacteria Few /HPF (None Seen) 01/10/23 13:45 Urine Casts 0-2 Hyaline Casts /LPF 01/10/23 13:45 Urine Mucus Few Strands 01/10/23 13:45 Ur Microscopic Review INDICATED 01/10/23 13:45 Urine Culture Comments NOT INDICATED 01/10/23 13:45 Nasal Screen MRSA (PCR) NEGATIVE (NEGATIVE) 01/10/23 19:30 Sepsis Event Note (H) - Evaluation Current Stage of Sepsis: Ruled out Current Medications - Current Medications Current Medications: Active Medications Generic Name Dose Route Start Last Admin Trade Name Freq PRN Reason Stop Dose Admin Acetaminophen 500 mg 01/14/23 20:57 01/19/23 11:57 Acetaminophen 500 Mg Tablet PO 500 mg Q4HR PRN Administration Pain or Fever > 38C (100.4F) Amlodipine Besylate 5 mg 01/17/23 09:00 01/19/23 08:56 Amlodipine 5 Mg Tablet PO 5 mg DAILY DEAN Administration Carbidopa/Levodopa 1 tab 01/16/23 21:00 01/19/23 08:56 Carbidopa/Levodopa Er 50 Mg/200 Mg Tablet PO 1 tab BID DEAN Administration Famotidine 20 mg 01/19/23 21:00 Famotidine 20 Mg Tablet PO BID DEAN Furosemide 40 mg 01/16/23 11:00 01/19/23 08:56 Furosemide 20 Mg Tablet PO 40 mg DAILY DEAN Administration Heparin Sodium (Porcine) 5,000 unit 01/10/23 21:00 01/19/23 08:56 Heparin 5,000 Unit/Ml Vial SUBQ 5,000 unit BID DEAN Administration Mineral Oil 1 applic 01/10/23 21:51 Min Oil/Dimethicon/Coconut Oil 92 Gm Tube TOP PRN PRN Skin Care Morphine Sulfate 2 mg 01/12/23 11:28 01/18/23 07:39 Morphine 2 Mg/Ml Carpuject IVP 2 mg Q6H PRN Administration Severe Pain (Level 7-10) Multi-Ingredient Ointment 1 applic 01/10/23 21:51 01/19/23 01:29 Zinc Oxide 20% Oint 30 Gm Tube TOP 1 applic PRN PRN Administration Skin Care Multivitamins 1 tab 01/17/23 10:00 01/19/23 08:56 Multivitamin Tablet PO 1 tab DAILYWM DEAN Administration Nystatin 1 applic 01/19/23 11:00 01/19/23 10:34 Nystatin Powder 15 Gm TOP 1 applic BID DEAN Administration Ondansetron HCl 4 mg 01/10/23 14:37 01/13/23 17:32 Ondansetron 4 Mg/2 Ml Vial IVP 4 mg Q6HR PRN Administration Nausea / Vomiting Phenol/Menthol 2 sprays 01/14/23 18:56 Phenol Throat [place] 177 Ml MM Q2HR PRN Throat Pain Prochlorperazine Edisylate 10 mg 01/10/23 14:47 Prochlorperazine 10 Mg/2 Ml Vial IVP Q6HR PRN Nausea / Vomiting Sodium Chloride 10 ml 01/10/23 14:32 01/15/23 10:35 Sodium Chloride Flush 0.9% 10 Ml Syringe IVP 10 ml PRN PRN Administration NEEDED PER PROVIDER ORDERS Sodium Chloride 10 ml 01/10/23 17:00 01/19/23 08:56 Sodium Chloride Flush 0.9% 10 Ml Syringe IVP 10 ml 0100,0900,1700 DEAN Administration Throat Lozenges 1 lozenge 01/14/23 18:56 Benzocaine/Menthol Lozenge MM Q2HR PRN Throat pain RX: Carbidopa/Levodopa [Sinemet Cr 50-200 Tablet] 1 tab PO 0900,1500 08/05/12 RX: Aspirin [Aspirin EC] 81 mg PO DAILY 03/22/16 Furosemide [Lasix] 40 mg PO DAILY 11/25/22 Morphine Ir [Morphine] 15 mg PO TID PRN 01/10/23
[2023-01-19] MEDS: FAMOTIDINE 20 MG TABLET PO SCH (20:55)
[2023-01-20] MEDS: SODIUM CHLORIDE FLUSH 0.9% 10 ML SYRINGE IVP SCH ×4 (00:06→23:56)
[2023-01-20] MEDS: ACETAMINOPHEN 500 MG TABLET PO PRN ×3 (01:21→20:54)
[2023-01-20] MEDS: FUROSEMIDE 20 MG TABLET PO SCH (08:40)
[2023-01-20] MEDS: FAMOTIDINE 20 MG TABLET PO SCH ×2 (08:40→21:01)
[2023-01-20] MEDS: MULTIVITAMIN TABLET PO SCH (08:40)
[2023-01-20] MEDS: CARBIDOPA/LEVODOPA ER 50 MG/200 MG TABLET PO SCH ×2 (08:40→21:00)
[2023-01-20] MEDS: amLODIPine 5 MG TABLET PO SCH (08:40)
[2023-01-20] MEDS: HEPARIN 5,000 UNIT/ML VIAL SUBQ SCH ×2 (08:45→21:02)
[2023-01-20] MEDS: NYSTATIN POWDER 15 GM TOP SCH ×2 (08:45→21:01)
--- NOTE | 2023-01-20 12:00 | Discharge Plan ---
"Discharge Plan for SNF / [facility] - Discharge Plan And Transition Orders Problem Reviewed?: Yes Disposition: 03 SNF DC/Xfer Condition: Stable Allergies and Adverse Reactions: Allergies Allergy/AdvReac Type Severity Reaction Status Date / Time doxycycline AdvReac Emesis Verified 01/10/23 10:26 - SNF / RESIDENTIAL Transition Orders Admit to (Facility): [facility] Discharge Diagnosis: SBO - resolved. Follow-up in 7-10 days with general surgery. Medicare Certification Statement: I certify that Post Hospital fci care is medically necessary on a continuing basis for any of the conditions for which she/he is receiving care during hospitalization. Notify PCP of admission and forward orders to primary provider for signature. Weight on admission and: Weekly Call PCP immediately if weight increases by: 5 kg Other Notification Orders: Call PCP immediately if patient develops dyspnea, chest pain/tightness or edema. House Bowel Program: Yes Additional Bowel Program Orders: If no BM after 2 days, nurse may give M.O.M. 30ml PO PRN and/or ducolax Supp 1 DC and/or DRU 250mg P.O., and/or senna 1-2 tabs PO. On day 3 nurse may give repeat above order until residents constipation is resolved. Annual Influenza Vaccine (between Nov 10 and June 09): Yes Two-step PPD per [facility] [phone] or approved exception documents: Yes Medication Orders: PLEASE REFER TO THE DISCHARGE MEDICATION LIST. - Medications New Prescriptions: amLODIPine [Norvasc] 5 mg PO DAILY #30 tab - Diet Texture: Mech soft May have monthly special meal: Yes - Therapies | Activity Therapy: Evaluation | Treat if indicated: PT, OT Rehabilitation Potential: Maximize functional status, Maintain present ADL Functional Activity: Activity as Tolerated Weight Bearing: Full Weight Follow Up: Follow-up with Dr. French Mcclure in 3-5 days."
--- NOTE | 2023-01-20 12:53 | PROVIDER PROGRESS NOTE ---
Assessment/Plan - Problem List (1) Small bowel obstruction Assessment/Plan: (1) Small bowel obstruction Assessment/Plan: --S/P lysis of adhesions on 01/10. General surgery has cleared the patient. Follow-up in 7-10 days. ADAT. --Will discharge to SNF tomorrow. (2) Urinary retention Assessment/Plan: --Patient previously failed a voiding trial. Will attempt to strengthen and repeat voiding trial prior to discharge. (3) Hx of Parkinson's disease Assessment/Plan: --Continue home medications. (4) TIA (transient ischemic attack) Qualifiers: Transient cerebral ischemia type: unspecified Qualified Code(s): G45.9 - Transient cerebral ischemic attack, unspecified Assessment/Plan: --Resume aspirin on discharge. (5) Edema Qualifiers: Edema type: generalized Qualified Code(s): R60.1 - Generalized edema Assessment/Plan: --Continue oral lasix. She is fluid overloaded iatrogenically. Edema in hands and feet have improved. (4) TIA (transient ischemic attack) Qualifiers: Transient cerebral ischemia type: unspecified Qualified Code(s): G45.9 - Transient cerebral ischemic attack, unspecified (5) Edema Qualifiers: Edema type: generalized Qualified Code(s): R60.1 - Generalized edema - Current Meds Current Meds: Current Medications Generic Name Dose Route Start Last Admin Trade Name Freq PRN Reason Stop Dose Admin Acetaminophen 500 mg 01/14/23 20:57 01/20/23 05:47 Acetaminophen 500 Mg Tablet PO 500 mg Q4HR PRN Administration Pain or Fever > 38C (100.4F) Amlodipine Besylate 5 mg 01/17/23 09:00 01/20/23 08:40 Amlodipine 5 Mg Tablet PO 5 mg DAILY DEAN Administration Carbidopa/Levodopa 1 tab 01/16/23 21:00 01/20/23 08:40 Carbidopa/Levodopa Er 50 Mg/200 Mg Tablet PO 1 tab BID DEAN Administration Famotidine 20 mg 01/19/23 21:00 01/20/23 08:40 Famotidine 20 Mg Tablet PO 20 mg BID DEAN Administration Furosemide 40 mg 01/16/23 11:00 01/20/23 08:40 Furosemide 20 Mg Tablet PO 40 mg DAILY DEAN Administration Heparin Sodium (Porcine) 5,000 unit 01/10/23 21:00 01/20/23 08:45 Heparin 5,000 Unit/Ml Vial SUBQ 5,000 unit BID DEAN Administration Morphine Sulfate 2 mg 01/12/23 11:28 01/18/23 07:39 Morphine 2 Mg/Ml Carpuject IVP 2 mg Q6H PRN Administration Severe Pain (Level 7-10) Multi-Ingredient Ointment 1 applic 01/10/23 21:51 01/19/23 01:29 Zinc Oxide 20% Oint 30 Gm Tube TOP 1 applic PRN PRN Administration Skin Care Multivitamins 1 tab 01/17/23 10:00 01/20/23 08:40 Multivitamin Tablet PO 1 tab DAILYWM DEAN Administration Nystatin 1 applic 01/19/23 11:00 01/20/23 08:45 Nystatin Powder 15 Gm TOP 15 applic BID DEAN Administration Ondansetron HCl 4 mg 01/10/23 14:37 01/13/23 17:32 Ondansetron 4 Mg/2 Ml Vial IVP 4 mg Q6HR PRN Administration Nausea / Vomiting Sodium Chloride 10 ml 01/10/23 14:32 01/15/23 10:35 Sodium Chloride Flush 0.9% 10 Ml Syringe IVP 10 ml PRN PRN Administration NEEDED PER PROVIDER ORDERS Sodium Chloride 10 ml 01/10/23 17:00 01/20/23 08:44 Sodium Chloride Flush 0.9% 10 Ml Syringe IVP 10 ml 0100,0900,1700 DEAN Administration - Lab Result Fish Bone Diagrams: 01/17/23 06:25 01/18/23 05:26 - Additional Planning My Orders: My Active Orders 01/20/23 Urinalysis w/ Micro, Reflex Cult If [UA w/ MICROSCOPIC, CULT IF] [URIN] Routine Subjective - Subjective Patient Reports: Feeling Better, Resting Comfortably, No Complaints (Will attempt to remove [place].) Objective Vital Signs: Vital Signs - 24 hr 01/19/23 01/19/23 01/19/23 15:44 21:03 23:42 Temperature 36.8 C 36.5 C 36.8 C Heart Rate [ 77 70 72 Brachial] Respiratory 18 18 18 Rate Blood Pressure 130/59 L 134/60 H 133/66 H [Left Brachial artery] Blood Pressure [Right Brachial artery] O2 Saturation 100 97 98 01/20/23 01/20/23 01/20/23 04:40 08:05 11:20 Temperature 36.6 C 36.8 C 36.7 C Heart Rate [ 71 68 70 Brachial] Respiratory 17 18 18 Rate Blood Pressure 117/59 L 118/52 L [Left Brachial artery] Blood Pressure 116/63 [Right Brachial artery] O2 Saturation 100 97 97 Oxygen O2 Source [With Activity] Room air O2 Source [Without Activity] Room air O2 Source Room air I&O (Last 24 Hrs): Intake and Output Totals x24h 01/18/23 01/19/23 01/20/23 23:59 23:59 23:59 Intake Total 760 1320 720 Output Total 2625 1700 1050 Balance -8845 -404 -523 General: Alert, Oriented x3, Cooperative, No acute distress Neuro: Alert, CN 2-12 Grossly Intact, Oriented Times 3 Cardiovascular: Regular rate, Normal S1, Normal S2, No murmurs Respiratory: Chest non-tender, No respiratory distress, Breath sounds nml Abdomen: Normal bowel sounds, Soft, No tenderness, No hepatospenomegaly, No masses - Results Results: Laboratory Results WBC 6.8 x10^3/uL (4.8-10.8) 01/17/23 06:25 RBC 4.08 10^6/uL (4.20-5.40) L 01/17/23 06:25 Hgb 13.0 g/dL (12.0-16.0) 01/17/23 06:25 Hct 38.8 % (37.0-47.0) 01/17/23 06:25 MCV 95.1 fL (81.0-99.0) 01/17/23 06:25 MCH 31.9 pg (27.0-31.0) H 01/17/23 06:25 MCHC 33.5 g/dL (32.0-36.0) 01/17/23 06:25 RDW 13.7 % (12.0-15.0) 01/17/23 06:25 Plt Count 249 10^3/uL (130-450) 01/17/23 06:25 MPV 8.9 fL (7.9-10.8) 01/17/23 06:25 Neut # (Auto) 4.0 10^3/uL (1.5-6.6) 01/17/23 06:25 Lymph # (Auto) 1.5 10^3/uL (1.5-3.5) 01/17/23 06:25 [place] # (Auto) 0.7 10^3/uL (0.0-1.0) 01/17/23 06:25 Eos # (Auto) 0.3 10^3/uL (0.0-0.7) 01/17/23 06:25 Baso # (Auto) 0.0 10^3/uL (0.0-0.1) 01/17/23 06:25 Absolute Nucleated RBC 0.00 x10^3/uL 01/17/23 06:25 Nucleated RBC % 0.0 /100WBC 01/17/23 06:25 Platelet Estimate DECREASED (<130,000) (NORMAL) 01/10/23 12:05 Platelet Morphology PLATELET CLUMPING (NORMAL) 01/10/23 12:05 RBC Morph Micro Appear NORMAL APPEARANCE (NORMAL) 01/10/23 12:05 VBG pH 7.516 (7.31-7.41) H 01/11/23 04:22 Ionized Calcium 1.02 mmol/L (1.15-1.33) L 01/11/23 04:22 Sodium 131 mmol/L (135-145) L 01/18/23 05:26 Potassium 3.8 mmol/L (3.5-4.5) 01/18/23 05:26 Chloride 101 mmol/L (101-111) 01/18/23 05:26 Carbon Dioxide 25 mmol/L (21-32) 01/18/23 05:26 Anion Gap 5.0 (6-13) L 01/18/23 05:26 BUN 8 mg/dL (6-20) 01/18/23 05:26 Creatinine 0.5 mg/dL (0.6-1.3) L 01/18/23 05:26 Estimated GFR (MDRD) 119 (>89) 01/18/23 05:26 Glucose 96 mg/dL (74-104) 01/18/23 05:26 Lactic Acid 1.7 mmol/L (0.5-2.2) 01/11/23 04:22 Calcium 7.7 mg/dL (8.5-10.3) L 01/18/23 05:26 Phosphorus 2.5 mg/dL (2.5-5.0) 01/14/23 07:33 Magnesium 1.7 mg/dL (1.7-2.3) 01/15/23 04:17 Total Bilirubin 0.6 mg/dL (0.2-1.0) 01/14/23 07:33 AST 15 IU/L (10-42) 01/14/23 07:33 ALT < 3 IU/L (10-60) L 01/14/23 07:33 Alkaline Phosphatase 44 IU/L (42-121) 01/14/23 07:33 Total Protein 5.3 g/dL (6.4-8.9) L 01/14/23 07:33 Albumin 2.9 g/dL (3.2-5.5) L 01/14/23 07:33 Globulin 2.4 g/dL (2.1-4.2) 01/14/23 07:33 Albumin/Globulin Ratio 1.2 (1.0-2.2) 01/14/23 07:33 Lipase < 10 U/L (11-82) L 01/10/23 11:47 Urine Color YELLOW 01/10/23 13:45 Urine Clarity CLEAR (CLEAR) 01/10/23 13:45 Urine pH 7.0 PH (5.0-7.5) 01/10/23 13:45 Ur Specific [place] 1.020 (1.002-1.030) 01/10/23 13:45 Urine Protein 100 mg/dL (NEGATIVE) H 01/10/23 13:45 Urine Glucose (UA) NEGATIVE mg/dL (NEGATIVE) 01/10/23 13:45 Urine Ketones NEGATIVE mg/dL (NEGATIVE) 01/10/23 13:45 Urine Occult Blood NEGATIVE (NEGATIVE) 01/10/23 13:45 Urine Nitrite NEGATIVE (NEGATIVE) 01/10/23 13:45 Urine Bilirubin NEGATIVE (NEGATIVE) 01/10/23 13:45 Urine Urobilinogen 0.2 (NORMAL) E.U./dL (NORMAL) 01/10/23 13:45 Ur Leukocyte Esterase NEGATIVE (NEGATIVE) 01/10/23 13:45 Urine RBC None Seen /HPF (0-5) 01/10/23 13:45 Urine WBC 0-3 /HPF (0-5) 01/10/23 13:45 Ur Squamous Epith Cells FEW Squamous (<= Few) 01/10/23 13:45 Urine Bacteria Few /HPF (None Seen) 01/10/23 13:45 Urine Casts 0-2 Hyaline Casts /LPF 01/10/23 13:45 Urine Mucus Few Strands 01/10/23 13:45 Ur Microscopic Review INDICATED 01/10/23 13:45 Urine Culture Comments NOT INDICATED 01/10/23 13:45 Nasal Screen MRSA (PCR) NEGATIVE (NEGATIVE) 01/10/23 19:30 Sepsis Event Note (H) - Evaluation Current Stage of Sepsis: Ruled out Current Medications - Current Medications Current Medications: Active Medications Generic Name Dose Route Start Last Admin Trade Name Freq PRN Reason Stop Dose Admin Acetaminophen 500 mg 01/14/23 20:57 01/20/23 05:47 Acetaminophen 500 Mg Tablet PO 500 mg Q4HR PRN Administration Pain or Fever > 38C (100.4F) Amlodipine Besylate 5 mg 01/17/23 09:00 01/20/23 08:40 Amlodipine 5 Mg Tablet PO 5 mg DAILY DEAN Administration Carbidopa/Levodopa 1 tab 01/16/23 21:00 01/20/23 08:40 Carbidopa/Levodopa Er 50 Mg/200 Mg Tablet PO 1 tab BID DEAN Administration Famotidine 20 mg 01/19/23 21:00 01/20/23 08:40 Famotidine 20 Mg Tablet PO 20 mg BID DEAN Administration Furosemide 40 mg 01/16/23 11:00 01/20/23 08:40 Furosemide 20 Mg Tablet PO 40 mg DAILY DEAN Administration Heparin Sodium (Porcine) 5,000 unit 01/10/23 21:00 01/20/23 08:45 Heparin 5,000 Unit/Ml Vial SUBQ 5,000 unit BID DEAN Administration Mineral Oil 1 applic 01/10/23 21:51 Min Oil/Dimethicon/Coconut Oil 92 Gm Tube TOP PRN PRN Skin Care Morphine Sulfate 2 mg 01/12/23 11:28 01/18/23 07:39 Morphine 2 Mg/Ml Carpuject IVP 2 mg Q6H PRN Administration Severe Pain (Level 7-10) Multi-Ingredient Ointment 1 applic 01/10/23 21:51 01/19/23 01:29 Zinc Oxide 20% Oint 30 Gm Tube TOP 1 applic PRN PRN Administration Skin Care Multivitamins 1 tab 01/17/23 10:00 01/20/23 08:40 Multivitamin Tablet PO 1 tab DAILYWM DEAN Administration Nystatin 1 applic 01/19/23 11:00 01/20/23 08:45 Nystatin Powder 15 Gm TOP 15 applic BID DEAN Administration Ondansetron HCl 4 mg 01/10/23 14:37 01/13/23 17:32 Ondansetron 4 Mg/2 Ml Vial IVP 4 mg Q6HR PRN Administration Nausea / Vomiting Phenol/Menthol 2 sprays 01/14/23 18:56 Phenol Throat [place] 177 Ml MM Q2HR PRN Throat Pain Prochlorperazine Edisylate 10 mg 01/10/23 14:47 Prochlorperazine 10 Mg/2 Ml Vial IVP Q6HR PRN Nausea / Vomiting Sodium Chloride 10 ml 01/10/23 14:32 01/15/23 10:35 Sodium Chloride Flush 0.9% 10 Ml Syringe IVP 10 ml PRN PRN Administration NEEDED PER PROVIDER ORDERS Sodium Chloride 10 ml 01/10/23 17:00 01/20/23 08:44 Sodium Chloride Flush 0.9% 10 Ml Syringe IVP 10 ml 0100,0900,1700 DEAN Administration Throat Lozenges 1 lozenge 01/14/23 18:56 Benzocaine/Menthol Lozenge MM Q2HR PRN Throat pain Carbidopa/Levodopa [Sinemet Cr 50-200 Tablet] 1 tab PO 0900,1500 08/05/12 Aspirin [Aspirin EC] 81 mg PO DAILY 03/22/16 Furosemide [Lasix] 40 mg PO DAILY 11/25/22 Morphine Ir [Ms Ir] 15 mg PO TID PRN 01/10/23
[2023-01-21] MEDS: ACETAMINOPHEN 500 MG TABLET PO PRN ×2 (02:10→06:10)
[2023-01-21] MEDS: FUROSEMIDE 20 MG TABLET PO SCH (08:04)
[2023-01-21] MEDS: CARBIDOPA/LEVODOPA ER 50 MG/200 MG TABLET PO SCH (08:04)
[2023-01-21] MEDS: FAMOTIDINE 20 MG TABLET PO SCH (08:05)
[2023-01-21] MEDS: MULTIVITAMIN TABLET PO SCH (08:05)
[2023-01-21] MEDS: amLODIPine 5 MG TABLET PO SCH (08:05)
[2023-01-21] MEDS: NYSTATIN POWDER 15 GM TOP SCH (08:16)
[2023-01-21] MEDS: SODIUM CHLORIDE FLUSH 0.9% 10 ML SYRINGE IVP SCH (08:16)
[2023-01-21] MEDS: HEPARIN 5,000 UNIT/ML VIAL SUBQ SCH (08:19)
--- NOTE | 2023-01-21 09:02 | DISCHARGE SUMMARY ---
Discharge Summary Admit Date: 01/10/23 Discharge Date: 01/21/23 Discharging Provider: Keegan Hunt Primary Care Provider: French Mcclure Code Status: Attempt Resuscitation Condition at Discharge: Good Discharge Disposition: 03 SNF DC/Xfer - DIAGNOSES Discharge Diagnoses with Status of Each Condition: (1) Small bowel obstruction Assessment/Plan: --S/P lysis of adhesions on 01/10. General surgery has cleared the patient. Follow-up in 7-10 days. ADAT. (2) Urinary retention Assessment/Plan: --Resolved (3) Hx of Parkinson's disease Assessment/Plan: --Continue home medications. (4) TIA (transient ischemic attack) Qualifiers: Transient cerebral ischemia type: unspecified Qualified Code(s): G45.9 - Transient cerebral ischemic attack, unspecified Assessment/Plan: --Resume aspirin on discharge. (5) Edema Qualifiers: Edema type: generalized Qualified Code(s): R60.1 - Generalized edema Assessment/Plan: --Continue oral lasix. Resolved. - HPI History of Present Illness: Patient is an 82 y/o female admitted from ED after 2 days of nausea and vomiting. History of Parkinson's. She thinks she "ate something bad" at home. Describes diffuse abdominal pain, described as crampy. Denies taking anything for the nausea or vomiting, however takes morphine chronically for arthritis. Denies fevers or chills. No diarrhea or constipation. No blood in the stool. No hematemesis. Not on blood thinners. No recent travel. No recent antibiotics. - CONSULTS | PROCEDURES Consultations: General surgery Procedures: Exploratory laparotomy with lysis of adhesions on 01/10. - HOSPITAL COURSE Hospital Course: Patient is an 82-year-old female who presented to the ED due to complaints of nausea and vomiting which began [address] abdomen/pelvis was performed which revealed evidence of a closed-loop small bowel obstruction with 2 points of narrowing and moderate ascites. General surgery was consulted from the ED. An NG tube was placed and she was started on IV fluids and antibiotics and transferred to the OR for a exploratory laparotomy and lysis of adhesions on 01/10. Postoperative course was complicated by constipation and generalized weakness. Her constipation improved with an aggressive bowel regimen and ambulation. She was eval by physical therapy and Occupational Therapy who recommended a care home facility. She did have an episode of urinary retention requiring a Bonner catheter but successfully passed a voiding trial on 01/20. She was discharged to a care home facility on 01/21. She is to follow-up with general surgery in 7 to 10 days for staple removal. General surgery has instructed their office to make that appointment. They also informed her that it is okay to shower and get the incision area wet. Recommended dry dressing change daily as needed. Patient did have some sinus pauses on telemetry. Her metoprolol was held on discharge. - ALLERGIES Allergies/Adverse Reactions: Allergies Allergy/AdvReac Type Severity Reaction Status Date / Time doxycycline AdvReac Emesis Verified 01/10/23 10:26 - MEDICATIONS Home Medications: Ambulatory Orders Medication Instructions Recorded Confirmed Carbidopa/Levodopa [Sinemet Cr 1 tab PO 0900,1500 08/05/12 01/10/23 50-200 Tablet] Aspirin [Aspirin EC] 81 mg PO DAILY 03/22/16 01/10/23 Furosemide [Lasix] 40 mg PO DAILY 11/25/22 01/10/23 Morphine Ir [Ms Ir] 15 mg PO TID PRN 01/10/23 01/10/23 amLODIPine [Norvasc] 5 mg PO DAILY #30 tab 01/20/23 Home Medications Other | Comments: Metoprolol held on discharge due to sinus pauses. - PHYSICAL EXAM AT DISCHARGE General Appearance: positive: No acute distress, Alert Respiratory: positive: Chest non-tender, No respiratory distress, Breath sounds nml Cardiovascular: positive: Regular rate & rhythm, No murmur, No gallop Abdomen: positive: Non-tender, Nml bowel sounds, No distention Extremities: positive: Non-tender, No pedal edema Neurologic/Psychiatric: positive: Oriented x3, CN's nml (2-12) - LABS Result Diagrams: 01/17/23 06:25 01/18/23 05:26 - DIAGNOSTIC IMAGING Diagnostic Imaging Results: Final report reviewed - SEPSIS Current Stage of Sepsis: Ruled out - FOLLOW UP Follow Up: Follow-up with general surgery in 7 to 10 days for staple removal. Follow-up with Dr. Mcclure in 3 to 5 days. - TIME SPENT Time Spent in Discharge (Minutes): 35
[2023-01-21 11:12] VITALS: BP 121/58; O2SAT 96
== END 2023-01-21 11:32 | DRG 335 ==
LOC: EDUNIT# → ED 10:09 → MS2 14:32 → ICU 18:51 → MS2 01-11 10:16
PROVIDERS: ADMIT Internal Medicine; ATTEND Family Medicine
PROC: 0DNA0ZZ Release Jejunum, Open Approach (ICD-10-PCS; principal; 2023-01-10 16:45)
DX: K56.609 Unspecified intestinal obstruction, unspecified as to partial versus complete obstruction (principal); K56.52 Intestinal adhesions [bands] with complete obstruction; K55.029 Acute infarction of small intestine, extent unspecified; G45.9 Transient cerebral ischemic attack, unspecified; Z66 Do not resuscitate; K56.7 Ileus, unspecified; R33.9 Retention of urine, unspecified; G20.A1 Parkinson's disease without dyskinesia, without mention of fluctuations; K59.00 Constipation, unspecified; R53.1 Weakness; Z79.891 Long term (current) use of opiate analgesic; I10 Essential (primary) hypertension; R79.89 Other specified abnormal findings of blood chemistry; E86.0 Dehydration; M19.90 Unspecified osteoarthritis, unspecified site; R63.0 Anorexia; Z68.29 Body mass index [BMI] 29.0-29.9, adult; Z90.49 Acquired absence of other specified parts of digestive tract; E86.1 Hypovolemia; T50.1X5A Adverse effect of loop [high-ceiling] diuretics, initial encounter; R00.1 Bradycardia, unspecified; I45.5 Other specified heart block; R60.1 Generalized edema; E87.70 Fluid overload, unspecified
CPT/HCPCS: 36415; 51702; 74018; 74177; 80048; 80053; 81001; 82330; 83605; 83690; 83735; 84100; 85025; 85049; 87070; 87075; 87150; 87205; 96374; 97116; 97162; 97166; 97530; 97535; 99284; 99285; A6250; A9270; J7120; Q9963; Q9967; 80197; 81003; 87086

== ENCOUNTER 2023-03-08 13:57 | Outpatient (CLI) | payer MEDICARE, MEDICAID ==
[2023-03-08 14:04] LABS: BASOPHILS # (AUTO) 0.1 10^3/uL (0.0-0.1); BASOPHILS % (AUTO) 0.3 %; EOSINOPHILS % (AUTO) 0.2 %; HCT - HEMATOCRIT 39.3 % (37.0-47.0); HGB - HEMOGLOBIN 12.7 g/dL (12.0-16.0); LYMPHOCYTES # (AUTO) 1.3 10^3/uL (1.5-3.5); LYMPHOCYTES % (AUTO) 7.5 %; MEAN CORPUSCULAR HEMOGLOBIN 30.9 pg (27.0-31.0); MEAN CORPUSCULAR HGB CONC 32.3 g/dL (32.0-36.0); MEAN CORPUSCULAR VOLUME 95.6 fL (81.0-99.0); MEAN PLATELET VOLUME 8.7 fL (7.9-10.8); MONOCYTES # (AUTO) 0.9 10^3/uL (0.0-1.0); MONOCYTES % (AUTO) 5.3 %; NEUTROPHILS # (AUTO) 15.2 10^3/uL (1.5-6.6); NEUTROPHILS % (AUTO) 85.7 %; PLT - PLATELET COUNT 455 10^3/uL (130-450); RED BLOOD COUNT 4.11 10^6/uL (4.20-5.40); RED CELL DISTRIBUTION WIDTH 12.4 % (12.0-15.0); WHITE BLOOD COUNT 17.7 x10^3/uL (4.8-10.8)
[2023-03-08 14:17] LABS: ALBUMIN 3.2 g/dL (3.2-5.5); CRP - C-REACTIVE PROTEIN 18.7 mg/dL (<0.5)
[2023-03-08 14:18] LABS: ALT ALANINE AMINOTRANSFERASE < 3 IU/L (10-60)
[2023-03-08 18:35] LABS: ALBUMIN/GLOBULIN RATIO 0.8 (1.0-2.2); ALKALINE PHOSPHATASE 90 IU/L (42-121); AST ASPARTATE AMINOTRANSFERASE 15 IU/L (10-42); BILIRUBIN,TOTAL 0.4 mg/dL (0.2-1.0); BUN - BLOOD UREA NITROGEN 18 mg/dL (6-20); CALCIUM 8.9 mg/dL (8.5-10.3); CARBON DIOXIDE - CO2 29 mmol/L (21-32); CHLORIDE 89 mmol/L (101-111); CREATININE 0.8 mg/dL (0.6-1.3); GFR - MDRD 69 (>89); GLUCOSE 172 mg/dL (74-104); SODIUM 127 mmol/L (135-145)
== END 2023-03-08 13:58 | disposition home or self-care (01) ==
LOC: LAB.R 13:57
PROVIDERS: ATTEND Registered Nurse
DX: M86.9 Osteomyelitis, unspecified (principal)
CPT/HCPCS: 80053; 85025; 85651; 86140

== ENCOUNTER 2023-03-08 16:07 | Outpatient (CLI) | payer MEDICARE, MEDICAID ==
--- NOTE | 2023-03-08 19:11 | XRAY Report ---
PROCEDURE: Sacrum/Coccyx INDICATIONS: OSTEOMYELITIS, UNSPECIFIED TECHNIQUE: 2 views of the sacrum and coccyx acquired. COMPARISON: None. FINDINGS: Bones: Severe osteopenia. No definite fractures. No dislocations. No definite osseous erosions. No s uspicious periosteal reaction identified. No suspicious bony lesions. Soft tissues: Visualized bowel gas pattern is normal. No suspicious soft tissue densities. IMPRESSION: Diffuse osteopenia. No definite fracture identified. No suspicious erosions or periosteal reaction. I f there is persistent clinical concern for osteomyelitis, further evaluation with MRI or multiphasic regional bone scan can be considered. Reviewed by: Giancarlo Valle MD on 03/08/2023 7:10 PM PST Approved by: Giancarlo Valle MD on 03/08/2023 7:10 PM PST Station ID: [id number]
== END 2023-03-08 16:08 | disposition home or self-care (01) ==
LOC: DI 16:07
PROVIDERS: ATTEND Registered Nurse
DX: M85.88 Other specified disorders of bone density and structure, other site (principal)

== ENCOUNTER 2023-03-11 07:26 | Outpatient (CLI) | payer MEDICARE, MEDICAID | END 2023-03-11 23:59 | disposition critical access hospital (66) | LOC: EMS 07:26 | DX: K59.00 Constipation, unspecified (principal); R10.13 Epigastric pain; R11.10 Vomiting, unspecified | CPT/HCPCS: A0425; A0429 ==

== ENCOUNTER 2023-03-11 07:35 | Inpatient (IN) | payer MEDICARE, MEDICAID ==
[2023-03-11] MEDS ORDERED: ONDANSETRON 4 MG/2 ML VIAL IVP STA ×2 (07:54→09:14)
[2023-03-11] MEDS ORDERED: SODIUM CHLORIDE 0.9% 1,000 ML IV STA (07:54)
--- NOTE | 2023-03-11 07:54 | ED Physician Documentation ---
PD HPI ABD PAIN - Stated complaint Stated Complaint: CONSTIPATION - History obtained from History obtained from: Patient - Additional information Additional information: Patient presents from [facility] for "constipation." She seems to have some confusion so history from the patient is difficult. Unclear when her last BM was. She states she is in no pain, neither stomach nor rectal. She is vomiting. When asked why she is in a SNF she states because of constipation. She was here at the beginning of January and had a closed-loop bowel obstruction and had a lysis of adhesions. Lower abdominal laparotomy scar is noted on exam and before I reviewed the chart I asked the patient when that was from and she said it was not recent, but it looks like it was actually at the beginning of January. PD PAST MEDICAL HISTORY - Past Medical History Cardiovascular: Hypertension, Murmur Respiratory: None Neuro: Parkinson's Endocrine/Autoimmune: None GI: GERD : None HEENT: None Psych: None Musculoskeletal: Osteoarthritis Derm: None - Past Surgical History Past Surgical History: Yes General: Cholecystectomy /MEDIA COORDINATOR: Tubal ligation - Present Medications Home Medications: Ambulatory Orders Medication Instructions Recorded Confirmed Carbidopa/Levodopa [Sinemet Cr 1 tab PO 0900,1500 08/05/12 03/11/23 50-200 Tablet] Aspirin [Aspirin EC] 81 mg PO DAILY 03/22/16 03/11/23 Furosemide [Lasix] 40 mg PO DAILY 11/25/22 03/11/23 Morphine Ir [Ms Ir] 15 mg PO TID PRN 01/10/23 03/11/23 amLODIPine [Norvasc] 5 mg PO DAILY #30 tab 01/20/23 03/11/23 Bisacodyl Supp [Dulcolax Supp] 1 applic [place] PRN PRN 03/11/23 03/11/23 Morphine Sulfate [Ms Contin] 1 tab PO TID 03/11/23 03/11/23 Ondansetron HCl 1 tab PO PRN PRN 03/11/23 03/11/23 Pantoprazole [Protonix] 1 tab PO DAILY 03/11/23 03/11/23 Senna [Senokot] 2 tab PO PRN PRN 03/11/23 03/11/23 polyethylene glycoL 3350 [Miralax] 1 applic PO DAILY 03/11/23 03/11/23 - Allergies Allergies/Adverse Reactions: Allergies Allergy/AdvReac Type Severity Reaction Status Date / Time doxycycline AdvReac Emesis Verified 01/10/23 10:26 - Social History Does the pt smoke?: No Smoking Status: Never smoker Does the pt drink ETOH?: No Does the pt have substance abuse?: No - Immunizations Immunizations are current?: No - POLST Patient has POLST: No POLST Status: DNR PD ED PE NORMAL - Vitals Vital signs reviewed: Yes - General General: Other (Tremulous elderly woman who appears chronically but not acutely ill.) - Cardiac Cardiac: RRR, No murmur - Respiratory Respiratory: No respiratory distress, Clear bilaterally - Abdomen Abdomen: Other (Distended abdomen with absent bowel sounds and tense, but no tenderness. Well-healed lower abdominal laparotomy scar.) - Derm Derm: Normal color, Warm and dry, Other (Advanced stage sacral pressure ulcer) - Extremities Extremities: No edema - Neuro Verbal: Confused Results - Vitals Vitals: Vital Signs - 24 hr 03/11/23 08:00 Temperature 36.8 C Heart Rate 103 H Respiratory 22 Rate Blood Pressure 137/97 H O2 Saturation 96 Oxygen O2 Source [] Room air O2 Source [] Room air O2 Source Room air - Labs Labs: Laboratory Tests 03/11/23 03/11/23 03/11/23 08:08 08:08 08:08 WBC 24.5 H RBC 4.48 Hgb 13.9 Hct 42.7 MCV 95.3 MCH 31.0 MCHC 32.6 RDW 12.4 Plt Count 488 H MPV 8.8 Neut # (Auto) 21.6 H Lymph # (Auto) 1.3 L [place] # (Auto) 1.1 H Eos # (Auto) 0.1 Baso # (Auto) 0.1 Absolute Nucleated RBC 0.00 Nucleated RBC % 0.0 Manual Slide Review Indicated Platelet Estimate INCREASED (>450,000) Platelet Morphology NORMAL APPEARANCE RBC Morph Micro Appear NORMAL APPEARANCE PT 13.5 H INR 1.2 Sodium 126 L Potassium 4.2 Chloride 86 L Carbon Dioxide 26 Anion Gap 14.0 H BUN 48 H Creatinine 1.8 H Estimated GFR (MDRD) 27 L Glucose 170 H Lactic Acid Calcium 9.5 Total Bilirubin 0.5 AST 18 ALT 3 L Alkaline Phosphatase 115 Total Protein 8.1 Albumin 3.4 Globulin 4.7 H Albumin/Globulin Ratio 0.7 L 03/11/23 11:28 WBC RBC Hgb Hct MCV MCH MCHC RDW Plt Count MPV Neut # (Auto) Lymph # (Auto) [place] # (Auto) Eos # (Auto) Baso # (Auto) Absolute Nucleated RBC Nucleated RBC % Manual Slide Review Platelet Estimate Platelet Morphology RBC Morph Micro Appear PT INR Sodium Potassium Chloride Carbon Dioxide Anion Gap BUN Creatinine Estimated GFR (MDRD) Glucose Lactic Acid 2.3 H Calcium Total Bilirubin AST ALT Alkaline Phosphatase Total Protein Albumin Globulin Albumin/Globulin Ratio - Rads (name of study) CT a/p Relevant Findings:: Final report received, EMP independent interpretation of test PD Medical Decision Making - ED course Complexity details: reviewed results ED course: CBC notable for white count of 24,000, she does have a thrombocytosis which is new compared to January but was present on labs done a few days ago in the outpatient realm. INR normal. CMP showing prerenal azotemia with depressed GFR, her usual GFR is somewhat variable but usually in the 80s. She also has hyponatremia worse than prior but somewhat chronic as well. CT A/P IMPRESSION: Severely distended bladder with moderate to severe pelvocaliectasis. Consider Bonner decompression. Moderate to severe fecal loading, particularly at the proximal aspect. No evidence of small bowel obstruction. Mild left basilar pulmonary groundglass opacity, likely infectious/inflammatory. Decrease pleural effusions. Possible filling defect versus mixing artifact in the right common femoral vein. Consider vascular ultrasound and correlation with any lower extremity symptoms. Small hiatal hernia. Moderately edematous and thickened distal esophageal wall, likely infectious/inflammatory. Consider endoscopic correlation if indicated. 82-year-old woman comes from a fdc with chief complaint of constipation and that she is, quite so looking at her CT. She also has urinary retention which causes hydronephrosis and some HARPER. Incidentally on her CT there was also possible DVT on the right, will obtain ultrasonography. I asked the nurse to place a Bonner we did a soapsuds enema followed by a mineral oil enema. Subsequently found to have bilateral DVTs. She does have a sacral pressure ulcer of unclear acuity. She has the left basilar pneumonia. As such she was cultured up and given Rocephin and Zithromax as well as full dose Lovenox and I spoke with Dr. Sanford for admission at 12:23 PM. I did update her by phone who plans to visit but not until Sunday. Departure - Departure Disposition: 66 [facility] DC/Xfer Clinical Impression: Urinary retention, HARPER (acute kidney injury) DVT, bilateral lower limbs Qualifiers: Affected thrombotic vein of extremity: femoral Chronicity: acute Qualified Code(s): I82.413 - Acute embolism and thrombosis of femoral vein, bilateral Constipation Qualifiers: Constipation type: unspecified constipation type Qualified Code(s): K59.00 - Constipation, unspecified Sacral pressure ulcer Qualifiers: Pressure injury stage: unstageable Qualified Code(s): L89.150 - Pressure ulcer of sacral region, unstageable Pneumonia Qualifiers: Pneumonia type: due to unspecified organism Laterality: left Lung location: lower lobe of lung Qualified Code(s): J18.9 - Pneumonia, unspecified organism Condition: Serious
[2023-03-11 08:12] LABS: BASOPHILS # (AUTO) 0.1 10^3/uL (0.0-0.1); BASOPHILS % (AUTO) 0.2 %; EOSINOPHILS # (AUTO) 0.1 10^3/uL (0.0-0.7); EOSINOPHILS % (AUTO) 0.3 %; HCT - HEMATOCRIT 42.7 % (37.0-47.0); HGB - HEMOGLOBIN 13.9 g/dL (12.0-16.0); LYMPHOCYTES # (AUTO) 1.3 10^3/uL (1.5-3.5); LYMPHOCYTES % (AUTO) 5.2 %; MEAN CORPUSCULAR HGB CONC 32.6 g/dL (32.0-36.0); MEAN CORPUSCULAR VOLUME 95.3 fL (81.0-99.0); MEAN PLATELET VOLUME 8.8 fL (7.9-10.8); MONOCYTES # (AUTO) 1.1 10^3/uL (0.0-1.0); MONOCYTES % (AUTO) 4.6 %; NEUTROPHILS # (AUTO) 21.6 10^3/uL (1.5-6.6); NEUTROPHILS % (AUTO) 88.2 %; PLT - PLATELET COUNT 488 10^3/uL (130-450); RED BLOOD COUNT 4.48 10^6/uL (4.20-5.40); RED CELL DISTRIBUTION WIDTH 12.4 % (12.0-15.0); WHITE BLOOD COUNT 24.5 x10^3/uL (4.8-10.8)
[2023-03-11 08:14] LABS: SLIDE REVIEW? Indicated
[2023-03-11 08:19] LABS: INR 1.2 (0.8-1.2); PT - PROTHROMBIN TIME 13.5 secs (9.9-12.6)
[2023-03-11 08:29] LABS: ALBUMIN 3.4 g/dL (3.2-5.5); ALBUMIN/GLOBULIN RATIO 0.7 (1.0-2.2); BILIRUBIN,TOTAL 0.5 mg/dL (0.2-1.0); CALCIUM 9.5 mg/dL (8.5-10.3); CREATININE 1.8 mg/dL (0.6-1.3); POTASSIUM 4.2 mmol/L (3.5-4.5); TOTAL PROTEIN 8.1 g/dL (6.4-8.9)
[2023-03-11 08:32] LABS: PLATELET ESTIMATE, MANUAL INCREASED (>450,000) (NORMAL); PLATELET MORPHOLOGY NORMAL APPEARANCE (NORMAL); RBC MORPHOLOGY (MULTIPLE) NORMAL APPEARANCE (NORMAL)
--- NOTE | 2023-03-11 10:50 | CT Report ---
PROCEDURE: Abdomen/Pelvis W INDICATIONS: IV only, abd pain, ?sbo CONTRAST: Omni 300 80ml TECHNIQUE: After the administration of intravenous contrast, a CT scan of the abdomen and pelvis was performed. Images were recorded and evaluated at appropriate window settings. Reformats: coronal and sagittal. F or radiation dose reduction, the following was used: automated exposure control, adjustment of mA and /or kV according to patient size. COMPARISON: 01/14/2023 FINDINGS: Image quality: Diagnostic Lower chest: Mild left basilar groundglass opacities. Superimposed atelectasis. Trace effusions. Liver: Similar posterior right lobe hyperdensity. Gallbladder and biliary system: Cholecystectomy clips. Similar dilation of the biliary system post ch olecystectomy. Pancreas: Prominent pancreatic duct is similar to prior. There is mild to moderate atrophy of the lugo creatic parenchyma again seen. Spleen: Unremarkable Adrenals: No discrete nodules Kidneys: Moderate to severe bilateral pelvocaliectasis and ureter dilation Vessels and lymph nodes: The main portal vein is small, but patent. No abdominal aortic aneurysm. No pathologic lymph nodes by size criteria possible mixing artifact versus filling defect in the right c ommon femoral vein () Bowel and peritoneum: Small hiatal hernia. Moderate edema and wall thickening of the distal esophagus . There is no small bowel obstruction, however, there is moderate to large fecal loading in the proxi mal aspect of the colon Body wall: Mild body wall anasarca Pelvis: Severely distended bladder. Reproductive organs appear unremarkable limited CT evaluation. Bones: No acute or suspicious osseous findings. IMPRESSION: Severely distended bladder with moderate to severe pelvocaliectasis. Consider Bonner decompression. Moderate to severe fecal loading, particularly at the proximal aspect. No evidence of small bowel obs truction. Mild left basilar pulmonary groundglass opacity, likely infectious/inflammatory. Decrease pleural eff usions. Possible filling defect versus mixing artifact in the right common femoral vein. Consider vascular ul trasound and correlation with any lower extremity symptoms. Small hiatal hernia. Moderately edematous and thickened distal esophageal wall, likely infectious/inf lammatory. Consider endoscopic correlation if indicated. Other findings as above. Reviewed by: Aj Parker MD on 03/11/2023 10:49 AM PST Approved by: Aj Parker MD on 03/11/2023 10:49 AM PST Station ID: [id number]
[2023-03-11] MEDS ORDERED: bisacodyL 5 MG TABLET PO STA (10:57)
[2023-03-11] MEDS ORDERED: MAGNESIUM CITRATE 296 ML BOTTLE PO STA (10:57)
[2023-03-11] MEDS ORDERED: iohexoL-300 100 ML VIAL IVP ONE (11:09)
[2023-03-11] MEDS ORDERED: ENOXAPARIN 80 MG/0.8 ML SYRINGE SUBQ STA (12:16)
[2023-03-11] MEDS ORDERED: cefTRIAXone 1 GM VIAL IVP STA (12:20)
[2023-03-11] MEDS ORDERED: AZITHROMYCIN INJ 500 MG in SODIUM CHLORIDE 0.9% 250 ML IV STA (12:20)
--- NOTE | 2023-03-11 12:39 | Ultrasound Report ---
PROCEDURE: Duplex Ext Veins Bilateral INDICATIONS: Cliff Bean MD TECHNIQUE: Real-time imaging, as well as color and pulse Doppler interrogation, were performed of the deep veins of both legs from the inguinal ligament to the popliteal fossa. Attempted visualization of the calf veins was performed. COMPARISON: Same-day CT FINDINGS: Acute thrombus seen in the right great saphenous vein near the common femoral vein junction , and right common femoral vein. The vessels more distally are compressible. There is thrombus seen throughout the entire left leg extending from the great saphenous vein, femora l vein to the calf veins, which are more chronic appearing. IMPRESSION: Acute proximal right lower extremity DVT. DVT throughout the entire left leg appears more subacute to chronic. Reviewed by: Aj Parker MD on 03/11/2023 12:38 PM PST Approved by: Aj Parker MD on 03/11/2023 12:38 PM [facility] Station ID: [id number]
[2023-03-11 13:01] LABS: BILIRUBIN,URINE NEGATIVE (NEGATIVE); CLARITY,URINE SL. CLOUDY (CLEAR); GLUCOSE, URINE (UA) NEGATIVE (NEGATIVE); KETONES,URINE (UA) NEGATIVE (NEGATIVE); LEUKOCYTE ESTERASE, URINE LARGE (NEGATIVE); NITRITE,URINE NEGATIVE (NEGATIVE); OCCULT BLOOD,URINE TRACE-INTA (NEGATIVE); PROTEIN,URINE NEGATIVE (NEGATIVE); UROBILINOGEN,URINE 0.2 (NORMAL) E.U./dL (NORMAL)
[2023-03-11] MEDS ORDERED: SODIUM CHLORIDE FLUSH 0.9% 10 ML SYRINGE IVP PRN (13:01)
[2023-03-11] MEDS ORDERED: MORPHINE IR 15 MG TABLET PO PRN (13:09)
[2023-03-11] MEDS ORDERED: PIPERACILLIN/TAZOBACTAM 3.375 GM in SODIUM CHLORIDE 0.9% MINIBAG 100 ML IV STA (13:14)
[2023-03-11 13:15] LABS: BACTERIA,URINE Moderate /HPF (None Seen); SQUAMOUS EPITHELIAL CELL,UR RARE Squamous (<= Few)
--- NOTE | 2023-03-11 13:20 | HISTORY & PHYSICAL EXAMINATION ---
Chief Complaint - Chief Complaint Chief Complaint: "constipation" History of Present Illness - Admitted From Admitted From:: ED - History Obtained From History obtained from: ED provider and chart review - History of Present Illness HPI Comment/Other: This is an 89-year-old female with a history of Parkinson's disease on carbidopa/levodopa, history of longstanding chronic narcotic use leading to chronic constipation. She was admitted here 2 months ago to treat a closed-loop small bowel obstruction with lysis of adhesions done by Dr. Colmenares. Then she was discharged for rehab. She now apparently lives at [facility]. The patient presented to the ER with complaint of "constipation" and could give no other detailed history. She denied any abdominal pain but said there was vomiting. Her BP was stable, but HR 103, afebrile. Her exam showed a non- tender, firm, distended abdomen. Her workup showed WBC of 24, Lactic Acid of 2.3, GFR of 27 which is usually 80, CT showed left-sided pneumonia, distal esophageal thickening, severe constipation in the proximal colon, hydronephrosis and bladder distention containing 2 L of fluid, and had a suspicion of right leg DVT. She underwent ultrasound that shows bilateral DVTs. Records show she had recent workup for osteomyelitis because of a sacral decubitus ulcer, which she still has on exam. zThe sacrum XRay reading advised getting an MRI. In the ER, she received soapsuds enema then mineral oral enema and disimpaction, a Bonner was placed, cultures were sent, she was ordered to get Zithromax and Ceftriaxone for the pneumonia, but did not get any antibx yet, per the record. The ED provider spoke to me about this patient who will be admitted to the Hospitalist service. 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 "due to constpation.") Social History Notes: Unknown, she is confused and gives no detailed Hx. - Substance History Use: Uses substance without health or social issues: NONE - POLST Patient has POLST: No POLST Status: DNR Meds/Allgy - Home Medications Home Medications: Ambulatory Orders Medication Instructions Recorded Confirmed Carbidopa/Levodopa [Sinemet Cr 1 tab PO 0900,1500 08/05/12 03/11/23 50-200 Tablet] Aspirin [Aspirin EC] 81 mg PO DAILY 03/22/16 03/11/23 Furosemide [Lasix] 40 mg PO DAILY 11/25/22 03/11/23 Morphine Ir [Ms Ir] 15 mg PO TID PRN 01/10/23 03/11/23 amLODIPine [Norvasc] 5 mg PO DAILY #30 tab 01/20/23 03/11/23 Bisacodyl Supp [Dulcolax Supp] 1 applic UT PRN PRN 03/11/23 03/11/23 Morphine Sulfate [Ms Contin] 1 tab PO TID 03/11/23 03/11/23 Ondansetron HCl 1 tab PO PRN PRN 03/11/23 03/11/23 Pantoprazole [Protonix] 1 tab PO DAILY 03/11/23 03/11/23 Senna [Senokot] 2 tab PO PRN PRN 03/11/23 03/11/23 polyethylene glycoL 3350 [Miralax] 1 applic PO DAILY 03/11/23 03/11/23 - Allergies Allergies/Adverse Reactions: Allergies Allergy/AdvReac Type Severity Reaction Status Date / Time doxycycline AdvReac Emesis Verified 01/10/23 10:26 Review of Systems - All Other Systems All Other Systems: reports: Other (Unable to get any other details other than in HPI, due to pt confusion.) Exam - Vital Signs Reviewed Vital Signs: Yes Vital Signs: Vital Signs x48h Temp Pulse Resp BP Pulse Ox 03/11/23 08:00 36.8 C 103 H 22 137/97 H 96 - Physical Exam General Appearance: positive: No acute distress, Other (Has a resting tremor of jaw and hands. Poorly kempt) Eyes Bilateral: positive: Other (Crusted bilat eyelids. No eye redness) ENT: positive: Dry mucous membranes Neck: positive: Nml inspection Respiratory: positive: No respiratory distress, Breath sounds nml Cardiovascular: positive: Regular rate & rhythm, No murmur Abdomen: positive: Non-tender, Other (diminished bowel sounds, distended) Skin: positive: Warm, Dry, Other (Poorly kempt) Extremities: positive: Other (Trace pedal vasiliy) Neurologic/Psychiatric: positive: Other (Resting tremor of jaw and hands. Poor memory. Speech is slow and short sentences.) Sepsis Event Note (H) - Evaluation Current Stage of Sepsis: Sepsis Possible source of Sepsis: positive: Pulmonary, Bone/Joint (possible osteo of sacrum), Skin/soft tissue - Sepsis Criteria Sepsis Criteria: Recorded Heart Rate greater than 90 bpm, WBC count greater than 12,000 or less than 4000, Metabolic: lactate > 2 mmol/L Conclusion/Plan - Problem List (1) Sepsis Conclusion/Plan: She meets criteria for sepsis: Elevated WBC of 24, tachycardia at rest with HR 103, and elevated lactic acid greater than 2. Source could be the pneumonia, or osteomyelitis of the sacrum, or the sacral decubitus ulcer Plan: Will give gentle IV fluids, not aggressive crystalloids because her chronic edema and the abdominal wall anasarca present (seen on CT) Recheck her lactic acid level now Begin empiric IV antibiotics to cover both the pneumonia and MRSA and Pseudomonas from sacral wound Await cx results to tailor antibx Follow WBC daily (2) Pneumonia Conclusion/Plan: CT imaging of abd shows left sided infiltrate. She did not have a CXR. Sh also does not have a cough or desaturations Blood cultures were taken in the ER and she received IV ceftriaxone and IV Zithromax doses Plan: Will cont empiric antibiotics using Vanco and Zosyn to cover both MRSA and anaerobes since osteomyelitis and not the PNA, could be the source of the sepsis Suppl O2 ordered prn Qualifiers: Pneumonia type: due to unspecified organism Laterality: left Lung location: lower lobe of lung Qualified Code(s): J18.9 - Pneumonia, unspecified organism (3) Sacral pressure ulcer Conclusion/Plan: Plan: Will obtain culture by swab of the wound Will order Mepilex topical dressing changes daily Will workup for osteomyelitis with an MRI they will (today is Sunday and we do not have MRI until tomorrow) Will give empiric antibiotics using Vanco and Zosyn to cover both MRSA and anaerobes since osteomyelitis and not the PNA, could be the source of the sepsis Qualifiers: Pressure injury stage: unstageable Qualified Code(s): L89.150 - Pressure ulcer of sacral region, unstageable (4) Esophageal thickening Conclusion/Plan: The patient may have vomiting due to distal esophageal obstruction from this finding of thickening Plan: Will put her on a clear liquid diet, advance to pured if tolerated Will order all her meds to be crushed (5) DVT, bilateral lower limbs Conclusion/Plan: Suspect this patient is minimally mobile given the sacral decubitus ulcer and that her immobility gives her risk for DVTs Plan: Will start Lovenox therapeutic dose twice daily Will eventually change to anticoagulant orally Qualifiers: Affected thrombotic vein of extremity: femoral Chronicity: acute Qualified Code(s): I82.413 - Acute embolism and thrombosis of femoral vein, bilateral (6) HARPER (acute kidney injury) Conclusion/Plan: This is likely due to poor oral intake and N/V causing volume depletion, and from obstruction given the urinary retention in the bladder causing hydronephrosis Plan: Continue with Bonner which was placed in the ER Avoid nephrotoxins Follow BMP daily (7) Urinary retention Conclusion/Plan: Etiology is unclear since the obstruction looks like it is post bladder. Possibly the constipated prox colon is creating obstruction to bladder outflow. Plan: Continue with Bonner that was placed in the ER Will consider getting a Urology consult (8) Hydronephrosis Conclusion/Plan: As per CT imaging, the urinary bladder distention very likely caused backup pressure and hydronephrosis Plan: As above in #7 (9) Constipation Conclusion/Plan: Patient has been admitted here before, we have discussed with her and the that her chronic use of narcotics likely led to decreased motility and constipation Her reconciled med list shows that she is still on 2 narcotics chronically Plan: We will give her narcotics, consider titrating down Clear liquid diet or pured diet will be ordered Will repeat enemas if necessary and consider lactulose if necessary for managing her constipation Qualifiers: Constipation type: unspecified constipation type Qualified Code(s): K59.00 - Constipation, unspecified (10) Parkinson disease Conclusion/Plan: With this confusion, she may be developing Parkinson's dementia Another cause could be her different narcotics causing oversedation Plan: Will continue her on her usual carbidopa/levodopa dose - Lab Results Fish Bones: 03/11/23 08:08 03/11/23 08:08 - Diagnostic Imaging Results Diagnostic Imaging Results: positive: Final report reviewed - Other Other Results/Comments: Attestation: The patient is expected to be hospitalized for greater than 2 midnights and is expected to be discharged or transferred to another facility within 96 hours: Yes.
--- NOTE | 2023-03-11 13:36 | PHARMACY PROGRESS NOTE ---
- Therapy Status Vancomycin regimen day #: 1 Therapy status: Awaiting steady state Basis for treatment: Empirical Treatment indication: SEPTIC PNEUMONIA Trough goal: AUC 400-600 Concurrent antibiotics: VANCO 1G Q48H ZOSYN 3.375 - HARPER Risk Risk level for Acute Kidney Injury: High Acute Kidney Injury risk factors: Piperacillin/Tozobactam, Baseline CrCl <50, Baseline BUN:SCr >20:1, Admission to ICU - Monitoring and Recommendation Clinical response to treatment: I&O Previous 24 hours 03/09/23 03/10/23 03/11/23 23:59 23:59 23:59 Intake Total 1000 Balance 1000 Lab Results 03/11/23 08:08 BUN 48 H Creatinine 1.8 H Estimated GFR (MDRD) 27 L Monitoring plan: Daily serum creatinine Areas for additional monitoring: IV to PO when appropriate, Therapy de- escalation based on culture results, Acute Kidney Injury Pharmacy recommendation: Continue current regime
[2023-03-11] MEDS ORDERED: VANCOMYCIN INJ 1 GM in SODIUM CHLORIDE 0.9% 250 ML IV SCH (14:00)
[2023-03-11] MEDS ORDERED: MORPHINE ER 15 MG TABLET PO SCH (14:00)
[2023-03-11] MEDS: SODIUM CHLORIDE 0.9% 1,000 ML IV SCH (14:11)
[2023-03-11] MEDS ORDERED: MORPHINE IR 15 MG TABLET PO SCH (14:35)
[2023-03-11] MEDS: CARBIDOPA/LEVODOPA ER 50 MG/200 MG TABLET PO SCH (14:43)
[2023-03-11] MEDS: MORPHINE IR 15 MG TABLET PO SCH ×2 (15:59→21:34)
[2023-03-11] MEDS: SODIUM CHLORIDE FLUSH 0.9% 10 ML SYRINGE IVP SCH (16:02)
[2023-03-11] MEDS: METOPROLOL TARTRATE 25 MG TABLET PO SCH (21:35)
[2023-03-11] MEDS: ENOXAPARIN 40 MG/0.4 ML SYRINGE SUBQ SCH (21:42)
[2023-03-12] MEDS: SODIUM CHLORIDE FLUSH 0.9% 10 ML SYRINGE IVP SCH ×4 (00:22→23:39)
[2023-03-12] MEDS: SODIUM CHLORIDE 0.9% 1,000 ML IV SCH ×3 (04:06→23:39)
[2023-03-12 05:50] LABS: BASOPHILS # (AUTO) 0.1 10^3/uL (0.0-0.1); BASOPHILS % (AUTO) 0.4 %; EOSINOPHILS # (AUTO) 0.2 10^3/uL (0.0-0.7); EOSINOPHILS % (AUTO) 1.5 %; HCT - HEMATOCRIT 30.8 % (37.0-47.0); LYMPHOCYTES # (AUTO) 2.6 10^3/uL (1.5-3.5); LYMPHOCYTES % (AUTO) 15.8 %; MEAN CORPUSCULAR HEMOGLOBIN 31.5 pg (27.0-31.0); MEAN CORPUSCULAR HGB CONC 32.5 g/dL (32.0-36.0); MEAN CORPUSCULAR VOLUME 97.2 fL (81.0-99.0); MEAN PLATELET VOLUME 9.2 fL (7.9-10.8); MONOCYTES # (AUTO) 1.3 10^3/uL (0.0-1.0); MONOCYTES % (AUTO) 7.9 %; NEUTROPHILS % (AUTO) 72.9 %; PLT - PLATELET COUNT 340 10^3/uL (130-450); RED BLOOD COUNT 3.17 10^6/uL (4.20-5.40); RED CELL DISTRIBUTION WIDTH 12.5 % (12.0-15.0); WHITE BLOOD COUNT 16.4 x10^3/uL (4.8-10.8)
[2023-03-12] MEDS: MORPHINE IR 15 MG TABLET PO SCH ×3 (06:08→21:17)
[2023-03-12 06:17] LABS: CALCIUM 8.1 mg/dL (8.5-10.3); CREATININE 0.9 mg/dL (0.6-1.3); MAGNESIUM 2.1 mg/dL (1.7-2.3); PHOSPHORUS 3.2 mg/dL (2.5-5.0); POTASSIUM 3.6 mmol/L (3.5-4.5)
[2023-03-12] MEDS: METOPROLOL TARTRATE 25 MG TABLET PO SCH ×2 (09:32→21:16)
[2023-03-12] MEDS: BISACODYL 10 MG SUPP PR SCH (09:48)
[2023-03-12] MEDS: ASPIRIN EC 81 MG TABLET PO SCH (09:49)
[2023-03-12] MEDS: CARBIDOPA/LEVODOPA ER 50 MG/200 MG TABLET PO SCH ×2 (09:49→14:48)
--- NOTE | 2023-03-12 10:49 | PROVIDER PROGRESS NOTE ---
Assessment/Plan - Problem List (1) Proteus infection Assessment/Plan: Her sacral wound was swabbed and cx sent. Today there is a prelim result of Proteus growth. Plan: Cont empiric iv Zosyn Await sens results to tailor antibx (2) Sacral pressure ulcer Conclusion/Plan: Plan: She needs a wound consult done by Gen Surg. We have no provider in [facility] today ( holiday), and no Gen Surgeon available at all today She needs workup for osteomyelitis with an MRI (but today is a holiday, , and we do not have MRI until tomorrow) Will order Mepilex topical dressing changes daily Cont empiric iv antibx Will order turn and reposition Pressure injury stage: unstageable Qualified Code(s): L89.150 - Pressure ulcer of sacral region, unstageable (3) Pneumonia Conclusion/Plan: CT imaging of abdomen showed a left sided infiltrate. She did not have a CXR. She also does not have a cough or oxygen desaturation Blood cultures were taken in the ER and she received IV ceftriaxone and IV Zithromax doses Plan: Will cont empiric antibiotics using Vanco and Zosyn to cover both MRSA and anaerobes since osteomyelitis and not a pneumonia, could be the source of the sepsis PRN suppl O2 ordered Qualifiers: Pneumonia type: due to unspecified organism Laterality: left Lung location: lower lobe of lung Qualified Code(s): J18.9 - Pneumonia, unspecified organism (4) DVT, bilateral lower limbs Conclusion/Plan: This is a new Dx for her, found on CT imaging and confirmed w/ Dopplers Suspect this patient is minimally mobile given the sacral decubitus ulcer and that her immobility gives her risk for DVTs Plan: Cont new Lovenox therapeutic dose BID, in case it needs to be stopped for debridement of the sacrum, for instance Will eventually change to anticoagulant orally Qualifiers: Affected thrombotic vein of extremity: femoral Chronicity: acute Qualified Code(s): I82.413 - Acute embolism and thrombosis of femoral vein, bilateral (5) HARPER (acute kidney injury) Conclusion/Plan: IMPROVED This is likely due to poor oral intake and her N/V causing volume depletion, and from outflow obstruction, given the urinary retention in the bladder causing hydronephrosis. BUN/creat was 48/1.8 at adm, is 35/0.9 today (all labs were reviewed). Plan: Continue with Bonner which was placed in the ER Avoid nephrotoxins Follow BMP daily (6) Urinary retention Conclusion/Plan: Etiology of obstruction looks like it is beyond the bladder. Possibly the constipated prox colon is creating obstruction to bladder outflow. Plan: Continue with Bonner that was placed in the ER Will consider getting a Urology consult (7) Hydronephrosis Conclusion/Plan: As per CT imaging, the urinary bladder distention very likely caused backup pressure and hydronephrosis Plan: As above in #7 (8) Constipation Conclusion/Plan: She has chronic constipation. Patient has been admitted here before, we have discussed with her and the that her chronic use of narcotics likely led to decreased motility and constipation Her reconciled med list shows that she is still on 2 narcotics chronically Plan: We will give her narcotics, consider titrating down Clear liquid diet or pured diet will be ordered Will repeat enemas if necessary and consider lactulose if necessary for managing her constipation Qualifiers: Constipation type: unspecified constipation type Qualified Code(s): K59.00 - Constipation, unspecified (9) Esophageal thickening Conclusion/Plan: The patient may have had vomiting from the distal esophageal thickening causing obstruction Plan: Cont clear liquid diet, advance to pured if tolerated I ordered all her meds to be crushed (10) Parkinson disease Conclusion/Plan: With this confusion, she may be developing Parkinson's dementia Another cause could be her different narcotics causing oversedation She has a visible resting tremor Plan: Will continue her on her usual carbidopa/levodopa dose (11) Sepsis Conclusion/Plan: RESOLVED She met criteria for sepsis: Elevated WBC of 24, tachycardia at rest with HR 103, and elevated lactic acid greater than 2. Source could be the pneumonia, or osteomyelitis of the sacrum, or the sacral decubitus ulcer Plan: As in #1 & 2 - Current Meds Current Meds: Current Medications Generic Name Dose Route Start Last Admin Trade Name Freq PRN Reason Stop Dose Admin Aspirin 81 mg 03/12/23 09:00 03/12/23 09:49 Aspirin Ec 81 Mg Tablet PO 81 mg DAILY DEAN Administration Bisacodyl 10 mg 03/12/23 09:00 03/12/23 09:48 Bisacodyl 10 Mg Supp SC 10 mg DAILY DEAN Administration Carbidopa/Levodopa 1 tab 03/11/23 15:00 03/12/23 09:49 Carbidopa/Levodopa Er 50 Mg/200 Mg Tablet PO 1 tab 0900,1500 DEAN Administration Enoxaparin Sodium 70 mg 03/11/23 21:00 03/11/23 21:42 Enoxaparin 40 Mg/0.4 Ml Syringe SUBQ 70 mg BID DEAN Administration Sodium Chloride 1,000 mls @ 83.33 mls/hr 03/11/23 14:00 03/12/23 04:06 Normal Saline 0.9% IV 83.3 mls/hr .Q12H1M DEAN Administration Vancomycin HCl 1 gm/ Sodium 250 mls @ 167 mls/hr 03/11/23 14:00 03/11/23 17:36 Chloride IV Infused Q48H DEAN Infusion Metoprolol Tartrate 25 mg 03/11/23 21:00 03/11/23 21:35 Metoprolol Tartrate 25 Mg Tablet PO 25 mg BID DEAN Administration Morphine Sulfate 15 mg 03/11/23 15:00 03/12/23 06:08 Morphine Ir 15 Mg Tablet PO 15 mg TID DEAN Administration Sodium Chloride 10 ml 03/11/23 17:00 03/12/23 09:50 Sodium Chloride Flush 0.9% 10 Ml Syringe IVP Not Given 0100,0900,1700 DEAN - Lab Result Fish Bone Diagrams: 03/12/23 05:10 03/12/23 05:10 - Additional Planning My Orders: My Active Orders 03/11/23 13:01 Activity Orders [RC] Q2HR IO [RC] IOSHIFT Incentive Spirometry - RT [RC] .TID Initiate Bowel Care Protocol [RC] .protocol Initiate Line Care Protocol [RC] QSHIFT Initiate Personal Care Protoco [RC] .protocol Oxygen Therapy [RC] .PRN Vital Signs [RC] Q4HR Sodium Chloride Flush 0.9% [Normal Saline Flush 0.9%] 10 ml IVP PRN PRN Code Status [OTHERS] Routine Condition of Patient [OTHERS] Routine DVT Prophylaxis [OTHERS] Routine 03/11/23 13:04 Daily Weight [RC] 0600 IV Insert [RC] .ONCE 03/11/23 13:09 Miscellaenous Nursing Order [RC] QSHIFT 03/11/23 14:00 CUL,WOUND (AEROBIC) [RM] Stat Sodium Chloride 0.9% [Normal Saline 0.9%] 1,000 ml IV 83.33 mls/hr Vancomycin Inj [Vancomycin] 1 gm Sodium Chloride 0.9% [Normal Saline 0.9%] 250 ml IV Q48H 03/11/23 15:00 Carbidopa/Levodopa ER 50/200 [Sinemet Cr 50 mg/200 mg] 1 tab PO 0900,1500 Morphine Ir [Ms Ir] 15 mg PO TID 03/11/23 17:00 Sodium Chloride Flush 0.9% [Normal Saline Flush 0.9%] 10 ml IVP 0100,0900,1700 03/11/23 21:00 Enoxaparin [Lovenox] 70 mg SUBQ BID Metoprolol Tartrate [Lopressor] 25 mg PO BID 03/12/23 Breakfast DIET [Dysphagia - Puree] [DIET] 03/12/23 09:00 Aspirin EC [Ecotrin] 81 mg PO DAILY Bisacodyl Supp [Dulcolax Supp] 10 mg SC DAILY Pantoprazole [Protonix] 40 mg PO DAILY 03/13/23 05:00 BMP - BASIC METABOLIC PANEL [CHEM] DAILYLAB CBC - COMP BLD CT W/AUTO DIFF [HEME] DAILYLAB 03/14/23 05:00 BMP - BASIC METABOLIC PANEL [CHEM] DAILYLAB CBC - COMP BLD CT W/AUTO DIFF [HEME] DAILYLAB 03/15/23 05:00 BMP - BASIC METABOLIC PANEL [CHEM] DAILYLAB CBC - COMP BLD CT W/AUTO DIFF [HEME] DAILYLAB Subjective - Subjective Patient Reports: Resting Comfortably, No Complaints Objective Vital Signs: Vital Signs - 24 hr 03/11/23 03/11/23 03/11/23 15:39 20:12 23:14 Temperature 37.2 C 36.8 C 37.4 C Heart Rate [ Brachial] Heart Rate [ 100 95 81 Monitoring electrodes] Respiratory 16 12 16 Rate Blood Pressure 150/81 H 118/70 100/58 L [Right Brachial artery] O2 Saturation 96 99 99 03/12/23 03/12/23 06:23 07:45 Temperature 36.7 C 37.5 C Heart Rate [ 88 78 Brachial] Heart Rate [ Monitoring electrodes] Respiratory 16 16 Rate Blood Pressure 128/65 107/51 L [Right Brachial artery] O2 Saturation 96 94 Oxygen O2 Source [With Activity] Room air O2 Source [Without Activity] Room air O2 Source Room air I&O (Last 24 Hrs): Intake and Output Totals x24h 03/10/23 03/11/23 03/12/23 23:59 23:59 23:59 Intake Total 2207.22 994.65 Output Total 1000 400 Balance 1207.22 594.65 General: Alert, No acute distress, Other (Jaw tremor is minor) HEENT: EOMI, Mucous membr. moist/pink Neck: Supple, No JVD Neuro: Alert, Non Focal, Other (Poor memory, resting jaw tremor, has no resting hand tremor today) - Results Results: Laboratory Results WBC 16.4 x10^3/uL (4.8-10.8) H 03/12/23 05:10 RBC 3.17 10^6/uL (4.20-5.40) L 03/12/23 05:10 Hgb 10.0 g/dL (12.0-16.0) L 03/12/23 05:10 Hct 30.8 % (37.0-47.0) L 03/12/23 05:10 MCV 97.2 fL (81.0-99.0) 03/12/23 05:10 MCH 31.5 pg (27.0-31.0) H 03/12/23 05:10 MCHC 32.5 g/dL (32.0-36.0) 03/12/23 05:10 RDW 12.5 % (12.0-15.0) 03/12/23 05:10 Plt Count 340 10^3/uL (130-450) 03/12/23 05:10 MPV 9.2 fL (7.9-10.8) 03/12/23 05:10 Neut # (Auto) 12.0 10^3/uL (1.5-6.6) H 03/12/23 05:10 Lymph # (Auto) 2.6 10^3/uL (1.5-3.5) 03/12/23 05:10 [place]man # (Auto) 1.3 10^3/uL (0.0-1.0) H 03/12/23 05:10 Eos # (Auto) 0.2 10^3/uL (0.0-0.7) 03/12/23 05:10 Baso # (Auto) 0.1 10^3/uL (0.0-0.1) 03/12/23 05:10 Absolute Nucleated RBC 0.00 x10^3/uL 03/12/23 05:10 Nucleated RBC % 0.0 /100WBC 03/12/23 05:10 Manual Slide Review Indicated 03/11/23 08:08 Platelet Estimate INCREASED (>450,000) (NORMAL) 03/11/23 08:08 Platelet Morphology NORMAL APPEARANCE (NORMAL) 03/11/23 08:08 RBC Morph Micro Appear NORMAL APPEARANCE (NORMAL) 03/11/23 08:08 PT 13.5 secs (9.9-12.6) H 03/11/23 08:08 INR 1.2 (0.8-1.2) 03/11/23 08:08 Sodium 132 mmol/L (135-145) L 03/12/23 05:10 Potassium 3.6 mmol/L (3.5-4.5) 03/12/23 05:10 Chloride 96 mmol/L (101-111) L 03/12/23 05:10 Carbon Dioxide 28 mmol/L (21-32) 03/12/23 05:10 Anion Gap 8.0 (6-13) 03/12/23 05:10 BUN 35 mg/dL (6-20) H 03/12/23 05:10 Creatinine 0.9 mg/dL (0.6-1.3) 03/12/23 05:10 Estimated GFR (MDRD) 60 (>89) L 03/12/23 05:10 Glucose 85 mg/dL (74-104) 03/12/23 05:10 Lactic Acid 2.1 mmol/L (0.5-2.2) 03/11/23 13:23 Calcium 8.1 mg/dL (8.5-10.3) L 03/12/23 05:10 Phosphorus 3.2 mg/dL (2.5-5.0) 03/12/23 05:10 Magnesium 2.1 mg/dL (1.7-2.3) 03/12/23 05:10 Total Bilirubin 0.5 mg/dL (0.2-1.0) 03/11/23 08:08 AST 18 IU/L (10-42) 03/11/23 08:08 ALT 3 IU/L (10-60) L 03/11/23 08:08 Alkaline Phosphatase 115 IU/L (42-121) 03/11/23 08:08 Total Protein 8.1 g/dL (6.4-8.9) 03/11/23 08:08 Albumin 3.4 g/dL (3.2-5.5) 03/11/23 08:08 Globulin 4.7 g/dL (2.1-4.2) H 03/11/23 08:08 Albumin/Globulin Ratio 0.7 (1.0-2.2) L 03/11/23 08:08 Urine Color YELLOW 03/11/23 12:20 Urine Clarity SL. CLOUDY (CLEAR) 03/11/23 12:20 Urine pH 6.0 PH (5.0-7.5) 03/11/23 12:20 Ur Specific [place] 1.015 (1.002-1.030) 03/11/23 12:20 Urine Protein NEGATIVE mg/dL (NEGATIVE) 03/11/23 12:20 Urine Glucose (UA) NEGATIVE mg/dL (NEGATIVE) 03/11/23 12:20 Urine Ketones NEGATIVE mg/dL (NEGATIVE) 03/11/23 12:20 Urine Occult Blood TRACE-INTA (NEGATIVE) 03/11/23 12:20 Urine Nitrite NEGATIVE (NEGATIVE) 03/11/23 12:20 Urine Bilirubin NEGATIVE (NEGATIVE) 03/11/23 12:20 Urine Urobilinogen 0.2 (NORMAL) E.U./dL (NORMAL) 03/11/23 12:20 Ur Leukocyte Esterase LARGE (NEGATIVE) H 03/11/23 12:20 Urine RBC 6-10 /HPF (0-5) H 03/11/23 12:20 Urine WBC 11-25 /HPF (0-5) H 03/11/23 12:20 Ur Squamous Epith Cells RARE Squamous (<= Few) 03/11/23 12:20 Urine Bacteria Moderate /HPF (None Seen) H 03/11/23 12:20 Ur Microscopic Review INDICATED 03/11/23 12:20 Urine Culture Comments INDICATED 03/11/23 12:20 - Procedures Procedures: Procedures RELEASE JEJUNUM, OPEN APPROACH (01/10/23) Sepsis Event Note (H) - Evaluation Current Stage of Sepsis: Sepsis Possible source of Sepsis: positive: Pulmonary, Bone/Joint (possible osteo of sacrum), Skin/soft tissue - Sepsis Criteria Sepsis Criteria: Recorded Heart Rate greater than 90 bpm, WBC count greater than 12,000 or less than 4000, Metabolic: lactate > 2 mmol/L
[2023-03-12] MEDS: PANTOPRAZOLE 40 MG TABLET PO SCH (11:50)
[2023-03-12 14:10] LABS: GLUCOSE, URINE (UA) NEGATIVE (NEGATIVE); KETONES,URINE (UA) NEGATIVE (NEGATIVE); NITRITE,URINE NEGATIVE (NEGATIVE); OCCULT BLOOD,URINE LARGE (NEGATIVE)
[2023-03-12 14:17] LABS: BILIRUBIN,URINE NEGATIVE (NEGATIVE); CLARITY,URINE CLOUDY (CLEAR); ICTOTEST,URINE NEGATIVE; RBC,URINE TNTC /HPF (0-5)
[2023-03-12 14:18] LABS: BACTERIA,URINE Few /HPF (None Seen); SQUAMOUS EPITHELIAL CELL,UR FEW Squamous (<= Few)
[2023-03-12] MEDS: ENOXAPARIN 40 MG/0.4 ML SYRINGE SUBQ SCH (14:31)
[2023-03-12] MEDS ORDERED: VANCOMYCIN INJ 1 GM, VANCOMYCIN INJ 250 MG in SODIUM CHLORIDE 0.9% 250 ML IV SCH (16:00)
--- NOTE | 2023-03-12 16:57 | PHARMACY PROGRESS NOTE ---
- Therapy Status Therapy status: Awaiting steady state Basis for treatment: Empirical Treatment indication: PNEUMONIA Trough goal: AUC 400-600 - HARPER Risk Risk level for Acute Kidney Injury: High (PT'S KIDNEY FUNCTION IMPROVED SIGNFI CANTLY, SCR FROM ALMOST 2 TO 0.9 TODAY. VANCO WAS 1Gq48H. CHANGING VANCO DOSE TO 1.25G Q24H. DRAWING EARLY PEAK AND TROUGH WITH THE FIRST CHANGED DOSE TO DETERMINE PT'S KINETICS D/T AND MINIMIZE RISK OF TOXICITY D/T FLUCTUATING SCR. USE BAYESIAN METHOD IN CLINCALC) Acute Kidney Injury risk factors: Piperacillin/Tozobactam, Baseline CrCl <50, Baseline BUN:SCr >20:1, Admission to ICU - Monitoring and Recommendation Clinical response to treatment: I&O Previous 24 hours 03/10/23 03/11/23 03/12/23 23:59 23:59 23:59 Intake Total 2207.22 2414.65 Output Total 1000 750 Balance 1207.22 1664.65 Lab Results 03/12/23 03/11/23 05:10 08:08 BUN 35 H 48 H Creatinine 0.9 1.8 H Estimated GFR (MDRD) 60 L 27 L Cultures 03/11/23 11:28 Blood - Right Arm Blood Culture - Preliminary NO GROWTH AFTER 1 DAY 03/11/23 11:12 Blood - Right Arm Blood Culture - Preliminary NO GROWTH AFTER 1 DAY 03/11/23 12:20 Urine,Catheterized Urine Culture - Preliminary 03/11/23 14:00 Back - Lower Wound Culture - Preliminary Monitoring plan: Daily serum creatinine Areas for additional monitoring: IV to PO when appropriate, Therapy de- escalation based on culture results, Acute Kidney Injury Pharmacy recommendation: Continue current regime
[2023-03-12] MEDS: VANCOMYCIN INJ 1 GM, VANCOMYCIN INJ 250 MG in SODIUM CHLORIDE 0.9% 250 ML IV SCH (17:54)
[2023-03-12] MEDS: ENOXAPARIN 80 MG/0.8 ML SYRINGE SUBQ SCH (21:17)
[2023-03-13] MEDS: MORPHINE IR 15 MG TABLET PO SCH ×3 (05:51→21:27)
[2023-03-13 06:00] LABS: BASOPHILS # (AUTO) 0.1 10^3/uL (0.0-0.1); BASOPHILS % (AUTO) 0.6 %; EOSINOPHILS # (AUTO) 0.3 10^3/uL (0.0-0.7); EOSINOPHILS % (AUTO) 2.5 %; HCT - HEMATOCRIT 28.4 % (37.0-47.0); HGB - HEMOGLOBIN 9.3 g/dL (12.0-16.0); LYMPHOCYTES # (AUTO) 2.2 10^3/uL (1.5-3.5); LYMPHOCYTES % (AUTO) 22.2 %; MEAN CORPUSCULAR HGB CONC 32.7 g/dL (32.0-36.0); MEAN CORPUSCULAR VOLUME 97.6 fL (81.0-99.0); MEAN PLATELET VOLUME 8.7 fL (7.9-10.8); MONOCYTES # (AUTO) 0.6 10^3/uL (0.0-1.0); MONOCYTES % (AUTO) 6.2 %; NEUTROPHILS # (AUTO) 6.6 10^3/uL (1.5-6.6); NEUTROPHILS % (AUTO) 66.7 %; PLT - PLATELET COUNT 294 10^3/uL (130-450); RED BLOOD COUNT 2.91 10^6/uL (4.20-5.40); RED CELL DISTRIBUTION WIDTH 12.7 % (12.0-15.0); WHITE BLOOD COUNT 9.9 x10^3/uL (4.8-10.8)
[2023-03-13 06:18] LABS: CALCIUM 7.7 mg/dL (8.5-10.3); CREATININE 0.5 mg/dL (0.6-1.3); POTASSIUM 3.4 mmol/L (3.5-4.5)
[2023-03-13] MEDS: PANTOPRAZOLE 40 MG TABLET PO SCH (08:39)
[2023-03-13] MEDS: LACTOBACILLUS RHAMNOSUS GG CAPSULE PO SCH (08:39)
[2023-03-13] MEDS: ASPIRIN EC 81 MG TABLET PO SCH (08:39)
[2023-03-13] MEDS: CARBIDOPA/LEVODOPA ER 50 MG/200 MG TABLET PO SCH ×2 (08:39→14:32)
[2023-03-13] MEDS: METOPROLOL TARTRATE 25 MG TABLET PO SCH ×2 (08:41→21:27)
[2023-03-13] MEDS: ENOXAPARIN 80 MG/0.8 ML SYRINGE SUBQ SCH ×2 (08:41→21:27)
[2023-03-13] MEDS: SODIUM CHLORIDE FLUSH 0.9% 10 ML SYRINGE IVP SCH ×2 (08:41→17:07)
[2023-03-13] MEDS: BISACODYL 10 MG SUPP PR SCH (08:42)
[2023-03-13] MEDS: SODIUM CHLORIDE 0.9% 1,000 ML IV SCH (09:38)
[2023-03-13] MEDS ORDERED: GADOTERATE MEGLUMINE 10 MMOL/20 ML VIAL ONE (12:07)
[2023-03-13] MEDS: levoFLOXacin 750 MG/150 ML 750 MG/150 ML BAG IV SCH (12:20)
--- NOTE | 2023-03-13 13:33 | CONSULTATION NOTE ---
Referring Provider Name of Referring Provider:: Dr. Sanford Consult Date: 03/13/23 Chief Complaint - Chief Complaint Chief Complaint: Decubitus History of Present Illness - History Obtained From Records Reviewed: Yes History obtained from: Patient, and chart Exam Limitations: Patient's mobility severely limited (Mickie - nurse) extremely helpful - History of Present Illness HPI Comment/Other: Patient is a 82 year old female evaluated in Room 2212 of [facility] patient of [facility] who had a adhesiolysis performed by Dr. Davis a little over a month ago who went to [facility] and then did not get out of bed. She was ambulatory before (per her who was at the bedside) but simply stopped getting up when she went to [facility]. She has had a chronic history of constipation but this is more obstipation with chronic opioid use. She presented now with a large fecal load and a massively distended bladder. Her po intake has also been tea and Jello primarily. I am called on consultation to evaluate a sacral decubitus (which she did not have when she had her surgery with Dr. Davis). She is not complaining of discomfort in her sacral area. 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 - Substance History Use: Uses substance without health or social issues: NONE - POLST Patient has POLST: No POLST Status: DNR Meds/Allgy - Home Medications Home Medications: Ambulatory Orders Medication Instructions Recorded Confirmed Carbidopa/Levodopa [Sinemet Cr 1 tab PO 0900,1500 08/05/12 03/11/23 50-200 Tablet] Aspirin [Aspirin EC] 81 mg PO DAILY 03/22/16 03/11/23 Furosemide [Lasix] 40 mg PO DAILY 11/25/22 03/11/23 Morphine Ir [Ms Ir] 15 mg PO TID PRN 01/10/23 03/11/23 amLODIPine [Norvasc] 5 mg PO DAILY #30 tab 01/20/23 03/11/23 Bisacodyl Supp [Dulcolax Supp] 1 applic [place] PRN PRN 03/11/23 03/11/23 Morphine Sulfate [Ms Contin] 1 tab PO TID 03/11/23 03/11/23 Ondansetron HCl 1 tab PO PRN PRN 03/11/23 03/11/23 Pantoprazole [Protonix] 1 tab PO DAILY 03/11/23 03/11/23 Senna [Senokot] 2 tab PO PRN PRN 03/11/23 03/11/23 polyethylene glycoL 3350 [Miralax] 1 applic PO DAILY 03/11/23 03/11/23 - Allergies Allergies/Adverse Reactions: Allergies Allergy/AdvReac Type Severity Reaction Status Date / Time doxycycline AdvReac Emesis Verified 01/10/23 10:26 Review of Systems - Other Findings Other Findings: I did not perform an extensive ROS with this patient as it is beyond the scope of this consultation. Exam - Vital Signs Reviewed Vital Signs: Yes Vital Signs: Vital Signs x48h Temp Pulse Resp BP BP Pulse Ox 03/13/23 08:41 116/59 L 03/13/23 08:15 36.5 C 79 20 128/58 L 96 03/13/23 05:53 36.4 C L 64 18 116/59 L 96 - Physical Exam General Appearance: positive: No acute distress, Alert Respiratory: positive: Chest non-tender, No respiratory distress Cardiovascular: positive: Regular rate & rhythm Extremities: positive: Pedal edema, Other (Rotated laterally.) Neurologic/Psychiatric: positive: Oriented x3 Comments/Other: Decubitus ulcer with fibrinous exudate and with some discoloration. Foul smelling. No acutely necrotic tissue. Minimal to no purulent drainage. The skin opening is 7 cm in diameter and the ulcer undermines the skin. Conclusion/Plan - Lab Results Lab results reviewed: Yes Fish Bones: 03/13/23 05:28 03/13/23 05:28 - Other Other Results/Comments: A "global" decision needs to be determined about this patient's care. Either: Palliative care should be called in and the patient's comfort prioritized. OR A full court press should be instituted including clearing out her fecal load, decreasing opioid use to prevent bowel and bladder disfunction, increasing po intake with a diet optimized to encourage anabolism versus catabolism (with possible placement of a feeding tube if the patient cannot take adequate calories po), involving PT and OT with mandatory mobilization to get patient off her sacrum (and encourage anabolism), place patient on an air bed (to minimize pressure on her sacrum), involve the wound clinic for inpatient chemical debr idement and then placement of a wound vac (to encourage healing). Surgical debridement can absolutely be considered if there is a large necrotic load that is localized. In my opinion there is no chance for success unless EVERYTHING is done above (in other words a half court press is inadequate). This was discussed with the patient and her , Pasha, who was in the room for the entire visit. I will follow anticipating a decision regarding her medical planning. I appreciate the opportunity to participate in this unfortunate patient's care. CPT 72012
[2023-03-13] MEDS: MULTIVITAMIN TABLET PO SCH (17:06)
[2023-03-13 17:24] LABS: VANCOMYCIN,TROUGH 8.1 ug/mL
[2023-03-13] MEDS: VANCOMYCIN INJ 1 GM, VANCOMYCIN INJ 250 MG in SODIUM CHLORIDE 0.9% 250 ML IV SCH (17:55)
--- NOTE | 2023-03-13 19:54 | MRI Report ---
PROCEDURE: PELVIS WO INDICATIONS: Poss osteomyelits of sacrum from sacraldecub ulcer TECHNIQUE: Noncontrast coronal T1 spin echo, STIR, T2 haste with and without fat saturation; axial T1 spin echo, STIR, and T2 haste; and sagittal T1 spin echo and T2 haste through the pelvis. COMPARISON: CT abdomen/pelvis 03/11/2023. FINDINGS: Image quality: Excellent. Soft tissues: Skin ulceration is seen overlying the sacrum from the level of approximately S3 through the lower coccygeal vertebral levels. Ulceration extends to the depth of the sacral bone. There is s urrounding subcutaneous edema as well as edema within the medial portions of the bilateral gluteus ma ximus muscles and small amount of presacral edema. No intraperitoneal fluid collection is seen. There is a large amount stool in the rectum, and impaction is not excluded. The bladder is decompressed by a Bonner catheter. There is mild diffuse soft tissue anasarca. No full-thickness tendon tear is seen . Bones: Osseous edema is seen within the posterior elements of the sacrum and coccyx adjacent to the s kin ulcer with a smaller area of T1 signal loss at the S5 posterior elements. The vertebral bodies de monstrate normal signal intensity on T1-weighted images. The remaining visualized osseous structures demonstrate normal signal intensity. Mild degenerative changes of the left sacroiliac joint with subc hondral edema. Degenerative endplate edema is seen in the lower lumbar spine. Multilevel degenerative disc disease and facet hypertrophy are seen in the included spine. IMPRESSION: 1.Skin ulceration is seen overlying the sacrum with surrounding subcutaneous and intramuscular edema. No focal fluid collection is seen. There is also mild adjacent presacral edema. 2.Osseous edema within the posterior elements of the sacrum adjacent to the area of skin ulceration i s nonspecific and may be reactive versus secondary to osteomyelitis. A small area of [id number] signal is seen in the posterior elements at the level of the S5 vertebra that is more suspicious for osteomyelitis. 3.Large amount of stool in the rectum. Recommend correlation to exclude fecal impaction. 4.Diffuse soft tissue anasarca. Reviewed by: Gold Gibbs MD on 03/13/2023 7:52 PM PST Approved by: Gold Gibbs MD on 03/13/2023 7:52 PM PST Station ID: [id number]
--- NOTE | 2023-03-13 22:16 | PROVIDER PROGRESS NOTE ---
Assessment/Plan - Problem List (1) Proteus infection Assessment/Plan: Assessment/Plan: Wound culture grew Proeus Mirabilis. Continue Zosyn (2) Sacral pressure ulcer Conclusion/Plan: Plan: General surgery recommends discussion with regard to goals of care. Mepilex topical dressing changes daily Continue Levofloxacin and vancomycin MRI today Pressure injury stage: unstageable Qualified Code(s): L89.150 - Pressure ulcer of sacral region, unstageable (3) Pneumonia Conclusion/Plan: Continue Levafloxacin and vancomycin for empiric coverage. Qualifiers: Pneumonia type: due to unspecified organism Laterality: left Lung location: lower lobe of lung Qualified Code(s): J18.9 - Pneumonia, unspecified organism (4) DVT, bilateral lower limbs Conclusion/Plan: Continue enoxaparin Qualifiers: Affected thrombotic vein of extremity: femoral Chronicity: acute Qualified Code(s): I82.413 - Acute embolism and thrombosis of femoral vein, bilateral (5) HARPER (acute kidney injury) Conclusion/Plan: IMPROVED Avoid nephrotoxins Follow BMP daily (6) Urinary retention Conclusion/Plan: Resolved (7) Hydronephrosis Conclusion/Plan: As per CT imaging, the urinary bladder distention very likely caused backup pressure and hydronephrosis Plan: As above in #7 (8) Constipation Conclusion/Plan: She has chronic constipation. Patient has been admitted here before, we have discussed with her and the that her chronic use of narcotics likely led to decreased motility and constipation Her reconciled med list shows that she is still on 2 narcotics chronically Plan: We will give her narcotics, consider titrating down Clear liquid diet or pured diet will be ordered Will repeat enemas if necessary and consider lactulose if necessary for managing her constipation Qualifiers: Constipation type: unspecified constipation type Qualified Code(s): K59.00 - Constipation, unspecified (9) Esophageal thickening Conclusion/Plan: Pureed diet. (10) Parkinson disease Conclusion/Plan: Continue Sinemet (11) Sepsis Conclusion/Plan: RESOLVED - Current Meds Current Meds: Current Medications Generic Name Dose Route Start Last Admin Trade Name Freq PRN Reason Stop Dose Admin Aspirin 81 mg 03/12/23 09:00 03/13/23 08:39 Aspirin Ec 81 Mg Tablet PO 81 mg DAILY DEAN Administration Bisacodyl 10 mg 03/12/23 09:00 03/13/23 08:42 Bisacodyl 10 Mg Supp IL 10 mg DAILY DEAN Administration Carbidopa/Levodopa 1 tab 03/11/23 15:00 03/13/23 14:32 Carbidopa/Levodopa Er 50 Mg/200 Mg Tablet PO 1 tab 0900,1500 DEAN Administration Enoxaparin Sodium 70 mg 03/12/23 21:00 03/13/23 21:27 Enoxaparin 80 Mg/0.8 Ml Syringe SUBQ 70 mg BID DEAN Administration Sodium Chloride 1,000 mls @ 83.33 mls/hr 03/11/23 14:00 03/13/23 19:25 Normal Saline 0.9% IV 83.3 mls/hr .Q12H1M DEAN Infusion Vancomycin HCl 1 gm/ 250 mls @ 167 mls/hr 03/12/23 18:00 03/13/23 19:25 Vancomycin HCl 250 mg/ Sodium IV Infused Chloride Q24H DEAN Infusion Levofloxacin 750 mg in 150 mls @ 100 mls/hr 03/13/23 11:00 03/13/23 13:55 Levaquin 750 Mg/150 Ml IV Infused Q24H DEAN Infusion Lactobacillus Rhamnosus 1 cap 03/13/23 09:00 03/13/23 08:39 Lactobacillus Rhamnosus Gg Capsule PO 1 cap DAILY DEAN Administration Metoprolol Tartrate 25 mg 03/11/23 21:00 03/13/23 21:27 Metoprolol Tartrate 25 Mg Tablet PO 25 mg BID DEAN Administration Morphine Sulfate 15 mg 03/11/23 15:00 03/13/23 21:27 Morphine Ir 15 Mg Tablet PO 15 mg TID DEAN Administration Multivitamins 1 tab 03/13/23 17:00 03/13/23 17:06 Multivitamin Tablet PO 1 tab DAILYWM DEAN Administration Pantoprazole Sodium 40 mg 03/12/23 09:00 03/13/23 08:39 Pantoprazole 40 Mg Tablet PO 40 mg DAILY DEAN Administration Sodium Chloride 10 ml 03/11/23 17:00 03/13/23 17:07 Sodium Chloride Flush 0.9% 10 Ml Syringe IVP 10 ml 0100,0900,1700 DEAN Administration - Lab Result Fish Bone Diagrams: 03/13/23 05:28 03/13/23 05:28 - Additional Planning My Orders: My Active Orders 03/13/23 11:00 levoFLOXacin 750 MG/150 ML [Levaquin 750 mg/150 ml] 750 mg in 150 ml IV Q24H 03/13/23 Dinner Dysphagia - Puree [DIET] 03/13/23 17:00 Multivitamin [Theragran] 1 tab PO DAILYWM 03/14/23 09:00 Ascorbic Acid [Vitamin C] 500 mg PO DAILY Zinc Sulfate 220 mg PO DAILY Subjective - Subjective Patient Reports: Other (Alert. Denies shortness of breath, chest pain. She does complain of discomfort in sacral area.) Objective Vital Signs: Vital Signs - 24 hr 03/13/23 03/13/23 03/13/23 00:13 05:53 08:15 Temperature 37.0 C 36.4 C L 36.5 C Heart Rate [ 72 64 79 Brachial] Respiratory 18 18 20 Rate Blood Pressure Blood Pressure [Left Brachial artery] Blood Pressure 111/45 L 116/59 L 128/58 L [Right Brachial artery] O2 Saturation 94 96 96 03/13/23 03/13/23 03/13/23 08:41 13:00 15:55 Temperature 37.1 C 37.2 C Heart Rate [ 83 83 Brachial] Respiratory 18 18 Rate Blood Pressure 116/59 L Blood Pressure 122/58 L [Left Brachial artery] Blood Pressure 124/64 [Right Brachial artery] O2 Saturation 95 96 03/13/23 20:44 Temperature 36.6 C Heart Rate [ 74 Brachial] Respiratory 18 Rate Blood Pressure Blood Pressure [Left Brachial artery] Blood Pressure 118/54 L [Right Brachial artery] O2 Saturation 100 Oxygen O2 Source [With Activity] Room air O2 Source [Without Activity] Room air O2 Source Room air I&O (Last 24 Hrs): Intake and Output Totals x24h 03/11/23 03/12/23 03/13/23 23:59 23:59 23:59 Intake Total 2207.22 3888.654 3278.049 Output Total 1000 1150 1475 Balance 1207.22 2738.654 1803.049 General: Alert, Oriented x3, Cooperative, No acute distress HEENT: Atraumatic, PERRLA, Mucous membr. moist/pink Neck: Supple, No JVD, No thyromegaly Lymphatic: no adenopathy Neuro: Alert, Disoriented, Non Focal Cardiovascular: Regular rate, Normal S1, Normal S2, No murmurs Respiratory: Chest non-tender, No respiratory distress, Other (No wheezing. No crackles) Abdomen: Normal bowel sounds, No tenderness Extremities: No clubbing, No cyanosis, No edema - Results Results: Laboratory Results WBC 9.9 x10^3/uL (4.8-10.8) 03/13/23 05:28 RBC 2.91 10^6/uL (4.20-5.40) L 03/13/23 05:28 Hgb 9.3 g/dL (12.0-16.0) L 03/13/23 05:28 Hct 28.4 % (37.0-47.0) L 03/13/23 05:28 MCV 97.6 fL (81.0-99.0) 03/13/23 05:28 MCH 32.0 pg (27.0-31.0) H 03/13/23 05:28 MCHC 32.7 g/dL (32.0-36.0) 03/13/23 05:28 RDW 12.7 % (12.0-15.0) 03/13/23 05:28 Plt Count 294 10^3/uL (130-450) 03/13/23 05:28 MPV 8.7 fL (7.9-10.8) 03/13/23 05:28 Neut # (Auto) 6.6 10^3/uL (1.5-6.6) 03/13/23 05:28 Lymph # (Auto) 2.2 10^3/uL (1.5-3.5) 03/13/23 05:28 [place] # (Auto) 0.6 10^3/uL (0.0-1.0) 03/13/23 05:28 Eos # (Auto) 0.3 10^3/uL (0.0-0.7) 03/13/23 05:28 Baso # (Auto) 0.1 10^3/uL (0.0-0.1) 03/13/23 05:28 Absolute Nucleated RBC 0.00 x10^3/uL 03/13/23 05:28 Nucleated RBC % 0.0 /100WBC 03/13/23 05:28 Manual Slide Review Indicated 03/11/23 08:08 Platelet Estimate INCREASED (>450,000) (NORMAL) 03/11/23 08:08 Platelet Morphology NORMAL APPEARANCE (NORMAL) 03/11/23 08:08 RBC Morph Micro Appear NORMAL APPEARANCE (NORMAL) 03/11/23 08:08 PT 13.5 secs (9.9-12.6) H 03/11/23 08:08 INR 1.2 (0.8-1.2) 03/11/23 08:08 Sodium 132 mmol/L (135-145) L 03/13/23 05:28 Potassium 3.4 mmol/L (3.5-4.5) L 03/13/23 05:28 Chloride 100 mmol/L (101-111) L 03/13/23 05:28 Carbon Dioxide 29 mmol/L (21-32) 03/13/23 05:28 Anion Gap 3.0 (6-13) L 03/13/23 05:28 BUN 18 mg/dL (6-20) 03/13/23 05:28 Creatinine 0.5 mg/dL (0.6-1.3) L 03/13/23 05:28 Estimated GFR (MDRD) 119 (>89) 03/13/23 05:28 Glucose 86 mg/dL (74-104) 03/13/23 05:28 Lactic Acid 2.1 mmol/L (0.5-2.2) 03/11/23 13:23 Calcium 7.7 mg/dL (8.5-10.3) L 03/13/23 05:28 Phosphorus 3.2 mg/dL (2.5-5.0) 03/12/23 05:10 Magnesium 2.1 mg/dL (1.7-2.3) 03/12/23 05:10 Total Bilirubin 0.5 mg/dL (0.2-1.0) 03/11/23 08:08 AST 18 IU/L (10-42) 03/11/23 08:08 ALT 3 IU/L (10-60) L 03/11/23 08:08 Alkaline Phosphatase 115 IU/L (42-121) 03/11/23 08:08 Total Protein 8.1 g/dL (6.4-8.9) 03/11/23 08:08 Albumin 3.4 g/dL (3.2-5.5) 03/11/23 08:08 Globulin 4.7 g/dL (2.1-4.2) H 03/11/23 08:08 Albumin/Globulin Ratio 0.7 (1.0-2.2) L 03/11/23 08:08 Vitamin B12 133 pg/mL (180-914) L 03/13/23 05:28 Urine Color BROWN 03/12/23 13:40 Urine Clarity CLOUDY (CLEAR) 03/12/23 13:40 Urine pH PH (5.0-7.5) 03/12/23 13:40 Ur Specific Jackson (1.002-1.030) 03/12/23 13:40 Urine Protein mg/dL (NEGATIVE) 03/12/23 13:40 Urine Glucose (UA) NEGATIVE mg/dL (NEGATIVE) 03/12/23 13:40 Urine Ketones NEGATIVE mg/dL (NEGATIVE) 03/12/23 13:40 Urine Occult Blood LARGE (NEGATIVE) H 03/12/23 13:40 Urine Nitrite NEGATIVE (NEGATIVE) 03/12/23 13:40 Urine Bilirubin NEGATIVE (NEGATIVE) 03/12/23 13:40 Urine Urobilinogen E.U./dL (NORMAL) 03/12/23 13:40 Ur Leukocyte Esterase (NEGATIVE) 03/12/23 13:40 Urine RBC TNTC /HPF (0-5) H 03/12/23 13:40 Urine WBC 11-25 /HPF (0-5) H 03/12/23 13:40 Ur Squamous Epith Cells FEW Squamous (<= Few) 03/12/23 13:40 Urine Bacteria Few /HPF (None Seen) 03/12/23 13:40 Ur Microscopic Review INDICATED 03/11/23 12:20 Urine Culture Comments INDICATED 03/12/23 13:40 Last Dose Date Not Reportable 03/13/23 17:08 Last Dose Time Not Reportable 03/13/23 17:08 Vancomycin Peak 21.4 ug/mL (20.0-40.0) 03/12/23 20:56 Vancomycin Trough 8.1 ug/mL 03/13/23 17:08 - Procedures Procedures: Procedures RELEASE JEJUNUM, OPEN APPROACH (01/10/23) Sepsis Event Note (H) - Evaluation Current Stage of Sepsis: Sepsis Possible source of Sepsis: positive: Pulmonary, Bone/Joint (possible osteo of sacrum), Skin/soft tissue - Sepsis Criteria Sepsis Criteria: Recorded Heart Rate greater than 90 bpm, WBC count greater than 12,000 or less than 4000, Metabolic: lactate > 2 mmol/L Current Medications - Current Medications Current Medications: Active Medications Ascorbic Acid (Ascorbic Acid 500 Mg Tablet) 500 mg PO DAILY [facility] Aspirin (Aspirin Ec 81 Mg Tablet) 81 mg PO DAILY [facility] Last Admin: 03/13/23 08:39 Dose: 81 mg Bisacodyl (Bisacodyl 10 Mg Supp) 10 mg [place] DAILY [facility] Last Admin: 03/13/23 08:42 Dose: 10 mg Carbidopa/Levodopa (Carbidopa/Levodopa Er 50 Mg/200 Mg Tablet) 1 tab PO 0900,1500 [facility] Last Admin: 03/13/23 14:32 Dose: 1 tab Enoxaparin Sodium (Enoxaparin 80 Mg/0.8 Ml Syringe) 70 mg SUBQ BID [facility] Last Admin: 03/13/23 21:27 Dose: 70 mg Sodium Chloride (Normal Saline 0.9%) 1,000 mls @ 83.33 mls/hr IV .Q12H1M [facility] Last Infusion: 03/13/23 19:25 Dose: 83.3 mls/hr Vancomycin HCl 1 gm/Vancomycin HCl 250 mg/ Sodium Chloride 250 mls @ 167 mls/hr IV Q24H [facility] Last Infusion: 03/13/23 19:25 Dose: Infused Levofloxacin (Levaquin 750 Mg/150 Ml) 750 mg in 150 mls @ 100 mls/hr IV Q24H [facility] Last Infusion: 03/13/23 13:55 Dose: Infused Lactobacillus Rhamnosus (Lactobacillus Rhamnosus Gg Capsule) 1 cap PO DAILY [facility] Last Admin: 03/13/23 08:39 Dose: 1 cap Metoprolol Tartrate (Metoprolol Tartrate 25 Mg Tablet) 25 mg PO BID [facility] Last Admin: 03/13/23 21:27 Dose: 25 mg Morphine Sulfate (Morphine Ir 15 Mg Tablet) 15 mg PO TID [facility] Last Admin: 03/13/23 21:27 Dose: 15 mg Multivitamins (Multivitamin Tablet) 1 tab PO DAILYWM [facility] Last Admin: 03/13/23 17:06 Dose: 1 tab Pantoprazole Sodium (Pantoprazole 40 Mg Tablet) 40 mg PO DAILY [facility] Last Admin: 03/13/23 08:39 Dose: 40 mg Sodium Chloride (Sodium Chloride Flush 0.9% 10 Ml Syringe) 10 ml IVP PRN PRN PRN Reason: NEEDED PER PROVIDER ORDERS Sodium Chloride (Sodium Chloride Flush 0.9% 10 Ml Syringe) 10 ml IVP 0100,0900,1700 [facility] Last Admin: 03/13/23 17:07 Dose: 10 ml Zinc Sulfate (Zinc Sulfate 220 Mg Capsule) 220 mg PO DAILY [facility] Carbidopa/Levodopa [Sinemet Cr 50-200 Tablet] 1 tab PO 0900,1500 08/05/12 Aspirin [Aspirin EC] 81 mg PO DAILY 03/22/16 Furosemide [Lasix] 40 mg PO DAILY 11/25/22 Morphine Ir [Ms Ir] 15 mg PO TID PRN 01/10/23 Bisacodyl Supp [Dulcolax Supp] 1 applic [place] PRN PRN 03/11/23 Morphine Sulfate [Ms Contin] 1 tab PO TID 03/11/23 Ondansetron HCl 1 tab PO PRN PRN 03/11/23 Pantoprazole [Protonix] 1 tab PO DAILY 03/11/23 Senna [Senokot] 2 tab PO PRN PRN 03/11/23 polyethylene glycoL 3350 [Miralax] 1 applic PO DAILY 03/11/23
[2023-03-13] MEDS ORDERED: polyethylene glycoL 3350 17 GM PACKET PO PRN (22:46)
[2023-03-14] MEDS: SODIUM CHLORIDE FLUSH 0.9% 10 ML SYRINGE IVP SCH ×3 (03:45→16:02)
[2023-03-14] MEDS: SODIUM CHLORIDE 0.9% 1,000 ML IV SCH ×2 (03:45→16:12)
[2023-03-14 05:43] LABS: BASOPHILS # (AUTO) 0.1 10^3/uL (0.0-0.1); BASOPHILS % (AUTO) 0.6 %; EOSINOPHILS # (AUTO) 0.3 10^3/uL (0.0-0.7); EOSINOPHILS % (AUTO) 2.5 %; HCT - HEMATOCRIT 30.2 % (37.0-47.0); HGB - HEMOGLOBIN 9.9 g/dL (12.0-16.0); LYMPHOCYTES # (AUTO) 1.7 10^3/uL (1.5-3.5); LYMPHOCYTES % (AUTO) 17.3 %; MEAN CORPUSCULAR HGB CONC 32.8 g/dL (32.0-36.0); MEAN CORPUSCULAR VOLUME 97.7 fL (81.0-99.0); MEAN PLATELET VOLUME 8.6 fL (7.9-10.8); MONOCYTES # (AUTO) 0.7 10^3/uL (0.0-1.0); MONOCYTES % (AUTO) 6.6 %; NEUTROPHILS # (AUTO) 6.9 10^3/uL (1.5-6.6); NEUTROPHILS % (AUTO) 69.5 %; PLT - PLATELET COUNT 282 10^3/uL (130-450); RED BLOOD COUNT 3.09 10^6/uL (4.20-5.40); RED CELL DISTRIBUTION WIDTH 12.4 % (12.0-15.0); WHITE BLOOD COUNT 9.9 x10^3/uL (4.8-10.8)
[2023-03-14 06:00] LABS: CALCIUM 7.6 mg/dL (8.5-10.3); CREATININE 0.4 mg/dL (0.6-1.3); POTASSIUM 3.5 mmol/L (3.5-4.5)
[2023-03-14] MEDS: MORPHINE IR 15 MG TABLET PO SCH ×3 (06:55→21:45)
[2023-03-14] MEDS: LACTOBACILLUS RHAMNOSUS GG CAPSULE PO SCH (08:31)
[2023-03-14] MEDS: MULTIVITAMIN TABLET PO SCH (08:31)
[2023-03-14] MEDS: ASCORBIC ACID 500 MG TABLET PO SCH (08:31)
[2023-03-14] MEDS: ASPIRIN EC 81 MG TABLET PO SCH (08:31)
[2023-03-14] MEDS: ZINC SULFATE 220 MG CAPSULE PO SCH (08:31)
[2023-03-14] MEDS: METOPROLOL TARTRATE 25 MG TABLET PO SCH ×2 (08:31→21:46)
[2023-03-14] MEDS: PANTOPRAZOLE 40 MG TABLET PO SCH (08:32)
[2023-03-14] MEDS: BISACODYL 10 MG SUPP PR SCH (08:32)
[2023-03-14] MEDS: ENOXAPARIN 80 MG/0.8 ML SYRINGE SUBQ SCH ×2 (08:33→21:44)
[2023-03-14] MEDS: DOCUSATE SODIUM 250 MG CAPSULE PO SCH (08:33)
[2023-03-14] MEDS: CARBIDOPA/LEVODOPA 25 MG/100 MG TABLET PO SCH ×2 (09:51→15:03)
[2023-03-14] MEDS: levoFLOXacin 750 MG/150 ML 750 MG/150 ML BAG IV SCH (11:19)
[2023-03-14] MEDS: VANCOMYCIN INJ 1 GM, VANCOMYCIN INJ 250 MG in SODIUM CHLORIDE 0.9% 250 ML IV SCH (18:19)
--- NOTE | 2023-03-14 21:12 | PROVIDER PROGRESS NOTE ---
Assessment/Plan - Problem List (1) Proteus infection Assessment/Plan: Assessment/Plan: Wound culture grew Proeus Mirabilis. Continue Levofloxacin (2) Sacral pressure ulcer Conclusion/Plan: Plan: Discussed goals of care today with Ms Bernal. She does not wish to pursue any type of surgical option at this time. Mepilex topical dressing changes daily Continue Levofloxacin and vancomycin MSIR for pain control MRI today Pressure injury stage: unstageable Qualified Code(s): L89.150 - Pressure ulcer of sacral region, unstageable (3) Pneumonia Conclusion/Plan: Continue Levafloxacin and vancomycin for empiric coverage. Qualifiers: Pneumonia type: due to unspecified organism Laterality: left Lung location: lower lobe of lung Qualified Code(s): J18.9 - Pneumonia, unspecified organism (4) DVT, bilateral lower limbs Conclusion/Plan: Continue enoxaparin Qualifiers: Affected thrombotic vein of extremity: femoral Chronicity: acute Qualified Code(s): I82.413 - Acute embolism and thrombosis of femoral vein, bilateral (5) HARPER (acute kidney injury) Conclusion/Plan: IMPROVED Avoid nephrotoxins Follow BMP daily (6) Urinary retention Conclusion/Plan: Resolved (7) Hydronephrosis Conclusion/Plan: As per CT imaging, the urinary bladder distention very likely caused backup pressure and hydronephrosis Plan: As above in #7 (8) Constipation Conclusion/Plan: Most likely related to chronic narcotic use. Continue Ducolax and polyethylene glycol for constipation. Qualifiers: Constipation type: unspecified constipation type Qualified Code(s): K59.00 - Constipation, unspecified (9) Esophageal thickening Conclusion/Plan: Pureed diet. (10) Parkinson disease Conclusion/Plan: Continue Sinemet (11) Sepsis Conclusion/Plan: RESOLVED - Current Meds Current Meds: Current Medications Generic Name Dose Route Start Last Admin Trade Name Freq PRN Reason Stop Dose Admin Ascorbic Acid 500 mg 03/14/23 09:00 03/14/23 08:31 Ascorbic Acid 500 Mg Tablet PO 500 mg DAILY EDAN Administration Aspirin 81 mg 03/12/23 09:00 03/14/23 08:31 Aspirin Ec 81 Mg Tablet PO 81 mg DAILY DEAN Administration Bisacodyl 10 mg 03/12/23 09:00 03/14/23 08:32 Bisacodyl 10 Mg Supp MI Not Given DAILY DEAN Carbidopa/Levodopa 2 tab 03/14/23 09:00 03/14/23 15:03 Carbidopa/Levodopa 25 Mg/100 Mg Tablet PO 2 tab 0900,1500 DEAN Administration Docusate Sodium 250 mg 03/14/23 09:00 03/14/23 08:33 Docusate Sodium 250 Mg Capsule PO Not Given DAILY DEAN Enoxaparin Sodium 70 mg 03/12/23 21:00 03/14/23 08:33 Enoxaparin 80 Mg/0.8 Ml Syringe SUBQ 70 mg BID DEAN Administration Sodium Chloride 1,000 mls @ 83.33 mls/hr 03/11/23 14:00 03/14/23 16:12 Normal Saline 0.9% IV 83.3 mls/hr .Q12H1M DEAN Administration Vancomycin HCl 1 gm/ 250 mls @ 167 mls/hr 03/12/23 18:00 03/14/23 19:49 Vancomycin HCl 250 mg/ Sodium IV Infused Chloride Q24H DEAN Infusion Levofloxacin 750 mg in 150 mls @ 100 mls/hr 03/13/23 11:00 03/14/23 12:49 Levaquin 750 Mg/150 Ml IV Infused Q24H DEAN Infusion Lactobacillus Rhamnosus 1 cap 03/13/23 09:00 03/14/23 08:31 Lactobacillus Rhamnosus Gg Capsule PO 1 cap DAILY DEAN Administration Metoprolol Tartrate 25 mg 03/11/23 21:00 03/14/23 08:31 Metoprolol Tartrate 25 Mg Tablet PO 25 mg BID DEAN Administration Morphine Sulfate 15 mg 03/11/23 15:00 03/14/23 14:15 Morphine Ir 15 Mg Tablet PO 15 mg TID DEAN Administration Multivitamins 1 tab 03/13/23 17:00 03/14/23 08:31 Multivitamin Tablet PO 1 tab DAILYWM DEAN Administration Pantoprazole Sodium 40 mg 03/12/23 09:00 03/14/23 08:32 Pantoprazole 40 Mg Tablet PO 40 mg DAILY DEAN Administration Sodium Chloride 10 ml 03/11/23 17:00 03/14/23 16:02 Sodium Chloride Flush 0.9% 10 Ml Syringe IVP Not Given 0100,0900,1700 DEAN Zinc Sulfate 220 mg 03/14/23 09:00 03/14/23 08:31 Zinc Sulfate 220 Mg Capsule PO 220 mg DAILY DEAN Administration - Lab Result Fish Bone Diagrams: 03/14/23 05:13 03/14/23 05:13 - Additional Planning My Orders: My Active Orders 03/13/23 22:46 polyethylene glycoL 3350 [Miralax] 17 gm PO DAILY PRN 03/14/23 09:00 Ascorbic Acid [Vitamin C] 500 mg PO DAILY Docusate Sodium 250Mg Capsule [Colace 250Mg Capsule] 250 mg PO DAILY Zinc Sulfate 220 mg PO DAILY Subjective - Subjective Patient Reports: Other (Alert. Denies shortness of breath and chest pain. Contines to complain of tenderness in area of sacral decubitus ulcer.) Objective Vital Signs: Vital Signs - 24 hr 03/14/23 03/14/23 03/14/23 00:20 04:00 08:31 Temperature 36.7 C 37.1 C Heart Rate [ 68 77 Brachial] Respiratory 16 20 Rate Blood Pressure 116/54 L Blood Pressure 120/58 L 135/64 H [Right Brachial artery] O2 Saturation 96 96 03/14/23 03/14/23 03/14/23 09:00 13:00 15:40 Temperature 36.9 C 36.6 C 36.6 C Heart Rate [ 68 72 79 Brachial] Respiratory 18 17 13 Rate Blood Pressure Blood Pressure 121/57 L 112/53 L 125/58 L [Right Brachial artery] O2 Saturation 94 97 96 Oxygen O2 Source [With Activity] Room air O2 Source [Without Activity] Room air O2 Source Room air I&O (Last 24 Hrs): Intake and Output Totals x24h 03/12/23 03/13/23 03/14/23 23:59 23:59 23:59 Intake Total 3888.654 3278.049 3104.167 Output Total 1150 1475 2050 Balance 2738.654 7390.383 2495.167 General: Alert, Oriented x3, No acute distress HEENT: Atraumatic, PERRLA, EOMI Neck: Supple, No JVD Lymphatic: no adenopathy Neuro: Alert, Non Focal Cardiovascular: Regular rate, Normal S1, Normal S2, No murmurs Respiratory: Chest non-tender, No respiratory distress, Other (No wheezing. No crackles) Abdomen: Normal bowel sounds, Soft, No tenderness Extremities: No clubbing, No cyanosis, Other (Positive lower extremity edema) Skin: No rashes - Results Results: Laboratory Results WBC 9.9 x10^3/uL (4.8-10.8) 03/14/23 05:13 RBC 3.09 10^6/uL (4.20-5.40) L 03/14/23 05:13 Hgb 9.9 g/dL (12.0-16.0) L 03/14/23 05:13 Hct 30.2 % (37.0-47.0) L 03/14/23 05:13 MCV 97.7 fL (81.0-99.0) 03/14/23 05:13 MCH 32.0 pg (27.0-31.0) H 03/14/23 05:13 MCHC 32.8 g/dL (32.0-36.0) 03/14/23 05:13 RDW 12.4 % (12.0-15.0) 03/14/23 05:13 Plt Count 282 10^3/uL (130-450) 03/14/23 05:13 MPV 8.6 fL (7.9-10.8) 03/14/23 05:13 Neut # (Auto) 6.9 10^3/uL (1.5-6.6) H 03/14/23 05:13 Lymph # (Auto) 1.7 10^3/uL (1.5-3.5) 03/14/23 05:13 [place] # (Auto) 0.7 10^3/uL (0.0-1.0) 03/14/23 05:13 Eos # (Auto) 0.3 10^3/uL (0.0-0.7) 03/14/23 05:13 Baso # (Auto) 0.1 10^3/uL (0.0-0.1) 03/14/23 05:13 Absolute Nucleated RBC 0.00 x10^3/uL 03/14/23 05:13 Nucleated RBC % 0.0 /100WBC 03/14/23 05:13 Manual Slide Review Indicated 03/11/23 08:08 Platelet Estimate INCREASED (>450,000) (NORMAL) 03/11/23 08:08 Platelet Morphology NORMAL APPEARANCE (NORMAL) 03/11/23 08:08 RBC Morph Micro Appear NORMAL APPEARANCE (NORMAL) 03/11/23 08:08 PT 13.5 secs (9.9-12.6) H 03/11/23 08:08 INR 1.2 (0.8-1.2) 03/11/23 08:08 Sodium 133 mmol/L (135-145) L 03/14/23 05:13 Potassium 3.5 mmol/L (3.5-4.5) 03/14/23 05:13 Chloride 101 mmol/L (101-111) 03/14/23 05:13 Carbon Dioxide 27 mmol/L (21-32) 03/14/23 05:13 Anion Gap 5.0 (6-13) L 03/14/23 05:13 BUN 11 mg/dL (6-20) 03/14/23 05:13 Creatinine 0.4 mg/dL (0.6-1.3) L 03/14/23 05:13 Estimated GFR (MDRD) 154 (>89) 03/14/23 05:13 Glucose 100 mg/dL (74-104) 03/14/23 05:13 Lactic Acid 2.1 mmol/L (0.5-2.2) 03/11/23 13:23 Calcium 7.6 mg/dL (8.5-10.3) L 03/14/23 05:13 Phosphorus 3.2 mg/dL (2.5-5.0) 03/12/23 05:10 Magnesium 2.1 mg/dL (1.7-2.3) 03/12/23 05:10 Total Bilirubin 0.5 mg/dL (0.2-1.0) 03/11/23 08:08 AST 18 IU/L (10-42) 03/11/23 08:08 ALT 3 IU/L (10-60) L 03/11/23 08:08 Alkaline Phosphatase 115 IU/L (42-121) 03/11/23 08:08 Total Protein 8.1 g/dL (6.4-8.9) 03/11/23 08:08 Albumin 3.4 g/dL (3.2-5.5) 03/11/23 08:08 Globulin 4.7 g/dL (2.1-4.2) H 03/11/23 08:08 Albumin/Globulin Ratio 0.7 (1.0-2.2) L 03/11/23 08:08 Vitamin B12 133 pg/mL (180-914) L 03/13/23 05:28 Urine Color BROWN 03/12/23 13:40 Urine Clarity CLOUDY (CLEAR) 03/12/23 13:40 Urine pH PH (5.0-7.5) 03/12/23 13:40 Ur Specific [place] (1.002-1.030) 03/12/23 13:40 Urine Protein mg/dL (NEGATIVE) 03/12/23 13:40 Urine Glucose (UA) NEGATIVE mg/dL (NEGATIVE) 03/12/23 13:40 Urine Ketones NEGATIVE mg/dL (NEGATIVE) 03/12/23 13:40 Urine Occult Blood LARGE (NEGATIVE) H 03/12/23 13:40 Urine Nitrite NEGATIVE (NEGATIVE) 03/12/23 13:40 Urine Bilirubin NEGATIVE (NEGATIVE) 03/12/23 13:40 Urine Urobilinogen E.U./dL (NORMAL) 03/12/23 13:40 Ur Leukocyte Esterase (NEGATIVE) 03/12/23 13:40 Urine RBC TNTC /HPF (0-5) H 03/12/23 13:40 Urine WBC 11-25 /HPF (0-5) H 03/12/23 13:40 Ur Squamous Epith Cells FEW Squamous (<= Few) 03/12/23 13:40 Urine Bacteria Few /HPF (None Seen) 03/12/23 13:40 Ur Microscopic Review INDICATED 03/11/23 12:20 Urine Culture Comments INDICATED 03/12/23 13:40 Last Dose Date Not Reportable 03/13/23 17:08 Last Dose Time Not Reportable 03/13/23 17:08 Vancomycin Peak 21.4 ug/mL (20.0-40.0) 03/12/23 20:56 Vancomycin Trough 8.1 ug/mL 03/13/23 17:08 - Procedures Procedures: Procedures RELEASE JEJUNUM, OPEN APPROACH (01/10/23) Sepsis Event Note (H) - Evaluation Current Stage of Sepsis: Sepsis Possible source of Sepsis: positive: Pulmonary, Bone/Joint (possible osteo of sacrum), Skin/soft tissue - Sepsis Criteria Sepsis Criteria: Recorded Heart Rate greater than 90 bpm, WBC count greater than 12,000 or less than 4000, Metabolic: lactate > 2 mmol/L Current Medications - Current Medications Current Medications: Active Medications Ascorbic Acid (Ascorbic Acid 500 Mg Tablet) 500 mg PO DAILY [facility] Last Admin: 03/14/23 08:31 Dose: 500 mg Aspirin (Aspirin Ec 81 Mg Tablet) 81 mg PO DAILY [facility] Last Admin: 03/14/23 08:31 Dose: 81 mg Bisacodyl (Bisacodyl 10 Mg Supp) 10 mg MI DAILY [facility] Last Admin: 03/14/23 08:32 Dose: Not Given Carbidopa/Levodopa (Carbidopa/Levodopa 25 Mg/100 Mg Tablet) 2 tab PO 0900,1500 [facility] Last Admin: 03/14/23 15:03 Dose: 2 tab Docusate Sodium (Docusate Sodium 250 Mg Capsule) 250 mg PO DAILY [facility] Last Admin: 03/14/23 08:33 Dose: Not Given Enoxaparin Sodium (Enoxaparin 80 Mg/0.8 Ml Syringe) 70 mg SUBQ BID [facility] Last Admin: 03/14/23 08:33 Dose: 70 mg Sodium Chloride (Normal Saline 0.9%) 1,000 mls @ 83.33 mls/hr IV .Q12H1M [facility] Last Admin: 03/14/23 16:12 Dose: 83.3 mls/hr Vancomycin HCl 1 gm/Vancomycin HCl 250 mg/ Sodium Chloride 250 mls @ 167 mls/hr IV Q24H [facility] Last Infusion: 03/14/23 19:49 Dose: Infused Levofloxacin (Levaquin 750 Mg/150 Ml) 750 mg in 150 mls @ 100 mls/hr IV Q24H [facility] Last Infusion: 03/14/23 12:49 Dose: Infused Lactobacillus Rhamnosus (Lactobacillus Rhamnosus Gg Capsule) 1 cap PO DAILY [facility] Last Admin: 03/14/23 08:31 Dose: 1 cap Metoprolol Tartrate (Metoprolol Tartrate 25 Mg Tablet) 25 mg PO BID [facility] Last Admin: 03/14/23 08:31 Dose: 25 mg Morphine Sulfate (Morphine Ir 15 Mg Tablet) 15 mg PO TID [facility] Last Admin: 03/14/23 14:15 Dose: 15 mg Multivitamins (Multivitamin Tablet) 1 tab PO DAILYWM [facility] Last Admin: 03/14/23 08:31 Dose: 1 tab Pantoprazole Sodium (Pantoprazole 40 Mg Tablet) 40 mg PO DAILY [facility] Last Admin: 03/14/23 08:32 Dose: 40 mg Polyethylene Glycol (Polyethylene Glycol 3350 17 Gm Packet) 17 gm PO DAILY PRN PRN Reason: Bowel Protocol Sodium Chloride (Sodium Chloride Flush 0.9% 10 Ml Syringe) 10 ml IVP PRN PRN PRN Reason: NEEDED PER PROVIDER ORDERS Sodium Chloride (Sodium Chloride Flush 0.9% 10 Ml Syringe) 10 ml IVP 0100, 0900,1700 [facility] Last Admin: 03/14/23 16:02 Dose: Not Given Zinc Sulfate (Zinc Sulfate 220 Mg Capsule) 220 mg PO DAILY [facility] Last Admin: 03/14/23 08:31 Dose: 220 mg Carbidopa/Levodopa [Sinemet Cr 50-200 Tablet] 1 tab PO 0900,1500 08/05/12 Aspirin [Aspirin EC] 81 mg PO DAILY 03/22/16 Furosemide [Lasix] 40 mg PO DAILY 11/25/22 Morphine Ir [Ms Ir] 15 mg PO TID PRN 01/10/23 Bisacodyl Supp [Dulcolax Supp] 1 applic MI PRN PRN 03/11/23 Morphine Sulfate [Ms Contin] 1 tab PO TID 03/11/23 Ondansetron HCl 1 tab PO PRN PRN 03/11/23 Pantoprazole [Protonix] 1 tab PO DAILY 03/11/23 Senna [Senokot] 2 tab PO PRN PRN 03/11/23 polyethylene glycoL 3350 [Miralax] 1 applic PO DAILY 03/11/23
[2023-03-15] MEDS: SODIUM CHLORIDE FLUSH 0.9% 10 ML SYRINGE IVP SCH ×3 (03:57→15:41)
[2023-03-15 05:42] LABS: BASOPHILS # (AUTO) 0.1 10^3/uL (0.0-0.1); BASOPHILS % (AUTO) 0.8 %; EOSINOPHILS # (AUTO) 0.3 10^3/uL (0.0-0.7); EOSINOPHILS % (AUTO) 2.7 %; HCT - HEMATOCRIT 30.3 % (37.0-47.0); HGB - HEMOGLOBIN 9.9 g/dL (12.0-16.0); LYMPHOCYTES % (AUTO) 19.7 %; MEAN CORPUSCULAR HGB CONC 32.7 g/dL (32.0-36.0); MEAN CORPUSCULAR VOLUME 98.1 fL (81.0-99.0); MEAN PLATELET VOLUME 8.5 fL (7.9-10.8); MONOCYTES # (AUTO) 0.8 10^3/uL (0.0-1.0); MONOCYTES % (AUTO) 7.9 %; NEUTROPHILS # (AUTO) 6.5 10^3/uL (1.5-6.6); PLT - PLATELET COUNT 292 10^3/uL (130-450); RED BLOOD COUNT 3.09 10^6/uL (4.20-5.40); RED CELL DISTRIBUTION WIDTH 12.4 % (12.0-15.0); WHITE BLOOD COUNT 10.2 x10^3/uL (4.8-10.8)
[2023-03-15 05:56] LABS: CALCIUM 7.6 mg/dL (8.5-10.3); CREATININE 0.4 mg/dL (0.6-1.3); POTASSIUM 3.6 mmol/L (3.5-4.5)
[2023-03-15] MEDS: MORPHINE IR 15 MG TABLET PO SCH ×3 (06:07→21:26)
[2023-03-15] MEDS: SODIUM CHLORIDE 0.9% 1,000 ML IV SCH ×2 (06:07→18:11)
[2023-03-15] MEDS: ZINC SULFATE 220 MG CAPSULE PO SCH (09:37)
[2023-03-15] MEDS: PANTOPRAZOLE 40 MG TABLET PO SCH (09:37)
[2023-03-15] MEDS: MULTIVITAMIN TABLET PO SCH (09:37)
[2023-03-15] MEDS: ASCORBIC ACID 500 MG TABLET PO SCH (09:37)
[2023-03-15] MEDS: ASPIRIN EC 81 MG TABLET PO SCH (09:37)
[2023-03-15] MEDS: LACTOBACILLUS RHAMNOSUS GG CAPSULE PO SCH (09:38)
[2023-03-15] MEDS: CARBIDOPA/LEVODOPA 25 MG/100 MG TABLET PO SCH ×2 (09:40→15:53)
[2023-03-15] MEDS: ENOXAPARIN 80 MG/0.8 ML SYRINGE SUBQ SCH ×2 (09:42→21:18)
[2023-03-15] MEDS: METOPROLOL TARTRATE 25 MG TABLET PO SCH ×2 (09:42→21:18)
[2023-03-15] MEDS: DOCUSATE SODIUM 250 MG CAPSULE PO SCH (11:48)
[2023-03-15] MEDS: levoFLOXacin 750 MG/150 ML 750 MG/150 ML BAG IV SCH (11:48)
[2023-03-15] MEDS: BISACODYL 10 MG SUPP PR SCH (11:49)
[2023-03-15] MEDS: VANCOMYCIN INJ 1 GM, VANCOMYCIN INJ 250 MG in SODIUM CHLORIDE 0.9% 250 ML IV SCH (18:07)
--- NOTE | 2023-03-15 20:25 | PROVIDER PROGRESS NOTE ---
Assessment/Plan - Problem List (1) Proteus infection Assessment/Plan: Assessment/Plan: Wound culture grew Proeus Mirabilis. Continue Levofloxacin (2) Sacral pressure ulcer Conclusion/Plan: Plan: Discussed goals of care today with Ms Bernal. She does not wish to pursue any type of surgical option at this time. She wants to be conservative in her care and POLST has been signed comfort focused treatment. Mepilex topical dressing changes daily Continue Levofloxacin and vancomycin MSIR for pain control MRI today Pressure injury stage: unstageable Qualified Code(s): L89.150 - Pressure ulcer of sacral region, unstageable (3) Pneumonia Conclusion/Plan: Continue Levafloxacin and vancomycin for empiric coverage. Qualifiers: Pneumonia type: due to unspecified organism Laterality: left Lung location: lower lobe of lung Qualified Code(s): J18.9 - Pneumonia, unspecified organism (4) DVT, bilateral lower limbs Conclusion/Plan: Continue enoxaparin - Current Meds Current Meds: Current Medications Generic Name Dose Route Start Last Admin Trade Name Freq PRN Reason Stop Dose Admin Ascorbic Acid 500 mg 03/14/23 09:00 03/15/23 09:37 Ascorbic Acid 500 Mg Tablet PO 500 mg DAILY DEAN Administration Aspirin 81 mg 03/12/23 09:00 03/15/23 09:37 Aspirin Ec 81 Mg Tablet PO 81 mg DAILY DEAN Administration Bisacodyl 10 mg 03/12/23 09:00 03/15/23 11:49 Bisacodyl 10 Mg Supp ID Not Given DAILY DEAN Carbidopa/Levodopa 2 tab 03/14/23 09:00 03/15/23 15:53 Carbidopa/Levodopa 25 Mg/100 Mg Tablet PO 2 tab 0900,1500 DEAN Administration Docusate Sodium 250 mg 03/14/23 09:00 03/15/23 11:48 Docusate Sodium 250 Mg Capsule PO Not Given DAILY DEAN Enoxaparin Sodium 70 mg 03/12/23 21:00 03/15/23 09:42 Enoxaparin 80 Mg/0.8 Ml Syringe SUBQ 70 mg BID DEAN Administration Sodium Chloride 1,000 mls @ 83.33 mls/hr 03/11/23 14:00 03/15/23 18:11 Normal Saline 0.9% IV 83.3 mls/hr .Q12H1M DEAN Administration Vancomycin HCl 1 gm/ 250 mls @ 167 mls/hr 03/12/23 18:00 03/15/23 18:07 Vancomycin HCl 250 mg/ Sodium IV 167 mls/hr Chloride Q24H DEAN Administration Levofloxacin 750 mg in 150 mls @ 100 mls/hr 03/13/23 11:00 03/15/23 13:18 Levaquin 750 Mg/150 Ml IV Infused Q24H DEAN Infusion Lactobacillus Rhamnosus 1 cap 03/13/23 09:00 03/15/23 09:38 Lactobacillus Rhamnosus Gg Capsule PO 1 cap DAILY DEAN Administration Metoprolol Tartrate 25 mg 03/11/23 21:00 03/15/23 09:42 Metoprolol Tartrate 25 Mg Tablet PO 25 mg BID DEAN Administration Morphine Sulfate 15 mg 03/11/23 15:00 03/15/23 15:53 Morphine Ir 15 Mg Tablet PO 15 mg TID DEAN Administration Multivitamins 1 tab 03/13/23 17:00 03/15/23 09:37 Multivitamin Tablet PO 1 tab DAILYWM DEAN Administration Pantoprazole Sodium 40 mg 03/12/23 09:00 03/15/23 09:37 Pantoprazole 40 Mg Tablet PO 40 mg DAILY DEAN Administration Sodium Chloride 10 ml 03/11/23 17:00 03/15/23 15:41 Sodium Chloride Flush 0.9% 10 Ml Syringe IVP Not Given 0100,0900,1700 [facility] Zinc Sulfate 220 mg 03/14/23 09:00 03/15/23 09:37 Zinc Sulfate 220 Mg Capsule PO 220 mg DAILY DEAN Administration - Lab Result Fish Bone Diagrams: 03/15/23 05:28 03/15/23 05:28 Subjective - Subjective Patient Reports: Other (Alert. Following commands. No complaints at this time.) Objective Vital Signs: Vital Signs - 24 hr 03/14/23 03/14/23 03/14/23 21:27 21:46 23:04 Temperature 36.7 C 36.8 C Heart Rate [ 80 74 Brachial] Respiratory 20 14 Rate Blood Pressure 121/62 Blood Pressure 121/62 126/64 [Right Brachial artery] O2 Saturation 97 98 03/15/23 03/15/23 03/15/23 05:00 08:45 09:42 Temperature 36.7 C 36.7 C Heart Rate [ 74 81 Brachial] Respiratory 17 16 Rate Blood Pressure 132/69 H Blood Pressure 134/66 H 132/69 H [Right Brachial artery] O2 Saturation 97 98 03/15/23 03/15/23 03/15/23 13:00 15:51 19:50 Temperature 37.1 C 36.7 C 36.8 C Heart Rate [ 70 79 80 Brachial] Respiratory 17 16 16 Rate Blood Pressure Blood Pressure 119/57 L 124/57 L 126/65 [Right Brachial artery] O2 Saturation 97 97 98 Oxygen O2 Source [With Activity] Room air O2 Source [Without Activity] Room air O2 Source Room air I&O (Last 24 Hrs): Intake and Output Totals x24h 03/13/23 03/14/23 03/15/23 23:59 23:59 23:59 Intake Total 3278.049 3254.167 2940 Output Total 1475 2925 3975 Balance 1803.049 329.167 -1035 General: Alert, Oriented x3, Cooperative, No acute distress HEENT: Atraumatic, PERRLA, EOMI Neck: Supple Lymphatic: no adenopathy Neuro: Alert Cardiovascular: Regular rate, Normal S1, Normal S2, No murmurs Respiratory: Chest non-tender, No respiratory distress Abdomen: Normal bowel sounds, Soft, No tenderness Extremities: No clubbing, No cyanosis Skin: No rashes - Results Results: Laboratory Results WBC 10.2 x10^3/uL (4.8-10.8) 03/15/23 05:28 RBC 3.09 10^6/uL (4.20-5.40) L 03/15/23 05:28 Hgb 9.9 g/dL (12.0-16.0) L 03/15/23 05:28 Hct 30.3 % (37.0-47.0) L 03/15/23 05:28 MCV 98.1 fL (81.0-99.0) 03/15/23 05:28 MCH 32.0 pg (27.0-31.0) H 03/15/23 05:28 MCHC 32.7 g/dL (32.0-36.0) 03/15/23 05:28 RDW 12.4 % (12.0-15.0) 03/15/23 05:28 Plt Count 292 10^3/uL (130-450) 03/15/23 05:28 MPV 8.5 fL (7.9-10.8) 03/15/23 05:28 Neut # (Auto) 6.5 10^3/uL (1.5-6.6) 03/15/23 05:28 Lymph # (Auto) 2.0 10^3/uL (1.5-3.5) 03/15/23 05:28 [place] # (Auto) 0.8 10^3/uL (0.0-1.0) 03/15/23 05:28 Eos # (Auto) 0.3 10^3/uL (0.0-0.7) 03/15/23 05:28 Baso # (Auto) 0.1 10^3/uL (0.0-0.1) 03/15/23 05:28 Absolute Nucleated RBC 0.00 x10^3/uL 03/15/23 05:28 Nucleated RBC % 0.0 /100WBC 03/15/23 05:28 Manual Slide Review Indicated 03/11/23 08:08 Platelet Estimate INCREASED (>450,000) (NORMAL) 03/11/23 08:08 Platelet Morphology NORMAL APPEARANCE (NORMAL) 03/11/23 08:08 RBC Morph Micro Appear NORMAL APPEARANCE (NORMAL) 03/11/23 08:08 PT 13.5 secs (9.9-12.6) H 03/11/23 08:08 INR 1.2 (0.8-1.2) 03/11/23 08:08 Sodium 135 mmol/L (135-145) 03/15/23 05:28 Potassium 3.6 mmol/L (3.5-4.5) 03/15/23 05:28 Chloride 104 mmol/L (101-111) 03/15/23 05:28 Carbon Dioxide 28 mmol/L (21-32) 03/15/23 05:28 Anion Gap 3.0 (6-13) L 03/15/23 05:28 BUN 14 mg/dL (6-20) 03/15/23 05:28 Creatinine 0.4 mg/dL (0.6-1.3) L 03/15/23 05:28 Estimated GFR (MDRD) 154 (>89) 03/15/23 05:28 Glucose 108 mg/dL (74-104) H 03/15/23 05:28 Lactic Acid 2.1 mmol/L (0.5-2.2) 03/11/23 13:23 Calcium 7.6 mg/dL (8.5-10.3) L 03/15/23 05:28 Phosphorus 3.2 mg/dL (2.5-5.0) 03/12/23 05:10 Magnesium 2.1 mg/dL (1.7-2.3) 03/12/23 05:10 Total Bilirubin 0.5 mg/dL (0.2-1.0) 03/11/23 08:08 AST 18 IU/L (10-42) 03/11/23 08:08 ALT 3 IU/L (10-60) L 03/11/23 08:08 Alkaline Phosphatase 115 IU/L (42-121) 03/11/23 08:08 Total Protein 8.1 g/dL (6.4-8.9) 03/11/23 08:08 Albumin 3.4 g/dL (3.2-5.5) 03/11/23 08:08 Globulin 4.7 g/dL (2.1-4.2) H 03/11/23 08:08 Albumin/Globulin Ratio 0.7 (1.0-2.2) L 03/11/23 08:08 Vitamin B12 133 pg/mL (180-914) L 03/13/23 05:28 Urine Color BROWN 03/12/23 13:40 Urine Clarity CLOUDY (CLEAR) 03/12/23 13:40 Urine pH PH (5.0-7.5) 03/12/23 13:40 Ur Specific [place] (1.002-1.030) 03/12/23 13:40 Urine Protein mg/dL (NEGATIVE) 03/12/23 13:40 Urine Glucose (UA) NEGATIVE mg/dL (NEGATIVE) 03/12/23 13:40 Urine Ketones NEGATIVE mg/dL (NEGATIVE) 03/12/23 13:40 Urine Occult Blood LARGE (NEGATIVE) H 03/12/23 13:40 Urine Nitrite NEGATIVE (NEGATIVE) 03/12/23 13:40 Urine Bilirubin NEGATIVE (NEGATIVE) 03/12/23 13:40 Urine Urobilinogen E.U./dL (NORMAL) 03/12/23 13:40 Ur Leukocyte Esterase (NEGATIVE) 03/12/23 13:40 Urine RBC TNTC /HPF (0-5) H 03/12/23 13:40 Urine WBC 11-25 /HPF (0-5) H 03/12/23 13:40 Ur Squamous Epith Cells FEW Squamous (<= Few) 03/12/23 13:40 Urine Bacteria Few /HPF (None Seen) 03/12/23 13:40 Ur Microscopic Review INDICATED 03/11/23 12:20 Urine Culture Comments INDICATED 03/12/23 13:40 Last Dose Date Not Reportable 03/13/23 17:08 Last Dose Time Not Reportable 03/13/23 17:08 Vancomycin Peak 21.4 ug/mL (20.0-40.0) 03/12/23 20:56 Vancomycin Trough 8.1 ug/mL 03/13/23 17:08 - Procedures Procedures: Procedures RELEASE JEJUNUM, OPEN APPROACH (01/10/23) Sepsis Event Note (H) - Evaluation Current Stage of Sepsis: Sepsis Possible source of Sepsis: positive: Pulmonary, Bone/Joint (possible osteo of sacrum), Skin/soft tissue - Sepsis Criteria Sepsis Criteria: Recorded Heart Rate greater than 90 bpm, WBC count greater than 12,000 or less than 4000, Metabolic: lactate > 2 mmol/L Current Medications - Current Medications Current Medications: Active Medications Ascorbic Acid (Ascorbic Acid 500 Mg Tablet) 500 mg PO DAILY [facility] Last Admin: 03/15/23 09:37 Dose: 500 mg Aspirin (Aspirin Ec 81 Mg Tablet) 81 mg PO DAILY [facility] Last Admin: 03/15/23 09:37 Dose: 81 mg Bisacodyl (Bisacodyl 10 Mg Supp) 10 mg ID DAILY [facility] Last Admin: 03/15/23 11:49 Dose: Not Given Carbidopa/Levodopa (Carbidopa/Levodopa 25 Mg/100 Mg Tablet) 2 tab PO 0900,1500 [facility] Last Admin: 03/15/23 15:53 Dose: 2 tab Docusate Sodium (Docusate Sodium 250 Mg Capsule) 250 mg PO DAILY [facility] Last Admin: 03/15/23 11:48 Dose: Not Given Enoxaparin Sodium (Enoxaparin 80 Mg/0.8 Ml Syringe) 70 mg SUBQ BID [facility] Last Admin: 03/15/23 09:42 Dose: 70 mg Sodium Chloride (Normal Saline 0.9%) 1,000 mls @ 83.33 mls/hr IV .Q12H1M [facility] Last Admin: 03/15/23 18:11 Dose: 83.3 mls/hr Vancomycin HCl 1 gm/Vancomycin HCl 250 mg/ Sodium Chloride 250 mls @ 167 mls/hr IV Q24H [facility] Last Infusion: 03/15/23 19:37 Dose: Infused Levofloxacin (Levaquin 750 Mg/150 Ml) 750 mg in 150 mls @ 100 mls/hr IV Q24H [facility] Last Infusion: 03/15/23 13:18 Dose: Infused Lactobacillus Rhamnosus (Lactobacillus Rhamnosus Gg Capsule) 1 cap PO DAILY [facility] Last Admin: 03/15/23 09:38 Dose: 1 cap Metoprolol Tartrate (Metoprolol Tartrate 25 Mg Tablet) 25 mg PO BID [facility] Last Admin: 03/15/23 09:42 Dose: 25 mg Morphine Sulfate (Morphine Ir 15 Mg Tablet) 15 mg PO TID [facility] Last Admin: 03/15/23 15:53 Dose: 15 mg Multivitamins (Multivitamin Tablet) 1 tab PO DAILYWM [facility] Last Admin: 03/15/23 09:37 Dose: 1 tab Pantoprazole Sodium (Pantoprazole 40 Mg Tablet) 40 mg PO DAILY [facility] Last Admin: 03/15/23 09:37 Dose: 40 mg Polyethylene Glycol (Polyethylene Glycol 3350 17 Gm Packet) 17 gm PO DAILY PRN PRN Reason: Bowel Protocol Sodium Chloride (Sodium Chloride Flush 0.9% 10 Ml Syringe) 10 ml IVP PRN PRN PRN Reason: NEEDED PER PROVIDER ORDERS Sodium Chloride (Sodium Chloride Flush 0.9% 10 Ml Syringe) 10 ml IVP 0100,0900,1700 [facility] Last Admin: 03/15/23 15:41 Dose: Not Given Zinc Sulfate (Zinc Sulfate 220 Mg Capsule) 220 mg PO DAILY [facility] Last Admin: 03/15/23 09:37 Dose: 220 mg Carbidopa/Levodopa [Sinemet Cr 50-200 Tablet] 1 tab PO 0900,1500 08/05/12 Aspirin [Aspirin EC] 81 mg PO DAILY 03/22/16 Furosemide [Lasix] 40 mg PO DAILY 11/25/22 Morphine Ir [Ms Ir] 15 mg PO TID PRN 01/10/23 Bisacodyl Supp [Dulcolax Supp] 1 applic ID PRN PRN 03/11/23 Morphine Sulfate [Ms Contin] 1 tab PO TID 03/11/23 Ondansetron HCl 1 tab PO PRN PRN 03/11/23 Pantoprazole [Protonix] 1 tab PO DAILY 03/11/23 Senna [Senokot] 2 tab PO PRN PRN 03/11/23 polyethylene glycoL 3350 [Miralax] 1 applic PO DAILY 03/11/23
[2023-03-16] MEDS: SODIUM CHLORIDE FLUSH 0.9% 10 ML SYRINGE IVP SCH ×2 (02:30→08:38)
[2023-03-16] MEDS: MORPHINE IR 15 MG TABLET PO SCH ×2 (05:42→14:03)
[2023-03-16] MEDS: SODIUM CHLORIDE 0.9% 1,000 ML IV SCH (05:47)
[2023-03-16] MEDS: ENOXAPARIN 80 MG/0.8 ML SYRINGE SUBQ SCH (08:36)
[2023-03-16] MEDS: BISACODYL 10 MG SUPP PR SCH (08:37)
[2023-03-16] MEDS: DOCUSATE SODIUM 250 MG CAPSULE PO SCH (08:37)
[2023-03-16] MEDS: METOPROLOL TARTRATE 25 MG TABLET PO SCH (08:37)
[2023-03-16] MEDS: ASCORBIC ACID 500 MG TABLET PO SCH (08:37)
[2023-03-16] MEDS: MULTIVITAMIN TABLET PO SCH (08:37)
[2023-03-16] MEDS: ASPIRIN EC 81 MG TABLET PO SCH (08:37)
[2023-03-16] MEDS: PANTOPRAZOLE 40 MG TABLET PO SCH (08:38)
[2023-03-16] MEDS: LACTOBACILLUS RHAMNOSUS GG CAPSULE PO SCH (08:38)
[2023-03-16] MEDS: CARBIDOPA/LEVODOPA 25 MG/100 MG TABLET PO SCH (08:38)
[2023-03-16] MEDS: ZINC SULFATE 220 MG CAPSULE PO SCH (08:38)
[2023-03-16] MEDS ORDERED: CYANOCOBALAMIN 500 MCG TABLET PO SCH (10:00)
--- NOTE | 2023-03-16 10:52 | Discharge Plan ---
"Discharge Plan for SNF / [facility] - Discharge Plan And Transition Orders Problem Reviewed?: Yes Disposition: 03 SNF DC/Xfer Condition: Stable Allergies and Adverse Reactions: Allergies Allergy/AdvReac Type Severity Reaction Status Date / Time doxycycline AdvReac Emesis Verified 01/10/23 10:26 Health Concerns: Zamzam Bernal is an 82-year-old woman with past medical history significant for Parkinson's disease and a history of longstanding chronic narcotic use leading to chronic constipation. Patient presented to the emergency room on March 11, 2023 with complaints of abdominal pain secondary to constipation. Patient has a sacral decubitus ulcer and workup in the emergency room revealed she had sepsis. She was treated with broad-spectrum antibiotic coverage. Patient was found to have multiple medical problems to include pneumonia and was treated with IV ceftriaxone and azithromycin and then transition to Zosyn and vancomycin. Zosyn and vancomycin was initiated for osteomyelitis of the sacrum. Patient grew Proteus mirabilis and enteric coccus faecalis from her sacral decubitus ulcer. Patient was also found to have bilateral deep deep venous thrombosis and treatment was initiated with anticoagulation. CT scan of the abdomen also revealed hydronephrosis that most likely was secondary to backup pressure from urinary bladder distention. Patient had urinary retention. Patient was treated throughout her hospitalization with Zosyn and vancomycin for possible osteomyelitis of her sacrum. General surgery was consulted for possible debridement of her sacral decubitus ulcer and was recommended that treatment could be initiated with debridement and placement of a wound VAC. Patient may also require surgical debridement. Options for aggressive treatment were discussed with Zamzam. Zamzam is capable of making her own decisions and she did not wish to pursue aggressive treatment and wanted to have conservative care. Wound culture from the sacral decubitus ulcer has grown out Proteus mirabilis and antibiotics were changed to levofloxacin after it was known that her decision would be for conservative care. Antibiotics were stopped upon discharge. Patient has completed a POLST and is DO NOT RESUSCITATE. She only wishes to have comfort focused treatments if her condition worsens.Zamzam Bernal is an 82-year-old woman with past medical history significant for Parkinson's disease and a history of longstanding chronic narcotic use leading to chronic constipation. Patient presented to the emergency room on March 11, 2023 with complaints of abdominal pain secondary to constipation. Patient has a sacral decubitus ulcer and workup in the emergency room revealed she had sepsis. She was treated with broad-spectrum antibiotic coverage. Patient was found to have multiple medical problems to include pneumonia and was treated with IV ceftriaxone and azithromycin and then transition to Zosyn and vancomycin. Zosyn and vancomycin was initiated for osteomyelitis of the sacrum. Patient was also found to have bilateral deep deep venous thrombosis and treatment was initiated with anticoagulation. CT scan of the abdomen also revealed hydronephrosis that most likely was secondary to backup pressure from urinary bladder distention. Patient had urinary retention. Patient was treated throughout her hospitalization with Zosyn and vancomycin for possible osteomyelitis of her sacrum. General surgery was consulted for possible debridement of her sacral decubitus ulcer and was recommended that treatment could be initiated with debridement and placement of a wound VAC. Patient may also require surgical debridement. Options for aggressive treatment were discussed with Zamzam. Zamzam is capable of making her own decisions and she did not wish to pursue aggressive treatment and wanted to have conservative care. Wound culture from the sacral decubitus ulcer has grown out Proteus mirabilis and antibiotics were changed to levofloxacin after it was known that her decision would be for conservative care. Antibiotics were stopped upon discharge. Her pain from her decubitus ulcer has been well tolerated with MSIR 15 mg three times a day. Zamzam is bed bound. She refuses to lay on her side and continues to be bedbound in the supine position per her choice. Patient has completed a POLST and is DO NOT RESUSCITATE. She only wishes to have comfort focused treatments if her condition worsens. Plan of Treatment: Zamzam wishes to continue with her present treatments but does not want aggressive treatment for her decubitus ulcer. If her condition were to worsen she would want to focus on comfort measures. Care Goals: Goals of care is turned maintain her level of function at this time and if her condition were to worsen to focus on comfort measures per her POLST. Assessment: 1) Proteus infection Assessment/Plan: Patient has completed a course of antibiotics. (2) Sacral pressure ulcer Conclusion/Plan: Patient has decided on conservative measures for her sacral decubitus ulcer. Pressure injury stage: unstageable Qualified Code(s): L89.150 - Pressure ulcer of sacral region, unstageable (3) Pneumonia Conclusion/Plan: Resolved. Pneumonia type: due to unspecified organism Laterality: left Lung location: lower lobe of lung Qualified Code(s): J18.9 - Pneumonia, unspecified organism (4) DVT, bilateral lower limbs Conclusion/Plan: Apixaban initiated 2.5 mg twice daily Qualifiers: Affected thrombotic vein of extremity: femoral Chronicity: acute Qualified Code(s): I82.413 - Acute embolism and thrombosis of femoral vein, bilateral (5) HARPER (acute kidney injury) Conclusion/Plan: Resolved. (6) Urinary retention Conclusion/Plan: Resolved. (7) Hydronephrosis Conclusion/Plan: Presumed resolved. (8) Constipation Conclusion/Plan: Constipation most likely secondary to narcotic use. Recommend continuing stool softeners and monitoring in the outpatient setting. Qualifiers: Constipation type: unspecified constipation type Qualified Code(s): K59.00 - Constipation, unspecified (9) Esophageal thickening Conclusion/Plan: Etiology unclear. No recommendations for further workup at this time given patient's wishes for conservative treatment (10) Parkinson disease Conclusion/Plan: Continue Sinemet (11) Sepsis Conclusion/Plan: RESOLVED - SNF / SENIOR CARE Transition Orders Admit to (Facility): [facility] Discharge Diagnosis: 1. Proteus mirabilis and Enterococcus faecalis infection 2. Sacral decubitus ulcer 3. Pneumonia 4. Deep venous thrombosis 5. Acute kidney injury 6. Urinary retention 7. Hydronephrosis 8. Constipation 9. Esophageal thickening 10. Parkinson's disease 11. Sepsis Medicare Certification Statement: Notify PCP of admission and forward orders to primary provider for signature. Weight on admission and: Weekly, Monthly Other Notification Orders: Call PCP immediately if patient develops dyspnea, chest pain/tightness or edema. House Bowel Program: Yes Additional Bowel Program Orders: If no BM after 2 days, nurse may give M.O.M. 30ml PO PRN and/or ducolax Supp 1 VT and/or DRU 250mg P.O., and/or senna 1-2 tabs PO. On day 3 nurse may give repeat above order until residents constipation is resolved. Annual Influenza Vaccine (between Nov 10 and June 09): Yes Two-step PPD per [facility] [phone] or approved exception documents: Yes Medication Orders: PLEASE REFER TO THE DISCHARGE MEDICATION LIST. Insulin Orders?: No - Diet Type: Dysphage Texture: Puree Liquids: Thin May have monthly special meal: Yes - Therapies | Activity Rehabilitation Potential: Maintain present ADL Functional Activity: No Restrictions Weight Bearing: Other (Bed bound) Assistance Devices: Wheelchair Follow Up: Edgard Lira"
[2023-03-16] MEDS: levoFLOXacin 750 MG/150 ML 750 MG/150 ML BAG IV SCH (11:09)
[2023-03-16 11:43] VITALS: BP 128/60; O2SAT 96
[2023-03-16] MEDS ORDERED: APIXABAN 2.5 MG TABLET PO SCH (21:00)
--- NOTE | 2023-03-22 09:19 | DISCHARGE SUMMARY ---
Discharge Summary Admit Date: 03/11/23 Discharge Date: 03/16/23 Discharging Provider: Jaxson Lai Primary Care Provider: Edgard Lira Code Status: Do Not Attempt Resuscitation Condition at Discharge: Stable Discharge Disposition: 03 SNF DC/Xfer Discharge Facility Name: [facility] - DIAGNOSES Admission Diagnoses: 1. Sepsis. 2. Pneumonia 3. Sacral pressure ulcer 4. Esophageal thickening 5. DVT, bilateral lower limbs 6. HARPER 7. Urinary retention 8. Hydronephrosis 9. Constipation Discharge Diagnoses with Status of Each Condition: 1. Proteus infection 2. Sacral pressure ulcer 3. Pneumonia More than that 4. DVT, bilateral lower limbs 5. HARPER 6. Urinary retention 7. Hydronephrosis 8. Constipation - HPI History of Present Illness: This is an 89-year-old female with a history of Parkinson's disease on carbidopa/levodopa, history of longstanding chronic narcotic use leading to chronic constipation. She was admitted here 2 months ago to treat a closed-loop small bowel obstruction with lysis of adhesions done by Dr. Colmenares. Then she was discharged for rehab. She now apparently lives at [facility]. The patient presented to the ER with complaint of "constipation" and could give no other detailed history. She denied any abdominal pain but said there was vomiting. Her BP was stable, but HR 103, afebrile. Her exam showed a non- tender, firm, distended abdomen. Her workup showed WBC of 24, Lactic Acid of 2.3, GFR of 27 which is usually 80, CT showed left-sided pneumonia, distal esophageal thickening, severe constipation in the proximal colon, hydronephrosis and bladder distention containing 2 L of fluid, and had a suspicion of right leg DVT. She underwent ultrasound that shows bilateral DVTs. Records show she had recent workup for osteomyelitis because of a sacral decubitus ulcer, which she still has on exam. zThe sacrum XRay reading advised getting an MRI. In the ER, she received soapsuds enema then mineral oral enema and disimpaction, a Bonner was placed, cultures were sent, she was ordered to get Zithromax and Ceftriaxone for the pneumonia, but did not get any antibx yet, per the record. The ED provider spoke to me about this patient who will be admitted to the Hospitalist service. Her CODE STATUS is DNR - CONSULTS | PROCEDURES Consultations: 03/13/2023 General Surgery Noel Barr MD - HOSPITAL COURSE Hospital Course: Dolores Wyman is an 89-year-old woman admitted on March 11, 2023 with a chief complaint of constipation. In emergency room, she underwent an ultrasound which revealed bilateral deep venous thrombosis. Wound culture grew out Proteus out of her sacral decubitus ulcer. Treatment was initiated with Zosen and vancomycin for broad spectrum antibiotic coverage. On Hospital day 2 General surgery saw the patient in consultation for her sacral cubitus ulcer. It was Dr. Noel Mirza impression that a plan for further treatment should be developed with regard to her sacral ulcer. Goals of care with discuss with Zamzam Bernal and she informed me she did not want to undergo any type of aggressive treatment for her sacral decubitus ulcer. she did not wish to undergo any type of debridement, use a wound VAC or undergo surgery for her decubitus ulcer. She also informed me that she did not wish to stay off for sacral decubitus ulcer and her goal was to return to the half-way. During our hospital, stay, she completed a POLST form That stated she did not wish to be resuscitated in the event, a cardiopulmonary arrest and she wish to focus on comfort measures. Patient is stable for transport to her half-way. - ALLERGIES Allergies/Adverse Reactions: Allergies Allergy/AdvReac Type Severity Reaction Status Date / Time doxycycline AdvReac Emesis Verified 01/10/23 10:26 - MEDICATIONS Home Medications: Ambulatory Orders Medication Instructions Recorded Confirmed Carbidopa/Levodopa [Sinemet Cr 1 tab PO 0900,1500 08/05/12 03/11/23 50-200 Tablet] Aspirin [Aspirin EC] 81 mg PO DAILY 03/22/16 03/11/23 Furosemide [Lasix] 40 mg PO DAILY 11/25/22 03/11/23 amLODIPine [Norvasc] 5 mg PO DAILY #30 tab 01/20/23 03/11/23 Bisacodyl Supp [Dulcolax Supp] 1 applic AL PRN PRN 03/11/23 03/11/23 Morphine Sulfate [Ms Contin] 1 tab PO TID 03/11/23 03/11/23 Ondansetron HCl 1 tab PO PRN PRN 03/11/23 03/11/23 Pantoprazole [Protonix] 1 tab PO DAILY 03/11/23 03/11/23 Senna [Senokot] 2 tab PO PRN PRN 03/11/23 03/11/23 polyethylene glycoL 3350 [Miralax] 1 applic PO DAILY 03/11/23 03/11/23 Apixaban [Eliquis] 2.5 mg PO BID tab 03/16/23 Aspirin EC [Ecotrin] 81 mg PO DAILY tab 03/16/23 Carbidopa/Levodopa 25/100 [Sinemet 2 tab PO 0900,1500 tab 03/16/23 25 mg/100 mg] Cyanocobalamin [Vitamin B-12] 500 mcg PO DAILY tab 03/16/23 Docusate Sodium 250Mg Capsule 250 mg PO DAILY cap 03/16/23 [Colace 250Mg Capsule] Metoprolol Tartrate [Lopressor] 25 mg PO BID tab 03/16/23 Morphine Ir [Ms Ir] 15 mg PO TID PRN #30 tab 03/16/23 Multivitamin [Theragran] 1 tab PO DAILYWM tab 03/16/23 Zinc Sulfate 220 mg PO DAILY cap 03/16/23 - PHYSICAL EXAM AT DISCHARGE General Appearance: positive: No acute distress Eyes Bilateral: positive: Normal inspection, PERRL, EOMI ENT: positive: Pharynx nml Neck: positive: Nml inspection, Thyroid nml, No JVD Respiratory: positive: Chest non-tender, No respiratory distress, Breath sounds nml Cardiovascular: positive: Regular rate & rhythm, No murmur, No gallop Abdomen: positive: Non-tender, No organomegaly, Nml bowel sounds Extremities: positive: Pedal edema Neurologic/Psychiatric: positive: Oriented x3, Weakness - LABS Result Diagrams: 03/15/23 05:28 03/15/23 05:28 - SEPSIS Current Stage of Sepsis: Sepsis Possible source of Sepsis: Pulmonary, Bone/Joint (possible osteo of sacrum), Skin/soft tissue Sepsis Criteria: Recorded Heart Rate greater than 90 bpm, WBC count greater than 12,000 or less than 4000, Metabolic: lactate > 2 mmol/L - QUALITY (Female Hip Fx Only) Was patient sent home on osteoporosis medication?: No - FOLLOW UP Follow Up: Edgard Lira MD - TIME SPENT Time Spent in Discharge (Minutes): 28
== END 2023-03-16 14:52 | DRG 871 ==
LOC: EDUNIT# → ED 07:35 → MS2 13:01
PROVIDERS: ADMIT Internal Medicine; ATTEND Internal Medicine
DX: A41.9 Sepsis, unspecified organism (principal); J18.9 Pneumonia, unspecified organism; K59.00 Constipation, unspecified; M86.9 Osteomyelitis, unspecified; N13.39 Other hydronephrosis; K44.9 Diaphragmatic hernia without obstruction or gangrene; N17.9 Acute kidney failure, unspecified; I82.413 Acute embolism and thrombosis of femoral vein, bilateral; R41.0 Disorientation, unspecified; N13.30 Unspecified hydronephrosis; R65.20 Severe sepsis without septic shock; L89.150 Pressure ulcer of sacral region, unstageable; K22.2 Esophageal obstruction; R33.9 Retention of urine, unspecified; G20.A1 Parkinson's disease without dyskinesia, without mention of fluctuations; F02.80 Dementia in other diseases classified elsewhere, unspecified severity, without behavioral disturbance, psychotic disturbance, mood disturbance, and anxiety; Z79.891 Long term (current) use of opiate analgesic; K59.03 Drug induced constipation; Z66 Do not resuscitate; I10 Essential (primary) hypertension; B96.4 Proteus (mirabilis) (morganii) as the cause of diseases classified elsewhere; Z51.5 Encounter for palliative care
CPT/HCPCS: 36415; 72195; 74177; 80048; 80053; 80202; 81001; 82607; 83605; 83735; 84100; 85025; 85610; 87040; 87070; 87077; 87086; 87181; 87205; 93970; 96374; 99285; A9270; A9575; J1650; J3370; Q9967; 81003

== ENCOUNTER 2023-03-16 14:57 | Outpatient (CLI) | payer MEDICARE, MEDICAID | END 2023-03-16 23:59 | LOC: EMS 14:57 | PROVIDERS: ATTEND Internal Medicine | DX: L89.159 Pressure ulcer of sacral region, unspecified stage (principal); G20.B1 Parkinson's disease with dyskinesia, without mention of fluctuations | CPT/HCPCS: A0425; A0428 ==

== ENCOUNTER 2023-06-12 15:15 | Outpatient (CLI) | payer MEDICARE, MEDICAID ==
[2023-06-12 15:23] LABS: BILIRUBIN,URINE NEGATIVE (NEGATIVE); GLUCOSE, URINE (UA) NEGATIVE (NEGATIVE); KETONES,URINE (UA) NEGATIVE (NEGATIVE); LEUKOCYTE ESTERASE, URINE SMALL (NEGATIVE); NITRITE,URINE POSITIVE (NEGATIVE); OCCULT BLOOD,URINE NEGATIVE (NEGATIVE); PH,URINE 8.5 PH (5.0-7.5); PROTEIN,URINE TRACE mg/dL (NEGATIVE); UROBILINOGEN,URINE 0.2 (NORMAL) E.U./dL (NORMAL)
[2023-06-12 15:24] LABS: CLARITY,URINE SL. CLOUDY (CLEAR)
[2023-06-12 15:32] LABS: AMORPHOUS SEDIMENT,UR Moderate /LPF; BACTERIA,URINE Few /HPF (None Seen); CRYSTALS,URINE 6-10 Triple Phos /LPF; RBC,URINE None Seen /HPF (0-5); SQUAMOUS EPITHELIAL CELL,UR RARE Squamous (<= Few)
== END 2023-06-12 15:16 | disposition home or self-care (01) ==
LOC: LAB.R 15:15
PROVIDERS: ATTEND Registered Nurse
DX: R82.90 Unspecified abnormal findings in urine (principal); N39.0 Urinary tract infection, site not specified
CPT/HCPCS: 81001; 81003; 87086

== ENCOUNTER 2023-06-13 14:40 | Outpatient (CLI) | payer MEDICARE, MEDICAID ==
[2023-06-13 15:18] LABS: BASOPHILS % (AUTO) 0.4 %; EOSINOPHILS # (AUTO) 0.4 10^3/uL (0.0-0.7); HCT - HEMATOCRIT 33.1 % (37.0-47.0); HGB - HEMOGLOBIN 10.9 g/dL (12.0-16.0); LYMPHOCYTES # (AUTO) 1.7 10^3/uL (1.5-3.5); MEAN CORPUSCULAR HEMOGLOBIN 32.2 pg (27.0-31.0); MEAN CORPUSCULAR HGB CONC 32.9 g/dL (32.0-36.0); MEAN CORPUSCULAR VOLUME 97.9 fL (81.0-99.0); MEAN PLATELET VOLUME 10.1 fL (7.9-10.8); MONOCYTES # (AUTO) 0.6 10^3/uL (0.0-1.0); MONOCYTES % (AUTO) 8.6 %; NEUTROPHILS # (AUTO) 4.2 10^3/uL (1.5-6.6); NEUTROPHILS % (AUTO) 59.6 %; PLT - PLATELET COUNT 324 10^3/uL (130-450); RED BLOOD COUNT 3.38 10^6/uL (4.20-5.40); RED CELL DISTRIBUTION WIDTH 12.4 % (12.0-15.0)
[2023-06-13 15:52] LABS: ALBUMIN/GLOBULIN RATIO 0.8 (1.0-2.2); ALKALINE PHOSPHATASE 52 IU/L (42-121); ALT ALANINE AMINOTRANSFERASE < 3 IU/L (10-60); AST ASPARTATE AMINOTRANSFERASE 13 IU/L (10-42); BILIRUBIN,TOTAL 0.4 mg/dL (0.2-1.0); BUN - BLOOD UREA NITROGEN 12 mg/dL (6-20); CARBON DIOXIDE - CO2 33 mmol/L (21-32); CHLORIDE 95 mmol/L (101-111); CREATININE 0.6 mg/dL (0.6-1.3); GFR - MDRD 96 (>89); GLUCOSE 153 mg/dL (74-104); POTASSIUM 2.9 mmol/L (3.5-4.5); SODIUM 135 mmol/L (135-145); TOTAL PROTEIN 6.8 g/dL (6.4-8.9)
== END 2023-06-13 14:41 | disposition home or self-care (01) ==
LOC: LAB.R 14:40
PROVIDERS: ATTEND Registered Nurse
DX: D64.9 Anemia, unspecified (principal); E87.6 Hypokalemia; L89.159 Pressure ulcer of sacral region, unspecified stage; I82.413 Acute embolism and thrombosis of femoral vein, bilateral; K22.2 Esophageal obstruction
CPT/HCPCS: 80053; 85025

== ENCOUNTER 2023-07-14 16:32 | Outpatient (CLI) | payer MEDICARE, MEDICAID | END 2023-07-14 23:59 | disposition critical access hospital (66) | LOC: EMS 16:32 | DX: R11.10 Vomiting, unspecified (principal); R10.84 Generalized abdominal pain; R10.817 Generalized abdominal tenderness | CPT/HCPCS: A0425; A0429 ==

== ENCOUNTER 2023-07-14 16:38 | Emergency (ER) | payer MEDICARE, MEDICAID ==
--- NOTE | 2023-07-14 17:02 | ED Physician Documentation ---
PD HPI ABD PAIN - Stated complaint Stated Complaint: VOMITING/ABD PX - History obtained from History obtained from: Patient - Additional information Additional information: 82-year-old woman has had a closed-loop obstruction with surgery back in January of last year and subsequently was seen here for UTI with sepsis and identified bilateral DVTs and is now on a DOAC. Starting today she developed vomiting. She was noted to have a distended abdomen and small mucousy stools. She says the pain is only bad if someone pushes on her abdomen. There is no report of blood in the vomit. She had at least 4 episodes of vomiting today. 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 - Present Medications Home Medications: Ambulatory Orders Medication Instructions Recorded Confirmed Aspirin [Aspirin EC] 81 mg PO DAILY 03/22/16 07/14/23 Furosemide [Lasix] 40 mg PO DAILY 11/25/22 07/14/23 amLODIPine [Norvasc] 5 mg PO DAILY #30 tab 01/20/23 07/14/23 Bisacodyl Supp [Dulcolax Supp] 1 applic [place] PRN PRN 03/11/23 07/14/23 Morphine Sulfate [Ms Contin] 1 tab PO TID PRN 03/11/23 07/14/23 Ondansetron HCl 1 tab PO PRN PRN 03/11/23 07/14/23 Pantoprazole [Protonix] 1 tab PO DAILY 03/11/23 07/14/23 Senna [Senokot] 2 tab PO PRN PRN 03/11/23 07/14/23 polyethylene glycoL 3350 [Miralax] 1 applic PO DAILY 03/11/23 07/14/23 Apixaban [Eliquis] 2.5 mg PO BID tab 03/16/23 07/14/23 Carbidopa/Levodopa 25/100 [Sinemet 2 tab PO 0900,1500 tab 03/16/23 07/14/23 25 mg/100 mg] Cyanocobalamin [Vitamin B-12] 500 mcg PO DAILY tab 03/16/23 07/14/23 Docusate Sodium 250Mg Capsule 250 mg PO DAILY cap 03/16/23 07/14/23 [Colace 250Mg Capsule] Metoprolol Tartrate [Lopressor] 25 mg PO BID tab 03/16/23 07/14/23 Multivitamin [Theragran] 1 tab PO DAILYWM tab 03/16/23 07/14/23 Zinc Sulfate 220 mg PO DAILY cap 03/16/23 07/14/23 Bacitracin Zinc Oint [Bacitracin] 1 applic TOP BID 07/14/23 07/14/23 Ciprofloxacin HCl [Cipro] 500 mg PO BID #20 tablet 07/14/23 Potassium Chloride 1 cap PO DAILY 07/14/23 07/14/23 diphenhydrAMINE [Benadryl] 1 cap PO DAILY PRN 07/14/23 07/14/23 - Allergies Allergies/Adverse Reactions: Allergies Allergy/AdvReac Type Severity Reaction Status Date / Time doxycycline AdvReac Emesis Verified 07/14/23 17:06 - Social History Does the pt smoke?: No Smoking Status: Unknown if ever smoked Does the pt drink ETOH?: No Does the pt have substance abuse?: No - Immunizations Immunizations are current?: No - POLST Patient has POLST: No POLST Status: DNR PD ED PE NORMAL - Vitals Vital signs reviewed: Yes - General General: Alert and oriented X 3, No acute distress - Neck Neck: Supple, no meningeal sign, No bony TTP - Cardiac Cardiac: RRR, No murmur - Respiratory Respiratory: No respiratory distress, Clear bilaterally - Abdomen Abdomen: Other (Distended abdomen with mild diffuse tenderness. Absent bowel sounds. She does have rebound tenderness.) - Female Female : Other (Stage 2-3 ulcer sacrum, no infection. ) - Derm Derm: No rash - Neuro Neuro: Alert and oriented X 3 Results - Vitals Vitals: Vital Signs - 24 hr 07/14/23 07/14/23 07/14/23 17:03 19:11 21:00 Temperature 36.2 C L Heart Rate 88 83 96 Respiratory 18 20 20 Rate Blood Pressure 164/90 H 162/85 H 153/88 H O2 Saturation 95 96 95 07/14/23 22:30 Temperature Heart Rate 92 Respiratory 22 Rate Blood Pressure 143/84 H O2 Saturation 99 Oxygen O2 Source [] Room air O2 Source [] Room air O2 Source Room air - Labs Labs: Laboratory Tests 07/14/23 07/14/23 07/14/23 17:08 17:08 17:08 WBC 13.0 H RBC 4.27 Hgb 13.3 Hct 40.3 MCV 94.4 MCH 31.1 H MCHC 33.0 RDW 12.3 Plt Count 471 H MPV 9.0 Neut # (Auto) 11.3 H Lymph # (Auto) 1.1 L Sequoyah # (Auto) 0.6 Eos # (Auto) 0.0 Baso # (Auto) 0.0 Absolute Nucleated RBC 0.00 Nucleated RBC % 0.0 PT INR APTT Sodium 136 Potassium 3.5 Chloride 95 L Carbon Dioxide 30 Anion Gap 11.0 BUN 27 H Creatinine 0.6 Estimated GFR (MDRD) 96 Glucose 165 H Lactic Acid 1.1 Calcium 10.1 Total Bilirubin 0.5 AST 14 ALT 8 L Alkaline Phosphatase 67 Total Protein 8.2 Albumin 3.9 Globulin 4.3 H Albumin/Globulin Ratio 0.9 L Urine Color Urine Clarity Urine pH Ur Specific Delmar Urine Protein Urine Glucose (UA) Urine Ketones Urine Occult Blood Urine Nitrite Urine Bilirubin Urine Urobilinogen Ur Leukocyte Esterase Urine RBC Urine WBC Ur Squamous Epith Cells Urine Crystals Urine Bacteria Ur Microscopic Review Urine Culture Comments 07/14/23 07/14/23 17:08 21:33 WBC RBC Hgb Hct MCV MCH MCHC RDW Plt Count MPV Neut # (Auto) Lymph # (Auto) Sequoyah # (Auto) Eos # (Auto) Baso # (Auto) Absolute Nucleated RBC Nucleated RBC % PT 16.2 H INR 1.5 H APTT 29.4 Sodium Potassium Chloride Carbon Dioxide Anion Gap BUN Creatinine Estimated GFR (MDRD) Glucose Lactic Acid Calcium Total Bilirubin AST ALT Alkaline Phosphatase Total Protein Albumin Globulin Albumin/Globulin Ratio Urine Color YELLOW Urine Clarity HAZY Urine pH >=9.0 H Ur Specific Delmar <=1.005 Urine Protein 100 H Urine Glucose (UA) NEGATIVE Urine Ketones NEGATIVE Urine Occult Blood SMALL H Urine Nitrite POSITIVE H Urine Bilirubin NEGATIVE Urine Urobilinogen 0.2 (NORMAL) Ur Leukocyte Esterase LARGE H Urine RBC 6-10 H Urine WBC >25 H Ur Squamous Epith Cells RARE Squamous Urine Crystals 0-2 Triple Phosphate Urine Bacteria Many H Ur Microscopic Review INDICATED Urine Culture Comments INDICATED - Rads (name of study) CT A/P Relevant Findings:: Final report received, EMP independent interpretation of test PD Medical Decision Making - ED course ED course: She presents with vomiting and abdominal pain. CT imaging demonstrates a fecal impaction which I think is probably causing the Bonner catheter malfunctioning. A large-volume enema was placed. CBC showing white count of 13. INR mildly elevated likely due to DOAC use. CMP unremarkable with normal bilirubin noting CT read with possible dilation of the CBD. Subsequently a couple more enemas were placed and she really did not have any bowel output. At approximately 8:45 PM manual disimpaction was done by me with a very large output of stool. Her Bonner did not start working at that point, the nurse irrigated it and there was a lot of resistance. As such it was replaced. I suspect it is the urinary obstruction with hydronephrosis that is causing her vomiting. She does have evidence of UTI especially in light of the white count of 13,000 we will treat with Rocephin. Also Rx for Cipro. Attempted to call to update on condition and disposition, but the call did not go through and I could not leave a voicemail. On repeat exam after disimpaction, her abd exam improved and was not tender and the rebound ttp was no longer present. Departure - Departure Disposition: 01 Home, Self Care Clinical Impression: Constipation, Fecal impaction, Urinary retention Condition: Stable Instructions: ED Impaction Fecal Treated Prescriptions: Ciprofloxacin HCl [Cipro] 500 mg PO BID #20 tablet Comments: You were seen tonight for fecal impaction and your Bonner catheter had stopped working causing your urine to be obstructed which backed up pressure to your kidneys. I think that is what actually caused you to start vomiting. We were able to clean out a lot of the stool and replaced your Bonner catheter. CT imaging also demonstrated "concentric thickening at the GE junction, consider EGD for further evaluation." Please mention this to your primary care physician in follow-up. Call your doctor to arrange a follow-up appointment, make the next available appointment. In the interim, return anytime if worse or if new symptoms develop. I am also prescribing an antibiotic for the UTI. We will culture your urine, the results should be done in 48-72 hours. If an antibiotic change is necessary we will call you. Return if worse in the meantime, especially if you develop increasing flank pain, fevers, or cannot keep down the medication. Discharge Date/Time: 07/14/23 22:42
[2023-07-14 17:16] LABS: BASOPHILS % (AUTO) 0.2 %; HCT - HEMATOCRIT 40.3 % (37.0-47.0); HGB - HEMOGLOBIN 13.3 g/dL (12.0-16.0); LYMPHOCYTES # (AUTO) 1.1 10^3/uL (1.5-3.5); LYMPHOCYTES % (AUTO) 8.2 %; MEAN CORPUSCULAR HEMOGLOBIN 31.1 pg (27.0-31.0); MEAN CORPUSCULAR VOLUME 94.4 fL (81.0-99.0); MONOCYTES # (AUTO) 0.6 10^3/uL (0.0-1.0); MONOCYTES % (AUTO) 4.5 %; NEUTROPHILS # (AUTO) 11.3 10^3/uL (1.5-6.6); NEUTROPHILS % (AUTO) 86.7 %; PLT - PLATELET COUNT 471 10^3/uL (130-450); RED BLOOD COUNT 4.27 10^6/uL (4.20-5.40); RED CELL DISTRIBUTION WIDTH 12.3 % (12.0-15.0)
[2023-07-14 17:24] LABS: PARTIAL THROMBOPLASTIN TIME 29.4 secs (24.9-33.3)
[2023-07-14 17:29] LABS: INR 1.5 (0.8-1.2); PT - PROTHROMBIN TIME 16.2 secs (9.9-12.6)
[2023-07-14 17:37] LABS: ALBUMIN 3.9 g/dL (3.2-5.5); ALBUMIN/GLOBULIN RATIO 0.9 (1.0-2.2); BILIRUBIN,TOTAL 0.5 mg/dL (0.2-1.0); CALCIUM 10.1 mg/dL (8.5-10.3); CREATININE 0.6 mg/dL (0.6-1.3); POTASSIUM 3.5 mmol/L (3.5-4.5); TOTAL PROTEIN 8.2 g/dL (6.4-8.9)
[2023-07-14] MEDS ORDERED: iohexoL-300 100 ML VIAL ONE (17:49)
[2023-07-14] MEDS: iohexoL-300 100 ML VIAL IVP ONE (18:59)
--- NOTE | 2023-07-14 19:11 | CT Report ---
PROCEDURE: Abdomen/Pelvis W INDICATIONS: IV only abd pain vomiting CONTRAST: 100ml omni 300 TECHNIQUE: After the administration of intravenous contrast, a CT scan of the abdomen and pelvis was performed. Images were recorded and evaluated at appropriate window settings. Reformats: coronal and sagittal. F or radiation dose reduction, the following was used: automated exposure control, adjustment of mA and /or kV according to patient size. COMPARISON: CT abdomen and pelvis, 03/11/2023. FINDINGS: Image quality: Diagnostic. Lower chest: Lung bases are clear. Small hiatal hernia. There is concentric thickening at the GE junc tion. Liver: No solid mass. Gallbladder and biliary tree: Gallbladder is surgically absent. There is intrahepatic and intrahepati c biliary dilation. Common bile duct measures up to 15 mm in diameter. Spleen: No splenomegaly. Pancreas: No pancreatic ductal dilation. Adrenals: No adrenal nodule. Kidneys, ureters or bladder: Moderate bilateral hydronephrosis and hydroureter. Ureters are dilated t o the ureterovesical junctions. No renal cystic lesion which requires follow up. No solid mass. There is a Bonner catheter within the bladder which is severely distended. Stomach, bowel and peritoneum: No bowel distension. No pathologic free fluid. There is a large amount of stool in colon and rectum suggesting fecal impaction. Lymph nodes: No central or retroperitoneal adenopathy. Vessels: No infrarenal aortic aneurysm. PELVIS Reproductive organs: Unremarkable. Bladder: No abnormal wall thickening, accounting for underdistention. Pelvic lymph nodes: No pelvic adenopathy by size criteria. Bones: No aggressive osseous abnormality. Other: No significant ventral or inguinal hernia. IMPRESSION: 1. Markedly distended urinary bladder. A Bonner catheter is noted within the bladder. Please correlate clinically for Bonner catheter malfunction. There is moderate hydronephrosis and hydroureter bilatera lly. 2. A large amount of stool in colon and rectum, suspicious for fecal impaction: 3. Cholecystectomy. There is biliary dilation with the common carotid measures up to 15 mm in diamete r. Please correlate with serum bilirubin for biliary obstruction. 4. Small hiatal hernia. Concentric thickening at the GE junction. Consider EGD or esophagram for furt her evaluation. Reviewed by: Gini Paige MD on 07/14/2023 7:09 PM PDT Approved by: Gini Paige MD on 07/14/2023 7:09 PM PDT Station ID: [id number]
[2023-07-14] MEDS: SALINE ENEMA 133 ML BOTTLE RC STA (20:17)
[2023-07-14] MEDS: bisacodyL 5 MG TABLET PO STA (20:17)
[2023-07-14] MEDS: polyethylene glycoL 3350 17 GM PACKET PO STA (20:17)
[2023-07-14 21:54] LABS: BILIRUBIN,URINE NEGATIVE (NEGATIVE); GLUCOSE, URINE (UA) NEGATIVE (NEGATIVE); KETONES,URINE (UA) NEGATIVE (NEGATIVE); LEUKOCYTE ESTERASE, URINE LARGE (NEGATIVE); NITRITE,URINE POSITIVE (NEGATIVE); OCCULT BLOOD,URINE SMALL (NEGATIVE); PH,URINE >=9.0 PH (5.0-7.5); PROTEIN,URINE 100 mg/dL (NEGATIVE); UROBILINOGEN,URINE 0.2 (NORMAL) E.U./dL (NORMAL)
[2023-07-14 21:58] LABS: CLARITY,URINE HAZY (CLEAR)
[2023-07-14 22:07] LABS: WBC,URINE >25 /HPF (0-5)
[2023-07-14 22:08] LABS: BACTERIA,URINE Many /HPF (None Seen); CRYSTALS,URINE 0-2 Triple Phosphate /LPF; SQUAMOUS EPITHELIAL CELL,UR RARE Squamous (<= Few)
[2023-07-14] MEDS: KETOROLAC 15 MG/ML VIAL IVP STA (22:17)
[2023-07-14] MEDS: MORPHINE 2 MG/ML CARPUJECT IVP STA (22:17)
[2023-07-14] MEDS: cefTRIAXone 1 GM VIAL IVP STA (22:17)
[2023-07-14 22:47] VITALS: BP 143/84; O2SAT 99
--- NOTE | 2023-07-17 13:21 | ED Physician Documentation ---
ED Addendum - Addendum Addendum: 07/17/23 Culture reviewed. Organisms are resistant to ciprofloxacin which is what she was discharged on. New prescription for cefpodoxime was sent to [facility] and the charge nurse Will call patient to notify of antibiotic change.
== END 2023-07-14 22:42 | disposition home or self-care (01) ==
LOC: EDUNIT# → ED 16:38
DX: K59.00 Constipation, unspecified (principal); R33.8 Other retention of urine; N13.30 Unspecified hydronephrosis; N39.0 Urinary tract infection, site not specified; R93.3 Abnormal findings on diagnostic imaging of other parts of digestive tract; Z96.0 Presence of urogenital implants; Z66 Do not resuscitate
CPT/HCPCS: 36415; 51702; 74177; 80053; 81001; 83605; 85025; 85610; 85730; 87077; 87086; 87181; 96374; 99284; A9270; Q9967; 81003

== ENCOUNTER 2023-07-14 22:38 | Outpatient (CLI) | payer MEDICARE, MEDICAID | END 2023-07-14 23:59 | LOC: EMS 22:38 | PROVIDERS: ATTEND Emergency Medicine | DX: R11.10 Vomiting, unspecified (principal); T83.091A Other mechanical complication of indwelling urethral catheter, initial encounter; N39.0 Urinary tract infection, site not specified; R53.1 Weakness; Z74.01 Bed confinement status | CPT/HCPCS: A0425; A0428 ==

== ENCOUNTER 2023-07-26 08:00 | Outpatient (CLI) | payer MEDICARE, MEDICAID | END 2023-07-26 23:59 | disposition home or self-care (01) | LOC: LAB.R 08:00 | DX: M86.9 Osteomyelitis, unspecified (principal) | CPT/HCPCS: 87070; 87077; 87181; 87205 ==

== ENCOUNTER 2023-08-12 08:00 | Outpatient (CLI) | payer MEDICARE, MEDICAID ==
[2023-08-12 08:01] LABS: BASOPHILS # (AUTO) 0.1 10^3/uL (0.0-0.1); BASOPHILS % (AUTO) 0.8 %; EOSINOPHILS # (AUTO) 0.4 10^3/uL (0.0-0.7); EOSINOPHILS % (AUTO) 5.5 %; HCT - HEMATOCRIT 35.4 % (37.0-47.0); HGB - HEMOGLOBIN 11.5 g/dL (12.0-16.0); LYMPHOCYTES # (AUTO) 2.6 10^3/uL (1.5-3.5); LYMPHOCYTES % (AUTO) 35.6 %; MEAN CORPUSCULAR HEMOGLOBIN 31.3 pg (27.0-31.0); MEAN CORPUSCULAR HGB CONC 32.5 g/dL (32.0-36.0); MEAN CORPUSCULAR VOLUME 96.2 fL (81.0-99.0); MEAN PLATELET VOLUME 9.9 fL (7.9-10.8); MONOCYTES # (AUTO) 0.5 10^3/uL (0.0-1.0); MONOCYTES % (AUTO) 7.3 %; NEUTROPHILS # (AUTO) 3.7 10^3/uL (1.5-6.6); NEUTROPHILS % (AUTO) 50.1 %; PLT - PLATELET COUNT 308 10^3/uL (130-450); RED BLOOD COUNT 3.68 10^6/uL (4.20-5.40); WHITE BLOOD COUNT 7.4 x10^3/uL (4.8-10.8)
[2023-08-12 08:35] LABS: ALBUMIN 3.3 g/dL (3.2-5.5); ALBUMIN/GLOBULIN RATIO 0.9 (1.0-2.2); BILIRUBIN,TOTAL 0.5 mg/dL (0.2-1.0); CALCIUM 9.4 mg/dL (8.5-10.3); CREATININE 0.5 mg/dL (0.6-1.3); POTASSIUM 3.1 mmol/L (3.5-4.5); TOTAL PROTEIN 6.9 g/dL (6.4-8.9)
== END 2023-08-12 23:59 | disposition home or self-care (01) ==
LOC: LAB.R 08:00
PROVIDERS: ATTEND Registered Nurse
DX: M15.9 Polyosteoarthritis, unspecified (principal); G89.4 Chronic pain syndrome; R01.0 Benign and innocent cardiac murmurs; G20.B1 Parkinson's disease with dyskinesia, without mention of fluctuations
CPT/HCPCS: 36415; 80053; 85025; 85651; 86140

== ENCOUNTER 2023-08-16 08:00 | Outpatient (CLI) | payer MEDICARE, MEDICAID ==
[2023-08-16 16:31] LABS: BASOPHILS # (AUTO) 0.1 10^3/uL (0.0-0.1); BASOPHILS % (AUTO) 0.8 %; EOSINOPHILS # (AUTO) 0.3 10^3/uL (0.0-0.7); EOSINOPHILS % (AUTO) 3.8 %; HCT - HEMATOCRIT 34.8 % (37.0-47.0); HGB - HEMOGLOBIN 11.6 g/dL (12.0-16.0); LYMPHOCYTES # (AUTO) 2.3 10^3/uL (1.5-3.5); LYMPHOCYTES % (AUTO) 29.9 %; MEAN CORPUSCULAR HEMOGLOBIN 31.6 pg (27.0-31.0); MEAN CORPUSCULAR HGB CONC 33.3 g/dL (32.0-36.0); MEAN CORPUSCULAR VOLUME 94.8 fL (81.0-99.0); MEAN PLATELET VOLUME 9.4 fL (7.9-10.8); MONOCYTES # (AUTO) 0.7 10^3/uL (0.0-1.0); MONOCYTES % (AUTO) 8.5 %; NEUTROPHILS # (AUTO) 4.3 10^3/uL (1.5-6.6); NEUTROPHILS % (AUTO) 56.6 %; PLT - PLATELET COUNT 337 10^3/uL (130-450); RED BLOOD COUNT 3.67 10^6/uL (4.20-5.40); RED CELL DISTRIBUTION WIDTH 12.9 % (12.0-15.0); WHITE BLOOD COUNT 7.6 x10^3/uL (4.8-10.8)
[2023-08-16 16:43] LABS: ALBUMIN 3.3 g/dL (3.2-5.5); BILIRUBIN,TOTAL 0.5 mg/dL (0.2-1.0); CREATININE 0.6 mg/dL (0.6-1.3); POTASSIUM 3.2 mmol/L (3.5-4.5); TOTAL PROTEIN 6.5 g/dL (6.4-8.9)
== END 2023-08-16 23:59 | disposition home or self-care (01) ==
LOC: LAB.R 08:00
PROVIDERS: ATTEND Registered Nurse
DX: E44.1 Mild protein-calorie malnutrition (principal); Z87.19 Personal history of other diseases of the digestive system
CPT/HCPCS: 80053; 85025

== ENCOUNTER 2023-08-17 13:30 | Outpatient (CLI) | payer MEDICARE, MEDICAID ==
--- NOTE | 2023-08-17 15:16 | XRAY Report ---
PROCEDURE: Foot 3+V RT INDICATIONS: OSTEOMYELITIS TECHNIQUE: 3 views of the foot were acquired. COMPARISON: None. FINDINGS: Bones: No fractures or dislocations. No suspicious bony lesions. There is overall appearance of de creased bone mineral density loss. Prominent subluxation is present at the PIP and DIP joints as well as MTP joints. There is erosive appearance at the fifth metatarsal head. Suspected superimposed frac ture is present. Soft tissues: No tibiotalar joint effusion. Achilles tendon appears normal. Soft tissue edema is p resent adjacent to the fifth digit. IMPRESSION: Erosive appearance of the fifth metatarsal head with appearance of superimposed fracture. Reviewed by: Mercedes Neville MD on 08/17/2023 3:15 PM PDT Approved by: Mercedes Neville MD on 08/17/2023 3:15 PM PDT Station ID: [id number]
== END 2023-08-17 13:31 | disposition home or self-care (01) ==
LOC: DI 13:30
PROVIDERS: ATTEND Family Medicine
DX: M86.9 Osteomyelitis, unspecified (principal)

== ENCOUNTER 2023-08-29 08:26 | Day surgery (SDC) | payer MEDICARE, MEDICAID ==
[2023-08-29 09:04] VITALS: BP 126/62; O2SAT 97
--- NOTE | 2023-08-29 11:11 | ANESTHESIA PROCEDURE NOTE ---
Anesth Central Line Template - Central Line Central Line Preparation: Consent Obtained, Time out completed, Ultrasound used, Sterile prep and drape Central line location: Right Brachial Central line type: PICC Single Lumen Central line catheter tip site resides: Superior vena cava (SVC) Central line aftercare: Secured, Placement confirmed, No complications, Pt tolerated well Other Info/Details: Right arm prepped with chlorahexadine. Full sterile drape, gown, mask and gloves used. Total of 5ml of 1% lidocaine was used to localize skin and tissue of the right upper arm. The right basilic vein identified under ultrasound and access with 20G needle. Unable to advance wire. Needle removed. Right brachial identified under ultrasound and accessed with 20G needle. Wire advanced with ease. Peel away sheath inserted with ease and wire removed. #4Fr single lumen PICC inserted and advanced with ease. It was trimmed to 41cm. Tip tracker showed tip advancing towards heart. The 3CG showed p-wave consistent with placement in the lower 1/3 (see record). Sheath removed and line secured with 2cm exposed. (39cm in the body). Port aspirates and flushed with ease. OK to use.
== END 2023-08-29 08:27 | disposition home or self-care (01) ==
LOC: SDS 08:26
PROVIDERS: ATTEND Nurse Anesthetist, Certified Registered
DX: M86.9 Osteomyelitis, unspecified (principal)
CPT/HCPCS: 36569; C1751

== ENCOUNTER 2023-08-29 15:54 | Outpatient (CLI) | payer MEDICARE, MEDICAID | END 2023-08-29 15:55 | disposition critical access hospital (66) | LOC: EMS 15:54 | DX: T82.838A Hemorrhage due to vascular prosthetic devices, implants and grafts, initial encounter (principal) | CPT/HCPCS: A0425; A0429 ==

== ENCOUNTER 2023-08-29 16:02 | Emergency (ER) | payer MEDICARE, MEDICAID ==
--- NOTE | 2023-08-29 16:25 | ED Physician Documentation ---
History of Present Illness - Stated complaint Stated Complaint: BLOODY PICC LINE - Chief complaint Chief Complaint: General - History obtained from History obtained from: Patient, EMS - History of Present Illness Timing: Today Pain level max: 0 Pain level now: 0 - Additonal information Additional information: Patient lives at [facility]. She was seen here this morning at the hospital and had a PICC line placed in her right arm. She is on Eliquis. She was sent in because her bandages have become bloody. She has no complaints. The nursing staff at her group home facility were not comfortable changing her dressing. 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 [employer]IC: Tubal ligation - Present Medications Home Medications: Ambulatory Orders Medication Instructions Recorded Confirmed Aspirin [Aspirin EC] 81 mg PO DAILY 03/22/16 07/14/23 Furosemide [Lasix] 40 mg PO DAILY 11/25/22 07/14/23 amLODIPine [Norvasc] 5 mg PO DAILY #30 tab 01/20/23 07/14/23 Bisacodyl Supp [Dulcolax Supp] 1 applic [place] PRN PRN 03/11/23 07/14/23 Morphine Sulfate [Ms Contin] 1 tab PO TID PRN 03/11/23 08/29/23 Ondansetron HCl 1 tab PO PRN PRN 03/11/23 07/14/23 Pantoprazole [Protonix] 1 tab PO DAILY 03/11/23 08/29/23 Senna [Senokot] 2 tab PO PRN PRN 03/11/23 07/14/23 polyethylene glycoL 3350 [Miralax] 1 applic PO DAILY 03/11/23 07/14/23 Apixaban [Eliquis] 2.5 mg PO BID tab 03/16/23 07/14/23 Carbidopa/Levodopa 25/100 [Sinemet 2 tab PO 0900,1500 tab 03/16/23 08/29/23 25 mg/100 mg] Cyanocobalamin [Vitamin B-12] 500 mcg PO DAILY tab 03/16/23 07/14/23 Docusate Sodium 250Mg Capsule 250 mg PO DAILY cap 03/16/23 07/14/23 [Colace 250Mg Capsule] Metoprolol Tartrate [Lopressor] 25 mg PO BID tab 03/16/23 07/14/23 Multivitamin [Theragran] 1 tab PO DAILYWM tab 03/16/23 07/14/23 Zinc Sulfate 220 mg PO DAILY cap 03/16/23 07/14/23 Bacitracin Zinc Oint [Bacitracin] 1 applic TOP BID 07/14/23 07/14/23 Ciprofloxacin HCl [Cipro] 500 mg PO BID #20 tablet 07/14/23 Potassium Chloride 1 cap PO DAILY 07/14/23 07/14/23 diphenhydrAMINE [Benadryl] 1 cap PO DAILY PRN 07/14/23 07/14/23 Cefpodoxime Proxetil [Vantin] 100 mg PO Q12H #14 tablet 07/17/23 - Allergies Allergies/Adverse Reactions: Allergies Allergy/AdvReac Type Severity Reaction Status Date / Time doxycycline AdvReac Emesis Verified 08/29/23 09:19 - Social History Does the pt smoke?: No Smoking Status: Unknown if ever smoked Does the pt drink ETOH?: No Does the pt have substance abuse?: No - Immunizations Immunizations are current?: No - POLST Patient has POLST: No POLST Status: DNR PD ED PE NORMAL - Vitals Vital signs reviewed: Yes - General General: Alert and oriented X 3, No acute distress - Derm Derm: Warm and dry - Extremities Extremities: Other (R arm - picc line in place. bloody dressing.) - Neuro Neuro: Alert and oriented X 3 - Psych Psych: Normal mood, Normal affect Results - Vitals Vitals: Vital Signs - 24 hr 08/29/23 16:21 Temperature 37.6 C Heart Rate 90 Respiratory 15 Rate Blood Pressure 114/59 L O2 Saturation 94 Oxygen O2 Source [With Activity] Room air O2 Source [Without Activity] Room air O2 Source Room air PD Medical Decision Making - ED course Complexity details: considered differential, d/w patient ED course: Pressure was held at the PICC line site. The dressing was changed. No further bleeding. I will have her follow-up with her doctor for further care. Patient counseled regarding signs and symptoms for which I believe and urgent re- evaluation would be necessary. Patient with good understanding of and agreement to plan and is comfortable going home at this time This document was made in part using voice recognition software. While efforts are made to proofread this document, sound alike and grammatical errors may occur. Departure - Departure Disposition: 01 Home, Self Care Clinical Impression: Bleeding from PICC line Qualifiers: Encounter type: initial encounter Qualified Code(s): T82.838A - Hemorrhage due to vascular prosthetic devices, implants and grafts, initial encounter Condition: Good Instructions: ED PICC Line Care Follow-Up: Your,doctor [Other] - As Needed Comments: She may have recurrent bleeding secondary to her Eliquis. If she starts to bleed again, please hold pressure using your thumb or finger for 10 minutes at the site where the PICC line enters the skin. The residential staff can change your dressings as needed if they become bloody or soiled. Forms: PCP List
[2023-08-29 16:32] VITALS: BP 114/59; O2SAT 94
== END 2023-08-29 17:18 | disposition home or self-care (01) ==
LOC: EDUNIT# → ED 16:02
DX: T82.838A Hemorrhage due to vascular prosthetic devices, implants and grafts, initial encounter (principal); Z48.01 Encounter for change or removal of surgical wound dressing; Z79.01 Long term (current) use of anticoagulants; M86.9 Osteomyelitis, unspecified
CPT/HCPCS: 36569; 99282; 99283; C1751

== ENCOUNTER 2023-08-29 17:11 | Outpatient (CLI) | payer MEDICARE, MEDICAID | END 2023-08-29 23:59 | LOC: EMS 17:11 | PROVIDERS: ATTEND Emergency Medicine | DX: T82.838A Hemorrhage due to vascular prosthetic devices, implants and grafts, initial encounter (principal); Z79.01 Long term (current) use of anticoagulants | CPT/HCPCS: A0425; A0428 ==

== ENCOUNTER 2023-08-31 08:44 | Outpatient (CLI) | payer MEDICARE, MEDICAID ==
[2023-08-31 09:02] LABS: VANCOMYCIN,TROUGH 16.4 ug/mL
== END 2023-08-31 08:45 | disposition home or self-care (01) ==
LOC: LAB.R 08:44
PROVIDERS: ATTEND Family Medicine
DX: Z51.81 Encounter for therapeutic drug level monitoring (principal); Z16.22 Resistance to vancomycin related antibiotics
CPT/HCPCS: 80202

== ENCOUNTER 2023-09-04 12:03 | Outpatient (CLI) | payer MEDICARE, MEDICAID ==
[2023-09-04 13:00] LABS: CREATININE 0.6 mg/dL (0.6-1.3); GFR - MDRD 96 (>89); VANCOMYCIN,TROUGH 20.6 ug/mL
== END 2023-09-04 12:04 | disposition home or self-care (01) ==
LOC: LAB.R 12:03
PROVIDERS: ATTEND Family Medicine
DX: M86.9 Osteomyelitis, unspecified (principal)
CPT/HCPCS: 80202; 82565

== ENCOUNTER 2023-09-07 10:44 | Outpatient (CLI) | payer MEDICARE, MEDICAID ==
[2023-09-07 11:03] LABS: CREATININE 0.6 mg/dL (0.6-1.3); GFR - MDRD 96 (>89); VANCOMYCIN,TROUGH 21.3 ug/mL
== END 2023-09-07 10:45 | disposition home or self-care (01) ==
LOC: LAB.R 10:44
PROVIDERS: ATTEND Family Medicine
DX: R94.4 Abnormal results of kidney function studies (principal); Z16.22 Resistance to vancomycin related antibiotics
CPT/HCPCS: 80202; 82565

== ENCOUNTER 2023-09-11 07:59 | Outpatient (CLI) | payer MEDICARE, MEDICAID ==
[2023-09-11 08:45] LABS: VANCOMYCIN,TROUGH 14.8 ug/mL
== END 2023-09-11 08:00 | disposition home or self-care (01) ==
LOC: LAB.R 07:59
PROVIDERS: ATTEND Family Medicine
DX: Z51.81 Encounter for therapeutic drug level monitoring (principal); Z16.22 Resistance to vancomycin related antibiotics
CPT/HCPCS: 80202

== ENCOUNTER 2023-10-18 08:00 | Outpatient (CLI) | payer MEDICARE, MEDICAID ==
[2023-10-18 20:59] LABS: BILIRUBIN,URINE NEGATIVE (NEGATIVE); GLUCOSE, URINE (UA) NEGATIVE (NEGATIVE); KETONES,URINE (UA) NEGATIVE (NEGATIVE); LEUKOCYTE ESTERASE, URINE LARGE (NEGATIVE); NITRITE,URINE POSITIVE (NEGATIVE); OCCULT BLOOD,URINE MODERATE (NEGATIVE); PH,URINE >=9.0 PH (5.0-7.5); PROTEIN,URINE 100 mg/dL (NEGATIVE); UROBILINOGEN,URINE 0.2 (NORMAL) E.U./dL (NORMAL)
[2023-10-18 21:05] LABS: CLARITY,URINE CLOUDY (CLEAR)
[2023-10-18 21:29] LABS: AMORPHOUS SEDIMENT,UR Few /LPF; BACTERIA,URINE Many /HPF (None Seen); SQUAMOUS EPITHELIAL CELL,UR RARE Squamous (<= Few); WBC,URINE >25 /HPF (0-5)
== END 2023-10-18 23:59 | disposition home or self-care (01) ==
LOC: LAB.R 08:00
PROVIDERS: ATTEND Family Medicine
DX: N39.0 Urinary tract infection, site not specified (principal); R30.0 Dysuria
CPT/HCPCS: 81001; 81003; 87077; 87086; 87181

== ENCOUNTER 2023-11-16 08:00 | Outpatient (CLI) | payer MEDICARE, MEDICAID ==
[2023-11-16 18:51] LABS: BASOPHILS % (AUTO) 0.4 %; EOSINOPHILS % (AUTO) 0.5 %; HCT - HEMATOCRIT 37.7 % (37.0-47.0); HGB - HEMOGLOBIN 12.6 g/dL (12.0-16.0); LYMPHOCYTES % (AUTO) 14.7 %; MEAN CORPUSCULAR HEMOGLOBIN 31.2 pg (27.0-31.0); MEAN CORPUSCULAR HGB CONC 33.4 g/dL (32.0-36.0); MEAN CORPUSCULAR VOLUME 93.3 fL (81.0-99.0); MONOCYTES % (AUTO) 4.2 %; NEUTROPHILS % (AUTO) 78.1 %; PLT - PLATELET COUNT 582 10^3/uL (130-450); RED BLOOD COUNT 4.04 10^6/uL (4.20-5.40); RED CELL DISTRIBUTION WIDTH 13.6 % (12.0-15.0); WHITE BLOOD COUNT 21.7 x10^3/uL (4.8-10.8)
[2023-11-16 18:54] LABS: ABNORMAL LYMPHS % (MANUAL) 0 %
[2023-11-16 19:02] LABS: CALCIUM 9.1 mg/dL (8.5-10.3); CRP - C-REACTIVE PROTEIN 25.2 mg/dL (<0.5); POTASSIUM 3.7 mmol/L (3.5-4.5)
[2023-11-16 19:18] LABS: BAND NEUTROPHILS % (MANUAL) 6 %; EOSINOPHILS # (MANUAL) 0.2 10^3/uL (0-0.7); LYMPHOCYTES # (MANUAL) 3.9 10^3/uL (1.5-3.5); LYMPHOCYTES % (MANUAL) 18 %; METAMYELOCYTES % (MANUAL) 3 %; MONOCYTES # (MANUAL) 1.5 10^3/uL (0.0-1.0); MYELOCYTES % (MANUAL) 1 %; NEUTROPHILS # (MANUAL) 15.2 10^3/uL (1.5-6.6); RBC MORPHOLOGY (MULTIPLE) NORMAL APPEARANCE (NORMAL)
[2023-11-16 19:19] LABS: DIFFERENTIAL COMMENT MANUAL DIFFERENTIAL; PLATELET ESTIMATE, MANUAL INCREASED (>450,000) (NORMAL); PLATELET MORPHOLOGY NORMAL APPEARANCE (NORMAL); WBC MORPHOLOGY (MULTIPLE) 1+ TOXIC GRANULATION (NORMAL)
== END 2023-11-16 23:59 | disposition home or self-care (01) ==
LOC: LAB.R 08:00
PROVIDERS: ATTEND Family Medicine
DX: E11.9 Type 2 diabetes mellitus without complications (principal); R70.0 Elevated erythrocyte sedimentation rate; R79.82 Elevated C-reactive protein (CRP); R79.0 Abnormal level of blood mineral; S91.301A Unspecified open wound, right foot, initial encounter
CPT/HCPCS: 80048; 85025; 85651; 86140; 87070; 87077; 87181; 87205

== ENCOUNTER 2023-11-20 10:09 | Day surgery (SDC) | payer MEDICARE, MEDICAID ==
[2023-11-20 12:28] VITALS: BP 114/72; O2SAT 98
--- NOTE | 2023-11-20 13:49 | XRAY Report ---
PROCEDURE: Chest for Line Placement INDICATIONS: PICC line placement TECHNIQUE: One view of the chest was acquired. COMPARISON: 01/14/2023. FINDINGS: Surgical changes and devices: Right arm PICC line, the tip which projects to the SVC right atrial ju nction. Lungs and pleura: No pleural effusions or pneumothorax. Lungs are clear. Mediastinum: Mediastinal contours appear normal. Heart size is normal. Bones and chest wall: No suspicious bony lesions. Overlying soft tissues appear unremarkable. IMPRESSION: Satisfactory PICC line placement. Reviewed by: Johnson Chang MD on 11/20/2023 1:48 PM PDT Approved by: Johnson Chang MD on 11/20/2023 1:48 PM PDT Station ID: [id number]
--- NOTE | 2023-11-20 17:22 | CONSULTATION NOTE ---
Consultation Report: 4 Fr single lumen PICC line placed with U/S guidance in E by Johann Vick RN. Proctored by PANKAJ Avila, but procedure completed entirely by Ferdinand. Sterile technique maintained. Line trimmed to 37cm, port aspirates and flushes easily. Pt tolerated well. Placement verified by pCXR.
== END 2023-11-20 10:10 | disposition home or self-care (01) ==
LOC: SDS 10:09
PROVIDERS: ATTEND Nurse Anesthetist, Certified Registered
DX: M86.9 Osteomyelitis, unspecified (principal)
CPT/HCPCS: 36569; C1751

== ENCOUNTER 2023-11-25 08:00 | Outpatient (CLI) | payer MEDICARE, MEDICAID ==
[2023-11-25 06:29] LABS: BASOPHILS # (AUTO) 0.1 10^3/uL (0.0-0.1); BASOPHILS % (AUTO) 1.2 %; EOSINOPHILS # (AUTO) 0.5 10^3/uL (0.0-0.7); HCT - HEMATOCRIT 33.8 % (37.0-47.0); HGB - HEMOGLOBIN 10.7 g/dL (12.0-16.0); LYMPHOCYTES # (AUTO) 2.1 10^3/uL (1.5-3.5); LYMPHOCYTES % (AUTO) 22.9 %; MEAN CORPUSCULAR HEMOGLOBIN 31.1 pg (27.0-31.0); MEAN CORPUSCULAR HGB CONC 31.7 g/dL (32.0-36.0); MEAN CORPUSCULAR VOLUME 98.3 fL (81.0-99.0); MEAN PLATELET VOLUME 8.5 fL (7.9-10.8); MONOCYTES # (AUTO) 0.6 10^3/uL (0.0-1.0); MONOCYTES % (AUTO) 7.1 %; NEUTROPHILS # (AUTO) 5.6 10^3/uL (1.5-6.6); PLT - PLATELET COUNT 540 10^3/uL (130-450); RED BLOOD COUNT 3.44 10^6/uL (4.20-5.40)
[2023-11-25 06:47] LABS: CREATININE 0.6 mg/dL (0.6-1.3); CRP - C-REACTIVE PROTEIN 4.4 mg/dL (<0.5); POTASSIUM 3.9 mmol/L (3.5-4.5)
== END 2023-11-25 23:59 | disposition home or self-care (01) ==
LOC: LAB.N 08:00
PROVIDERS: ATTEND Family Medicine
DX: M86.9 Osteomyelitis, unspecified (principal)
CPT/HCPCS: 36415; 80048; 85025; 85651; 86140

== ENCOUNTER 2023-11-26 08:21 | Outpatient (CLI) | payer MEDICARE, MEDICAID ==
[2023-11-26 15:36] LABS: VANCOMYCIN,TROUGH 33.1 ug/mL
== END 2023-11-26 08:22 | disposition home or self-care (01) ==
LOC: LAB.R 08:21
PROVIDERS: ATTEND Family Medicine
DX: M86.9 Osteomyelitis, unspecified (principal)
CPT/HCPCS: 80202

== ENCOUNTER 2023-11-27 08:00 | Outpatient (CLI) | payer MEDICARE, MEDICAID ==
[2023-11-27 07:27] LABS: VANCOMYCIN,TROUGH 17.5 ug/mL
== END 2023-11-27 23:59 | disposition home or self-care (01) ==
LOC: LAB.R 08:00
PROVIDERS: ATTEND Family Medicine
DX: M86.10 Other acute osteomyelitis, unspecified site (principal); R01.1 Cardiac murmur, unspecified; I10 Essential (primary) hypertension
CPT/HCPCS: 36415; 80053; 80202

== ENCOUNTER 2023-11-28 14:16 | Outpatient (CLI) | payer MEDICARE, MEDICAID ==
[2023-11-28 14:48] LABS: ALBUMIN 2.8 g/dL (3.2-5.5); ALBUMIN/GLOBULIN RATIO 0.8 (1.0-2.2); ALKALINE PHOSPHATASE 64 IU/L (42-121); ALT ALANINE AMINOTRANSFERASE < 3 IU/L (10-60); AST ASPARTATE AMINOTRANSFERASE 15 IU/L (10-42); BILIRUBIN,TOTAL 0.5 mg/dL (0.2-1.0); BUN - BLOOD UREA NITROGEN 11 mg/dL (6-20); CALCIUM 8.6 mg/dL (8.5-10.3); CARBON DIOXIDE - CO2 27 mmol/L (21-32); CHLORIDE 93 mmol/L (101-111); CREATININE 0.6 mg/dL (0.6-1.3); GFR - MDRD 96 (>89); GLUCOSE 126 mg/dL (74-104); POTASSIUM 3.6 mmol/L (3.5-4.5); SODIUM 126 mmol/L (135-145); TOTAL PROTEIN 6.1 g/dL (6.4-8.9); VANCOMYCIN,TROUGH 13.7 ug/mL
== END 2023-11-28 14:17 | disposition home or self-care (01) ==
LOC: LAB.R 14:16
PROVIDERS: ATTEND Family Medicine
DX: I10 Essential (primary) hypertension (principal); E44.1 Mild protein-calorie malnutrition; R01.1 Cardiac murmur, unspecified; Z86.72 Personal history of thrombophlebitis; M86.9 Osteomyelitis, unspecified
CPT/HCPCS: 80053; 80202; 82607

== ENCOUNTER 2023-12-03 09:07 | Outpatient (CLI) | payer MEDICARE, MEDICAID ==
[2023-12-03 09:32] LABS: BUN - BLOOD UREA NITROGEN 11 mg/dL (6-20); CALCIUM 8.7 mg/dL (8.5-10.3); CARBON DIOXIDE - CO2 30 mmol/L (21-32); CHLORIDE 96 mmol/L (101-111); CREATININE 0.6 mg/dL (0.6-1.3); GFR - MDRD 96 (>89); GLUCOSE 114 mg/dL (74-104); POTASSIUM 3.1 mmol/L (3.5-4.5); SODIUM 131 mmol/L (135-145); VANCOMYCIN,TROUGH 20.2 ug/mL
== END 2023-12-03 09:08 | disposition home or self-care (01) ==
LOC: LAB.R 09:07
PROVIDERS: ATTEND Family Medicine
DX: R01.1 Cardiac murmur, unspecified (principal); M86.9 Osteomyelitis, unspecified; M15.9 Polyosteoarthritis, unspecified; E44.1 Mild protein-calorie malnutrition
CPT/HCPCS: 80048; 80202